=== PATIENT | female | born 1975 | race Caucasian/White ===

== ENCOUNTER 2021-10-06 08:21 | Outpatient (RCR) | payer BC, SELFPAY ==
--- NOTE | 2021-09-29 18:16 | ONC.NURNOTE ---
Authorization: User: Shanice BessJada Davey Date: 07/28/21 12:49 Type: Eligibility Determination Note... Received request for prior auth for Aloxi ([id number]). Per [facility], this has been approved 0.25mg/5ml vial, quantity/billable units of 270 (27 doses), approved for 07/31/2021-07/30/2022. Auth # [id number] User: Shanice BessJada Davey Date: 03/16/21 15:59 Type: Eligibility Determination Note... Clarification of multiple authorizations. Irinotecan (J9206), Leucovorin (J6040) and Fluorouracil (J9190) do not need prior authorization. Per [facility] Avastin ([id number]) is approved 09/23/2020-09/22/2021., 1080 units total (40 units per visit for a total of 27 visits) Aloxi (J2469) is approve 07/21/2020-07/20/2021, 270 units total ( 10 units per visit for a total of 27 visits) Emend (J1453) is approve 09/28/2020-09/27/2021, 4050 units(150units per visit for a total of 27 visits)
== END 2021-10-15 23:59 | disposition home or self-care (01) ==
LOC: CCIC 08:21
PROVIDERS: PCP Family Medicine; Visit Provider Internal Medicine Medical Oncology
DX: C20 Malignant neoplasm of rectum (principal); C78.7 Secondary malignant neoplasm of liver and intrahepatic bile duct; C78.00 Secondary malignant neoplasm of unspecified lung
CPT/HCPCS: 99211

== ENCOUNTER 2021-10-30 08:18 | Outpatient (CLI) | payer BC, SELFPAY ==
--- OUTSIDE RECORDS SUMMARY | 2021-10-30 08:21 | XMS_ITS | Encounter Summary ---
:1975 Demographics Address [address] [facility] [address] [place] [address] Home Phone Email Address Preferred Language ENG Marital Status Mandaen Affiliation Unknown Race White Ethnic Group Not or Author Organization [facility] Address [address] [place] [address] Care Team Providers Name Role Phone Unavailable Primary Care Provider Unavailable Reason for Visit Reason Onset Date Comments Outpatient COVID-19 Testing 10/25/2019 Encounter Details Date Type Department Care Team Description 10/25/2019 External Outreach Department of [facility] Yair Gonzalez Encounter For Medicine in Gerald Patricio M.D. Screening For Other [place], [place] 1025 [facility] Viral Diseases [address] [place], [place] (COVID-19) [place] [address] Dx) [id number] Social History Tobacco Use Types Packs/Day Years Used Date Smoking Tobacco: Never Assessed Alcohol Habits Answer Date Recorded How often do you have a drink containing alcohol? 2-3 times a week 07/27/2020 How many drinks containing alcohol do you have on a 1 or 2 07/27/2020 typical day when you are drinking? How often do you have six or more drinks on one Never 07/27/2020 occasion? Comment: Not asked Social Isolation Answer Date Recorded In a typical week, how many times do you Twice a week 07/27/2020 talk on the phone with family, friends, or neighbors? How often do you get together with friends Twice a week 07/27/2020 or relatives? How often do you attend taoism or latter day Not asked services? Do you belong to any clubs or organizations Yes 07/27/2020 such as taoism groups, unions, fraternal or athletic groups, or school groups? How often do you attend meetings of the More than 4 times pe r year 07/27/2020 clubs or organizations you belong to? Are you now , , , 07/27/2020 , never or living with a partner? Physical Activity Answer Date Recorded On average, how many days per week do you engage in moderate to 7 days 07/27/2020 strenuous exercise (like walking fast, running, jogging, dancing, swimming, biking, or other activities that cause a light or heavy sweat)? On average, how many minutes do you engage in exercise at th is 120 min 07/27/2020 level? Stress Answer Date Recorded Do you feel stress - tense, restless, nervous, or Only a lit tle 07/27/2020 anxious, or unable to sleep at night because your mind is troubled all the time - these days? Financial Resource Strain Answer Date Recorded How hard is it for you to pay for the very basics like Somew hat hard 07/27/2020 food, housing, medical care, and heating? Food Insecurity Answer Date Recorded Within the past 12 months, you worried that your food would Never true 07/27/2020 run out before you got money to buy more. Within the past 12 months, the food you bought just didn't N ever true 07/27/2020 last and you didn't have money to get more. Transportation Needs Answer Date Recorded In the past 12 months, has lack of transportation kept you f rom No 07/27/2020 medical appointments or from getting medications? In the past 12 months, has lack of transportation kept you f rom No 07/27/2020 meetings, work, or getting things needed for daily living? Housing Stability Answer Date Recorded In the last 12 months, was there a time when you were not ab le No 07/27/2020 to pay the mortgage or rent on time? In the last 12 months, how many places have you lived? 1 07/27/2020 In the last 12 months, was there a time when you did not hav e a No 07/27/[address] or slept in a long-term (including now)? Sex Assigned at Date Recorded Not on file documented as of this encounter Progress Notes Johanna Cuenca R.M.A. - 10/25/2019 8:28 AM CDT Encounter created for the drive-through COVID-19 testing. documented in this encounter Miscellaneous Notes Addendum Note - Cassandra Garza R.N. - 10/25/2019 8:28 AM CDT Addended by: CASSANDRA GARZA on: 10/29/2019 02:34 PM Modules accepted: Orders documented in this encounter Plan of Treatment Not on filedocumented as of this encounter Visit Diagnoses Diagnosis Encounter For Screening For Other Viral Diseases (COVID-19) - Primary documented in this encounter Additional Health Concerns Infection Onset Date Last Indicated Resolved Time COVID19 Pending 10/25/2019 10/25/2019 10/29/2019 2:34 PM CDT documented as of this encounter
--- OUTSIDE RECORDS SUMMARY | 2021-10-30 08:21 | XMS_ITS | Encounter Summary ---
:1975 Demographics Address [address] [address] Home Phone Email Address Preferred Language ENG Marital Status Jehovah'S Witness Affiliation Unknown Race White Ethnic Group Not or Author Organization [facility] Address [address] [place] [address] Care Team Providers Name Role Phone Unavailable Primary Care Provider Unavailable Reason for Visit Reason Comments COVID Inquiry Encounter Details Date Type Department Care Team Description 07/08/2020 Clinical Communication Department of Yair Gonzalez COVID Inquiry Oncology in [place] [address] [id number] Social History Tobacco Use Types Packs/Day Years [...] or relatives? How often do you attend samaritan or jew Not asked services? Do you belong to any clubs or organizations Yes 07/27/2020 such as samaritan groups, unions, fraternal or athletic groups, or [...] place to sleep or slept in a longterm (including now)? Sex Assigned at Date Recorded Not on file documented as of this encounter Plan of Treatment Not on filedocumented as of this encounter Visit Diagnoses Not on filedocumented in this encounter Additional Health Concerns Infection Onset Date Last Indicated Resolved Time COVID19 Pending 07/25/2020 07/25/2020 07/25/2020 11:51 PM CDT documented as of this encounter
--- OUTSIDE RECORDS SUMMARY | 2021-10-30 08:21 | XMS_ITS | Encounter Summary ---
:1975 Demographics Address [address] [facility] [address] [place] [address] Home Phone Email Address Preferred Language ENG Marital Status Baptist Affiliation Unknown Race White Ethnic Group Not or Author Organization [facility] Address [address] [place] [address] Care Team Providers Name Role Phone Unavailable Primary Care Provider Unavailable Reason for Visit Reason Onset Date Comments Outpatient COVID-19 Testing 11/06/2019 Encounter Details Date Type Department Care Team Description 11/06/2019 External Outreach Department of [facility] Yair Gonzalez Encounter For Medicine in Gerald Patricio M.D. Screening For Other [place], [place] 1025 [facility] Viral Diseases [address] [place], [place] (COVID-19) ([place] [address] Dx) [id number] Social History Tobacco Use Types Packs/Day Years [...] or relatives? How often do you attend jehovah's witness or nondenominational Not asked services? Do you belong to any clubs or organizations Yes 07/27/2020 such as jehovah's witness groups, unions, fraternal or athletic groups, or [...] place to sleep or slept in a long term (including now)? Sex Assigned at Date Recorded Not on file documented as of this encounter Progress Notes Cassandra Garza R.N. - 11/06/2019 4:55 PM CDT Encounter created for the drive-through COVID-19 testing. documented in this encounter Plan of Treatment Not on filedocumented as of this encounter Procedures Procedure Name Priority Date/Time Associated Diagnosis Comme nts SARS CORONAVIRUS-2 Routine 11/07/2019 10:47 AM Encounter For R esults for this RNA, V CDT Screening For Other procedur e are in Viral Diseases the results (COVID-19) section. documented in this encounter Results SARS Coronavirus-2 RNA, V Asymptomatic (11/07/2019 10:47 AM CDT) [facility] Method Time Signature SARS-CoV-2 Swab, 11/08/2019 MKTO Specimen Nasopharynx 1:49 AM CDT Source SARS CoV-2 Undetected Undetected 11/08/2019 MKTO RNA, TMA 1:49 AM CDT Comment: SARS-CoV-2 RNA absent. This result does not rule out COVID-19 in the patient, as the sensitivity of the test depends o n the timing of the specimen collection and the quality of the specim en. Result should be correlated with patient's history and clinical presentat ion. ----ADDITIONAL INFORMATION---- This test is performed using the Aptima SARS-CoV-2 assay ([employer] which has received Emergency Use Authori zation (EUA) by the U.S. Food and Drug Administration. Fact sheets for this Emergency Use Autho rization (EUA) assay can be found at the following links: For Healthcare Providers: https://www.fd a.gov/media/132626/download For Patients: https://www.fda.gov/media/ 159218/download Specimen Anatomical Collection Method Collection Time Receive d Time (Source) Location / / Volume Laterality Varies 11/07/2019 10:47 11/07/2019 4:15 (Nasopharynx) AM CDT PM CDT Yair Gonzalez M.D. LAB MICROBIOLOGY - GENERAL O RDERABLES Performing Organization Address City/State/ZIP Code Phon e Number [facility]- [address] [place] [id number] [place] [address] [address] documented in this encounter Visit Diagnoses Diagnosis Encounter For Screening For Other Viral Diseases (COVID-19) - Primary documented in this encounter Additional Health Concerns Infection Onset Date Last Indicated Resolved Time COVID19 Pending 11/06/2019 11/07/2019 11/08/2019 1:49 AM CDT documented as of this encounter
--- OUTSIDE RECORDS SUMMARY | 2021-10-30 08:21 | XMS_ITS | Encounter Summary ---
:1975 Demographics Address [address] [address] Home Phone Email Address Preferred Language ENG Marital Status Mandaeism Affiliation Unknown Race White Ethnic Group Not or Author Organization [facility] Address [address] [place] [address] Care Team Providers Name Role Phone Unavailable Primary Care Provider Unavailable Encounter Details Date Type Department Care Team Description 12/18/2019 Hospital Encounter Department of Lelia Gregory Laboratory Medicine EDUARDO Mariano Screening For Other in [place], [facility] 1st [facility] Viral Diseases [place], [place] (COVID-19) [address] [place] [address] [place], [place] [phone] [address] (Work) [phone] Social History Tobacco Use Types Packs/Day Years [...] or relatives? How often do you attend spiritism or gnosticism Not asked services? Do you belong to any clubs or organizations Yes 07/27/2020 such as spiritism groups, unions, fraternal or athletic groups, or [...] place to sleep or slept in a assisted (including now)? Sex Assigned at Date Recorded Not on file documented as of this encounter Plan of Treatment Not on filedocumented as of this encounter Procedures Procedure Name Priority Date/Time Associated Diagnosis Comme nts SARS CORONAVIRUS-2 Routine 12/18/2019 10:11 AM Encounter For R esults for this RNA, V CDT Screening For Other procedur e are in Viral Diseases the results (COVID-19) section. documented in this encounter Results SARS Coronavirus-2 RNA, V Asymptomatic (12/18/2019 10:11 AM CDT) [facility] Method Time Signature SARS-CoV-2 Swab, 12/18/2019 MKTO Specimen Nasopharynx 10:19 PM Source CDT SARS CoV-2 Undetected Undetected 12/18/2019 MKTO RNA, TMA 10:19 PM CDT Comment: SARS-CoV-2 RNA absent. This result does not rule out COVID-19 in the patient, as the sensitivity of the test depends o n the timing of the specimen collection and the quality of the specim en. Result should be correlated with patient's history and clinical presentat ion. ----ADDITIONAL INFORMATION---- This test is performed using the Aptima SARS-CoV-2 assay ([employer] which has received Emergency Use Authori zation (EUA) by the U.S. Food and Drug Administration. Fact sheets for this Emergency Use Autho rization (EUA) assay can be found at the following links: For Healthcare Providers: https://www.fd a.gov/media/366569/download For Patients: https://www.fda.gov/media/ 528956/download Specimen Anatomical Collection Method Collection Time Receive d Time (Source) Location / / Volume Laterality Varies 12/18/2019 10:11 12/18/2019 3:54 (Nasopharynx) AM CDT PM CDT Montserrat Gregory APRN LAB MICROBIOLOGY - GENERAL O RDERABLES Performing Organization Address City/State/[facility] Code Phon e Number [facility]- [address] [place] [phone] [place] [address] System in [address] documented in this encounter Visit Diagnoses Diagnosis Encounter For Screening For Other Viral Diseases (COVID-19) documented in this encounter Additional Health Concerns Infection Onset Date Last Indicated Resolved Time COVID19 Pending 12/18/2019 12/18/2019 12/18/2019 10:20 PM CDT documented as of this encounter
--- OUTSIDE RECORDS SUMMARY | 2021-10-30 08:21 | XMS_ITS | Encounter Summary ---
:1975 Demographics Address [address] [place] [address] Home Phone [phone] Preferred Language Malaysian Marital Status Never Zoroastrian Affiliation Unknown Race White Ethnic Group Not or Author Care Team Providers Name Role Phone Tessy Oliveira MD Primary Care Provider [phone] Yair Gonzalez MD Radiation Oncologist [phone] [facility] Care Team Palliative Care [phone] Jasmin Portillo facs teacher [phone] [facility] Palliative Care [phone] Kevin Stein SEALER OPERATOR Palliative Care [phone] Ronit Nunez [facility] Sanding Machine Buffer [phone] Reason for Visit NN Enrollment Assessment and Plan Assessment Note Evaluation: Patient moved back to [place] in 2018, was diagnosed with Stage 4 metastatic colorectal Cancer in September 2019. Completed chemo 7 weeks ago. Reports she has no other health concerns. Reports she is feeling good since completing chemo. No immediate health needs at this time. REN: overall balance with my health, nut rition, exercise Cultural and spiritual beliefs: none -Discussed: Her health is important to h er and wants to use medical intervention as last resort. - Karnofsky score: 100 = Normal no compl aints; no evidence of disease -Pain/symptom management: -Medication support: -Assistance at home: -DME order: -Mental/emotional support: -Care coordination: -08/10 care support: -Falls: no recent falls -Hospitalizations: no hospitalizations i n the last 6 months -Health Needs: has periodontal disease - reports it is stable, concerned about the future maintaining her teeth and insurance not covering oral surgeries that may be needed Action: Introduced self and Adi Nurse Navigator role. Encouragement, emotional support and therapeutic listening provided. Nurse reminded patient of Adi's suppor tive services. Educated patient on Adi's 08/10 availability of a non licensed nuclear plant operator to provide immediate guidance over the phone and receive personalized advice on the next steps. Encouraged patient to call if any concerns or symptoms arise, and [phone] was provided. SEALER OPERATOR visit scheduled on 10/09/21 at 9am. Next Steps: Patient outreach in [facility] 6-8 weeks. TOBY Castellanos Discussion Note: None recorded.Patient educational handouts: No information available. Plan of Care Patient Instructions Patient instructed to call with orestes ns or concerns. Reminders Provider Appointments None recorded. ? ? Lab None recorded. ? ? Referral None recorded. ? ? Procedures None recorded. ? ? Surgeries None recorded. ? ? Imaging None recorded. ? ? Medications Name Start Date ? ? acyclovir 400 mg tablet ? Notes: MR 09/22/21 Medications Administered None recorded. Vitals Height Weight BMI 5 ft 3 in 50 lbs 8.9 kg/m2 Results Lab Results None recorded. Allergies Code Code System Name Reaction Severity Onset [id number] RxNorm Latex Rash ? 07/28/2020 Problems Name Status Onset Date Source ? 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 Procedures None recorded. Vaccine List None recorded. Social History 44. Assistance with Errands: N 30. Assistance with Transfers: N 56. Difficulty Remembering Things: N 26. Food Insecurity: N 42. Assistance with Eating: N 3. ACP Scan in Chart: N 4. Employment History: Employed 60. Has a Zoroastrian Preference: N 6. Income Source: Employment 34. Fear of Falling: N 22. Caregiver [place] Concerns: N 38. Assistance with Stairs: N 50. Uses Assistive Device(s): N 64. Trauma History: None reported 32. Assistance with Bathing: N 100. In General, would you say your Good health is: 68. Suicidal Safety Assessment Needed: N 77. Alcalde's Status: N 40. Assistance with Meal Prep: N 62. Feels Anxious/Stressed: N 54. Hearing Impairment: N 5. Health Care Agent: N 36. Assistance with Toileting: N 58. Mode of Transportation: drives self 8. ETOH Use: N 2. Date of ACP Acknowledgement Notes: Does not have HCD (includes advance directive, living will, POLST, health care agent, durable medical power of staff development educator): 12. Stable Housing: Y 48. Assistance with Managing Finances: N 10. Substance Use Concerns: N 34. Assistance with Dressing/Grooming: N 70. Mental Health Provider Involved: N 52. Vision Impairment: Y Notes: Wears gl asses for driving 33. Fallen Two or More Times in Last N Year: 76. Vulnerable Adult Concerns: N 28. Assistance with Walking: N 18. Has Reliable Social/Emotional Y Support: 8. Financial Strain: N 16. Children: 0 01. ACP Discussion Date: 09/22/2021 9. Illicit Drug Use: N 10. Living Situation: apartment 4. POLST Completed: N 72. Interpersonal Safety Concerns: N 14. Feels Safe At Home: Y 46. Assistance with Housekeeping: N 106. Assistance with Telephone: N Functional Status Unknown. Past Encounters 09/22/2021 Jasmin Portillo, RN: [address] [place] [phone], Ph. History of Present Illness Note: <div>General consent form reviewed, and patient verbally gives consent for services, release of information and record sharing. Mailing to be sent out including Notice of Privacy Practices and acopy of the General consent information sheet for review.</div><div>
Little Nuñez verbally gives permission to discuss health information with mother Livier Levy on 09/21/2021. Patient designees documented under Care Team section of chart. </div><div>
Contact: Nurse performed introduction visit via{{phone* face to face video}}. Patients' name and date of verified.
Patient story is presented {{entirely* primarily}} by the {{patient* patient's brother, full name patient's [id number], full name patient's caregiver, full name patient's daughter, full name patient's [id number]-wb-fvu, full name pat ient's friend, full name patient's grandchild, full name patient's , full name patient's sister, full name patient's [id number]-qu-gtz, full name patient&# 39;s son, full name patient's son-in-law, full name patient's ,full name}} Patient is a {{age 46#}} year-old, {{female* male}} with a reported history of Primary malignant neoplasm of rectum who appears {{alert, oriented and answering questions appropriately* confused and not answering questions appropriately}}.

This enrollment visit was conducted today via {{face to face phone* video}} with {{ Nurse#}}. All past medical history, current condition, medications, and allergies were reported by {{patient* patient's brother, full name patient's rlfncei-qb-jkw, full name patient's caregiver, full name patient's daughter, full name patient's [id number]-rn-vsu, full name patient's friend, full name patient's grandchild, full name patient's , full name patient's sister, full name patient's fyqesr-vo-orb, full name patient's son, full name patient's son-in-law, full name patient's , full name}}.

Start time: {{ 10:30am#}} Stop time: {{ 11:00am#}}
Clinician Located: {{Clinician Home Address* [place] Office Address Patient?s Home Address}}
Patient physically located at: {{Patient's Home Address* [facility] Location, Name of Facility, City/State SNF Location, Name of Facility, City/State LTC Location, Name of Facility, City/State Other Location, City, State}}
</div> Review of Systems None recorded. Physical Exam None recorded.
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
--- OUTSIDE RECORDS SUMMARY | 2021-10-30 08:21 | XMS_ITS | Encounter Summary ---
:1975 Demographics Address [address] [facility] [address] [place] [address] Home Phone Email Address Preferred Language ENG Marital Status Sikhism Affiliation Unknown Race White Ethnic Group Not or Author Organization [facility] Address [address] [place] [address] Care Team Providers Name Role Phone Unavailable Primary Care Provider Unavailable Encounter Details Date Type Department Care Team Description 02/26/2020 Hospital Encounter Department of Yair Gonzalez For Laboratory Medicine D, MMargaret. Screening For Other in [address] Viral Diseases [place], [place] (COVID-19) [address] [place] [address] [place], [place] [phone] [address] (Work) [phone] Social History Tobacco Use Types Packs/Day Years [...] or relatives? How often do you attend synagogue or taoism Not asked services? Do you belong to any clubs or organizations Yes 07/27/2020 such as synagogue groups, unions, fraternal or athletic groups, or [...] place to sleep or slept in a halfway (including now)? Sex Assigned at Date Recorded Not on file documented as of this encounter Plan of Treatment Not on filedocumented as of this encounter Procedures Procedure Name Priority Date/Time Associated Diagnosis Comme nts SARS CORONAVIRUS-2 Routine 02/26/2020 10:43 AM Encounter For R esults for this RNA, V POWER AND RECOVERY SUPERINTENDENT Screening For Other procedur e are in Viral Diseases the results (COVID-19) section. documented in this encounter Results SARS Coronavirus-2 RNA, V Asymptomatic (02/26/2020 10:43 AM POWER AND RECOVERY SUPERINTENDENT) [facility] Method Time Signature SARS-CoV-2 Swab, 02/26/2020 [facility] Specimen Nasopharynx 9:27 PM POWER AND RECOVERY SUPERINTENDENT Source SARS CoV-2 Undetected Undetected 02/26/2020 [facility] RNA, TMA 9:27 PM POWER AND RECOVERY SUPERINTENDENT Comment: SARS-CoV-2 RNA absent. This result does not rule out COVID-19 in the patient, as the sensitivity of the test depends o n the timing of the specimen collection and the quality of the specim en. Result should be correlated with patient's history and clinical presentat ion. ----ADDITIONAL INFORMATION---- This test is performed using the Aptima SARS-CoV-2 assay ([employer] which has received Emergency Use Authori zation (EUA) by the U.S. Food and Drug Administration. Fact sheets for this Emergency Use Autho rization (EUA) assay can be found at the following links: For Healthcare Providers: https://www.fd a.gov/media/708806/download For Patients: https://www.fda.gov/media/ 651641/download Specimen Anatomical Collection Method Collection Time Receive d Time (Source) Location / / Volume Laterality Varies 02/26/2020 10:43 02/26/2020 3:50 (Nasopharynx) AM POWER AND RECOVERY SUPERINTENDENT PM POWER AND RECOVERY SUPERINTENDENT Yair Gonzalez M.D. LAB MICROBIOLOGY - GENERAL O MICHAEL Performing Organization Address City/State/ZIP Code Phon e Number [facility]- [address] [place] [address] [place] [address] System [address] documented in this encounter Visit Diagnoses Diagnosis Encounter For Screening For Other Viral Diseases (COVID-19) documented in this encounter Additional Health Concerns Infection Onset Date Last Indicated Resolved Time COVID19 Pending 02/26/2020 02/26/2020 02/26/2020 9:28 PM POWER AND RECOVERY SUPERINTENDENT documented as of this encounter
--- OUTSIDE RECORDS SUMMARY | 2021-10-30 08:21 | XMS_ITS | Encounter Summary ---
:1975 Demographics Address [address] [facility] 2 [place] [address] Home Phone Email Address Preferred Language ENG Marital Status Rastafari Affiliation Unknown Race White Ethnic Group Not or Author Organization [facility] Address [address] [place] [address] Care Team Providers Name Role Phone Unavailable Primary Care Provider Unavailable Encounter Details Date Type Department Care Team Description 01/15/2020 Hospital Encounter Department of Yair Gonzalez For Laboratory Medicine Sheng, MMargaret. Screening For Other in [address] Viral Diseases [place], [place] (COVID-19) [address] [place] [address] [place], [place] [phone] [address] (Work) [phone] Social History Tobacco Use Types Packs/Day Years [...] or relatives? How often do you attend buddhist or catholic Not asked services? Do you belong to any clubs or organizations Yes 07/27/2020 such as buddhist groups, unions, fraternal or athletic groups, or [...] place to sleep or slept in a mcc (including now)? Sex Assigned at Date Recorded Not on file documented as of this encounter Plan of Treatment Not on filedocumented as of this encounter Procedures Procedure Name Priority Date/Time Associated Diagnosis Comme nts SARS CORONAVIRUS-2 Routine 01/15/2020 10:47 AM Encounter For R esults for this RNA, V CDT Screening For Other procedur e are in Viral Diseases the results (COVID-19) section. documented in this encounter Results SARS Coronavirus-2 RNA, V Asymptomatic (01/15/2020 10:47 AM CDT) [facility] Method Time Signature SARS-CoV-2 Swab, 01/16/2020 MK[facility] Specimen Nasopharynx 2:10 AM CDT Source SARS CoV-2 Undetected Undetected 01/16/2020 [facility] RNA, TMA 2:10 AM CDT Comment: SARS-CoV-2 RNA absent. This result does not rule out COVID-19 in the patient, as the sensitivity of the test depends o n the timing of the specimen collection and the quality of the specim en. Result should be correlated with patient's history and clinical presentat ion. ----ADDITIONAL INFORMATION---- This test is performed using the Aptima SARS-CoV-2 assay ([employer] which has received Emergency Use Authori zation (EUA) by the U.S. Food and Drug Administration. Fact sheets for this Emergency Use Autho rization (EUA) assay can be found at the following links: For Healthcare Providers: https://www.Singular a.gov/media/480740/download For Patients: https://www.fda.gov/media/ 569001/download Specimen Anatomical Collection Method Collection Time Receive d Time (Source) Location / / Volume Laterality Varies 01/15/2020 10:47 01/15/2020 3:36 (Nasopharynx) AM CDT PM CDT Yair Gonzalez M.D. LAB MICROBIOLOGY - GENERAL O MICHAEL Performing Organization Address City/State/ZIP Code Phon e Number [facility]- [address] [place] [address] [place] [address] System [address] documented in this encounter Visit Diagnoses Diagnosis Encounter For Screening For Other Viral Diseases (COVID-19) documented in this encounter Additional Health Concerns Infection Onset Date Last Indicated Resolved Time COVID19 Pending 01/15/2020 01/15/2020 01/16/2020 2:10 AM CDT documented as of this encounter
--- OUTSIDE RECORDS SUMMARY | 2021-10-30 08:21 | XMS_ITS | Encounter Summary ---
:1975 Demographics Address [address] [facility] 2 [place] [address] Home Phone Email Address Preferred Language ENG Marital Status Synagogue Affiliation Unknown Race White Ethnic Group Not or Author Organization [facility] Address [address] [place] [address] Care Team Providers Name Role Phone Unavailable Primary Care Provider Unavailable Reason for Referral MRI/CAT/PET Scan (Routine) - Authorized Specialty Diagnoses / Procedures Referred By Contact Refer red To Contact Radiology Diagnoses Lung Interstitial Disease (HCC) Yair Gonzalez M.D. [facility] Region Procedures CT Chest without IV Contrast [address] [place] [address] Referral ID Status Reason Start Date Expiration Date Visits V isits Requested Authorized [id number] Authorized 05/01/2021 05/01/2022 1 1 DENTIAL GLAZIER Outpatient (Routine) - Authorized Specialty Diagnoses / Procedures Referred By Contact Refer red To Contact Pulmonary Medicine Yair Gonzalez M. D. Specks, [place], M.D. [facility] [address] [place] [address] [place] [address] Phone: Fax: Referral ID Status Reason Start Date Expiration Date Visits V isits Requested Authorized [id number] Authorized 05/01/2021 05/01/2022 1 1 DENTIAL GLAZIER Encounter Details Date Type Department Care Team Description 05/01/2021 Orders Only Department of Yair Gonzalez Cavity Lu ng (Primary Dx); Oncology in [place], M.D. Malignant Neoplasm Of Rectum (HCC); [place] [facility] Lung Interstitial Disease (HCC) [address] [place] [phone] Social History Tobacco Use Types Packs/Day Years [...] or relatives? How often do you attend advent or adventism Not asked services? Do you belong to any clubs or organizations Yes 07/27/2020 such as advent groups, unions, fraternal or athletic groups, or school groups? How often do you attend meetings of the More than 4 times pe year 07/27/2020 clubs or organizations you belong [...] or slept in a mcc (including now)? Education Answer Date Recorded What is the highest level of Professional school degree (e.g ., , 07/27/2020 school you have completed or the DDS, DVM, RASTA) highest degree you have received? Sex Assigned at Date Recorded Not on file documented as of this encounter Plan of Treatment Scheduled Orders Name Type Priority Associated Diagnoses Order S chedule CT Chest without Imaging RAD - Routine (most Lung Interstitial Expected: IV Contrast inpatients and all Disease (HCC) 07/30/19 22 outpatients) (Approximate), Expires: 07/29/2022 Scheduled Referrals Name Type Priority Associated Diagnoses Order S chedule Return to provider Outpatient Referral Routine Ex pected: in another 07/29/2021 specialty (Approximate), Expires: 07/29/2022 documented as of this encounter Visit Diagnoses Diagnosis Cavity Lung - Primary Malignant Neoplasm Of Rectum (HCC) Lung Interstitial Disease (HCC) documented in this encounter
--- OUTSIDE RECORDS SUMMARY | 2021-10-30 08:21 | XMS_ITS | Encounter Summary ---
:1975 Demographics Address [address] [place] [address] Home Phone [phone] Preferred Language Croatian Marital Status Never Methodist Affiliation Unknown Race White Ethnic Group Not or Author Care Team Providers Name Role Phone Tessy Oliveira MD Primary Care Provider [phone] Yair Gonzalez MD Radiation Oncologist [phone] [facility] Care Team Palliative Care [phone] Jasmin Portillo head knitting machine fixer [phone] Dionne Unger [facility] Palliative Care [phone] Kevin Stein ORDER TO DELIVERY SUPERVISOR Palliative Care [phone] Ronit Nunez [facility] Special Delivery Carrier [phone] Reason for Visit AMINATA Initial Assessment and Plan Assessment Note Patient did not answer her phone today. Called x 2, left a message x 1. Please try and reschedule for the third time. Message sent to [facility] Discussion Note: None recorded.Patient educational handouts: No information available. Plan of Care Reminders Provider Appointments None recorded. ? ? Lab None recorded. ? ? Referral None recorded. ? ? Procedures None recorded. ? ? Surgeries None recorded. ? ? Imaging None recorded. ? ? Medications Name Start Date ? ? acyclovir 400 mg tablet ? Notes: MR 09/22/21 Medications Administered None recorded. Vitals None recorded. Results Lab Results None recorded. Allergies Code Code System Name Reaction Severity Onset [id number] RxNorm Latex Rash ? 07/28/2020 Problems Name Status Onset Date Source ? 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 Procedures None recorded. Vaccine List None recorded. Social History 44. Assistance with Errands: N 30. Assistance with Transfers: N 56. Difficulty Remembering Things: N 26. Food Insecurity: N 42. Assistance with Eating: N 3. ACP Scan in Chart: N 60. Has a Methodist Preference: N 4. Employment History: Employed 6. Income Source: Employment 34. Fear of Falling: N 38. Assistance with Stairs: N 22. Caregiver Elizabeth Concerns: N 64. Trauma History: None reported 50. Uses Assistive Device(s): N 32. Assistance with Bathing: N 100. In General, would you say your Good health is: 68. Suicidal Safety Assessment Needed: N 77. 's Status: N 40. Assistance with Meal Prep: N 62. Feels Anxious/Stressed: N 54. Hearing Impairment: N 5. Health Care Agent: N 36. Assistance with Toileting: N 58. Mode of Transportation: drives self 8. ETOH Use: N 2. Date of ACP Acknowledgement Notes: Does not have HCD (includes advance directive, living will, POLST, health care agent, durable medical power of sports attorney): 12. Stable Housing: Y 48. Assistance with [...] Telephone: N Functional Status Unknown. Past Encounters 10/13/2021 Kevin Stein ORDER TO DELIVERY SUPERVISOR: [place] [address], Ph. 10/09/2021 Discussed with Patient Kevin Stein NP: [place] [address], Ph. 09/22/2021 Jasmin Portillo RN: [place] [address], Ph. History of Present Illness None recorded. Review of Systems None recorded. Physical Exam ? General Adult Exam Reported By: Patient
--- OUTSIDE RECORDS SUMMARY | 2021-10-30 08:21 | XMS_ITS | Encounter Summary ---
:1975 Demographics Address [address] [address] Home Phone Email Address Preferred Language ENG Marital Status Synagogue Affiliation Unknown Race White Ethnic Group Not or Author Organization [facility] Address [address] [place] [address] Care Team Providers Name Role Phone Unavailable Primary Care Provider Unavailable Encounter Details Date Type Department Care Team Description 07/25/2020 Hospital Encounter Department of Yair Gonzalez Laboratory Medicine Connor Patricio. Examination For in [address] [place] [address] [place], [place] [phone] [address] (Work) [phone] Social History Tobacco Use Types Packs/Day Years [...] or relatives? How often do you attend mandaen or yarsanism Not asked services? Do you belong to any clubs or organizations Yes 07/27/2020 such as mandaen groups, unions, fraternal or athletic groups, or [...] on file documented as of this encounter Medications at Time of Discharge Medication Sig Dispensed Refills Start Date End Date acyclovir (ZOVIRAX) 400 mg 1 tablet daily. 0 04/18 tablet LORazepam (ATIVAN) 0.5 mg 1 tablet as 0 1 tablet needed. prochlorperazine (COMPAZINE) 1 tablet as needed 0 04/20/2020 5 mg tablet for nausea. documented as of this encounter Plan of Treatment Not on filedocumented as of this encounter Procedures Procedure Name Priority Date/Time Associated Diagnosis Comme nts SARS CORONAVIRUS-2 Routine 07/25/2020 9:34 AM Screening Res ults for this RNA, V CDT Examination For procedure ar e in Viral Disease the results section. documented in this encounter Results SARS Coronavirus-2 RNA, V Asymptomatic (07/25/2020 9:34 AM CDT) [facility] Method Time Signature SARS-CoV-2 Swab, 07/25/2020 [facility] Specimen Nasopharynx 11:51 PM Source CDT SARS CoV-2 Undetected Undetected 07/25/2020 MKTO RNA, TMA 11:51 PM CDT Comment: SARS-CoV-2 RNA absent. This result does not rule out COVID-19 in the patient, as the sensitivity of the test depends o n the timing of the specimen collection and the quality of the specim en. Result should be correlated with patient's history and clinical presentat ion. ----ADDITIONAL INFORMATION---- This molecular amplification test was pe rformed using the Aptima SARS-CoV-2 assay ([employer] on the [employer] tem under emergency use authorization (EUA) by the U.S. Food and Drug Administ ration. Fact sheets for this EUA assay can be fo und at the following links: For Healthcare Providers: https://www.fd a.gov/media/251515/download For Patients: https://www.fda.gov/media/ 266078/download Specimen Anatomical Collection Method Collection Time Receive d Time (Source) Location / / Volume Laterality Varies 07/25/2020 9:34 AM 3:25 (Nasopharynx) CDT PM CDT Yair Gonzalez M.D. LAB MICROBIOLOGY - GENERAL O RDERABLES Performing Organization Address City/State/ZIP Code Phon e Number [facility]- [address] [place] [address] [place] [address] System [address] documented in this encounter Visit Diagnoses Diagnosis Screening Examination For Viral Disease documented in this encounter Additional Health Concerns Infection Onset Date Last Indicated Resolved Time COVID19 Pending 07/25/2020 07/25/2020 07/25/2020 11:51 PM CDT documented as of this encounter
--- OUTSIDE RECORDS SUMMARY | 2021-10-30 08:21 | XMS_ITS | Encounter Summary ---
:1975 Demographics Address [address] [address] Home Phone Email Address Preferred Language ENG Marital Status Jainism Affiliation Unknown Race White Ethnic Group Not or Author Organization [facility] Address [address] [place] [address] Care Team Providers Name Role Phone Unavailable Primary Care Provider Unavailable Encounter Details Date Type Department Care Team Description 05/03/2021 Clinical Communication [facility] Pulmonary Medicine in [place], NEUROLOGY TECHNICIAN, C .N.P. [place], [place] [id number] [facility] [address] [place], [place] [phone] [address] Social History Tobacco Use Types Packs/Day [...] or relatives? How often do you attend uatsdin or sabianist Not asked services? Do you belong to any clubs or organizations Yes 07/27/2020 such as uatsdin groups, unions, fraternal or athletic groups, or [...] place to sleep or slept in a intermediate (including now)? Education Answer Date Recorded What is the highest level of Professional school degree (e.g ., , 07/27/2020 school you have completed or the DDS, DVM, RASTA) highest degree you have received? Sex Assigned at Date Recorded Not on file documented as of this encounter Miscellaneous Notes Telephone Encounter - Maribell West F - 05/03/2021 10:53 AM CST Text sent to patient to schedule. Thank you TEACHER Telephone Encounter - Sandrine Ortiz APRN, C.N.P. - 05/03/2021 10:41 AM TAFE TEACHER Order signed. TEACHER Addendum Note - Sandrine Ortiz APRN, C.N.P. - 05/03/2021 10:40 AM TAFE TEACHER Addended by: SANDRINE ORTIZ on: 05/03/2021 10:40 AM Modules accepted: Orders TEACHER Addendum Note - Sahil Gracia R.N. - 05/03/2021 10:24 AM TAFE TEACHER Addended by: SAHIL GRACIA on: 05/03/2021 10:24 AM Modules accepted: Orders TEACHER Telephone Encounter - Sahil Gracia R.N. - 05/03/2021 10:22 AM CST Referral for cavity lung. ERICKA seen in [facility] 07/28/2020, per note should follow up in 6-[address] chest completed 04/24/21. PFT, Hgb and Covid test pended. TEACHER Telephone Encounter - Brenda Mcdonald - 05/03/2021 9:59 AM CST Return to specialty order for follow-up pulmonary cavitary lesions, some growth during chemo for metastatic rectal cancer. Please enter any needed testing. First available or on rounds? TEACHER documented in this encounter Plan of Treatment Scheduled Orders Name Type Priority Associated Diagnoses Order S chedule Pulmonary Function PFT Routine Abnormal Computed Expe cted: 05/03/2021 Tests Tomography Chest (Approximat e), Expires: 2022 Hemoglobin Lab Routine Abnormal Computed Expected: 05/03/2021 Tomography Chest (Approximat e), Expires: 2022 SARS Coronavirus-2 Microbiology Routine Abnormal Computed 1 Oc currences RNA, V Asymptomatic Tomography Chest star ting 05/03/2021 until 3 documented as of this encounter Visit Diagnoses Diagnosis Abnormal Computed Tomography Chest - Sveta clark documented in this encounter
--- OUTSIDE RECORDS SUMMARY | 2021-10-30 08:21 | XMS_ITS | Encounter Summary ---
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 [address] [address] Referral ID Status Reason Start Date Expiration Date Visits Requ ested Visits Authorized [id number] Closed 07/05/2020 07/05/2021 1 1 Encounter Details Date Type Department Care Team Description 07/28/2020 Comprehensive Visit Division of An Harrell neftaly; Pulmonary Medicine Jasper Peterson Malignant Neoplasm Of Rectum (HCC) in [place], [address] [place] [address] [place] [address] [place], [place] [phone] (Work) [phone] Social History Tobacco Use Types Packs/Day Years [...] or relatives? How often do you attend yazdanism or uatsdin Not asked services? Do you belong to any clubs or organizations Yes 07/27/2020 such as yazdanism groups, unions, fraternal or athletic groups, or [...] place to sleep or slept in a custodial (including now)? Education Answer Date Recorded What is the highest level of Professional school degree (e.g ., , 07/27/2020 school you have completed or the DDS, DVM, RASTA) highest degree you have received? Sex Assigned at Date Recorded Not on file documented as of this encounter Last Filed Vital Signs Vital Sign Reading [...] Mass Index 25.93 07/28/2020 8:45 AM CDT documented in this encounter H&P Notes Nicholas Harrell M.D. - 07/28/2020 9:00 AM CDT SUBJECTIVE Referred by: Yair Gonzalez M.D. [address] [place] [phone] CHIEF COMPLAINT / REASON FOR VISIT Ms. Kristine Nuñez is a 45 y.o. female who referred for an evaluation of incidentally detected cystic lung lesions. HISTORY OF PRESENT ILLNESS is a very pleasant 45-year-old woman with metastatic colorectal cancer undergoing chemotherapy. She was diagnosed with this in September of 2019 and chemotherapy was initiated right away. At presentation she had a right-sided pleural effusion as well as right-sided mass lesion as well as some hilar and mediastinal adenopathy. Unfortunately the imaging studies from that time are currently not available for review. Some cystic lesions were also noted at the time. Ms. Nuñze has not experienced any pneumothoraces, and she had no respiratory symptoms prior to her diagnosis of metastatic colorectal cancer. Over the course of the last summer, leading up to the presentation of the cancer she did develop some cough as well as some fever and occasional sensation of dyspnea. However these symptoms have improved substantially over the course of the last months. The dates of her CT scans of the chest and abdomen obtained so far were: 1. October 08, 2019 2. December 14, 2019 3. February 26, 2020 4. June 30, 2019 We currently only have the CT scan from June 29 for for review. This shows multiple bilateral cystic lesions some with some associated nodules. Based on the reports the patient was able to read to me these cystic lesions have remained completely stable between October 08, 2019 and June 29, 2020, indicating that there were pre-existing and unrelated to her cancer. All lesions attributable to the cancer have improved significantly over time under chemotherapy. The only relevant exposure history consists of significant past marijuana use. She does not relate any family history of lung disease. The following portions of the patient's history were reviewed and updated as appropriate: allergies,current medications, family history, medical history, social history, surgical history and problem list. OBJECTIVE BP 116/89 (BP Location: Left arm, Patient Position: Sitting, Cuff Size: Regular) Pulse 90 Temp (!) 35.5 ??C (Tympanic) Ht 162.4 cm Wt 68.4 kg SpO2 98% BMI 25.93 kg/m?? PHYSICAL EXAM General: Well appearing. No conversational dyspnea. No coughing during evaluation. Eyes: Anicteric sclerae. Heart: Regular rate and rhythm. Lungs: Bilateral inspiratory and expiratory squeaks as well as some large airway rhonchi. Extremities: No peripheral edema. ASSESSMENT / PLAN #1 Cavity Lung #2 Malignant Neoplasm Of Rectum (HCC) Pulmonary function testing obtained this morning shows a nonspecific abnormality consisting of FVC reduction of 71% predicted and FEV1 reduction of 58% predicted with normal FEV1 to FVC ratio and observed significant bronchodilator response. Diffusing capacity was normal. The differential diagnosis based on the radiographic appearance includes lymphangioleiomyomatosis, SUNDEEP Chely Chidi a syndrome, lymphocytic interstitial pneumonia, emphysematous blebs possibly aggravatedby past marijuana use. Her abdominal CTs have not detected any renal tumors. She did not relate any sicca symptoms or otherconnective tissue disorder symptomatology. Consequently, lymphangioleiomyomatosis or SUNDEEP Chely Chidi a syndrome would be most likely. We discussed options to establish a diagnosis in detail. Also, we discussed that for as long as there is no complication from the cystic lesions or evidence of progression of lung function impairment there is no need for therapeutic intervention, and therefore no need for immediate additional diagnostic procedures. She will have regular follow-up CTs of the chest and abdomen for her cancer follow-up anyway Q 4-6 months, allowing future assessment of stability of the cystic lesions. Follow-up PFTs in 6-12 months or based on symptoms is also recommended. Potential symptoms associated with the development of pneumothorax were discussed in detail, and sheis aware that she needs to seek help from the nearest emergency room in the occurrence of such symptoms. In summary, in her specific situation there is currently no benefit or clinical urgency to establisha specific diagnosis until there is documented progression and/or development of complications attributable to the cystic lesions. She seemed very reassured, satisfied and comfortable with this assessment and plan. She will contact me if she desires follow-up evaluation for this pulmonary process in the future, and I be happy to see her back any time. 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
--- OUTSIDE RECORDS SUMMARY | 2021-10-30 08:21 | XMS_ITS | Encounter Summary ---
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 [facility] Procedures Six Minute Walk [address] [place] [phone] Referral ID Status Reason Start Date Expiration Date Visits Requ ested Visits Authorized [id number] Closed 07/05/2020 07/05/2021 1 1 Encounter Details Date Type Department Care Team Description 07/18/2020 Hospital Encounter Department of Yair Gonzalez Lung; Jesús Patricio M.D. Malignant Neoplasm Of Rectum (HCC) Rehabilitation [address] [place] [address] [facility] [address] [place] [address] [phone] Social History Tobacco Use Types Packs/Day Years [...] or relatives? How often do you attend holiness or confucianist Not asked services? Do you belong to any clubs or organizations Yes 07/27/2020 such as holiness groups, unions, fraternal or athletic groups, or school groups? How often do you attend meetings of the More than 4 times year 07/27/2020 clubs or organizations you belong [...] for nausea. documented as of this encounter Procedure Notes Olman Enriquez R.R.T., LJadaRRayo. - 07/18/2020 8:00 AM CDT Date: 07/18/2020 @ 0800 O2/LPM RA Assistance Device None Resting O2 SAT/HR 97% 85 RA 1 Minute 97% 106 RA 2 Minute 95% 105 RA 3 Minute 93% 105 RA 4 Minute 94% 107 RA 5 Minute 95% 104 RA 6 Minute 94% 107 RA Post Test 95% 95 RA Distance 1470 Feet Darling Scale 2 Perceived Exertion 9 Number of Rest Stops No rests needed Comment: Patient arrived on time. No oxygen being used chronically. Patient brought back to the testing area, testing explained to patient. Pre assessment done as documented above. Did very well, very good pace by patient. Not needing any oxygen during testing, nothingelse noted except as documented above. documented in this encounter Plan of Treatment Not on filedocumented as of this encounter Procedures Procedure Name Priority Date/Time Associated Diagnosis Comme nts 6 MINUTE WALK Routine 07/18/2020 8:28 AM CDT Cavity Yahaira ng Malignant Neoplasm Of Rectum (HCC) documented in this encounter Results Six Minute Walk (07/18/2020 8:28 AM CDT) Specimen (Source) Anatomical Location Collection Method / Collectio n Time Received Time / Laterality Volume Yair Gonzalez M.D. 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
--- OUTSIDE RECORDS SUMMARY | 2021-10-30 08:21 | XMS_ITS | Encounter Summary ---
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 [address] [phone] Referral ID Status Reason Start Date Expiration Date Visits Requ ested Visits Authorized [id number] Closed 07/05/2020 07/05/2021 1 1 Encounter Details Date Type Department Care Team Description 07/05/2020 Clinical Communication Department of Yair Gonzalez, Oncology in [place] [address] [place] [phone] Social History Tobacco Use Types Packs/Day Years [...] or relatives? How often do you attend catholic or evangelical Not asked services? Do you belong to any clubs or organizations Yes 07/27/2020 such as catholic groups, unions, fraternal or athletic groups, or [...] of this encounter Plan of Treatment Scheduled Referrals Name Type Priority Associated Order Schedule Diagnoses Pulmonary Medicine - Outpatient Referral Routine Cavity Lung Expected: Interstitial lung Malignant Neoplasm 06/17, disease (ILD) consult Of Rectum (HCC) Exp ires: (clinic) 07/06/2023 documented as of this encounter Results Pulmonary Function Tests (07/28/2020 7:12 AM CDT) Analysis Performed At Patho logist Time Signature VC MAX POST 2.85 L 07/28/2020 [facility] 1:14 PM CDT [address] PostFVC 2.84 L 07/28/2020 [facility] 1:14 PM CDT SUITE PostFEV1 1.97 L 07/28/2020 [facility] 1:14 PM CDT SUITE FEV1/FVC POST 69.31 % 07/28/2020 [facility] 1:14 PM CDT SUITE FEF 25-75 % 1.21 L/s 07/28/2020 [facility] POST 1:14 PM CDT SU[address] PEF POST 5.17 L/s 07/28/2020 [facility] 1:14 PM CDT [address] FET POST 11.22 sec 07/28/2020 [facility] 1:14 PM CDT [address] DLCO SINGLE 18.30 ml/(min*mm 07/28/2020 [facility] BREATH POST Hg) 1:[address] VA SINGLE 4.21 L 07/28/2020 [facility] BREATH POST 1:14 PM CDT SUITE A0YxoXsza 98.00 % 07/28/2020 [facility] PM [facility] SUITE PulseRest 89.00 1/min 07/28/2020 [facility] 1:14 PM CDT SUITE T2QpgGmyj 100.00 % 07/28/2020 [facility] 1:14 PM CDT SUITE PulseExer 104.00 1/min 07/28/2020 [facility] 1:14 PM CDT SUITE EXER TIME 3.00 min 07/28/2020 [facility] 1:14 PM CDT SUITE STEP HEIGHT 9.00 Inch 07/28/2020 [facility] PRE 1:14 PM CDT SUITE TLC POST 4.71 L 07/28/2020 [facility] 1:14 PM CDT SUITE VC POST 2.74 L 07/28/2020 [facility] 1:14 PM CDT SUITE FRCPLETH POST 2.46 L 07/28/2020 [facility] 1:14 PM CDT SUITE RV 1.97 L 07/28/2020 [facility] 1:14 PM CDT SUITE RV % TLC POST 41.88 % 07/28/2020 [facility] 1:14 PM CDT [address] VC MAX PRE 2.53 L 07/28/2020 [facility] 1:14 PM CDT SUITE FVC 2.53 L 07/28/2020 [facility] 1:14 PM CDT SUITE FEV1 1.69 L 07/28/2020 [facility] 1:14 PM CDT SUITE FEV1/FVC 66.56 % 07/28/2020 [facility] 1:14 PM CDT SUITE GOQ29-02% 0.97 L/s 07/28/2020 [facility] 1:14 PM CDT SUITE PEF PRE 4.55 L/s 07/28/2020 [facility] 1:14 PM CDT SUITE FET PRE 9.73 sec 07/28/2020 [facility] 1:14 PM CDT SUITE SUBSTANCE POST Albuterol 07/28/2020 [facility] 1:14 PM CDT SU[address] DOSE POST 2 Puff 07/28/2020 [facility] 1:14 PM CDT SUITE % PRED VC MAX 71 % % 07/28/2020 [facility] 1:14 PM CDT SUITE FVC% 71 % % 07/28/2020 [facility] 1:14 PM CDT SUITE FEV1% 58 % % 07/28/2020 [facility] 1:14 PM CDT SUITE % PRED 82 % % 07/28/2020 [facility] FEV1/FVC 1:14 PM CDT SUITE % PRED FEF 33 % % 07/28/2020 [facility] 25-75% 1:14 PM CDT SUITE % PRED PEF 75 % % 07/28/2020 [facility] 1:14 PM CDT SUITE PRED TLC 4.93 07/28/2020 [facility] 1:14 PM CDT SUITE PRED RV 1.66 07/28/2020 [facility] 1:14 PM CDT SUITE PRED VC MAX 3.56 07/28/2020 [facility] 1:14 PM CDT SUITE PRED FVC 3.56 07/28/2020 [facility] 1:14 PM CDT SUITE PRED FEV 1 2.88 07/28/2020 [facility] 1:14 PM CDT SUITE PRED FEV1/FVC 81.3 07/28/2020 [facility] 1:14 PM CDT SUITE PRED FEF 2.95 07/28/2020 [facility] 25-75% 1:14 PM [address] PRED PEF 6.1 07/28/2020 [facility] 1:[address] PRED DLCO 21.4 07/28/2020 [facility] 1:14 PM CDT SUITE Specimen (Source) Anatomical Collection Method Collection Time Re ceived Time Location / / Volume Laterality 07/28/2020 7:12 AM CDT Narrative This result has an attachment that is no t available. Yair Gonzalez M.D. PFT ORDERABLES Performing Organization Address City/State/ZIP Code Phon e Number [facility] [address] [facility] [address] Six Minute Walk (07/18/2020 8:28 AM CDT) Specimen (Source) Anatomical Location Collection Method / Collectio n Time Received Time / Laterality Volume Yair Gonzalez M.D. CV STRESS PROCEDURES documented in this encounter Visit Diagnoses Diagnosis Cavity Lung - Primary Malignant Neoplasm Of Rectum (HCC) documented in this encounter
--- OUTSIDE RECORDS SUMMARY | 2021-10-30 08:21 | XMS_ITS | Encounter Summary ---
:1975 Demographics Address [address] [facility] [address] [place] [address] Home Phone Email Address Preferred Language ENG Marital Status Temple Affiliation Unknown Race White Ethnic Group Not or Author Organization [facility] Address [address] [place] [address] Care Team Providers Name Role Phone Unavailable Primary Care Provider Unavailable Encounter Details Date Type Department Care Team Description 01/01/2020 Hospital Encounter Department of Yair Gonzalez For Laboratory Medicine Sheng, MMargaret. Screening For Other in [address] Viral Diseases [place], [place] (COVID-19) [address] [place] [address] [place], [place] [phone] (Work) [phone] Social History Tobacco Use Types Packs/Day Years [...] or relatives? How often do you attend muslim or moravian Not asked services? Do you belong to any clubs or organizations Yes 07/27/2020 such as muslim groups, unions, fraternal or athletic groups, or [...] or slept in a fpc (including now)? Sex Assigned at Date Recorded Not on file documented as of this encounter Plan of Treatment Not on filedocumented as of this encounter Procedures Procedure Name Priority Date/Time Associated Diagnosis Comme nts SARS CORONAVIRUS-2 Routine 01/01/2020 10:20 AM Encounter For R esults for this RNA, V CDT Screening For Other procedur e are in Viral Diseases the results (COVID-19) section. documented in this encounter Results SARS Coronavirus-2 RNA, V Asymptomatic (01/01/2020 10:20 AM CDT) [facility] Method Time Signature SARS-CoV-2 Swab, 01/01/2020 [facility] Specimen Nasopharynx 9:49 PM CDT Source SARS CoV-2 Undetected Undetected 01/01/2020 [facility] RNA, TMA 9:49 PM CDT Comment: SARS-CoV-2 RNA absent. This result does not rule out COVID-19 in the patient, as the sensitivity of the test depends o n the timing of the specimen collection and the quality of the specim en. Result should be correlated with patient's history and clinical presentat ion. ----ADDITIONAL INFORMATION---- This test is performed using the Aptima SARS-CoV-2 assay ([employer] which has received Emergency Use Authori zation (EUA) by the U.S. Food and Drug Administration. Fact sheets for this Emergency Use Autho rization (EUA) assay can be found at the following links: For Healthcare Providers: https://www.Crono a.gov/media/055082/download For Patients: https://www.fda.gov/media/ 835587/download Specimen Anatomical Collection Method Collection Time Receive d Time (Source) Location / / Volume Laterality Varies 01/01/2020 10:20 01/01/2020 3:36 (Nasopharynx) AM CDT PM CDT Yair Gonzalez M.D. LAB MICROBIOLOGY - GENERAL O [facility] Performing Organization Address City/State/ZIP Code Phon e Number [facility]- [address] [place] [id number] [place] [address] [address] documented in this encounter Visit Diagnoses Diagnosis Encounter For Screening For Other Viral Diseases (COVID-19) documented in this encounter Additional Health Concerns Infection Onset Date Last Indicated Resolved Time COVID19 Pending 01/01/2020 01/01/2020 01/01/2020 9:49 PM CDT documented as of this encounter
--- OUTSIDE RECORDS SUMMARY | 2021-10-30 08:21 | XMS_ITS ---
:1975 Demographics Address [address] [place] [address] Home Phone [phone] Preferred Language Libyan Marital Status Never Lutheran Affiliation Unknown Race White Ethnic Group Not or Author Care Team Providers Name Role Phone [facility] Palliative Care [phone] JASMIN PORTILLO theater projectionist [phone] [facility] Palliative Care [phone] AVIS STEIN ALL PURPOSE CLERK Palliative Care [phone] ITZEL WOODRUFF MD Radiation Oncologist [phone] CELESTE SOLORZANO MD Primary Care Provider [phone] TODD BRAND [facility] Battery Charger [phone] Allergies Code Code System Name Reaction Severity Status Onset [id number] RxNorm Latex Rash ? Active 07/28/2020 Medications Name Status Start Date Stop Date ? ? acyclovir 400 mg tablet Active ? Not avai lable clindamycin HCl 150 mg capsule Completed ? 0 09/22/2021 clindamycin HCl 300 mg capsule Completed ? 0 09/22/2021 doxycycline monohydrate 100 mg tablet Completed ? 09/22/2021 fluorouracil 5 gram/100 mL intravenous solution Completed ? 09/22/2021 lorazepam 0.5 mg tablet Completed ? 09/23/19 ProAir HFA 90 mcg/actuation aerosol inhaler Completed ? 09/22/2021 prochlorperazine maleate 10 mg tablet Completed ? 09/22/2021 prochlorperazine maleate 5 mg tablet Completed ? 09/22/2021 Notes: MR 09/22/21 Problems Name Status Onset Date Source ? 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 Procedures None recorded. Results Lab Results None recorded. Past Encounters 10/13/2021 Avis Stein NP: [address] [place] [address], Ph. 10/09/2021 Discussed with Patient Avis Stein ALL PURPOSE CLERK: [address] [place] [address], Ph. 09/22/2021 Jasmin Portillo RN: [address] [place] [address], Ph. Social History None recorded. Vaccine List None recorded. Plan of Care Patient Instructions Patient instructed to call with [employer] ns or concerns. Reminders Provider Appointments None recorded. ? ? Lab None recorded. ? ? Referral None recorded. ? ? Procedures None recorded. ? ? Surgeries None recorded. ? ? Imaging None recorded. ? ? Vitals Height Weight BMI 5 ft 3 in 50 lbs 8.9 kg/m2
--- OUTSIDE RECORDS SUMMARY | 2021-10-30 08:21 | XMS_ITS | Encounter Summary ---
:1975 Demographics Address [address] [place] [address] Home Phone [phone] Preferred Language Japanese Marital Status Never Congregational Affiliation Unknown Race White Ethnic Group Not or Author Care Team Providers Name Role Phone Tessy Oliveira MD Primary Care Provider [phone] Yair Gonzalez MD Radiation Oncologist [phone] [facility] Care Team Palliative Care [phone] Jasmin Portillo accounts payable technician [phone] [facility] Pall[facility] [phone] Kevin Stein CONSUMER ADVOCATE Palliative Care [phone] Ronit Nunez [facility] Gold Frame Assembler [phone] Reason for Visit AMINATA Initial Assessment and Plan Assessment Note Patient is seen for an initial visit an d assessment by [facility]: Patient is a pleasant 46 year old, she states that [facility] has a very busy day today and she would line to have the apt rescheduled to Rosa Elena ay at 11am. Message sent to [facility] for rescheduling. No services performed. 1. Discussed with patient Discussion Note: None recorded.Patient educational handouts: No [...] Code Code System Name Reaction Severity Onset 3865520 RxNorm Latex Rash ? 07/28/2020 Problems Name Status Onset Date Source ? 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 Procedures None recorded. Vaccine List None recorded. Social History 44. Assistance with Errands: N 30. Assistance with Transfers: N 56. Difficulty Remembering Things: N 26. Food Insecurity: N 42. Assistance with Eating: N 3. ACP Scan in Chart: N 60. Has a Congregational Preference: N 4. Employment History: Employed 6. Income Source: Employment 34. Fear of Falling: N 38. Assistance with Stairs: N 22. Caregiver [place] Concerns: N 64. Trauma History: None reported 50. Uses Assistive Device(s): N 32. Assistance with Bathing: N 100. In General, would you say your Good health is: 68. Suicidal Safety Assessment Needed: N 77. Viola's Status: N 40. Assistance with Meal Prep: N 62. Feels Anxious/Stressed: N 54. Hearing Impairment: N 5. Health Care Agent: N 36. Assistance with Toileting: N 58. Mode of Transportation: drives self 8. ETOH Use: N 2. Date of ACP Acknowledgement Notes: Does not have HCD (includes advance directive, living will, POLST, health care agent, durable medical power of energy attorney): 12. Stable Housing: Y 48. Assistance [...] Telephone: N Functional Status Unknown. Past Encounters 10/09/2021 Discussed with Patient Kevin Stein CONSUMER ADVOCATE: [address] [place] [address], Ph. 09/22/2021 Jasmin Portillo RN: [address] [place] [address], Ph. History of Present Illness None recorded. Review of Systems None recorded. Physical Exam ? General Adult Exam Reported By: Patient
--- OUTSIDE RECORDS SUMMARY | 2021-10-30 08:21 | XMS_ITS | Encounter Summary ---
:1975 Demographics Address [address] [facility] 2 [place] [address] Home Phone Email Address Preferred Language ENG Marital Status Nondenominational Affiliation Unknown Race White Ethnic Group Not or Author Organization [facility] Address [address] [place] [address] Care Team Providers Name Role Phone Unavailable Primary Care Provider Unavailable Reason for Visit Reason Onset Date Comments Outpatient COVID-19 Testing 11/21/2019 Encounter Details Date Type Department Care Team Description 11/21/2019 External Outreach Department of [facility] Yair Gonzalez Encounter For Medicine in Gerald Patricio M.D. Screening For Other [place], [place] [address] [facility] Viral Diseases [address] [place], [place] (COVID-19) ([place] [address] Dx) [phone] Social History Tobacco Use Types Packs/Day Years [...] or relatives? How often do you attend restorationist or uatsdin Not asked services? Do you belong to any clubs or organizations Yes 07/27/2020 such as restorationist groups, unions, fraternal or athletic groups, or [...] documented as of this encounter Progress Notes Nargis Garcias R.M.A. - 11/21/2019 9:23 AM CDT Encounter created for the drive-through COVID-19 testing. documented in this encounter Plan of Treatment Not on filedocumented as of this encounter Procedures Procedure Name Priority Date/Time Associated Diagnosis Comme nts SARS CORONAVIRUS-2 Routine 11/21/2019 9:24 AM Encounter For Re sults for this RNA, V CDT Screening For Other procedur e are in Viral Diseases the results (COVID-19) section. documented in this encounter Results SARS Coronavirus-2 RNA, V Asymptomatic (11/21/2019 9:24 AM CDT) [facility] Method Time Signature SARS-CoV-2 Swab, 11/22/2019 MKTO Specimen Nasopharynx 5:01 AM CDT Source SARS CoV-2 Undetected Undetected 11/22/2019 MKTO RNA, TMA 5:01 AM CDT Comment: SARS-CoV-2 RNA absent. This result does not rule out COVID-19 in the patient, as the sensitivity of the test depends o n the timing of the specimen collection and the quality of the specim en. Result should be correlated with patient's history and clinical presentat ion. ----ADDITIONAL INFORMATION---- This test is performed using the Aptima SARS-CoV-2 assay ([employer] which has received Emergency Use Authori zation (EUA) by the U.S. Food and Drug Administration. Fact sheets for this Emergency Use Autho rization (EUA) assay can be found at the following links: For Healthcare Providers: https://www.fd a.gov/media/237364/download For Patients: https://www.fda.gov/media/ 303360/download Specimen Anatomical Collection Method Collection Time Receive d Time (Source) Location / / Volume Laterality Varies 11/21/2019 9:24 AM 0 5:17 (Nasopharynx) CDT PM CDT Yari Gonzalez M.D. LAB MICROBIOLOGY - GENERAL O RDERABLES Performing Organization Address City/State/ZIP Code Phon e Number [facility]- [address] [place] [address] [place] [address] [facility] in [address] documented in this encounter Visit Diagnoses Diagnosis Encounter For Screening For Other Viral Diseases (COVID-19) - Primary documented in this encounter Additional Health Concerns Infection Onset Date Last Indicated Resolved Time COVID19 Pending 11/21/2019 11/21/2019 11/22/2019 5:01 AM CDT documented as of this encounter
--- OUTSIDE RECORDS SUMMARY | 2021-10-30 08:21 | XMS_ITS | Encounter Summary ---
:1975 Demographics Address [address] [address] Home Phone Email Address Preferred Language ENG Marital Status Worship Affiliation Unknown Race White Ethnic Group Not or Author Organization [facility] Address [address] [place] [address] Care Team Providers Name Role Phone Unavailable Primary Care Provider Unavailable Encounter Details Date Type Department Care Team Description 02/26/2020 Hospital Encounter Department of Yair Gonzalez, Laboratory MedicineConnor. [facility], in [address] [place] [address] [place] [address] 60 [phone] Social History Tobacco Use Types Packs/Day Years [...] or relatives? How often do you attend hoahaoism or amish Not asked services? Do you belong to any clubs or organizations Yes 07/27/2020 such as hoahaoism groups, unions, fraternal or athletic groups, or [...] place to sleep or slept in a skilled nursing (including now)? 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
--- OUTSIDE RECORDS SUMMARY | 2021-10-30 08:21 | XMS_ITS | Encounter Summary ---
:1975 Demographics Address [address] [address] Home Phone Email Address Preferred Language ENG Marital Status Holiness Affiliation Unknown Race White Ethnic Group Not or Author Organization [facility] Address [address] [place] [address] Care Team Providers Name Role Phone Unavailable Primary Care Provider Unavailable Reason for Visit Reason Onset Date Comments Outpatient COVID-19 Testing 01/05/2020 Encounter Details Date Type Department Care Team Description 01/05/2020 External Outreach Department of [facility], [facility] Medicine in [facility], WOOD MILLING MACHINE TENDER, Respiratory ([place], [place] C.N.P., D.N.P. Dx) [address] [place] [address] [place], [place] [phone] [phone] Social History Tobacco Use Types Packs/Day Years [...] or relatives? How often do you attend zoroastrian or tenriism Not asked services? Do you belong to any clubs or organizations Yes 07/27/2020 such as zoroastrian groups, unions, fraternal or athletic groups, or [...] documented as of this encounter Progress Notes Viry Benavides R.N. - 01/05/2020 1:04 PM CDT Encounter created for the drive-through COVID-19 testing. documented in this encounter Miscellaneous Notes Addendum Note - Nicolasa Epstein R.N. - 01/05/2020 1:04 PM CDT Addended by: NICOLASA EPSTEIN on: 01/10/2020 10:56 AM Modules accepted: Orders documented in this encounter Plan of Treatment Not on filedocumented as of this encounter Visit Diagnoses Diagnosis Infection Upper Respiratory - Primary documented in this encounter Additional Health Concerns Infection Onset Date Last Indicated Resolved Time COVID19 Pending 01/05/2020 01/05/2020 01/10/2020 10:56 AM CDT documented as of this encounter
--- OUTSIDE RECORDS SUMMARY | 2021-10-30 08:21 | XMS_ITS | Encounter Summary ---
:1975 Demographics Address [address] [facility] 2 [place] [address] Home Phone Email Address Preferred Language ENG Marital Status Jew Affiliation Unknown Race White Ethnic Group Not or Author Organization [facility] Address [address] [place] [address] Care Team Providers Name Role Phone Unavailable Primary Care Provider Unavailable Encounter Details Date Type Department Care Team Description 01/29/2020 Hospital Encounter Department of Yair Gonzalez For Laboratory Medicine D, MMargaret. Screening For Other in [address] Viral Diseases [place], [place] (COVID-19) [address] [place] [address] [place], [place] [phone] [address] (Work) [phone] Social History Tobacco Use Types Packs/Day Years [...] or relatives? How often do you attend hindu or roman catholic Not asked services? Do you belong to any clubs or organizations Yes 07/27/2020 such as hindu groups, unions, fraternal or athletic groups, or [...] place to sleep or slept in a usp (including now)? Sex Assigned at Date Recorded Not on file documented as of this encounter Plan of Treatment Not on filedocumented as of this encounter Procedures Procedure Name Priority Date/Time Associated Diagnosis Comme nts SARS CORONAVIRUS-2 Routine 01/29/2020 10:39 AM Encounter For R esults for this RNA, V CURING OVEN TENDER Screening For Other procedur e are in Viral Diseases the results (COVID-19) section. documented in this encounter Results SARS Coronavirus-2 RNA, V Asymptomatic (01/29/2020 10:39 AM CURING OVEN TENDER) [facility] Method Time Signature SARS-CoV-2 Swab, 01/29/2020 MKTO Specimen Nasopharynx 10:32 PM Source CURING OVEN TENDER SARS CoV-2 Undetected Undetected 01/29/2020 MKTO RNA, TMA 10:32 PM CURING OVEN TENDER Comment: SARS-CoV-2 RNA absent. This result does not rule out COVID-19 in the patient, as the sensitivity of the test depends o n the timing of the specimen collection and the quality of the specim en. Result should be correlated with patient's history and clinical presentat ion. ----ADDITIONAL INFORMATION---- This test is performed using the Aptima SARS-CoV-2 assay ([employer] which has received Emergency Use Authori zation (EUA) by the U.S. Food and Drug Administration. Fact sheets for this Emergency Use Autho rization (EUA) assay can be found at the following links: For Healthcare Providers: https://www.fd a.gov/media/140905/download For Patients: https://www.fda.gov/media/ 791056/download Specimen Anatomical Collection Method Collection Time Receive d Time (Source) Location / / Volume Laterality Varies 01/29/2020 10:39 01/29/2020 3:36 (Nasopharynx) AM CURING OVEN TENDER PM CURING OVEN TENDER Yair Gonzalez M.D. LAB MICROBIOLOGY - GENERAL O MICHAEL Performing Organization Address City/State/ZIP Code Phon e Number [facility]- [address] [place] [address] [place] [address] System in [address] documented in this encounter Visit Diagnoses Diagnosis Encounter For Screening For Other Viral Diseases (COVID-19) documented in this encounter Additional Health Concerns Infection Onset Date Last Indicated Resolved Time COVID19 Pending 01/29/2020 01/29/2020 01/29/2020 10:33 PM CURING OVEN TENDER documented as of this encounter
--- NOTE | 2021-10-30 09:00 | CRLHL7_ITS ---
For Patients: As a result of the Century Cures Act, medical imaging exams and procedure reports are released immediately into your electronic medical record. You may view this report before your referring provider. If you have questions, please contact your health care provider. Indication: 3 MONTH FOLLOW UP METASTATIC RECTAL CANCER Technique: Postcontrast CT chest, abdomen and pelvis. 79 cc Isovue 370 intravenous contrast. Oral water. Please note that all CT scans at this facility use dose modulation, iterative reconstruction, and/or weight-based dosing when appropriate to reduce radiation dose to as low as reasonably achievable. Comparison: 07/10/2021, 04/24/2021, 02/14/2021 Findings: In the chest, there are increased number and size multiple ill-defined solid pulmonary nodules within both lung bases, some of which demonstrate mild cavitation. The largest nodule measures 2.1 cm within the left lower lobe. Somewhat similar ill-defined nodular densities within both upper lobes associated with adjacent cystic structures. Stable solid nodule within the right middle lobe at the anterolateral aspect. Innumerable intrapulmonary cystic areas are similar. Left-sided Port-A-Cath is present. Similar if not mildly increased fullness of the mediastinal lymph nodes along with the bilateral hilar lymph nodes. Normal axillary lymph nodes. No fracture. In the abdomen, increased number and size solid intrahepatic masses measuring up to 3.7 cm. Adrenal glands are normal. No hydronephrosis. No solid renal mass. No splenomegaly. Pancreas normal. Normal gallbladder. No enlarged retroperitoneal lymph nodes. In the pelvis, large ovarian cysts have developed since the prior study. On the left a cyst is heterogeneous and measures up to 5.4 cm. On the right a cyst measures up to 3.4 cm. Similar appearance of the rectum with adjacent perirectal curvilinear densities in the adjacent fat extending to the presacral region. No drainable fluid collection or abscess. No free air. Stool is present throughout the colon. Degenerative changes at the left hip with subchondral cyst formation. Impression: Progression of metastatic disease with increased size and number of multiple ill-defined solid pulmonary nodules within both lung bases, some of which demonstrate cavitation. Also increased size and number of intrahepatic metastatic lesions. Interval development of bilateral large ovarian cysts measuring up to 5.4 cm. This larger cyst is heterogeneous. Similar appearance of the perirectal fat. Please note that all CT scans at this facility use dose modulation, iterative reconstruction, and/or weight-based dosing when appropriate to reduce radiation dose to as low as reasonably achievable. Dictated by Jordon Mccoy MD @ 10/31/2021 9:57:34 AM (Electronically Signed)
== END 2021-10-30 08:19 | disposition home or self-care (01) ==
PROVIDERS: PCP Family Medicine; Visit Provider Internal Medicine Medical Oncology
DX: C18.9 Malignant neoplasm of colon, unspecified (principal); C78.00 Secondary malignant neoplasm of unspecified lung; C78.7 Secondary malignant neoplasm of liver and intrahepatic bile duct; N83.201 Unspecified ovarian cyst, right side; N83.202 Unspecified ovarian cyst, left side
CPT/HCPCS: 71260; 74177; Q9967

== ENCOUNTER 2021-11-30 14:39 | Outpatient (CLI) | payer BC, SELFPAY ==
--- OUTSIDE RECORDS SUMMARY | 2021-11-30 14:50 | XMS_ITS | Encounter Summary ---
:1975 Demographics Address [address] [facility] 2 [place] [address] Home Phone Email Address Preferred Language ENG Marital Status Quaker Affiliation Unknown Race White Ethnic Group Not or Author Organization [facility] Address [address] [place] [address] Care Team Providers Name Role Phone Unavailable Primary Care Provider Unavailable Encounter Details Date Type Department Care Team Description 12/05/2019 Hospital Encounter Department of Yair Gonzalez For Laboratory Medicine Sheng, MMargaret. Screening For Other in [address] Viral Diseases [place], [place] (COVID-19) [address] [facility] [address] [place], [place] [phone] [address] (Work) [phone] Social History Tobacco Use Types Packs/Day Years [...] or relatives? How often do you attend nondenominational or orthodox Not asked services? Do you belong to any clubs or organizations Yes 07/27/2020 such as nondenominational groups, unions, fraternal or athletic groups, or [...] place to sleep or slept in a retirement (including now)? Sex Assigned at Date Recorded Not on file documented as of this encounter Plan of Treatment Not on filedocumented as of this encounter Procedures Procedure Name Priority Date/Time Associated Diagnosis Comme nts SARS CORONAVIRUS-2 Routine 12/05/2019 10:57 AM Encounter For R esults for this RNA, V CDT Screening For Other procedur e are in Viral Diseases the results (COVID-19) section. documented in this encounter Results SARS Coronavirus-2 RNA, V Asymptomatic (12/05/2019 10:57 AM CDT) [facility] Method Time Signature SARS-CoV-2 Swab, 12/06/2019 MKTO Specimen Nasopharynx 3:18 AM CDT Source SARS CoV-2 Undetected Undetected 12/06/2019 MKTO RNA, TMA 3:18 AM CDT Comment: SARS-CoV-2 RNA absent. This result does not rule out COVID-19 in the patient, as the sensitivity of the test depends o n the timing of the specimen collection and the quality of the specim en. Result should be correlated with patient's history and clinical presentat ion. ----ADDITIONAL INFORMATION---- This test is performed using the Aptima SARS-CoV-2 assay ([employer] which has received Emergency Use Authori zation (EUA) by the U.S. Food and Drug Administration. Fact sheets for this Emergency Use Autho rization (EUA) assay can be found at the following links: For Healthcare Providers: https://www.C[employer]ise a.gov/media/348090/download For Patients: https://www.fda.gov/media/ 953462/download Specimen Anatomical Collection Method Collection Time Receive d Time (Source) Location / / Volume Laterality Varies 12/05/2019 10:57 12/05/2019 4:44 (Nasopharynx) AM CDT PM CDT Yair Gonzalez M.D. LAB MICROBIOLOGY - GENERAL O MICHAEL Performing Organization Address City/State/ZIP Code Phon e Number [facility]- [address] [place] [address] [place] [address] System in [address] documented in this encounter Visit Diagnoses Diagnosis Encounter For Screening For Other Viral Diseases (COVID-19) documented in this encounter Additional Health Concerns Infection Onset Date Last Indicated Resolved Time COVID19 Pending 12/05/2019 12/05/2019 12/06/2019 3:19 AM CDT documented as of this encounter
--- OUTSIDE RECORDS SUMMARY | 2021-11-30 14:50 | XMS_ITS | Encounter Summary ---
:1975 Demographics Address [address] [place] [address] Home Phone [phone] Preferred Language Bulgarian Marital Status Never Episcopal Affiliation Unknown Race White Ethnic Group Not or Author Care Team Providers Name Role Phone Tessy Oliveira MD Primary Care Provider [phone] Yair Gonzalez MD Radiation Oncologist [phone] [facility] Care Team Palliative Care [phone] Jasmin Portillo print shop stenographer [phone] Dionne Unger [facility] Palliative Care [phone] Kevin Stein EMULSION OPERATOR Palliative Care [phone] Ronit Nunez [facility] Lav Crewman [phone] Reason for Visit AMINATA Initial Assessment and Plan Assessment Note Patient did not answer her phone today. Called x 2, left a message x 1. Please try and reschedule for the third time. Message sent to [facility] Discussion Note: None recorded.Patient educational handouts: No [...] Code Code System Name Reaction Severity Onset 5998070 RxNorm Latex Rash ? 07/28/2020 Problems Name Status Onset Date Source ? 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 Procedures None recorded. Vaccine List None recorded. Social History 44. Assistance with Errands: N 30. Assistance with Transfers: N 56. Difficulty Remembering Things: N 26. Food Insecurity: N 42. Assistance with Eating: N 3. ACP Scan in Chart: N 60. Has a Episcopal Preference: N 4. Employment History: Employed 6. PRIMARY Income Source: (use note Employment field for additional info) 34. Fear of Falling: N 38. Assistance with Stairs: N 22. Caregiver [place] Concerns: N 64. Trauma History: None reported [...] health care agent, durable medical power of mergers and acquisitions attorney): 12. Stable Housing: Y 48. Assistance [...] Status Unknown. Past Encounters 10/13/2021 Kevin Stein BLOOD BANK ORDER CONTROL CLERK: [place] [address], Ph. 10/09/2021 Discussed with Patient Kevin Stein CNP: [place] [address], Ph. 09/22/2021 Jasmin Portillo RN: [place] [address], Ph. History of Present Illness None recorded. Review of Systems None recorded. Physical Exam ? General Adult Exam Reported By: Patient
--- OUTSIDE RECORDS SUMMARY | 2021-11-30 14:50 | XMS_ITS | Encounter Summary ---
:1975 Demographics Address [address] [address] Home Phone Email Address Preferred Language ENG Marital Status Mosque Affiliation Unknown Race White Ethnic Group Not or Author Organization [facility] Address [address] [place] [address] Care Team Providers Name Role Phone Unavailable Primary Care Provider Unavailable Encounter Details Date Type Department Care Team Description 07/25/2020 Hospital Encounter Department of Yair Gonzalez Laboratory Medicine Connor Patricio. Examination For in [address] [place] [address] [place], [place] [phone] (Work) [phone] Social History Tobacco Use Types Packs/Day Years [...] or relatives? How often do you attend bahai or sabianist Not asked services? Do you belong to any clubs or organizations Yes 07/27/2020 such as bahai groups, unions, fraternal or athletic groups, or [...] place to sleep or slept in a fdc (including now)? Sex Assigned at Date Recorded [...] RNA, V Asymptomatic (07/25/2020 9:34 AM CDT) [facility] Method Time Signature SARS-CoV-2 Swab, 07/25/2020 MKTO [...] pe rformed using the Aptima SARS-CoV-2 assay ([employer] on the Aleths tem under emergency use authorization (EUA) by the U.S. Food and Drug Administ ration. Fact sheets for this EUA assay can be fo und at the following links: For Healthcare Providers: https://www.fd a.gov/media/551043/download For Patients: https://www.fda.gov/media/ 982735/download Specimen Anatomical Collection Method Collection Time Receive d Time (Source) Location / / Volume Laterality Varies 07/25/2020 9:34 AM 3:25 (Nasopharynx) CDT PM CDT Yair Gonzalez M.D. LAB MICROBIOLOGY - GENERAL O RDERABLES Performing Organization Address City/State/ZIP Code Phon e Number [facility]- [address] [place] [address] [facility] [place] [address] System [address] documented in this encounter Visit Diagnoses Diagnosis Screening Examination For Viral Disease documented in this encounter Additional Health Concerns Infection Onset Date Last Indicated Resolved Time COVID19 Pending 07/25/2020 07/25/2020 07/25/2020 11:51 PM CDT documented as of this encounter
--- OUTSIDE RECORDS SUMMARY | 2021-11-30 14:50 | XMS_ITS | Encounter Summary ---
:1975 Demographics Address [address]19 [facility] 2 [place] [address] Home Phone Email Address Preferred Language ENG Marital Status Jewish Affiliation Unknown Race White Ethnic Group Not or Author Organization [facility] Address [address] [place] [address] Care Team Providers Name Role Phone Unavailable Primary Care Provider Unavailable Reason for Visit Reason Onset Date Comments Outpatient COVID-19 Testing 10/25/2019 Encounter Details Date Type Department Care Team Description 10/25/2019 External Outreach Department of [facility] Yair Gonzalez Encounter For Medicine in Gerald Patricio M.D. Screening For Other [place], [place] 1025 [facility] Viral Diseases [address] [place], [place] (COVID-19) ([place] [address] Dx) [id number] Social History Tobacco Use Types Packs/Day Years [...] or relatives? How often do you attend episcopal or adventism Not asked services? Do you belong to any clubs or organizations Yes 07/27/2020 such as episcopal groups, unions, fraternal or athletic groups, or [...] place to sleep or slept in a chcf (including now)? Sex Assigned at Date Recorded [...]
--- OUTSIDE RECORDS SUMMARY | 2021-11-30 14:50 | XMS_ITS | Encounter Summary ---
:1975 Demographics Address [address] [facility] 2 [place] [address] Home Phone Email Address Preferred Language ENG Marital Status Caodaism Affiliation Unknown Race White Ethnic Group Not or Author Organization [facility] Address [address] [place] [address] Care Team Providers Name Role Phone Unavailable Primary Care Provider Unavailable Encounter Details Date Type Department Care Team Description 01/01/2020 Hospital Encounter Department of Yair Gonzalez For Laboratory Medicine Sheng, MMargaret. Screening For Other in [address] Viral Diseases [place], [place] (COVID-19) [address] [place] [address] [place], [place] [phone] (Work) [phone] Social History Tobacco Use Types Packs/Day Years [...] or relatives? How often do you attend mormonism or protestant Not asked services? Do you belong to any clubs or organizations Yes 07/27/2020 such as mormonism groups, unions, fraternal or athletic groups, or [...] place to sleep or slept in a care home (including now)? Sex Assigned at Date Recorded [...] RNA, V Asymptomatic (01/01/2020 10:20 AM CDT) [facility] Method Time Signature SARS-CoV-2 Swab, 01/01/2020 MKTO [...] is performed using the Aptima SARS-CoV-2 assay ([employer] which has received Emergency Use Authori zation (EUA) by the U.S. Food and Drug Administration. Fact sheets for this Emergency Use Autho rization (EUA) assay can be found at the following links: For Healthcare Providers: https://www.Crowdrally a.gov/media/327720/download For Patients: https://www.fda.gov/media/ 944347/download Specimen Anatomical Collection Method Collection Time Receive d Time (Source) Location / / Volume Laterality Varies 01/01/2020 10:20 01/01/2020 3:36 (Nasopharynx) AM CDT PM CDT Yair Gonzalez M.D. LAB MICROBIOLOGY - GENERAL O ABELERAMOSES Performing Organization Address City/State/ZIP Code Phon e Number [facility]- [address] [place] [phone] [place] [address] System [address] documented in this encounter Visit Diagnoses Diagnosis Encounter For Screening For Other Viral Diseases (COVID-19) documented in this encounter Additional Health Concerns Infection Onset Date Last Indicated Resolved Time COVID19 Pending 01/01/2020 01/01/2020 01/01/2020 9:49 PM CDT documented as of this encounter
--- OUTSIDE RECORDS SUMMARY | 2021-11-30 14:50 | XMS_ITS | Encounter Summary ---
:1975 Demographics Address [address] [facility] 2 [place] [address] Home Phone Email Address Preferred Language ENG Marital Status Sikh Affiliation Unknown Race White Ethnic Group Not or Author Organization [facility] Address [address] [place] [address] Care Team Providers Name Role Phone Unavailable Primary Care Provider Unavailable Encounter Details Date Type Department Care Team Description 02/26/2020 Hospital Encounter Department of Yair Gonzalez For Laboratory Medicine D, MMargaret. Screening For Other in [address] Viral Diseases [place], [place] (COVID-19) [address] [place] [address] [place], [place] [phone] (Work) [phone] Social History Tobacco Use Types Packs/Day Years [...] or relatives? How often do you attend jewish or mormon Not asked services? Do you belong to any clubs or organizations Yes 07/27/2020 such as jewish groups, unions, fraternal or athletic groups, or [...] For R esults for this RNA, V RIVER BOAT CAPTAIN Screening For Other procedur e are in Viral Diseases the results (COVID-19) section. documented in this encounter Results SARS Coronavirus-2 RNA, V Asymptomatic (02/26/2020 10:43 AM RIVER BOAT CAPTAIN) [facility] Method Time Signature SARS-CoV-2 Swab, 02/26/2020 MKTO Specimen Nasopharynx 9:27 PM RIVER BOAT CAPTAIN Source SARS CoV-2 Undetected Undetected 02/26/2020 MKTO RNA, TMA 9:27 PM RIVER BOAT CAPTAIN Comment: SARS-CoV-2 RNA absent. This result does not rule out COVID-19 in the patient, as the sensitivity of the test depends o n the timing of the specimen collection and the quality of the specim en. Result should be correlated with patient's history and clinical presentat ion. ----ADDITIONAL INFORMATION---- This test is performed using the Aptima SARS-CoV-2 assay ([employer] which has received Emergency Use Authori zation (EUA) by the U.S. Food and Drug Administration. Fact sheets for this Emergency Use Autho rization (EUA) assay can be found at the following links: For Healthcare Providers: https://www.fd a.gov/media/173021/download For Patients: https://www.fda.gov/media/ 258316/download Specimen Anatomical Collection Method Collection Time Receive d Time (Source) Location / / Volume Laterality Varies 02/26/2020 10:43 02/26/2020 3:50 (Nasopharynx) AM RIVER BOAT CAPTAIN PM RIVER BOAT CAPTAIN Yair Gonzalez M.D. LAB MICROBIOLOGY - GENERAL O MICHAEL Performing Organization Address City/State/ZIP Code Phon e Number [facility]- [address] [place] [address] [place] [address] System [address] documented in this encounter Visit Diagnoses Diagnosis Encounter For Screening For Other Viral Diseases (COVID-19) documented in this encounter Additional Health Concerns Infection Onset Date Last Indicated Resolved Time COVID19 Pending 02/26/2020 02/26/2020 02/26/2020 9:28 PM RIVER BOAT CAPTAIN documented as of this encounter
--- OUTSIDE RECORDS SUMMARY | 2021-11-30 14:50 | XMS_ITS | Encounter Summary ---
:1975 Demographics Address [address] [address] Home Phone Email Address Preferred Language ENG Marital Status Islam Affiliation Unknown Race White Ethnic Group Not or Author Organization [facility] Address [address] [place] [address] Care Team Providers Name Role Phone Unavailable Primary Care Provider Unavailable Encounter Details Date Type Department Care Team Description 02/26/2020 Hospital Encounter Department of Yair Gonzalez, Laboratory MedicineConnor. [facility], in [address] [place] [address] [place] [address] 60 [phone] Social History Tobacco Use Types Packs/Day Years [...] How often do you attend zoroastrian or nondenominational Not asked services? 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
--- OUTSIDE RECORDS SUMMARY | 2021-11-30 14:50 | XMS_ITS | Encounter Summary ---
:1975 Demographics Address [address] [address] Home Phone Email Address Preferred Language ENG Marital Status Mormon Affiliation Unknown Race White Ethnic Group Not or Author Organization [facility] Address [address] [place] [address] Care Team Providers Name Role Phone Unavailable Primary Care Provider Unavailable Encounter Details Date Type Department Care Team Description 12/18/2019 Hospital Encounter Department of Lelia Gregory Laboratory Medicine EDUARDO Mariano Screening For Other in [place], [facility] 1st [facility] Viral Diseases [place], [place] (COVID-19) [address] [place] [address] [place], [place] [phone] (Work) [phone] Social History Tobacco Use Types Packs/Day Years [...] or relatives? How often do you attend gnosticist or yarsanism Not asked services? Do you belong to any clubs or organizations Yes 07/27/2020 such as gnosticist groups, unions, fraternal or athletic groups, or [...] RNA, V Asymptomatic (12/18/2019 10:11 AM CDT) [facility] Method Time Signature SARS-CoV-2 Swab, 12/18/2019 MKTO [...] is performed using the Aptima SARS-CoV-2 assay ([employer] which has received Emergency Use Authori zation (EUA) by the U.S. Food and Drug Administration. Fact sheets for this Emergency Use Autho rization (EUA) assay can be found at the following links: For Healthcare Providers: https://www.fd a.gov/media/190256/download For Patients: https://www.fda.gov/media/ 127174/download Specimen Anatomical Collection Method Collection Time Receive d Time (Source) Location / / Volume Laterality Varies 12/18/2019 10:11 12/18/2019 3:54 (Nasopharynx) AM CDT PM CDT Montserrat Gregory APRN LAB MICROBIOLOGY - GENERAL O RDERABLES Performing Organization Address City/State/[facility] Code Phon e Number [facility]- [address] [place] [address] [place] [address] System in [address] documented in this encounter Visit Diagnoses Diagnosis Encounter For Screening For Other Viral Diseases (COVID-19) documented in this encounter Additional Health Concerns Infection Onset Date Last Indicated Resolved Time COVID19 Pending 12/18/2019 12/18/2019 12/18/2019 10:20 PM CDT documented as of this encounter
--- OUTSIDE RECORDS SUMMARY | 2021-11-30 14:50 | XMS_ITS | Encounter Summary ---
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 [address] [address] Referral ID Status Reason Start Date Expiration Date Visits Requ ested Visits Authorized [id number] Closed 07/05/2020 07/05/2021 1 1 Encounter Details Date Type Department Care Team Description 07/28/2020 Comprehensive Visit Division of An Harrell neftaly; Pulmonary Medicine Jasper Peterson Malignant Neoplasm Of Rectum (HCC) in [place], [address] [place] [address] [place] [address] [place], [place] [phone] (Work) [phone] Social History Tobacco Use Types Packs/Day Years [...] or relatives? How often do you attend congregational or sikh Not asked services? Do you belong to any clubs or organizations Yes 07/27/2020 such as congregational groups, unions, fraternal or athletic groups, or [...] place to sleep or slept in a mcfp (including now)? Education Answer Date Recorded What [...] CDT SUBJECTIVE Referred by: Yair Gonzalez M.D. [address] [place] [phone] CHIEF COMPLAINT / REASON FOR VISIT Ms. [...] were also noted at the time. Ms. Nuñez has not experienced any pneumothoraces, and she [...]
--- OUTSIDE RECORDS SUMMARY | 2021-11-30 14:50 | XMS_ITS | Encounter Summary ---
:1975 Demographics Address [address] [address] Home Phone Email Address Preferred Language ENG Marital Status Voodoo Affiliation Unknown Race White Ethnic Group Not or Author Organization [facility] Address [address] [place] [address] Care Team Providers Name Role Phone Unavailable Primary Care Provider Unavailable Reason for Visit Reason Onset Date Comments Outpatient COVID-19 Testing 01/05/2020 Encounter Details Date Type Department Care Team Description 01/05/2020 External Outreach Department of [facility], In [facility] Medicine in [facility], GIMP TACKER, Respiratory ([place], [place] C.N.P., D.N.P. Dx) [address] [place] [address] [place], [place] [phone] Social History Tobacco Use Types Packs/Day Years [...] How often do you attend samaritan or latter day Not asked services? Do [...]
--- OUTSIDE RECORDS SUMMARY | 2021-11-30 14:50 | XMS_ITS | Clinical Summary ---
:1975 Demographics Address [address] [address] Home Phone Email Address Preferred Language ENG Marital Status Orthodox Affiliation Unknown Race White Ethnic Group Not or Author Organization [facility] Address [address] [place] [address] Care Team Providers Name Role Phone Unavailable Primary Care Provider Unavailable Source Comments Patient records contain information from all sites at [facility]. For routine questions regarding patient records, call [phone] during business hours, M-F 8:00 AM - 5:00 PM Central Time. Record requests for emergency care only can be directed to [phone] at any time.[facility] Allergies Active Allergy Reactions Severity Noted Date [...] Rectum 07/05/2020 Overview: On palliative chemotherapy in [place] under [facility] Outreach since summer 2019. Cavity Lung [...] or relatives? How often do you attend lutheran or judaism Not asked services? Do you belong to any clubs or organizations Yes 07/27/2020 such as lutheran groups, unions, fraternal or athletic groups, or [...] place to sleep or slept in a snf (including now)? Education Answer Date Recorded What [...] Surveillance Fasting Glucose for Diabetes 1975 Screening HIV Screening 1975 Hepatitis B Vaccines (1 of 3 1975 - 3-dose series) Hepatitis C Screening 1975 Lipid (Cholesterol) Screening 1975 Mammogram 1975 DTaP,Tdap,and Td Vaccines (1 05/16/1994 - Tdap) Depression Screening (Annual 03/18/2021 PHQ-2) Influenza Vaccine (#1) 2021 COVID-19 Vaccine Completed 02/16/2021, 07/02/2020, 06/11/2020 Pneumococcal vaccine (0-64 Aged Out No lo nger eligible based years) on patient's age to complete this to pic Medical Devices Implanted Type Area Lead Assembler Device Shelf Model / Identifier Expiration Date Ser ial / Lot Misc Other Misc Other Left: Chest Description: Ramona-cath for Chemo Procedures Procedure Name Priority Date/Time Associated Diagnosis Comme nts OUTSIDE CT BODY Routine 10/30/2021 9:25 AM Result s for this CDT procedure are i n the results section. from Last [address] chest abdomen pelv w con-Outside CT Body (10/30/2021 9:25 AM CDT) Specimen (Source) Anatomical Location Collection Method / Collectio n Time Received Time / Laterality Volume Narrative IIMS - 11/03/2021 3:51 PM CDT This order has been created and auto-finalized to support the import of outside images. If available, original i nterpretation can be found on the Media Tab in Chart Review, in Document V iewer, or as an image in QREADS. If a re-interpretation or overread is re quired please follow defined workflow. ?? Provider Not In System IMG CT PROCEDURES Performing Organization Address City/State/ZIP Code Phon e Number IIMS IIMS NA from Last 3 Months Insurance Payer Benefit Plan Subscriber ID Effective Phone Address Typ e / Group Dates BLUE CROSS BCBS BLUE [id number] 2019-Prese ATTN: [place] HMO BLUE SHIELD PLUS HMO nt CONSUMER [facility] [place] [address] [address] [place] [address] 71 1 1/2 y (Home) [address] [address]
--- OUTSIDE RECORDS SUMMARY | 2021-11-30 14:50 | XMS_ITS | Encounter Summary ---
:1975 Demographics Address [address] [facility] 2 [place] [address] Home Phone Email Address Preferred Language ENG Marital Status Holiness Affiliation Unknown Race White Ethnic Group Not or Author Organization [facility] Address [address] [place] [address] Care Team Providers Name Role Phone Unavailable Primary Care Provider Unavailable Encounter Details Date Type Department Care Team Description 02/12/2020 Hospital Encounter Department of Yair Gonzalez For Laboratory Medicine Sheng, MMargaret. Screening For Other in [address] Viral Diseases [place], [place] (COVID-19) [address] [place] [address] [place], [place] [phone] (Work) [phone] Social History Tobacco Use Types Packs/Day Years [...] or relatives? How often do you attend roman catholic or pentecostal Not asked services? Do you belong to any clubs or organizations Yes 07/27/2020 such as roman catholic groups, unions, fraternal or athletic groups, [...] Associated Diagnosis Comme nts SARS CORONAVIRUS-2 Routine 02/12/2020 10:41 AM Encounter For R esults for this RNA, V VP TREASURER Screening For Other procedur e are in Viral Diseases the results (COVID-19) section. documented in this encounter Results SARS Coronavirus-2 RNA, V Asymptomatic (02/12/2020 10:41 AM VP TREASURER) [facility] Method Time Signature SARS-CoV-2 Swab, 02/12/2020 MKTO Specimen Nasopharynx 10:28 PM Source VP TREASURER SARS CoV-2 Undetected Undetected 02/12/2020 MKTO RNA, TMA 10:28 PM VP TREASURER Comment: SARS-CoV-2 RNA absent. This result does not rule out COVID-19 in the patient, as the sensitivity of the test depends o n the timing of the specimen collection and the quality of the specim en. Result should be correlated with patient's history and clinical presentat ion. ----ADDITIONAL INFORMATION---- This test is performed using the Aptima SARS-CoV-2 assay ([employer] which has received Emergency Use Authori zation (EUA) by the U.S. Food and Drug Administration. Fact sheets for this Emergency Use Autho rization (EUA) assay can be found at the following links: For Healthcare Providers: https://www.fd a.gov/media/348949/download For Patients: https://www.fda.gov/media/ 488255/download Specimen Anatomical Collection Method Collection Time Receive d Time (Source) Location / / Volume Laterality Varies 02/12/2020 10:41 02/12/2020 3:10 (Nasopharynx) AM VP TREASURER PM VP TREASURER Yair Gonzalez M.D. LAB MICROBIOLOGY - GENERAL O MICHAEL Performing Organization Address City/State/ZIP Code Phon e Number [facility]- [address] [place] [address] [place] [address] System in [address] documented in this encounter Visit Diagnoses Diagnosis Encounter For Screening For Other Viral Diseases (COVID-19) documented in this encounter Additional Health Concerns Infection Onset Date Last Indicated Resolved Time COVID19 Pending 02/12/2020 02/12/2020 02/12/2020 10:29 PM VP TREASURER documented as of this encounter
--- OUTSIDE RECORDS SUMMARY | 2021-11-30 14:50 | XMS_ITS | Encounter Summary ---
:1975 Demographics Address [address] [facility] 2 [place] [address] Home Phone Email Address Preferred Language ENG Marital Status Pentecostalism Affiliation Unknown Race White Ethnic Group Not or Author Organization [facility] Address [address] [place] [address] Care Team Providers Name Role Phone Unavailable Primary Care Provider Unavailable Reason for Referral MRI/CAT/PET Scan (Routine) - Authorized Specialty Diagnoses / Procedures Referred By Contact Refer red To Contact Radiology Diagnoses Lung Interstitial Disease (HCC) Yair Gonzalez M.D. [facility] Region Procedures CT Chest without IV Contrast [address] [place] [address] Referral ID Status Reason Start Date Expiration Date Visits V isits Requested Authorized [id number] Authorized 05/01/2021 05/01/2022 1 1 T ETIOLOGIST Outpatient (Routine) - Authorized Specialty Diagnoses / Procedures Referred By Contact Refer red To Contact Pulmonary Medicine Yair Gonzalez M. D. Spec[place], [place], M.D. [address] [facility] [address] [place] [address] [place] [phone] Phone: Fax: Referral ID Status Reason Start Date Expiration Date Visits V isits Requested Authorized [id number] Authorized 05/01/2021 05/01/2022 1 1 T ETIOLOGIST Encounter Details Date Type Department Care Team Description 05/01/2021 Orders Only Department of Yair Gonzalez Cavity Lu ng (Primary Dx); Oncology in [place], M.D. Malignant Neoplasm Of Rectum (HCC); [place] 10[address] [facility] Lung Interstitial Disease (HCC) [address] [place] [phone] Social History Tobacco Use Types Packs/Day [...] or relatives? How often do you attend yarsani or quaker Not asked services? Do you belong to any clubs or organizations Yes 07/27/2020 such as yarsani groups, unions, fraternal or athletic groups, or [...] or slept in a halfway (including now)? Education Answer Date Recorded What [...]
--- OUTSIDE RECORDS SUMMARY | 2021-11-30 14:50 | XMS_ITS | Encounter Summary ---
:1975 Demographics Address [address] [address] Home Phone Email Address Preferred Language ENG Marital Status Orthodoxy Affiliation Unknown Race White Ethnic Group Not or Author Organization [facility] Address [address] [place] [address] Care Team Providers Name Role Phone Unavailable Primary Care Provider Unavailable Encounter Details Date Type Department Care Team Description 05/03/2021 Clinical Communication [facility] in [place], MANAGER OF DRILLING, C .N.P. [place], [place] [address] [address] [facility] [place] [address] [place], [place] [phone] [address] Social History Tobacco Use Types Packs/Day [...] How often do you attend gnosticist or rastafari Not asked services? Do you belong to [...] slept in a long term (including now)? Education Answer Date Recorded What [...] sent to patient to schedule. Thank you MILL OPERATOR Telephone Encounter - Sandrine Ortiz APRN, C.N.P. - 05/03/2021 10:41 AM COLD MILL OPERATOR Order signed. MILL OPERATOR Addendum Note - Sandrine Ortiz APRN, C.N.P. - 05/03/2021 10:40 AM COLD MILL OPERATOR Addended by: SANDRINE ORTIZ on: 05/03/2021 10:40 AM Modules accepted: Orders MILL OPERATOR Addendum Note - Sahil Gracia R.N. - 05/03/2021 10:24 AM COLD MILL OPERATOR Addended by: SAHIL GRACIA on: 05/03/2021 10:24 AM Modules accepted: Orders MILL OPERATOR Telephone Encounter - Sahil Gracia R.N. - 05/03/2021 10:22 AM CST Referral for cavity lung. ERICKA seen in [facility] 07/28/2020, per note should follow up in 6-[address] chest completed 04/24/21. PFT, Hgb and Covid test pended. MILL OPERATOR Telephone Encounter - Brenda Mcdonald - 05/03/2021 9:59 AM CST Return to specialty order for follow-up pulmonary cavitary lesions, some growth during chemo for metastatic rectal cancer. Please enter any needed testing. First available or on rounds? MILL OPERATOR documented in this encounter Plan of Treatment Scheduled Orders Name Type Priority Associated Diagnoses Order S chedule Pulmonary Function Tests PFT Routine Abnormal Compute d Expected: 05/03/2021 Tomography Chest (Approximat e), Expires: 2022 Hemoglobin Lab Routine Abnormal Computed Expected: 05/03/2021 Tomography Chest (Approximat e), Expires: 2022 documented as of this encounter Visit Diagnoses Diagnosis Abnormal Computed Tomography Chest - [facility] documented in this encounter
--- OUTSIDE RECORDS SUMMARY | 2021-11-30 14:50 | XMS_ITS | Encounter Summary ---
:1975 Demographics Address [address] [facility] 2 [place] [address] Home Phone Email Address Preferred Language ENG Marital Status Christianity Affiliation Unknown Race White Ethnic Group Not or Author Organization [facility] Address [address] [place] [address] Care Team Providers Name Role Phone Unavailable Primary Care Provider Unavailable Encounter Details Date Type Department Care Team Description 01/15/2020 Hospital Encounter Department of Yair Gonzalez For Laboratory Medicine Sheng, MMargaret. Screening For Other in [address] Viral Diseases [place], [place] (COVID-19) [address] [place] [id number] [place], [place] [phone] [address] (Work) [phone] Social History Tobacco Use Types Packs/Day Years [...] How often do you attend congregational or evangelical Not asked services? Do you [...] RNA, V Asymptomatic (01/15/2020 10:47 AM CDT) [facility] Method Time Signature SARS-CoV-2 Swab, 01/16/2020 MKTO [...] is performed using the Aptima SARS-CoV-2 assay ([employer] which has received Emergency Use Authori zation (EUA) by the U.S. Food and Drug Administration. Fact sheets for this Emergency Use Autho rization (EUA) assay can be found at the following links: For Healthcare Providers: https://www.Q1 Labs a.gov/media/436705/download For Patients: https://www.fda.gov/media/ 606261/download Specimen Anatomical Collection Method Collection Time Receive d Time (Source) Location / / Volume Laterality Varies 01/15/2020 10:47 01/15/2020 3:36 (Nasopharynx) AM CDT PM CDT Yair Gonzalez M.D. LAB MICROBIOLOGY - GENERAL O MICHAEL Performing Organization Address City/State/ZIP Code Phon e Number [facility]- [address] [place] [address] [place] [address] System in [address] documented in this encounter Visit Diagnoses Diagnosis Encounter For Screening For Other Viral Diseases (COVID-19) documented in this encounter Additional Health Concerns Infection Onset Date Last Indicated Resolved Time COVID19 Pending 01/15/2020 01/15/2020 01/16/2020 2:10 AM CDT documented as of this encounter
--- OUTSIDE RECORDS SUMMARY | 2021-11-30 14:50 | XMS_ITS | Encounter Summary ---
:1975 Demographics Address [address] [address] Home Phone Email Address Preferred Language ENG Marital Status Confucianist Affiliation Unknown Race White Ethnic Group Not or Author Organization [facility] Address [address] [place] [address] Care Team Providers Name Role Phone Unavailable Primary Care Provider Unavailable Reason for Visit Reason Comments COVID Inquiry Encounter Details Date Type Department Care Team Description 07/08/2020 Clinical Communication Department of Yair Gonzalez COVID Inquiry Oncology in [place] [address] [phone] Social History Tobacco Use Types Packs/Day Years [...] or relatives? How often do you attend mormon or zoroastrian Not asked services? Do you belong to any clubs or organizations Yes 07/27/2020 such as mormon groups, unions, fraternal or athletic groups, or [...] or slept in a intermediate (including now)? Sex Assigned at Date Recorded Not on file documented as of this encounter Plan of Treatment Not on filedocumented as of this encounter Visit Diagnoses Not on filedocumented in this encounter Additional Health Concerns Infection Onset Date Last Indicated Resolved Time COVID19 Pending 07/25/2020 07/25/2020 07/25/2020 11:51 PM CDT documented as of this encounter
--- OUTSIDE RECORDS SUMMARY | 2021-11-30 14:50 | XMS_ITS | Encounter Summary ---
:1975 Demographics Address [address] [facility] 2 [place] [address] Home Phone Email Address Preferred Language ENG Marital Status Latter Day Affiliation Unknown Race White Ethnic Group Not or Author Organization [facility] Address [address] [place] [address] Care Team Providers Name Role Phone Unavailable Primary Care Provider Unavailable Reason for Visit Reason Onset Date Comments Outpatient COVID-19 Testing 11/21/2019 Encounter Details Date Type Department Care Team Description 11/21/2019 External Outreach Department of [facility] Yair Gonzalez Encounter For Medicine in Gerald Patricio M.D. Screening For Other [place], [place] [address] [facility] Viral Diseases [address] [place], [place] (COVID-19) ([place] [address] Dx) [phone] Social History Tobacco Use Types Packs/Day Years [...] or relatives? How often do you attend adventism or pentecostalism Not asked services? Do you belong to any clubs or organizations Yes 07/27/2020 such as adventism groups, unions, fraternal or athletic groups, or [...] place to sleep or slept in a jail (including now)? Sex Assigned at Date Recorded [...] RNA, V Asymptomatic (11/21/2019 9:24 AM CDT) [facility] Method Time Signature SARS-CoV-2 Swab, 11/22/2019 [...] is performed using the Aptima SARS-CoV-2 assay ([employer] which has received Emergency Use Authori zation (EUA) by the U.S. Food and Drug Administration. Fact sheets for this Emergency Use Autho rization (EUA) assay can be found at the following links: For Healthcare Providers: https://www.fd a.gov/media/575962/download For Patients: https://www.fda.gov/media/ 480156/download Specimen Anatomical Collection Method Collection Time Receive d Time (Source) Location / / Volume Laterality Varies 11/21/2019 9:24 AM 0 5:17 (Nasopharynx) CDT PM CDT Yair Gonzalez M.D. LAB MICROBIOLOGY - GENERAL O RDERABLES Performing Organization Address City/State/ZIP Code Phon e Number [facility]- [address] [place] [address] [place] [address] [facility] in [address] documented in this encounter Visit Diagnoses Diagnosis Encounter For Screening For Other Viral Diseases (COVID-19) - Primary documented in this encounter Additional Health Concerns Infection Onset Date Last Indicated Resolved Time COVID19 Pending 11/21/2019 11/21/2019 11/22/2019 5:01 AM CDT documented as of this encounter
--- OUTSIDE RECORDS SUMMARY | 2021-11-30 14:50 | XMS_ITS | Encounter Summary ---
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 [facility] Procedures [address] [place] [phone] Referral ID Status Reason Start Date Expiration Date Visits Requ ested Visits Authorized [id number] Closed 07/05/2020 07/05/2021 1 1 Encounter Details Date Type Department Care Team Description 07/18/2020 Hospital Encounter Department of Yair Gonzalez Lung; Jesús Patricio M.D. Malignant Neoplasm Of Rectum (HCC) Rehabilitation [address] [place] [address] [address] [facility] [address] [place] [address] [phone] Social History Tobacco Use Types Packs/Day Years [...] or relatives? How often do you attend baptist or samaritan Not asked services? Do you belong to any clubs or organizations Yes 07/27/2020 such as baptist groups, unions, fraternal or athletic groups, or [...] place to sleep or slept in a detention (including now)? Sex Assigned at Date Recorded [...]
--- OUTSIDE RECORDS SUMMARY | 2021-11-30 14:50 | XMS_ITS | Encounter Summary ---
:1975 Demographics Address [address] [facility] 2 [place] [address] Home Phone Email Address Preferred Language ENG Marital Status Sikh Affiliation Unknown Race White Ethnic Group Not or Author Organization [facility] Address [address] [place] [address] Care Team Providers Name Role Phone Unavailable Primary Care Provider Unavailable Encounter Details Date Type Department Care Team Description 01/29/2020 Hospital Encounter Department of Yair Gonzalez For Laboratory Medicine D, MMargaret. Screening For Other in [address] Viral Diseases [place], [place] (COVID-19) [address] [place] [address] [place], [place] [phone] [address] (Work) [phone] Social History Tobacco Use Types Packs/Day Years [...] How often do you attend muslim or mandaeism Not asked services? Do you belong to [...] or slept in a custodial (including now)? Sex Assigned at Date Recorded Not on file documented as of this encounter Plan of Treatment Not on filedocumented as of this encounter Procedures Procedure Name Priority Date/Time Associated Diagnosis Comme nts SARS CORONAVIRUS-2 Routine 01/29/2020 10:39 AM Encounter For R esults for this RNA, V TELEPHONE LINES REPAIRER Screening For Other procedur e are in Viral Diseases the results (COVID-19) section. documented in this encounter Results SARS Coronavirus-2 RNA, V Asymptomatic (01/29/2020 10:39 AM TELEPHONE LINES REPAIRER) [facility] Method Time Signature SARS-CoV-2 Swab, 01/29/2020 MKTO Specimen Nasopharynx 10:32 PM Source TELEPHONE LINES REPAIRER SARS CoV-2 Undetected Undetected 01/29/2020 MKTO RNA, TMA 10:32 PM TELEPHONE LINES REPAIRER Comment: SARS-CoV-2 RNA absent. This result does not rule out COVID-19 in the patient, as the sensitivity of the test depends o n the timing of the specimen collection and the quality of the specim en. Result should be correlated with patient's history and clinical presentat ion. ----ADDITIONAL INFORMATION---- This test is performed using the Aptima SARS-CoV-2 assay ([employer] which has received Emergency Use Authori zation (EUA) by the U.S. Food and Drug Administration. Fact sheets for this Emergency Use Autho rization (EUA) assay can be found at the following links: For Healthcare Providers: https://www.fd a.gov/media/684074/download For Patients: https://www.fda.gov/media/ 931361/download Specimen Anatomical Collection Method Collection Time Receive d Time (Source) Location / / Volume Laterality Varies 01/29/2020 10:39 01/29/2020 3:36 (Nasopharynx) AM TELEPHONE LINES REPAIRER PM TELEPHONE LINES REPAIRER Yair Gonzalez M.D. LAB MICROBIOLOGY - GENERAL O MICHAEL Performing Organization Address City/State/ZIP Code Phon e Number [facility]- [address] [place] [address] [place] [address] System [address] documented in this encounter Visit Diagnoses Diagnosis Encounter For Screening For Other Viral Diseases (COVID-19) documented in this encounter Additional Health Concerns Infection Onset Date Last Indicated Resolved Time COVID19 Pending 01/29/2020 01/29/2020 01/29/2020 10:33 PM TELEPHONE LINES REPAIRER documented as of this encounter
--- OUTSIDE RECORDS SUMMARY | 2021-11-30 14:50 | XMS_ITS ---
:1975 Demographics Address [address] [place] [address] Home Phone [phone] Preferred Language Mongolian Marital Status Never Denominational Affiliation Unknown Race White Ethnic Group Not or Author Care Team Providers Name Role Phone [facility] CARE TEAM Palliative Care [phone] JASMIN PORTILLO perinatal breastfeeding assistant [phone] [facility] Palliative Care [phone] AVIS STEIN LOG HAULER Palliative Care [phone] ITZEL WOODRUFF MD Radiation Oncologist [phone] CELESTE SOLORZANO MD Primary Care Provider [phone] [facility]D [facility] Lye Machine Operator [phone] Allergies Code Code System Name Reaction Severity Status Onset 8190262 RxNorm Latex Rash ? Active 07/28/2020 Medications [...] None recorded. Past Encounters 10/13/2021 Avis Stein CNP: [place] [address], Ph. 10/09/2021 Discussed with Patient Avis Stein CNP: [address] [place] [address], Ph. 09/22/2021 Jasmin Portillo RN: [address] [place] [address], Ph. Social History None recorded. Vaccine List None recorded. Plan of Care Patient Instructions Patient instructed to call with Tremor Videoio ns or concerns. Reminders Provider Appointments None recorded. ? ? Lab None recorded. ? ? Referral None recorded. ? ? Procedures None recorded. ? ? Surgeries None recorded. ? ? Imaging None recorded. ? ? Vitals Height Weight BMI 5 ft 3 in 50 lbs 8.9 kg/m2
--- OUTSIDE RECORDS SUMMARY | 2021-11-30 14:50 | XMS_ITS | Encounter Summary ---
:1975 Demographics Address [address] [place] [address] Home Phone [phone] Preferred Language Polish Marital Status Never Cheondoism Affiliation Unknown Race White Ethnic Group Not or Author Care Team Providers Name Role Phone Tessy Oliveira MD Primary Care Provider [phone] Yair Gonzalez MD Radiation Oncologist [phone] [facility] Care Team Palliative Care [phone] Jasmin Portillo nursing care partner [phone] [facility] [phone] Kevin Stein MICROSOFT DYNAMICS CONSULTANT Palliative Care [phone] Ronit Nunez [facility] Lsat Instructor [phone] Reason for Visit AMINATA Initial Assessment and Plan Assessment Note Patient is seen for an initial visit an d assessment by [facility]: Patient is a pleasant 46 year old, she states that [facility] has a very busy day today and she would line to have the apt rescheduled to Rosa Elena ay at 11am. Message sent to [facility] for rescheduling. No services performed. 1. Discussed [...] Code Code System Name Reaction Severity Onset [id number] RxNorm Latex Rash ? 07/28/2020 Problems Name Status Onset Date Source ? 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 Procedures None recorded. Vaccine List None recorded. Social History 44. Assistance with Errands: N 30. Assistance with Transfers: N 56. Difficulty Remembering Things: N 26. Food Insecurity: N 42. Assistance with Eating: N 3. ACP Scan in Chart: N 60. Has a Cheondoism Preference: N 4. Employment History: Employed 6. PRIMARY Income Source: (use note Employment field for additional info) 34. Fear of Falling: N 38. Assistance with Stairs: N 22. Caregiver [place] Concerns: N 64. Trauma History: None reported 50. Uses Assistive Device(s): N 32. Assistance with Bathing: N 100. In General, would you say your Good health is: 68. Suicidal Safety Assessment Needed: N 77. Napoleon's Status: N 40. Assistance with Meal Prep: [...] Encounters 10/09/2021 Discussed with Patient Kevin Stein FURNITURE UPHOLSTERER: [address] [place] [address], Ph. 09/22/2021 Jasmin Portillo RN: [place] [address], Ph. History of Present Illness None recorded. Review of Systems None recorded. Physical Exam ? General Adult Exam Reported By: Patient
--- OUTSIDE RECORDS SUMMARY | 2021-11-30 14:50 | XMS_ITS | Encounter Summary ---
:1975 Demographics Address [address] [place] [address] Home Phone [phone] Preferred Language Slovak Marital Status Never Mosque Affiliation Unknown Race White Ethnic Group Not or Author Care Team Providers Name Role Phone Tessy Oliveira MD Primary Care Provider [phone] Yair Gonzalez MD Radiation Oncologist [phone] [facility] Care Team Palliative Care [phone] Jasmin Portillo supervisor real estate office [phone] [facility] Palliative Care [phone] Kevin Stein PRESS WRITER Palliative Care [phone] Ronit Nunez [facility] Slab Conditioner Supervisor [phone] Reason for Visit NN Enrollment Assessment and Plan Assessment Note Evaluation: Patient moved back to [place] in 2018, was diagnosed with Stage 4 [...] patient on Adi's 08/10 availability of a licensed guide to provide immediate guidance over the phone and receive personalized advice on the next steps. Encouraged patient to call if any concerns or symptoms arise, and [phone] was provided. PRESS WRITER visit scheduled on 10/09/21 at 9am. Next Steps: Patient outreach in [facility] 6-8 weeks. TOBY Castellanos Discussion Note: None [...] Code Code System Name Reaction Severity Onset [id number] RxNorm Latex Rash ? 07/28/2020 Problems Name Status Onset Date Source ? 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 Procedures None recorded. Vaccine List None recorded. Social History 44. Assistance with Errands: N 30. Assistance with Transfers: N 56. Difficulty Remembering Things: N 26. Food Insecurity: N 42. Assistance with Eating: N 3. ACP Scan in Chart: N 60. Has a Mosque Preference: N 4. Employment History: Employed 6. PRIMARY Income Source: (use note Employment field for additional info) 34. Fear of Falling: N 38. Assistance with Stairs: N 22. Caregiver [place] Concerns: N 64. Trauma History: None reported [...] health care agent, durable medical power of attorney recruiter): 12. Stable Housing: Y 48. Assistance with [...] Unknown. Past Encounters 09/22/2021 Jasmin Portillo, RN: [address] [place] [address], Ph. History of Present Illness Note: <div>General [...] the {{patient* patient's brother, full name patient's prhzubv-tv-ztb, full name patient's caregiver, full name patient's daughter, full name patient's jzfrvyms-fs-bfu, full name pat ient's friend, full name patient's grandchild, full name patient's , full name patient's sister, full name patient's lplgdl-pr-urk, full name patient&# 39;s son, full name [...] by {{patient* patient's brother, full name patient's qlscszo-hx-vpf, full name patient's caregiver, full name patient's daughter, full name patient's ibdouwbv-fx-cgl, full name patient's friend, full name patient's grandchild, full name patient's , full name patient's sister, full name patient's pbzbzm-up-bsw, full name patient's son, full name patient's son-in-law, full name patient's , full name}}.

Start time: {{ 10:30am#}} Stop time: {{ 11:00am#}}
Clinician Located: {{Clinician Home Address* [address] Address Patient?s Home Address}}
Patient physically located at: {{Patient's Home Address* NURSING HOME Location, Name of Facility, City/State SNF Location, Name of Facility, City/State LTC Location, Name of Facility, City/State Other Location, City, State}}
</div> Review of Systems None recorded. Physical Exam None recorded.
--- OUTSIDE RECORDS SUMMARY | 2021-11-30 14:50 | XMS_ITS | Encounter Summary ---
:1975 Demographics Address [address] [address] Home Phone Email Address Preferred Language ENG Marital Status Christian Affiliation Unknown Race White Ethnic Group Not or Author Organization [facility] Address [address] [place] [address] Care Team Providers Name Role Phone Unavailable Primary Care Provider Unavailable Encounter Details Date Type Department Care Team Description 11/07/2019 Hospital Encounter Department of Yair Gonzalez, Laboratory [facility]. [facility], in [address] [place] [address] [place] [address] 60 [phone] Social History Tobacco Use Types Packs/Day Years [...] How often do you attend baptist or baptist Not asked services? Do you belong to [...]
--- OUTSIDE RECORDS SUMMARY | 2021-11-30 14:50 | XMS_ITS | Encounter Summary ---
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 [address] [phone] Referral ID Status Reason Start Date Expiration Date Visits Requ ested Visits Authorized [id number] Closed 07/05/2020 07/05/2021 1 1 Encounter Details Date Type Department Care Team Description 07/05/2020 Clinical Communication Department of Yair Gonzalez, Oncology in [place] [address] [place] [phone] Social History Tobacco Use Types Packs/Day Years [...] How often do you attend yarsani or worship Not asked services? Do you belong to [...] place to sleep or slept in a group home (including now)? Sex Assigned at Date [...] Signature VC MAX POST 2.85 L 07/28/2020 [facility] 1:14 PM CDT SUITE PostFVC 2.84 L 07/28/2020 [facility] 1:14 PM CDT SUITE PostFEV1 1.97 L 07/28/2020 [facility] 1:14 PM CDT SUITE FEV1/FVC POST 69.31 % 07/28/2020 [facility] 1:14 PM CDT SUITE FEF 25-75 % 1.21 L/s 07/28/2020 [facility] POST 1:14 PM CDT SUITE PEF POST 5.17 L/s 07/28/2020 [facility] 1:14 PM CDT SUITE FET POST 11.22 sec 07/28/2020 [facility] 1:14 PM CDT SUITE DLCO SINGLE 18.30 ml/(min*mm 07/28/2020 [facility] BREATH POST Hg) 1:14 PM [address] VA SINGLE 4.21 L 07/28/2020 [facility] BREATH POST 1:14 PM CDT SUITE [id number] 98.00 % 07/[facility] PulseRest 89.00 1/min 07/28/2020 [facility] 1:14 PM CDT SUITE [id number] 100.00 % 07/28/2020 [facility] 1:14 PM CDT SUITE PulseExer 104.00 1/min 07/28/2020 [facility] 1:14 PM CDT SUITE EXER TIME 3.00 min 07/28/2020 [facility] 1:14 PM CDT SUITE STEP HEIGHT 9.00 Inch 07/28/2020 [facility] PRE 1:14 PM CDT SUITE TLC POST 4.71 L 07/28/2020 [facility] 1:14 PM CDT SUITE VC POST 2.74 L 07/28/2020 [facility] 1:14 PM CDT SUITE FRCPLETH POST 2.46 L 07/28/2020 [facility] 1:14 PM CDT SUITE RV 1.97 L 07/28/2020 [facility] 1:14 PM CDT SUITE RV % TLC POST 41.88 % 07/28/2020 [facility] 1:14 PM CDT SUITE VC MAX PRE 2.53 L 07/28/2020 [facility] 1:14 PM CDT SUITE FVC 2.53 L 07/28/2020 [facility] 1:14 PM CDT SUITE FEV1 1.69 L 07/28/2020 [facility] 1:14 PM CDT SUITE FEV1/FVC 66.56 % 07/28/2020 [facility] 1:14 PM CDT SUITE [id number]% 0.97 L/s 07/28/2020 [facility] 1:14 PM CDT SUITE PEF PRE 4.55 L/s 07/28/2020 [facility] 1:14 PM CDT SUITE FET PRE 9.73 sec 07/28/2020 [facility] 1:14 PM CDT SUITE SUBSTANCE POST Albuterol 07/28/2020 [facility] 1:14 PM CDT SUITE DOSE POST 2 Puff 07/28/2020 [facility] 1:14 PM CDT SUITE % PRED VC MAX 71 % % 07/28/2020 [facility] 1:14 PM CDT SUITE FVC% 71 % % 07/28/2020 [facility] 1:14 PM CDT SUITE FEV1% 58 % % 07/28/2020 [facility] 1:14 PM CDT SUITE % PRED 82 % % 07/28/2020 [facility] FEV1/FVC 1:14 PM CDT SUITE % PRED FEF 33 % % 07/28/2020 [facility] 25-75% 1:14 PM CDT SUITE % PRED PEF 75 % % 07/28/2020 [facility] 1:14 PM CDT SUITE PRED TLC 4.93 07/28/2020 [facility] 1:14 PM CDT SUITE PRED RV 1.66 07/28/2020 [facility] 1:14 PM CDT SUITE PRED VC MAX 3.56 07/28/2020 [facility] 1:14 PM CDT SUITE PRED FVC 3.56 07/28/2020 [facility] 1:14 PM CDT SUITE PRED FEV 1 2.88 07/28/2020 [facility] 1:14 PM CDT SUITE PRED FEV1/FVC 81.3 07/28/2020 [facility] 1:14 PM CDT SUITE PRED FEF 2.95 07/28/2020 [facility] 25-75% 1:14 PM CDT SUITE PRED PEF 6.1 07/28/2020 [facility] 1:14 PM CDT SUITE PRED DLCO 21.4 07/28/2020 [facility] 1:14 PM CDT SUITE Specimen (Source) Anatomical Collection Method Collection Time Re ceived Time Location / / Volume Laterality 07/28/2020 7:12 AM CDT Narrative This result has an attachment that is no t available. Yair Gonzalez M.D. PFT ORDERABLES Performing Organization Address City/State/ZIP Code Phon e Number [facility] [address] [address] [place] (07/18/2020 8:28 AM CDT) Specimen (Source) Anatomical Location Collection Method / Collectio n Time Received Time / Laterality Volume Yair Gonzalez M.D. CV STRESS PROCEDURES documented in this encounter Visit Diagnoses Diagnosis Cavity Lung - Primary Malignant Neoplasm Of Rectum (HCC) documented in this encounter
--- OUTSIDE RECORDS SUMMARY | 2021-11-30 14:50 | XMS_ITS | Encounter Summary ---
:1975 Demographics Address [address] [facility] [address] [place] [address] Home Phone Email Address Preferred Language ENG Marital Status Gnosticism Affiliation Unknown Race White Ethnic Group Not or Author Organization [facility] Address [address] [place] [address] Care Team Providers Name Role Phone Unavailable Primary Care Provider Unavailable Reason for Visit Reason Onset Date Comments Outpatient COVID-19 Testing 11/06/2019 Encounter Details Date Type Department Care Team Description 11/06/2019 External Outreach Department of [facility] Yair Gonzalez Encounter For Medicine in Gerald Patricio M.D. Screening For Other [place], [place] [address] [facility] Viral Diseases [address] [place], [place] (COVID-19) ([place] [address] Dx) [phone] Social History Tobacco Use Types Packs/Day Years [...] How often do you attend bahai or cheondoism Not asked services? Do you belong to [...] RNA, V Asymptomatic (11/07/2019 10:47 AM CDT) [facility] Method Time Signature SARS-CoV-2 Swab, 11/08/2019 [...] is performed using the Aptima SARS-CoV-2 assay ([employer] which has received Emergency Use Authori zation (EUA) by the U.S. Food and Drug Administration. Fact sheets for this Emergency Use Autho rization (EUA) assay can be found at the following links: For Healthcare Providers: https://www.fd a.gov/media/548202/download For Patients: https://www.fda.gov/media/ 690004/download Specimen Anatomical Collection Method Collection Time Receive d Time (Source) Location / / Volume Laterality Varies 11/07/2019 10:47 11/07/2019 4:15 (Nasopharynx) AM CDT PM CDT Yair Gonzalez M.D. LAB MICROBIOLOGY - GENERAL O RDERABLES Performing Organization Address City/State/ZIP Code Phon e Number [facility]- [address] [place] [id number] [place] [address] System [address] documented in this encounter Visit Diagnoses Diagnosis Encounter For Screening For Other Viral Diseases (COVID-19) - Primary documented in this encounter Additional Health Concerns Infection Onset Date Last Indicated Resolved Time COVID19 Pending 11/06/2019 11/07/2019 11/08/2019 1:49 AM CDT documented as of this encounter
--- NOTE | 2021-11-30 15:30 | CRLHL7_ITS ---
For Patients: As a result of the Century Cures Act, medical imaging exams and procedure reports are released immediately into your electronic medical record. You may view this report before your referring provider. If you have questions, please contact your health care provider. CLINICAL HISTORY: Metastatic rectal cancer. TECHNIQUE: Following IV injection of 60-jxcyoc-2-deoxyglucose (FDG) and a standard uptake period of approximately 60 minutes, a non-contrast CT scan followed by a PET scan were acquired along the length of the body from the mid portion of the head to the mid thighs. The non-contrast CT was used for anatomic localization and photon attenuation correction of the PET scan. Blood Glucose Level (mg/dL): 62 FDG Dose (mCi): 11.8 COMPARISON: CT scans of the chest, abdomen, and pelvis dated 30 October 2021 and 10 July 2021. FINDINGS: Head/Neck: No abnormal activity identified in the head and neck. Chest: Left-sided Port-A-Cath. No mediastinal or hilar adenopathy. No axillary adenopathy. The lungs show multiple bilateral nodules/masses which are slightly increased in size and number with the largest in the right lung located in the right lower lobe measuring 1.8 x 1.9 cm, previously 1.8 x 1.5 cm, SUV max 4.8, and the largest in the left lung located in the left lower lobe measuring 1.7 x 1.5 cm, previously 1.6 x 1.3 cm, SUV max 7.1. No pneumothorax. Abdomen/Pelvis: Five liver metastases are slightly increased in size with the largest located IV measuring 3.4 cm, previously 2.8 cm, SUV max 11.2. No focal abnormalities identified in the visualized portions of the spleen, pancreas, adrenal glands, and kidneys. No hydronephrosis. Solid and cystic pelvic mass located just superior to the urinary bladder likely arises from the left ovary and measures 9.4 x 7.5 cm, previously 5.5 x 5.3 cm, SUV max 8.5. Wall thickening/mass involving the lower rectum is unchanged in size, SUV max 13.6. The remainder of the GI tract is incompletely distended but shows no gross abnormalities. No retroperitoneal, pelvic sidewall, or mesenteric adenopathy. Bones: No abnormal skeletal activity identified. IMPRESSION: 1. Multiple pulmonary metastases are slightly increased in size and number. 2. Liver metastases are slightly increased in size. 3. Solid and cystic pelvic mass likely representing a left ovarian metastasis is significantly increased in size. 4. Wall thickening/mass involving the lower rectum is unchanged in size. Dictated by David Valle MD @ 12/04/2021 11:38:31 AM (Electronically Signed)
== END 2021-11-30 14:40 | disposition home or self-care (01) ==
PROVIDERS: PCP Family Medicine; Visit Provider Internal Medicine Medical Oncology
DX: C20 Malignant neoplasm of rectum (principal); C78.7 Secondary malignant neoplasm of liver and intrahepatic bile duct; C78.02 Secondary malignant neoplasm of left lung; C78.01 Secondary malignant neoplasm of right lung; C79.62 Secondary malignant neoplasm of left ovary
CPT/HCPCS: 78815; A9552

== ENCOUNTER 2022-02-19 15:07 | Outpatient (CLI) | payer BC, SELFPAY ==
--- OUTSIDE RECORDS SUMMARY | 2022-02-19 15:09 | XMS_ITS ---
:1975 Demographics Address [address] [place] [address] Home Phone [phone] Preferred Language Lithuanian Marital Status Never Cheondoism Affiliation Unknown Race White Ethnic Group Not or Author Care Team Providers Name Role Phone [facility] TEAM Palliative Care [phone] JASMIN PORTILLO cleat thrower [phone] [facility] Palliative Care [phone] AVIS STEIN COLD ROLLING MACHINE SETTER Palliative Care [phone] ITZEL WOODRUFF MD Radiation Oncologist [phone] CELESTE SOLORZANO MD Primary Care Provider [phone] TODD BRAND [facility] Independent Contractor [phone] Allergies Code Code System Name Reaction Severity Status Onset [id number] RxNorm Latex Rash ? Active 07/28/2020 Medications [...] Results Lab Results None recorded. Past Encounters Encounter Date Diagnosis Provider 10/13/2021 Cheryl Henry COLD ROLLING MACHINE SETTER: [address] [place] [address] [phone], Ph. 10/09/2021 Discussed with Patient Avis Stein TECHNICAL SUPPORT SPECIALIST: [address] [place] [address] [phone], Ph. 09/22/2021 Jasmin Portillo RN : [address] [place] [address] [phone], Ph. Social History None recorded. Vaccine List None recorded. Plan of Care Patient Instructions Patient instructed to call with [facility] or concerns. Reminders Provider Appointments None recorded. ? ? Lab None recorded. ? ? Referral None recorded. ? ? Procedures None recorded. ? ? Surgeries None recorded. ? ? Imaging None recorded. ? ? Vitals Height Weight BMI 5 ft 3 in 50 lbs 8.9 kg/m2
--- NOTE | 2022-02-19 16:00 | CRLHL7_ITS ---
For Patients: As a result of the Century Cures Act, medical imaging exams and procedure reports are released immediately into your electronic medical record. You may view this report before your referring provider. If you have questions, please contact your health care provider. INDICATION: Restaging rectal cancer. COMPARISON: 30 October 2021 [address] TECHNIQUE: 65 mL Isovue-370 IV contrast. FINDINGS: Chest: Left chest infusion port catheter. Diffuse mild soft tissue indistinctness suggesting some edema. Numerous cavitary and non cavitary spiculated pulmonary nodules in both lungs. These are increased in size, number and density through the lung bases with some areas of confluent opacity at the medial and lateral right lower lobe and medial left lower lobe. 13 mm right hilar pathologic lymph node. This is new or significantly increased. No other hilar or mediastinal adenopathy appreciated. No blastic or lytic bone lesion appreciated. - Abdomen and pelvis: New peripelvic ascites. Increased size of ill-defined metastases in the left liver segment II to and segment IV. Greatest diameter in segment IV 4.2 x 3.5 cm (image 121 series 2). Small low-attenuation lesions increased in size in the right liver segment V and . No definite adrenal nodule. Appropriate enhancing kidneys. Normal size spleen. Extensive diffuse ascites. Massive enlargement of heterogeneous solid and cystic adnexal mass now measuring at least 15 x 13 cm greatest axial diameter and craniocaudal length of roughly 24 cm. Mass-effect on the uterus which is displaced left and posterior versus comparison. No dilated small bowel. No obvious peritoneal nodularity or thickening. IMPRESSION: 1. Significant progression of metastatic disease with numerous cavitary pulmonary nodules, new right hilar lymph node, increased hepatic metastases and massive enlargement of ovarian metastases with new moderate to large volume of ascites. 2. New diffuse soft tissue edema third-spacing. Please note that all CT scans at this facility use dose modulation, iterative reconstruction, and/or weight-based dosing when appropriate to reduce radiation dose to as low as reasonably achievable. Dictated by Bhavin Rocha MD @ 02/23/2022 11:49:44 AM (Electronically Signed)
== END 2022-02-19 15:08 | disposition home or self-care (01) ==
LOC: CT 15:07
PROVIDERS: PCP Family Medicine; Visit Provider Internal Medicine Medical Oncology
DX: C20 Malignant neoplasm of rectum (principal); C78.7 Secondary malignant neoplasm of liver and intrahepatic bile duct; R91.8 Other nonspecific abnormal finding of lung field
CPT/HCPCS: 71260; 74177; Q9967

== ENCOUNTER 2022-04-20 15:14 | Emergency (ER) | payer BC, SELFPAY ==
[2022-04-20 15:21] VITALS: BP 138/90; PULSE 101; O2SAT 99; BMI 22.1
--- NOTE | 2022-04-20 15:40 | ED_ITS ---
HPI - General Adult General Chief complaint: Fever Stated complaint: [facility] Pt w Fever Time Seen by Provider: 04/20/22 15:26 History of Present Illness HPI narrative: Patient is a 46-year-old white female who has a history of rectal cancer that is metastatic to liver and lung, also ovary. Who is on palliative chemotherapy treatment. She reports she had a fever yesterday and today. She has had a little bit o a headache and and felt some mild upset her stomach. She has metastatic disease to ovary and she has got a very large abdomen that is pretty much full of a tumor by her report. She is on palliative treatment. She has had no discussion of code status or wishes with providers. She denies shortness of breath or chest pain. She has a port. She is not interested in a COVID/influenza/RSV test as she states ?I stay at home?. She does have a brother and mother live nearby for support system. Related Data Home Medications Medication Instructions Recorded Confirmed goldenseal root 500 mg capsule 500 mg PO DAILY PRN 11/06/21 04/12/22 acyclovir 400 mg tablet 400 mg PO QDAY PRN 01/22/22 04/12/22 ascorbate calcium (vitamin C) 500 500 mg PO DAILY PRN 01/22/22 04/12/22 mg tablet acetaminophen 500 mg capsule 1,000 mg PO Q6H PRN 03/26/22 04/12/22 calcium carbonate 400 mg calcium 400 mg PO QID PRN 03/26/22 04/12/22 (1,000 mg) chewable tablet (Tums Ultra) diphenhydramine 25 3 tab PO QHS PRN 03/26/22 04/12/22 mg-acetaminophen 500 mg tablet (Tylenol PM Extra Strength) lorazepam 0.5 mg tablet (Ativan) 0.5 mg PO QHS 03/26/22 04/12/22 polyethylene glycol 3350 17 4 g PO QDAY PRN constipation 04/09/22 04/12/22 gram/dose oral powder (Miralax) Previous Rx's Medication Instructions Recorded iron,carbonyl 65 mg-vitamin C 125 1 tab PO .weekly PRN iron 03/07/22 mg tablet,delayed release deficiency #100 tabs (Vitron-C) albuterol sulfate 90 mcg/actuation 2 puff inhalation BID-QID 03/21/22 aerosol inhaler (Ventolin HFA) shortness of breath or wheezing #8.5 grams fluticasone propionate 110 1 inh inhalation BID #12 grams 03/21/22 mcg/actuation HFA aerosol inhaler (Flovent HFA) prochlorperazine maleate 10 mg 10 mg PO Q6H PRN nausea and 03/26/22 tablet vomiting #30 tabs levofloxacin 500 mg tablet 500 mg PO DAILY 7 days #7 tabs 04/20/22 Allergies Allergy/AdvReac Type Severity Reaction Status Date / Time Latex, Natural Rubber Allergy Verified 04/20/22 15:21 Review of Systems Status of ROS: Reports: 6 or more systems reviewed and unremarkable except as noted in History and below PFSH [facility] Medical History Bronchial obstruction History of Mohs micrographic surgery for skin cancer (2014) Oral herpes simplex, not currently active Primary malignant neoplasm of colorectal area with metastasis (2016) Pulmonary nodules Rectal cancer metastasized to liver Rectal cancer metastasized to lung (~09/2021) Weight loss (09/2019) Surgical History History of dilation and curettage (2003) S/P Mohs surgery for basal cell carcinoma (2014) Family History Paternal Grandmother Colon cancer, Onset Age: 60 Social History Narrative: , no kids-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 Patient did have a fever at home up to 102 HEENT is unremarkable Neck is supple Chest clear Heart rhythm regular heart murmur Abdomen is protuberant tender mild fullness, distended, firm. She does have reports she had a history of ascites as well as the ovarian metastatic mass Extremities are no edema Neurologic nonfocal Skin she has a cancer that was removed from her right forehead that shows some mild weeping but no area areas of significant cellulitic change. She has apparently needing Mohs surgery Const: Vital Signs, click to edit/add: Vital Signs - 24 hr 04/20/22 15:21 Pulse Rate [Pulse Oximeter] 101 H Blood Pressure [Ri ght Upper Arm] 138/90 H Pulse Oximetry 99 Oxygen Delivery Me thod Room Air Course Vital Signs Vital signs: Initial Vital Signs Temperature Source Temporal Artery Scan 04/20/22 15:21 Pulse Rate 101 H 04/20/22 15:21 Blood Pressure 138/90 H 04/20/22 15:21 Blood Pressure Mean 106 04/20/22 15:21 Blood Pressure Position Supine 04/20/22 15:21 Pulse Oximetry 99 04/20/22 15:21 Oxygen Delivery Method 04/20/22 15:21 Vital Signs Pulse Rate 101 H 04/20/22 15:21 Blood Pressure 138/90 H 04/20/22 15:21 Pulse Oximetry 99 04/20/22 15:21 Oxygen Delivery Method 04/20/22 15:21 Pulse Rate 101 H 04/20/22 15:21 Blood Pressure 138/90 H 04/20/22 15:21 Pulse Oximetry 99 04/20/22 15:21 Oxygen Delivery Method 04/20/22 15:21 Medical Decision Making MDM Narrative Medical decision making narrative: [age] year white female with rectal cancer metastatic to lung and liver as well as to ovary. Currently on palliative chemotherapy, now with fever. I think at this time would be rise check her blood, blood cultures, urine urine culture, will give her 1 L IV fluid for rehydration, will also give her Levaquin 500 orally continue that for 1 week. Will review her labs if they are reassuring I think she can go home with the Levaquin. And update [facility] in the next 24-48 hours. Addendum: The patient's labs look fairly reassuring, she has a adequate white count. Urinalysis looks basically negative, culture be obtained. Blood culture obtained. Patient took oral Levaquin. Would continue Levaquin daily for 6 additional days. Update [facility] within the next day or 2. Return to ED as needed. Lab Data Labs: Lab Results 04/20/22 04/20/22 04/20/22 Range/Units 16:00 16:38 16:38 WBC 6.47 (4.50-11.00) K/uL RBC 3.65 L (4.00-5.20) m/uL Hgb 9.2 L (12.0-16.0) gm/dL Hct 30.4 L (33.0-51.0) % MCV 83 (80-100) fL MCH 25 L (26-34) pg MCHC 30 L (32-36) gm/dL RDW Coeff of Sandra 20.5 H (11.5-15.5) % Plt Count 417 (140-440) K/uL Neut % (Auto) 79.2 H (42.0-72.0) % Lymph % (Auto) 11.4 L (20-44) % [place] % (Auto) 4.6 (0.0-11.0) % Eos % (Auto) 3.4 (0.0-7.0) % Baso % (Auto) 0.5 (0.0-3.0) % Neut # (Auto) 5.10 (1.7-7.0) K/uL Lymph # (Auto) 0.70 L (0.90-2.90) K/uL [place] # (Auto) 0.30 (0.00-0.90) K/UL Eos # (Auto) 0.22 (0.00-0.50) K/uL Baso # (Auto) 0.03 (0.00-0.30) K/uL Sodium 135 (135-149) mmol/L Potassium 4.1 (3.6-5.1) mmol/L Chloride 97 (96-114) mmol/L Carbon Dioxide 31 (20-32) mmol/L BUN 12 (5-24) mg/dL Creatinine 0.5 (0.5-1.5) mg/dL Estimated Creat Clear 116.30 Estimated GFR 117 ml/min Glucose 90 (60-115) mg/dL Calcium 9.1 (8.4-10.6) mg/dL Urine Color Yellow (Yellow) Urine Appearance Clear (Clear) Urine pH 6.0 (5.0-8.5) Ur Specific [place] >= 1.030 (1.000-1.030) Urine Protein 2+ A (Negative) Urine Glucose (UA) Negative (Negative) Urine Ketones Negative (Negative) Urine Blood 2+ A (Negative) Urine Nitrite Negative (Negative) Urine Bilirubin Negative (Negative) Urine Urobilinogen 0.2 (0.2-1.0) Ur Leukocyte Esterase Negative (Negative) Urine RBC 5-10 A (0-2) Urine WBC 0-2 (0-5) Ur Squamous Epith Cells None (None-Few) Calcium Oxalate Crystal Few A (None) Urine Bacteria Few A (None) Discharge Plan Discharge Clinical Impression: Rectal cancer metastasized to lung, Fever Patient Disposition: Home w/ Parent or Adult Condition: Improved Additional Instructions: Rest, light activity, Levaquin daily for 6 additional days, update cancer doctor in the next couple of days with symptoms, return to ED sooner problems concerns worsening. Activity Level: Light activity Discharge Diet: Regular Prescriptions: New levofloxacin 500 mg tablet 500 mg PO DAILY 7 Days Qty: 7 0RF No Action acyclovir 400 mg tablet 400 mg PO QDAY PRN Hold Instructions: not needing at this time albuterol sulfate [Ventolin HFA] 90 mcg/actuation HFA aerosol inhaler 2 puff inhalation BID-QID Qty: 8.5 5RF fluticasone propionate [Flovent HFA] 110 mcg/actuation HFA aerosol inhaler 1 inh inhalation BID Qty: 12 0RF Rx Instructions: administer with spacer polyethylene glycol 3350 [Miralax] 17 gram/dose powder 4 g PO QDAY PRN (Reason: constipation) lorazepam [Ativan] 0.5 mg tablet 0.5 mg PO QHS diphenhydramine-acetaminophen [Tylenol PM Extra Strength] 25-500 mg tablet 3 tab PO QHS PRN acetaminophen 500 mg capsule 1,000 mg PO Q6H PRN calcium carbonate [Tums Ultra] 400 mg calcium (1,000 mg) tablet,chewable 400 mg PO QID PRN goldenseal root 500 mg capsule 500 mg PO DAILY PRN Hold Instructions: not taking at this time, uses when has gum infection ascorbate calcium (vitamin C) 500 mg tablet 500 mg PO DAILY PRN Vitron-C 65 mg iron- 125 mg tablet,delayed release (DR/EC) 1 tab PO .weekly PRN (Reason: iron deficiency) Qty: 100 1RF prochlorperazine maleate 10 mg tablet 10 mg PO Q6H PRN (Reason: nausea and vomiting) Qty: 30 1RF Follow Up/Referrals: Charisma Oliveira MD [Primary Care Provider] - Stand Alone Forms: [employer] Info Instructions
[2022-04-20 16:49] LABS: Basophils Absolute Auto 0.03 K/uL (0.00-0.30); Basophils Percent Auto 0.5 % (0.0-3.0); Eosinophils Absolute Auto 0.22 K/uL (0.00-0.50); Eosinophils Percent Auto 3.4 % (0.0-7.0); Hematocrit 30.4 % (33.0-51.0); Hemoglobin* 9.2 gm/dL (12.0-16.0); Immature Granulocytes Abs Auto 0.06 K/uL (0.00-0.30); Immature Granulocytes Pct Auto 0.9 %; Lymphocytes Percent Auto 11.4 % (20-44); Mean Corpuscular HGB Conc 30 gm/dL (32-36); Mean Corpuscular Hemoglobin 25 pg (26-34); Mean Corpuscular Volume 83 fL (80-100); Monocytes Percent Auto 4.6 % (0.0-11.0); Neutrophils Percent Auto 79.2 % (42.0-72.0); Platelet Count* 417 K/uL (140-440); RDW Coefficient of Variation % 20.5 % (11.5-15.5); Red Blood Count 3.65 m/uL (4.00-5.20); White Blood Count* 6.47 K/uL (4.50-11.00)
[2022-04-20 16:54] LABS: Slide Review Reflex No
[2022-04-20 17:04] LABS: Appearance Urine Clear (Clear); Bilirubin Urine Negative (Negative); Blood Urine 2+ (Negative); Color Urine Yellow (Yellow); Glucose Urine Negative (Negative); Ketones Urine Negative (Negative); Leukocyte Esterase Urine Negative (Negative); Nitrite Urine Negative (Negative); Protein Urine 2+ (Negative); Specific Gravity Urine >= 1.030 (1.000-1.030); Urobilinogen Urine 0.2 (0.2-1.0)
[2022-04-20 17:04] LABS: Chloride* 97 mmol/L (96-114); Potassium* 4.1 mmol/L (3.6-5.1); Sodium* 135 mmol/L (135-149)
[2022-04-20] MEDS: levoFLOXacin 500 MG TABLET PO (17:04)
[2022-04-20] MEDS: 0.9 % SODIUM CHLORIDE 1000 ml 1,000 ML 6000 ML IV (17:05)
[2022-04-20 17:07] LABS: Carbon Dioxide* 31 mmol/L (20-32); Creatinine* 0.5 mg/dL (0.5-1.5); Estimated Glomerular Filt Rate 117 ml/min
[2022-04-20 17:08] LABS: Blood Urea Nitrogen* 12 mg/dL (5-24); Calcium* 9.1 mg/dL (8.4-10.6); Glucose* 90 mg/dL (60-115)
[2022-04-20 17:40] LABS: Bacteria Urine Few; Calcium Oxalate Crystals Urine Few; WBC Urine 0-2 (0-5)
[2022-04-20] MEDS: HEPARIN 500 UNIT/5 ML SYRINGE IVF (18:23)
== END 2022-04-20 18:19 | disposition home or self-care (01) ==
PROVIDERS: Emergency Provider Family Medicine; PCP Family Medicine
DX: R50.9 Fever, unspecified (principal); C20 Malignant neoplasm of rectum; C78.00 Secondary malignant neoplasm of unspecified lung
CPT/HCPCS: 36415; 80048; 81001; 85025; 87040; 87086; 99283; 99284; A9270; J1642; J7030

== ENCOUNTER 2022-04-27 12:33 | Outpatient (RCR) | payer BC, SELFPAY ==
[2021-10-30 08:49] LABS: Basophils Absolute Auto 0.04 K/uL (0.00-0.30); Basophils Percent Auto 0.6 % (0.0-3.0); Eosinophils Absolute Auto 0.42 K/uL (0.00-0.50); Eosinophils Percent Auto 6.3 % (0.0-7.0); Hematocrit 40.4 % (33.0-51.0); Immature Granulocytes Abs Auto 0.01 K/uL (0.00-0.30); Lymphocytes Absolute Auto 1.46 K/uL (0.90-2.90); Lymphocytes Percent Auto 21.8 % (20-44); Mean Corpuscular HGB Conc 32 gm/dL (32-36); Mean Corpuscular Hemoglobin 31 pg (26-34); Mean Corpuscular Volume 96 fL (80-100); Monocytes Percent Auto 9.1 % (0.0-11.0); Neutrophils Absolute Auto 4.16 K/uL (1.7-7.0); Neutrophils Percent Auto 62.1 % (42.0-72.0); Platelet Count* 199 K/uL (140-440)
[2021-10-30 08:58] LABS: Chloride* 107 mmol/L (96-114); Potassium* 4.3 mmol/L (3.6-5.1); Slide Review Reflex No; Sodium* 138 mmol/L (135-149)
[2021-10-30 09:00] LABS: Aspartate Amino Transferase* 31 U/L (12-35); Bilirubin Total* 0.3 mg/dL (0.1-1.5); Carbon Dioxide* 29 mmol/L (20-32); Creatinine* 0.7 mg/dL (0.5-1.5); Estimated Glomerular Filt Rate 108 ml/min; Total Protein* 7.2 g/dL (6.0-8.3)
[2021-10-30 09:01] LABS: Alanine Aminotransferase* 21 U/L (4-35); Alkaline Phosphatase* 96 U/L (40-150); Blood Urea Nitrogen* 8 mg/dL (5-24); Calcium* 8.7 mg/dL (8.4-10.6); Glucose* 88 mg/dL (60-115)
[2021-10-30] MEDS: SODIUM CHLORIDE 0.9 % (FLUSH) 10 ML SYRINGE IVF (09:49)
[2021-10-30] MEDS: HEPARIN 500 UNIT/5 ML SYRINGE IVF (09:49)
[2021-10-31 10:55] LABS: Carcinoembryonic Antigen 48.1 ng/mL (<=3.8)
--- NOTE | 2021-11-15 16:24 | ONC.NURNOTE ---
Received call PET scan stating the scan needed to be moved to November 30 due to insurance issues. Montserrat CLARK did call to see if it could be done by tomorrow for scan to be done but they said turn around was atleast 3 days. Patient called and travel writer suggested moving it elsewhere to get it done sooner since treatment was on hold but patient thought waiting was fine and she preferred to wait until the .
[2022-01-04] MEDS: SODIUM CHLORIDE 0.9 % (FLUSH) 10 ML SYRINGE IVF (14:08)
[2022-01-04] MEDS: HEPARIN 500 UNIT/5 ML SYRINGE IVF (14:08)
[2022-02-19] MEDS: SODIUM CHLORIDE 0.9 % (FLUSH) 10 ML SYRINGE IVF (16:13)
[2022-02-19] MEDS: HEPARIN 500 UNIT/5 ML SYRINGE IVF (16:14)
[2022-03-01] MEDS: HEPARIN 500 UNIT/5 ML SYRINGE IVF (15:51)
[2022-03-01] MEDS: SODIUM CHLORIDE 0.9 % (FLUSH) 10 ML SYRINGE IVF (15:51)
[2022-03-01 16:02] LABS: Eosinophils Percent Auto 1.2 % (0.0-7.0); Hematocrit 29.6 % (33.0-51.0); Hemoglobin* 9.2 gm/dL (12.0-16.0); Lymphocytes Percent Auto 13.8 % (20-44); Mean Corpuscular HGB Conc 31 gm/dL (32-36); Mean Corpuscular Hemoglobin 26 pg (26-34); Mean Corpuscular Volume 84 fL (80-100); Neutrophils Percent Auto 76.4 % (42.0-72.0); Platelet Count* 461 K/uL (140-440); RDW Coefficient of Variation % 15.2 % (11.5-15.5); Red Blood Count 3.52 m/uL (4.00-5.20); White Blood Count* 9.97 K/uL (4.50-11.00)
[2022-03-01 16:03] LABS: Basophils Absolute Auto 0.02 K/uL (0.00-0.30); Basophils Percent Auto 0.2 % (0.0-3.0); Eosinophils Absolute Auto 0.12 K/uL (0.00-0.50); Immature Granulocytes Abs Auto 0.04 K/uL (0.00-0.30); Immature Granulocytes Pct Auto 0.4 %
[2022-03-01 16:14] LABS: Chloride* 101 mmol/L (96-114); Sodium* 132 mmol/L (135-149)
[2022-03-01 16:15] LABS: Potassium* 4.2 mmol/L (3.6-5.1)
[2022-03-01 16:17] LABS: Alkaline Phosphatase* 81 U/L (40-150); Aspartate Amino Transferase* 42 U/L (12-35); Bilirubin Total* 0.4 mg/dL (0.1-1.5); Carbon Dioxide* 28 mmol/L (20-32); Creatinine* 0.6 mg/dL (0.5-1.5); Estimated Glomerular Filt Rate 112 ml/min; Total Protein* 6.4 g/dL (6.0-8.3)
[2022-03-01 16:18] LABS: Alanine Aminotransferase* 17 U/L (4-35); Blood Urea Nitrogen* 10 mg/dL (5-24); Calcium* 8.1 mg/dL (8.4-10.6); Glucose* 87 mg/dL (60-115)
[2022-03-01 16:19] LABS: Slide Review Reflex No
[2022-03-03 21:47] LABS: Carcinoembryonic Antigen 79.6 ng/mL (<=3.8)
--- NOTE | 2022-03-15 14:21 | ONC.NURNOTE ---
PA submitted via cover my meds for albuterol inhaler HFA
[2022-03-22 09:58] LABS: Basophils Percent Auto 0.1 % (0.0-3.0); Eosinophils Percent Auto 1.2 % (0.0-7.0); Hematocrit 28.2 % (33.0-51.0); Hemoglobin* 8.6 gm/dL (12.0-16.0); Immature Granulocytes Pct Auto 0.2 %; Lymphocytes Percent Auto 7.3 % (20-44); Mean Corpuscular HGB Conc 31 gm/dL (32-36); Mean Corpuscular Hemoglobin 25 pg (26-34); Mean Corpuscular Volume 82 fL (80-100); Neutrophils Percent Auto 85.2 % (42.0-72.0); Platelet Count* 564 K/uL (140-440); RDW Coefficient of Variation % 16.9 % (11.5-15.5); Red Blood Count 3.44 m/uL (4.00-5.20); Slide Review Reflex No; White Blood Count* 15.56 K/uL (4.50-11.00)
[2022-03-22 10:16] LABS: Chloride* 103 mmol/L (96-114); Sodium* 136 mmol/L (135-149)
[2022-03-22 10:17] LABS: Potassium* 4.3 mmol/L (3.6-5.1)
[2022-03-22 10:19] LABS: Alanine Aminotransferase* 14 U/L (4-35); Alkaline Phosphatase* 126 U/L (40-150); Aspartate Amino Transferase* 31 U/L (12-35); Bilirubin Total* 0.3 mg/dL (0.1-1.5); Blood Urea Nitrogen* 9 mg/dL (5-24); Carbon Dioxide* 28 mmol/L (20-32); Creatinine* 0.6 mg/dL (0.5-1.5); Estimated Glomerular Filt Rate 112 ml/min; Glucose* 88 mg/dL (60-115); Total Protein* 6.6 g/dL (6.0-8.3)
[2022-03-22 10:20] LABS: Calcium* 8.5 mg/dL (8.4-10.6); Magnesium* 1.9 mg/dL (1.5-2.6)
[2022-03-22 11:46] LABS: HCG Qualitative Serum* Negative (Negative)
--- NOTE | 2022-03-23 14:52 | URNOTE ---
Received request for Palonosetron (J2469), Fluorouracil (J9190), Irinotecan (J9206), Leucovorin (J0640) Oxaliplatin (J9263) Fosaprepitant (J1453) and Vectibix (J9303). Per Merle Bowers at [facility] [phone], Fluorouracil, Irinotecan, Leucovorin and Oxaliplatin do not require prior authorization. Aloxi has current authorization on file 07/31/2021-07/30/2022 for 27 doses, Auth #[id number] Fosaprepitant has been approved 03/26/2022-09/10/2022 for 12 doses. Auth #[id number] Vectibix has been denied and will require peer to peer review. Info given to [facility].
[2022-03-24 05:46] LABS: Carcinoembryonic Antigen 68.9 ng/mL (<=3.8)
[2022-03-26 08:29] VITALS: BP 110/66; PULSE 88; RESP 16; TEMP 37.2; O2SAT 90
[2022-03-26] MEDS: dexAMETHasone 10 MG in 0.9 % SODIUM CHLORIDE 100 ml 100 ML 404 MG IVPB (09:36)
[2022-03-26] MEDS: PALONOSETRON 0.25 MG/5 ML inj IV (09:37)
[2022-03-26] MEDS: FOSAPREPITANT 150 MG inj 150 MG in 0.9 % SODIUM CHLORIDE 250 ml 250 ML 510 MG IVPB (09:55)
[2022-03-26] MEDS: OXALIPLATIN 5 MG/ML INJ 140 MG, TUBING PRIMARY 1 EACH in 5 % DEXTROSE 250 ML 250 ML 139 MG IV (10:27)
[2022-03-26] MEDS: diphenhydrAMINE 25 MG CAPSULE PO (12:05)
[2022-03-28 13:06] VITALS: BP 112/79; PULSE 81; RESP 16; TEMP 36.5; O2SAT 97
--- NOTE | 2022-03-29 14:20 | URNOTE ---
REceived request for Vectibix J9303, Per [employer] [place], this has been approved for 13 doses, 03/26/2022-09/10/2022. Authorization #[id number]
--- NOTE | 2022-03-30 08:27 | ONC.NURNOTE ---
Received call stating patient's Vectibix was approved so Dr. Stevenson notified and wanted patient to have it Saturday and then to move treatment of FOLFIRINOX out a few days. Will clarify if Vectibix to be given 2 days early with rest of treatment when MD in again. Patient coming in for treatment today.
[2022-03-30 13:05] VITALS: BP 116/81; PULSE 92; RESP 16; TEMP 36.8; O2SAT 100
--- NOTE | 2022-04-03 13:41 | ONC.NURNOTE ---
Map Compiler called patient to see how she was feeling and to go over schedule for next week. At this time patient feels like she's doing slightly better with decreased LE edema and maybe less ascites. Plan is to push chemo out until SaturdayApr 11 vs and will get her Vectibix on pump off day. Don't want to push chemo out a whole week at this point. Dr. Stevenson consulted and this is what he is recommended
[2022-04-11 08:28] VITALS: BP 111/78; PULSE 88; RESP 16; TEMP 36.5; O2SAT 97
[2022-04-11 08:49] LABS: Basophils Absolute Auto 0.03 K/uL (0.00-0.30); Basophils Percent Auto 0.5 % (0.0-3.0); Eosinophils Absolute Auto 0.35 K/uL (0.00-0.50); Hematocrit 28.6 % (33.0-51.0); Hemoglobin* 8.5 gm/dL (12.0-16.0); Immature Granulocytes Abs Auto 0.01 K/uL (0.00-0.30); Immature Granulocytes Pct Auto 0.2 %; Lymphocytes Absolute Auto 1.35 K/uL (0.90-2.90); Lymphocytes Percent Auto 23.1 % (20-44); Mean Corpuscular HGB Conc 30 gm/dL (32-36); Mean Corpuscular Hemoglobin 25 pg (26-34); Mean Corpuscular Volume 83 fL (80-100); Monocytes Percent Auto 11.8 % (0.0-11.0); Neutrophils Absolute Auto 3.42 K/uL (1.7-7.0); Neutrophils Percent Auto 58.4 % (42.0-72.0); Platelet Count* 540 K/uL (140-440); RDW Coefficient of Variation % 19.6 % (11.5-15.5); Red Blood Count 3.44 m/uL (4.00-5.20); White Blood Count* 5.85 K/uL (4.50-11.00)
[2022-04-11 09:02] LABS: Albumin* 3.4 g/dL (3.3-5.0)
[2022-04-11 09:03] LABS: Chloride* 104 mmol/L (96-114); Sodium* 139 mmol/L (135-149)
[2022-04-11 09:05] LABS: Bilirubin Total* 0.2 mg/dL (0.1-1.5); Creatinine* 0.5 mg/dL (0.5-1.5); Estimated Glomerular Filt Rate 117 ml/min
[2022-04-11 09:06] LABS: Alanine Aminotransferase* 16 U/L (4-35); Alkaline Phosphatase* 120 U/L (40-150); Aspartate Amino Transferase* 36 U/L (12-35); Blood Urea Nitrogen* 10 mg/dL (5-24); Carbon Dioxide* 29 mmol/L (20-32); Glucose* 84 mg/dL (60-115); Total Protein* 6.9 g/dL (6.0-8.3)
[2022-04-11 09:12] LABS: Slide Review Reflex Yes
[2022-04-11 09:13] LABS: Slide Review Acceptable Review (Acceptable)
[2022-04-11 09:51] LABS: Magnesium* 1.9 mg/dL (1.5-2.6)
[2022-04-11] MEDS: PALONOSETRON 0.25 MG/5 ML inj IV (11:28)
[2022-04-11] MEDS: dexAMETHasone 10 MG in 0.9 % SODIUM CHLORIDE 100 ml 100 ML 404 MG IVPB (11:28)
[2022-04-11] MEDS: FOSAPREPITANT 150 MG inj 150 MG in 0.9 % SODIUM CHLORIDE 250 ml 250 ML 510 MG IVPB (11:58)
[2022-04-11] MEDS: OXALIPLATIN 5 MG/ML INJ 140 MG, TUBING PRIMARY 1 EACH in 5 % DEXTROSE 250 ML 250 ML 139 MG IV (12:41)
[2022-04-11] MEDS: diphenhydrAMINE 25 MG CAPSULE PO (14:08)
[2022-04-11] MEDS: SODIUM CHLORIDE 0.9 % (FLUSH) 10 ML SYRINGE IVF (14:52)
[2022-04-11] MEDS: 5 % DEXTROSE 250 ML IV (14:53)
[2022-04-11] MEDS: 0.9 % SODIUM CHLORIDE 250 ml IV (14:59)
[2022-04-13 14:07] VITALS: BP 109/71; PULSE 90; RESP 16; TEMP 36.3; O2SAT 96
[2022-04-13] MEDS: 0.9 % SODIUM CHLORIDE 500 ML 500 ML 1000 ML IV (14:40)
[2022-04-13] MEDS: SODIUM CHLORIDE 0.9 % (FLUSH) 10 ML SYRINGE IVF (14:40)
[2022-04-13] MEDS: HEPARIN 500 UNIT/5 ML SYRINGE IVF (14:40)
[2022-04-13 14:47] VITALS: BP 113/75; PULSE 92
--- NOTE | 2022-04-20 11:14 | ONC.NURNOTE ---
Patient called to report fever last night of 103.0 but hasn't had any before and not today. Didn't go to ED because she took Tylenol PM and felt like she shouldn't drive. She stated since that she has felt fine and hasn't run a fever. Denies any redness at port site/UTI symptoms-continues to have a cough but states really not any different. Upon further questioning does state she has a Hole in her face that maybe infected -denies redness and states she has had this for awhile. Did tell her if it's oozing looking infected she needed to call her roller inspector and mender and get into see them. Told her to monitor her temperature hourly and if it goes to 100.5 to go to ED to get cultures etc done.
[2022-04-25 08:37] VITALS: BP 120/83; PULSE 84; RESP 16; TEMP 36.5; O2SAT 100
[2022-04-25 08:54] LABS: Basophils Absolute Auto 0.04 K/uL (0.00-0.30); Basophils Percent Auto 0.5 % (0.0-3.0); Eosinophils Absolute Auto 0.44 K/uL (0.00-0.50); Eosinophils Percent Auto 5.7 % (0.0-7.0); Hemoglobin* 8.5 gm/dL (12.0-16.0); Immature Granulocytes Abs Auto 0.02 K/uL (0.00-0.30); Immature Granulocytes Pct Auto 0.3 %; Lymphocytes Absolute Auto 1.67 K/uL (0.90-2.90); Lymphocytes Percent Auto 21.5 % (20-44); Mean Corpuscular HGB Conc 29 gm/dL (32-36); Mean Corpuscular Hemoglobin 25 pg (26-34); Mean Corpuscular Volume 84 fL (80-100); Monocytes Percent Auto 11.2 % (0.0-11.0); Neutrophils Absolute Auto 4.72 K/uL (1.7-7.0); Neutrophils Percent Auto 60.8 % (42.0-72.0); Platelet Count* 362 K/uL (140-440); RDW Coefficient of Variation % 20.6 % (11.5-15.5); Red Blood Count 3.44 m/uL (4.00-5.20); White Blood Count* 7.76 K/uL (4.50-11.00)
[2022-04-25 08:58] LABS: Slide Review Reflex No
[2022-04-25 09:11] LABS: Albumin* 3.7 g/dL (3.3-5.0); Chloride* 105 mmol/L (96-114)
[2022-04-25 09:12] LABS: Potassium* 4.1 mmol/L (3.6-5.1); Sodium* 139 mmol/L (135-149)
[2022-04-25 09:14] LABS: Alkaline Phosphatase* 81 U/L (40-150); Aspartate Amino Transferase* 38 U/L (12-35); Bilirubin Total* 0.3 mg/dL (0.1-1.5); Carbon Dioxide* 28 mmol/L (20-32); Creatinine* 0.5 mg/dL (0.5-1.5); Estimated Glomerular Filt Rate 117 ml/min; Total Protein* 7.2 g/dL (6.0-8.3)
[2022-04-25 09:15] LABS: Alanine Aminotransferase* 19 U/L (4-35); Blood Urea Nitrogen* 11 mg/dL (5-24); Calcium* 8.8 mg/dL (8.4-10.6); Glucose* 87 mg/dL (60-115)
[2022-04-25 09:16] LABS: Magnesium* 1.9 mg/dL (1.5-2.6)
[2022-04-25] MEDS: PALONOSETRON 0.25 MG/5 ML inj IV (10:50)
[2022-04-25] MEDS: dexAMETHasone 10 MG in 0.9 % SODIUM CHLORIDE 100 ml 100 ML 404 MG IVPB (10:50)
[2022-04-25] MEDS: FOSAPREPITANT 150 MG inj 150 MG in 0.9 % SODIUM CHLORIDE 250 ml 250 ML 780 MG IVPB (11:09)
[2022-04-25] MEDS: OXALIPLATIN 5 MG/ML INJ 140 MG, TUBING PRIMARY 1 EACH in 5 % DEXTROSE 250 ML 250 ML 139 MG IV (11:38)
[2022-04-25] MEDS: diphenhydrAMINE 25 MG CAPSULE PO (13:16)
== END 2022-04-28 23:59 | disposition home or self-care (01) ==
LOC: CCIC 12:33
PROVIDERS: Clinical Nurse Specialist; Nurse Practitioner Family; PCP Family Medicine; Referring Provider Family Medicine; Visit Provider Internal Medicine Medical Oncology
DX: C20 Malignant neoplasm of rectum (principal)
CPT/HCPCS: 36415; 36591; 80053; 82378; 83735; 84703; 85025; 96360; 96368; 96376; 96413; 96415; 96416; 96417; 99211; 99212; 99214; 99215; A9270; J0461; J0640; J1100; J1453; J1642; J2469; J7050; J7120; J9190; J9206; J9263; J9303

== ENCOUNTER 2022-06-22 08:21 | Outpatient (CLI) | payer BC, SELFPAY ==
--- NOTE | 2022-06-22 09:00 | CRLHL7_ITS ---
For Patients: As a result of the 21st Century Cures Act, medical imaging exams and procedure reports are released immediately into your electronic medical record. You may view this report before your referring provider. If you have questions, please contact your health care provider. 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 63 cc Isovue 370 intravenous contrast. Please note that all CT scans at this facility use dose modulation, iterative reconstruction, and/or weight-based dosing when appropriate to reduce radiation dose to as low as reasonably achievable. Comparison: 02/19/2022 CT, 11/30/2021 CT-PET, CT 10/30/2021 Findings: In the chest, improved appearance of the cavitary lesions with associated soft tissue densities within the lungs bilaterally. Residual curvilinear areas of density noted in both lower lobes along with smaller size of the cystic lesions with spiculated margins. Chronic underlying cystic lung disease again noted. No pneumothorax. Stable fullness of the mediastinal and hilar lymphoid tissue. No enlarged axillary lymph nodes enlarged. The visualized thyroid is normal. There is no pulmonary embolism or aortic dissection. The breast tissue is within normal limits. No vertebral body compression fracture. The ribcage is intact. In the abdomen, decreased size and conspicuity of the intrahepatic metastatic lesions. The largest lesion measures 3.1 cm, located in the left hepatic lobe whereas on the prior exam the lesion measured approximately 4.6 cm. The spleen is not enlarged. No splenic lesion. Normal kidneys without hydronephrosis or mass. Adrenal glands normal. Pancreas unremarkable. Decreased size of the previously noted hiatal hernia. Excess stool in the colon. In the pelvis, large complex solid and cystic mass in the midline again noted which appears may have increased in size, now measuring approximately 19.4 x 12.2 cm in transaxial dimensions compared to approximately 15.8 x 11.2 cm on the prior study. However, the craniocaudad dimension is likely similar measuring approximately 22 cm. Increased cystic component noted although there is the suggestion of decreased solid component at the inferior aspect. There is enlargement of a hyperdense masslike area associated with or just above the superior aspect of this mass measuring 3.6 x 3.8 cm, series 2, image 158. Excess stool in the colon. No mechanical bowel obstruction. The uterus appears normal. Circumferential wall thickening of the rectum with adjacent presacral and perirectal curvilinear densities. There is no fracture or intrinsic osseous lesion. Impression: Overall, mixed response. Improved appearance of the pulmonary metastatic lesions and improved appearance of the hepatic metastatic lesions compared to the prior exam. Possible increased size of the complex solid and cystic mass within the abdomen/pelvis in the transaxial dimensions although the craniocaudad dimension is probably similar. Increased solid component adjacent to or associated with the posterior superior aspect of the complex solid and cystic mass measuring 3.6 x 3.8 cm. Similar appearance of the rectal mucosal wall thickening and adjacent post treatment curvilinear densities in the presacral and perirectal fat tissue. Increased colonic stool consistent with constipation. No mechanical bowel obstruction or hydronephrosis. Please note that all CT scans at this facility use dose modulation, iterative reconstruction, and/or weight-based dosing when appropriate to reduce radiation dose to as low as reasonably achievable. Dictated by Jordon Mccoy MD @ 06/25/2022 11:01:59 AM (Electronically Signed)
== END 2022-06-22 08:22 | disposition home or self-care (01) ==
LOC: CT 08:22
PROVIDERS: PCP Family Medicine; Visit Provider Internal Medicine Medical Oncology
DX: C20 Malignant neoplasm of rectum (principal); C78.00 Secondary malignant neoplasm of unspecified lung
CPT/HCPCS: 71260; 74177; Q9967

== ENCOUNTER 2022-10-26 13:30 | Outpatient (CLI) | payer BC, SELFPAY ==
--- NOTE | 2022-10-26 14:00 | CRLHL7_ITS ---
For Patients: As a result of the Century Cures Act, medical imaging exams and procedure reports are released immediately into your electronic medical record. You may view this report before your referring provider. If you have questions, please contact your health care provider. Indication: Encounter for antineoplastic chemotherapy Technique: Postcontrast CT chest, abdomen and pelvis. 58 cc Isovue 370 intravenous contrast Please note that all CT scans at this facility use dose modulation, iterative reconstruction, and/or weight-based dosing when appropriate to reduce radiation dose to as low as reasonably achievable. Comparison: 06/22/2022, 02/19/2022, 11/30/2021, 10/30/2021 Findings: In the chest, there is increased density surrounding multiple cystic nodules throughout the lungs bilaterally. For example, there is increased consolidative like density within the right lower lobe which now extends to the lateral pleura contains a few air bronchograms. A cystic nodule with surrounding soft tissue is present within the left upper lobe. This cystic nodule has increased in size compared to the prior study. Other cystic nodules containing surrounding soft tissue density have increased in size elsewhere. No pneumothorax. No pleural effusion. Fluid distention of the esophagus is present. Bilateral hilar adenopathy and mediastinal adenopathy is present which has increased since the prior exam, measuring up to 1.1 cm. No fracture is present. In the abdomen, increased size of the hypodense mass within the left hepatic lobe which now measures 4.1 x 3.6 cm. Mass within the left hepatic lobe is better defined than measures 2.3 cm. Small lesions within the inferior lobe are also more conspicuous. No adrenal lesion. Kidneys normal. Normal spleen. Pancreas unremarkable. Interval resection of the complex solid and cystic mass within the mid abdomen/upper pelvis compared to the prior study. Gallbladder normal. In the pelvis, the bladder is normal. Normal uterus. No adnexal mass. Increased stool throughout the colon. No mechanical obstruction. No fracture. No suspicious osseous lesion. No adenopathy. Impression: Progression of metastatic disease throughout the lungs and within the liver compared to the prior exam. Please note that all CT scans at this facility use dose modulation, iterative reconstruction, and/or weight-based dosing when appropriate to reduce radiation dose to as low as reasonably achievable. Dictated by Jordon Mccoy MD @ 10/29/2022 12:38:48 PM (Electronically Signed)
== END 2022-10-26 13:31 | disposition home or self-care (01) ==
PROVIDERS: PCP Family Medicine; Visit Provider Internal Medicine Hematology & Oncology
DX: Z51.11 Encounter for antineoplastic chemotherapy (principal); C20 Malignant neoplasm of rectum; C78.7 Secondary malignant neoplasm of liver and intrahepatic bile duct; C34.92 Malignant neoplasm of unspecified part of left bronchus or lung; C34.91 Malignant neoplasm of unspecified part of right bronchus or lung
CPT/HCPCS: 71260; 74177; Q9967

== ENCOUNTER 2022-10-31 09:30 | Outpatient (RCR) | payer BC, SELFPAY ==
[2022-05-09 09:03] LABS: Basophils Absolute Auto 0.03 K/uL (0.00-0.30); Basophils Percent Auto 0.5 % (0.0-3.0); Eosinophils Percent Auto 7.4 % (0.0-7.0); Hematocrit 30.3 % (33.0-51.0); Hemoglobin* 9.2 gm/dL (12.0-16.0); Immature Granulocytes Abs Auto 0.01 K/uL (0.00-0.30); Immature Granulocytes Pct Auto 0.2 %; Lymphocytes Percent Auto 25.6 % (20-44); Mean Corpuscular HGB Conc 30 gm/dL (32-36); Mean Corpuscular Hemoglobin 26 pg (26-34); Mean Corpuscular Volume 85 fL (80-100); Monocytes Percent Auto 12.3 % (0.0-11.0); Neutrophils Absolute Auto 3.16 K/uL (1.7-7.0); Platelet Count* 312 K/uL (140-440); RDW Coefficient of Variation % 22.3 % (11.5-15.5); Red Blood Count 3.57 m/uL (4.00-5.20); White Blood Count* 5.85 K/uL (4.50-11.00)
[2022-05-09 09:15] VITALS: BP 130/86; PULSE 85; RESP 16; TEMP 36.2; O2SAT 98
[2022-05-09 09:23] LABS: Albumin* 3.9 g/dL (3.3-5.0); Chloride* 105 mmol/L (96-114); Potassium* 3.9 mmol/L (3.6-5.1); Sodium* 138 mmol/L (135-149)
[2022-05-09 09:25] LABS: Creatinine* 0.4 mg/dL (0.5-1.5); Estimated Glomerular Filt Rate 124 ml/min
[2022-05-09 09:26] LABS: Alanine Aminotransferase* 22 U/L (4-35); Alkaline Phosphatase* 84 U/L (40-150); Aspartate Amino Transferase* 39 U/L (12-35); Bilirubin Total* 0.3 mg/dL (0.1-1.5); Blood Urea Nitrogen* 8 mg/dL (5-24); Calcium* 9.2 mg/dL (8.4-10.6); Carbon Dioxide* 28 mmol/L (20-32); Glucose* 91 mg/dL (60-115); Total Protein* 7.4 g/dL (6.0-8.3)
[2022-05-09 09:27] LABS: Magnesium* 1.9 mg/dL (1.5-2.6)
[2022-05-09 09:31] LABS: Slide Review Reflex No
[2022-05-09] MEDS: dexAMETHasone 10 MG in 0.9 % SODIUM CHLORIDE 100 ml 100 ML 404 MG IVPB (10:59)
[2022-05-09] MEDS: PALONOSETRON 0.25 MG/5 ML inj IV (10:59)
[2022-05-09] MEDS: FOSAPREPITANT 150 MG inj 150 MG in 0.9 % SODIUM CHLORIDE 250 ml 250 ML 510 MG IVPB (11:17)
[2022-05-09] MEDS: OXALIPLATIN 5 MG/ML INJ 140 MG, TUBING PRIMARY 1 EACH in 5 % DEXTROSE 250 ML 250 ML 139 MG IV (12:00)
[2022-05-09] MEDS: diphenhydrAMINE 25 MG CAPSULE PO (13:33)
[2022-05-11 16:16] LABS: Carcinoembryonic Antigen 92.5 ng/mL (<=3.8)
--- NOTE | 2022-05-18 10:04 | ONC.NURNOTE ---
Addendum entered by Meche Pineda RN 05/22/22 13:07: Patient called back reporting that she went and saw her Crime Data Specialist and he said that she had clogged oil glands in her eyelid so she was given eye drops and was recommended to start Doxycycline to prevent a cellulitis due to the skin irritation already. Patient will call her Crime Data Specialist to get her prescription filled. She thought maybe Dr. Stevenson had one for her already but per conversation With Libby Hernandez patient needed to be seen in order to get it filled. Patient to call us back if she has any issues Addendum entered by Libby Quiñonez RN 05/18/22 13:40: This issue was discussed between SUPERVISOR RIVETING and oncologist and determined that patient needs to be seen by primary, urgent, or ophthamologist to determine treatment. LMOM with this information, along with instruction to be sure to tell provider seen that she is on chemotherapy+vectibix. She was further asked to call [facility] next week to let us know what treatment they started her on. Original Note: Patient called and mentioned that with the use of vectibix, she has been having issues with more styes in her eyes. She currently has 5 in her right eye. She also notes more nose irritation. In her own investigation she has found that vectibix can cause this. She would like to avoid the use of systemic antibiotics, as they cause gut issues and decrease in appetite as experienced with levoquin last month. She would like to find a topical that she can use if possible. Controls Technician to discuss with SUPERVISOR RIVETING today and call patient back.
[2022-05-23 08:30] VITALS: BP 118/81; PULSE 76; RESP 14; TEMP 35.9; O2SAT 99
[2022-05-23 08:48] LABS: Basophils Absolute Auto 0.02 K/uL (0.00-0.30); Basophils Percent Auto 0.4 % (0.0-3.0); Eosinophils Absolute Auto 0.38 K/uL (0.00-0.50); Hematocrit 32.1 % (33.0-51.0); Hemoglobin* 9.7 gm/dL (12.0-16.0); Immature Granulocytes Abs Auto 0.01 K/uL (0.00-0.30); Immature Granulocytes Pct Auto 0.2 %; Lymphocytes Percent Auto 25.7 % (20-44); Mean Corpuscular HGB Conc 30 gm/dL (32-36); Mean Corpuscular Hemoglobin 26 pg (26-34); Mean Corpuscular Volume 88 fL (80-100); Monocytes Percent Auto 11.4 % (0.0-11.0); Neutrophils Absolute Auto 3.01 K/uL (1.7-7.0); Neutrophils Percent Auto 55.3 % (42.0-72.0); Platelet Count* 260 K/uL (140-440); RDW Coefficient of Variation % 22.3 % (11.5-15.5); Red Blood Count 3.67 m/uL (4.00-5.20); White Blood Count* 5.44 K/uL (4.50-11.00)
[2022-05-23 08:53] LABS: Slide Review Reflex No
[2022-05-23 09:04] LABS: Albumin* 3.8 g/dL (3.3-5.0); Chloride* 106 mmol/L (96-114); Sodium* 138 mmol/L (135-149)
[2022-05-23 09:05] LABS: Potassium* 3.8 mmol/L (3.6-5.1)
[2022-05-23 09:07] LABS: Alanine Aminotransferase* 22 U/L (4-35); Alkaline Phosphatase* 87 U/L (40-150); Aspartate Amino Transferase* 34 U/L (12-35); Bilirubin Total* 0.3 mg/dL (0.1-1.5); Blood Urea Nitrogen* 8 mg/dL (5-24); Carbon Dioxide* 27 mmol/L (20-32); Creatinine* 0.4 mg/dL (0.5-1.5); Estimated Glomerular Filt Rate 123 ml/min; Glucose* 93 mg/dL (60-115); Total Protein* 7.3 g/dL (6.0-8.3)
[2022-05-23 09:08] LABS: Magnesium* 1.8 mg/dL (1.5-2.6)
[2022-05-23 09:08] LABS: Calcium* 8.7 mg/dL (8.4-10.6)
[2022-05-23] MEDS: dexAMETHasone 10 MG in 0.9 % SODIUM CHLORIDE 100 ml 100 ML 404 MG IVPB (10:46)
[2022-05-23] MEDS: PALONOSETRON 0.25 MG/5 ML inj IV (10:46)
[2022-05-23] MEDS: OXALIPLATIN 5 MG/ML INJ 140 MG, TUBING PRIMARY 1 EACH in 5 % DEXTROSE 250 ML 250 ML 139 MG IV (11:39)
--- NOTE | 2022-05-23 12:50 | ONC.NURNOTE ---
Little was seen this week by Dr. Carballo at [facility] in [place] for her reddness around her eyes. she was given eye drops to use tid both eyes and enc warm packs also. she states is somewhat better today. reddness around rt eye upper lid. Little also states cankor sores in her mouth behind the lower lip healled. visualized and they are healled and pt has dry lip. no open areas.
[2022-05-23] MEDS: diphenhydrAMINE 25 MG CAPSULE PO (13:16)
[2022-05-25 13:41] VITALS: BP 107/75; PULSE 80; RESP 16; TEMP 36.4; O2SAT 100
[2022-06-13 09:00] LABS: Basophils Absolute Auto 0.04 K/uL (0.00-0.30); Basophils Percent Auto 0.6 % (0.0-3.0); Eosinophils Absolute Auto 0.24 K/uL (0.00-0.50); Eosinophils Percent Auto 3.9 % (0.0-7.0); Hemoglobin* 10.3 gm/dL (12.0-16.0); Immature Granulocytes Abs Auto 0.02 K/uL (0.00-0.30); Immature Granulocytes Pct Auto 0.3 %; Lymphocytes Absolute Auto 1.83 K/uL (0.90-2.90); Lymphocytes Percent Auto 29.6 % (20-44); Mean Corpuscular HGB Conc 30 gm/dL (32-36); Mean Corpuscular Hemoglobin 28 pg (26-34); Mean Corpuscular Volume 91 fL (80-100); Monocytes Percent Auto 12.1 % (0.0-11.0); Neutrophils Absolute Auto 3.31 K/uL (1.7-7.0); Neutrophils Percent Auto 53.5 % (42.0-72.0); Platelet Count* 320 K/uL (140-440); RDW Coefficient of Variation % 21.9 % (11.5-15.5); Red Blood Count 3.73 m/uL (4.00-5.20); White Blood Count* 6.19 K/uL (4.50-11.00)
[2022-06-13 09:01] LABS: Slide Review Reflex Yes
[2022-06-13 09:04] VITALS: BP 118/82; PULSE 72; RESP 16; TEMP 36.4; O2SAT 100
[2022-06-13 09:20] LABS: Albumin* 3.9 g/dL (3.3-5.0); Chloride* 104 mmol/L (96-114); Potassium* 3.8 mmol/L (3.6-5.1); Sodium* 137 mmol/L (135-149)
[2022-06-13 09:23] LABS: Alanine Aminotransferase* 19 U/L (4-35); Alkaline Phosphatase* 93 U/L (40-150); Aspartate Amino Transferase* 31 U/L (12-35); Bilirubin Total* 0.2 mg/dL (0.1-1.5); Blood Urea Nitrogen* 7 mg/dL (5-24); Carbon Dioxide* 26 mmol/L (20-32); Creatinine* 0.4 mg/dL (0.5-1.5); Estimated Glomerular Filt Rate 123 ml/min; Glucose* 99 mg/dL (60-115); Total Protein* 7.3 g/dL (6.0-8.3)
[2022-06-13 09:24] LABS: Calcium* 8.7 mg/dL (8.4-10.6); Magnesium* 1.8 mg/dL (1.5-2.6)
[2022-06-13] MEDS: dexAMETHasone 10 MG in 0.9 % SODIUM CHLORIDE 100 ml 100 ML 404 MG IVPB (12:02)
[2022-06-13] MEDS: PALONOSETRON 0.25 MG/5 ML inj IV (12:02)
[2022-06-13] MEDS: FOSAPREPITANT 150 MG inj 150 MG in 0.9 % SODIUM CHLORIDE 250 ml 250 ML 510 MG IVPB (12:46)
[2022-06-13] MEDS: OXALIPLATIN 5 MG/ML INJ 140 MG, TUBING PRIMARY 1 EACH in 5 % DEXTROSE 250 ML 250 ML 139 MG IV (13:21)
[2022-06-13 13:40] LABS: Slide Review Acceptable Review (Acceptable)
[2022-06-13] MEDS: diphenhydrAMINE 25 MG CAPSULE PO (15:03)
[2022-06-15 14:29] VITALS: BP 108/76; PULSE 75; RESP 16; TEMP 36; O2SAT 95
--- NOTE | 2022-06-20 15:43 | ONC.NURNOTE ---
Pt called with concerns of some very light vaginal bleeding, better today than yesterday. Pt has a CT scan on Saturday and follow up appt with Dr. Stevenson on 06/25/22. Diver'S Tender did mentioned she could call and update Cable Tool Driller oncology also. Pt prefers to discuss with Dr. Stevenson after scans resulted.
[2022-06-22] MEDS: HEPARIN 500 UNIT/5 ML SYRINGE IVF (09:08)
[2022-06-22] MEDS: SODIUM CHLORIDE 0.9 % (FLUSH) 10 ML SYRINGE IVF (09:08)
[2022-06-27 08:35] VITALS: BP 119/81; PULSE 82; RESP 16; TEMP 36.3; O2SAT 99
[2022-06-27 08:51] LABS: Basophils Absolute Auto 0.02 K/uL (0.00-0.30); Basophils Percent Auto 0.3 % (0.0-3.0); Eosinophils Absolute Auto 0.35 K/uL (0.00-0.50); Eosinophils Percent Auto 5.9 % (0.0-7.0); Hematocrit 34.9 % (33.0-51.0); Hemoglobin* 10.6 gm/dL (12.0-16.0); Lymphocytes Absolute Auto 1.66 K/uL (0.90-2.90); Lymphocytes Percent Auto 27.8 % (20-44); Mean Corpuscular HGB Conc 30 gm/dL (32-36); Mean Corpuscular Hemoglobin 28 pg (26-34); Mean Corpuscular Volume 92 fL (80-100); Monocytes Percent Auto 11.7 % (0.0-11.0); Neutrophils Absolute Auto 3.24 K/uL (1.7-7.0); Neutrophils Percent Auto 54.3 % (42.0-72.0); Platelet Count* 301 K/uL (140-440); RDW Coefficient of Variation % 19.6 % (11.5-15.5); Red Blood Count 3.79 m/uL (4.00-5.20); White Blood Count* 5.97 K/uL (4.50-11.00)
[2022-06-27 09:00] LABS: Albumin* 3.9 g/dL (3.3-5.0); Chloride* 104 mmol/L (96-114)
[2022-06-27 09:01] LABS: Potassium* 4.2 mmol/L (3.6-5.1); Sodium* 136 mmol/L (135-149)
[2022-06-27 09:03] LABS: Alkaline Phosphatase* 113 U/L (40-150); Aspartate Amino Transferase* 35 U/L (12-35); Bilirubin Total* 0.2 mg/dL (0.1-1.5); Blood Urea Nitrogen* 13 mg/dL (5-24); Carbon Dioxide* 24 mmol/L (20-32); Creatinine* 0.5 mg/dL (0.5-1.5); Estimated Glomerular Filt Rate 116 ml/min; Total Protein* 7.2 g/dL (6.0-8.3)
[2022-06-27 09:04] LABS: Alanine Aminotransferase* 24 U/L (4-35); Calcium* 8.7 mg/dL (8.4-10.6); Glucose* 85 mg/dL (60-115); Magnesium* 1.8 mg/dL (1.5-2.6); Slide Review Reflex No
[2022-06-27] MEDS: dexAMETHasone 10 MG in 0.9 % SODIUM CHLORIDE 100 ml 100 ML 404 MG IVPB (11:09)
[2022-06-27] MEDS: PALONOSETRON 0.25 MG/5 ML inj IV (11:09)
[2022-06-27] MEDS: FOSAPREPITANT 150 MG inj 150 MG in 0.9 % SODIUM CHLORIDE 250 ml 250 ML 510 MG IVPB (11:36)
[2022-06-27] MEDS: HEPARIN 500 UNIT/5 ML SYRINGE IVF (12:40)
[2022-06-27] MEDS: SODIUM CHLORIDE 0.9 % (FLUSH) 10 ML SYRINGE IVF (12:40)
[2022-06-27] MEDS: 5 % DEXTROSE 250 ML IV (12:40)
[2022-06-27] MEDS: diphenhydrAMINE 25 MG CAPSULE PO (13:53)
--- NOTE | 2022-06-28 13:09 | ONC.NURNOTE ---
Pathology reports from 2017 faxed to Reny at [place].
[2022-06-29 13:05] VITALS: BP 111/69; PULSE 70; RESP 16; TEMP 36.8; O2SAT 99
[2022-06-29] MEDS: SODIUM CHLORIDE 0.9 % (FLUSH) 10 ML SYRINGE IVF (13:10)
[2022-06-29] MEDS: HEPARIN 500 UNIT/5 ML SYRINGE IVF (14:03)
--- NOTE | 2022-06-29 15:49 | ONC.NURNOTE ---
Re Emend given 05/23. I have tried several times to document and have talked to Ester Gabriel. Cassandra LUIS and Milly RN both tried to document this med, for it was my patient and I did not hang this med. 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 Neither of were able to document. I am done trying. Copy given to my Nurse Coordinator Libby. TOBY.
--- NOTE | 2022-08-24 07:47 | ONC.NURNOTE ---
Note moved to correct account: 08/21/22 09:07 - [facility] Nurse Note by Milly Liao RN Acct Num: [id number]? : 1975? Patient Age: 47 Pt did not show up for CT scan on 08/14/22.? Called pt today and she stated Dr. Medina cancelled CT scanned and ordered a PET scan to be done tomorrow on 08/22/22 at [facility].? Initialized on 08/21/22 09:07 - END OF NOTE
[2022-08-24 09:42] LABS: Creatinine* 0.5 mg/dL (0.5-1.5); Est. Creatinine Clearance* 118.65; Estimated Glomerular Filt Rate 116 ml/min
[2022-08-24] MEDS: HEPARIN 500 UNIT/5 ML SYRINGE IVF (09:46)
[2022-08-24] MEDS: SODIUM CHLORIDE 0.9 % (FLUSH) 10 ML SYRINGE IVF (09:47)
--- NOTE | 2022-08-24 12:47 | ONC.NURNOTE ---
Blood sent to [facility] this am.
--- NOTE | 2022-08-28 12:48 | ONC.NURNOTE ---
Pt scheduled for genomic consult on 09/24/22 at [facility].
[2022-09-11 10:06] LABS: Basophils Percent Auto 0.3 % (0.0-3.0); Eosinophils Percent Auto 3.6 % (0.0-7.0); Hematocrit 34.1 % (33.0-51.0); Hemoglobin* 10.4 gm/dL (12.0-16.0); Immature Granulocytes Pct Auto 0.2 %; Lymphocytes Percent Auto 11.1 % (20-44); Mean Corpuscular HGB Conc 31 gm/dL (32-36); Mean Corpuscular Hemoglobin 27 pg (26-34); Mean Corpuscular Volume 87 fL (80-100); Monocytes Percent Auto 7.3 % (0.0-11.0); Neutrophils Percent Auto 77.5 % (42.0-72.0); Platelet Count* 418 K/uL (140-440); RDW Coefficient of Variation % 15.4 % (11.5-15.5); Red Blood Count 3.91 m/uL (4.00-5.20); White Blood Count* 11.41 K/uL (4.50-11.00)
[2022-09-11 10:07] VITALS: BP 100/69; PULSE 83; RESP 18; TEMP 36.2; O2SAT 94
[2022-09-11 10:11] LABS: Slide Review Reflex No
[2022-09-11 10:21] LABS: Albumin* 3.8 g/dL (3.3-5.0); Chloride* 102 mmol/L (96-114); Potassium* 4.5 mmol/L (3.6-5.1); Sodium* 139 mmol/L (135-149)
[2022-09-11 10:23] LABS: Bilirubin Total* 0.2 mg/dL (0.1-1.5); Creatinine* 0.6 mg/dL (0.5-1.5); Est. Creatinine Clearance* 95.88; Estimated Glomerular Filt Rate 111 ml/min
[2022-09-11 10:24] LABS: Alanine Aminotransferase* 20 U/L (4-35); Alkaline Phosphatase* 120 U/L (40-150); Aspartate Amino Transferase* 31 U/L (12-35); Blood Urea Nitrogen* 15 mg/dL (5-24); Calcium* 9.2 mg/dL (8.4-10.6); Carbon Dioxide* 30 mmol/L (20-32); Glucose* 94 mg/dL (60-115); Total Protein* 7.9 g/dL (6.0-8.3)
[2022-09-11 10:25] LABS: Magnesium* 2.1 mg/dL (1.5-2.6)
[2022-09-11] MEDS: PALONOSETRON 0.25 MG/5 ML inj IV (10:59)
[2022-09-11] MEDS: dexAMETHasone 10 MG in 0.9 % SODIUM CHLORIDE 100 ml 100 ML 404 MG IVPB (11:30)
[2022-09-11] MEDS: FOSAPREPITANT 150 MG inj 150 MG in 0.9 % SODIUM CHLORIDE 250 ml 250 ML 510 MG IVPB (11:48)
[2022-09-11] MEDS: diphenhydrAMINE 25 MG CAPSULE PO (14:28)
[2022-09-11] MEDS: SODIUM CHLORIDE 0.9 % (FLUSH) 10 ML SYRINGE IVF (15:47)
[2022-09-11] MEDS: 5 % DEXTROSE 250 ML IV (15:47)
--- NOTE | 2022-09-12 09:50 | URNOTE ---
REceived request for prior auth. Per Coleen Winters at [facility], prior auth is not required for Fluorouracil (J9190), Irinotecan (J9206), Leucovorin (J0640), Oxaliplatin (J9263). /Fosaprepitan (J1453) has been approved x 4 doses 09/11/2022-11/06/2022. auth #[id number] Palonosetron (J2469) has been approved x 4 doses 09/11/2022-11/05/2022. auth #[id number] Neulasta is pending.
[2022-09-17 11:07] LABS: Basophils Absolute Auto 0.01 K/uL (0.00-0.30); Basophils Percent Auto 0.1 % (0.0-3.0); Eosinophils Absolute Auto 0.25 K/uL (0.00-0.50); Eosinophils Percent Auto 2.8 % (0.0-7.0); Hematocrit 33.1 % (33.0-51.0); Hemoglobin* 10.2 gm/dL (12.0-16.0); Immature Granulocytes Abs Auto 0.02 K/uL (0.00-0.30); Immature Granulocytes Pct Auto 0.2 %; Lymphocytes Percent Auto 11.9 % (20-44); Mean Corpuscular HGB Conc 31 gm/dL (32-36); Mean Corpuscular Hemoglobin 26 pg (26-34); Mean Corpuscular Volume 86 fL (80-100); Monocytes Percent Auto 3.6 % (0.0-11.0); Neutrophils Percent Auto 81.4 % (42.0-72.0); Platelet Count* 375 K/uL (140-440); RDW Coefficient of Variation % 15.3 % (11.5-15.5); Red Blood Count 3.87 m/uL (4.00-5.20); White Blood Count* 8.89 K/uL (4.50-11.00)
[2022-09-17 11:08] LABS: Slide Review Reflex No
[2022-09-17] MEDS: SODIUM CHLORIDE 0.9 % (FLUSH) 10 ML SYRINGE IVF (12:19)
[2022-09-17] MEDS: HEPARIN 500 UNIT/5 ML SYRINGE IVF (12:19)
--- NOTE | 2022-09-20 11:07 | URNOTE ---
Request received for authorization for Neulasta (J2506). Prior authorization is approved per [employer] appeal (Ref#[id number]) approval for Neulasta 6mg/0.6ml syringe with date range: 09/10/22 to 11/05/22.
[2022-09-26 08:04] VITALS: BP 120/77; PULSE 92; RESP 16; TEMP 36.6; O2SAT 96
[2022-09-26 08:20] LABS: Basophils Absolute Auto 0.02 K/uL (0.00-0.30); Basophils Percent Auto 0.3 % (0.0-3.0); Eosinophils Absolute Auto 0.49 K/uL (0.00-0.50); Hemoglobin* 9.4 gm/dL (12.0-16.0); Immature Granulocytes Abs Auto 0.01 K/uL (0.00-0.30); Immature Granulocytes Pct Auto 0.1 %; Lymphocytes Percent Auto 14.2 % (20-44); Mean Corpuscular HGB Conc 30 gm/dL (32-36); Mean Corpuscular Hemoglobin 26 pg (26-34); Mean Corpuscular Volume 86 fL (80-100); Monocytes Percent Auto 12.4 % (0.0-11.0); Neutrophils Absolute Auto 4.64 K/uL (1.7-7.0); Platelet Count* 423 K/uL (140-440); Red Blood Count 3.61 m/uL (4.00-5.20); White Blood Count* 7.03 K/uL (4.50-11.00)
[2022-09-26 08:23] LABS: Slide Review Reflex No
[2022-09-26 08:33] LABS: Albumin* 3.5 g/dL (3.3-5.0); Chloride* 101 mmol/L (96-114)
[2022-09-26 08:34] LABS: Potassium* 3.8 mmol/L (3.6-5.1); Sodium* 138 mmol/L (135-149)
[2022-09-26 08:36] LABS: Bilirubin Total* 0.2 mg/dL (0.1-1.5); Carbon Dioxide* 30 mmol/L (20-32); Creatinine* 0.6 mg/dL (0.5-1.5); Est. Creatinine Clearance* 95.88; Estimated Glomerular Filt Rate 111 ml/min
[2022-09-26 08:37] LABS: Alanine Aminotransferase* 22 U/L (4-35); Alkaline Phosphatase* 124 U/L (40-150); Aspartate Amino Transferase* 25 U/L (12-35); Blood Urea Nitrogen* 9 mg/dL (5-24); Glucose* 105 mg/dL (60-115); Total Protein* 7.5 g/dL (6.0-8.3)
[2022-09-26 08:38] LABS: Calcium* 9.6 mg/dL (8.4-10.6)
[2022-09-26 08:53] LABS: Magnesium* 1.9 mg/dL (1.5-2.6)
[2022-09-26] MEDS: PALONOSETRON 0.25 MG/5 ML inj IV (09:40)
[2022-09-26] MEDS: dexAMETHasone 10 MG in 0.9 % SODIUM CHLORIDE 100 ml 100 ML 420 MG IVPB (09:40)
[2022-09-26] MEDS: 0.9 % SODIUM CHLORIDE 250 ml IV (09:40)
[2022-09-26] MEDS: FOSAPREPITANT 150 MG inj 150 MG in 0.9 % SODIUM CHLORIDE 250 ml 250 ML 780 MG IVPB (10:04)
[2022-09-26] MEDS: 5 % DEXTROSE 250 ML IV (10:29)
[2022-09-26] MEDS: diphenhydrAMINE 25 MG CAPSULE PO (12:31)
[2022-09-28] MEDS: HEPARIN 500 UNIT/5 ML SYRINGE IVF (13:00)
[2022-09-28] MEDS: SODIUM CHLORIDE 0.9 % (FLUSH) 10 ML SYRINGE IVF (13:01)
[2022-09-28 14:01] VITALS: BP 111/70; PULSE 93; RESP 16; TEMP 36.2; O2SAT 95
[2022-10-10 08:15] VITALS: BP 103/70; PULSE 81; RESP 14; TEMP 36.4; O2SAT 95
[2022-10-10] MEDS: ALTEPLASE 2 MG INJ IVF (08:30)
[2022-10-10 08:40] LABS: Basophils Absolute Auto 0.03 K/uL (0.00-0.30); Basophils Percent Auto 0.5 % (0.0-3.0); Eosinophils Percent Auto 4.8 % (0.0-7.0); Hematocrit 30.4 % (33.0-51.0); Hemoglobin* 9.2 gm/dL (12.0-16.0); Immature Granulocytes Abs Auto 0.01 K/uL (0.00-0.30); Immature Granulocytes Pct Auto 0.2 %; Lymphocytes Percent Auto 15.3 % (20-44); Mean Corpuscular HGB Conc 30 gm/dL (32-36); Mean Corpuscular Hemoglobin 26 pg (26-34); Mean Corpuscular Volume 84 fL (80-100); Monocytes Percent Auto 13.9 % (0.0-11.0); Neutrophils Absolute Auto 4.09 K/uL (1.7-7.0); Neutrophils Percent Auto 65.3 % (42.0-72.0); Platelet Count* 370 K/uL (140-440); RDW Coefficient of Variation % 16.5 % (11.5-15.5); Red Blood Count 3.61 m/uL (4.00-5.20); White Blood Count* 6.26 K/uL (4.50-11.00)
[2022-10-10 08:43] LABS: Slide Review Reflex No
[2022-10-10 08:48] LABS: Albumin* 3.4 g/dL (3.3-5.0); Chloride* 102 mmol/L (96-114); Potassium* 3.8 mmol/L (3.6-5.1); Sodium* 138 mmol/L (135-149)
[2022-10-10 08:50] LABS: Creatinine* 0.6 mg/dL (0.5-1.5); Est. Creatinine Clearance* 95.88; Estimated Glomerular Filt Rate 111 ml/min
[2022-10-10 08:51] LABS: Alanine Aminotransferase* 24 U/L (4-35); Alkaline Phosphatase* 141 U/L (40-150); Aspartate Amino Transferase* 30 U/L (12-35); Bilirubin Total* 0.2 mg/dL (0.1-1.5); Blood Urea Nitrogen* 7 mg/dL (5-24); Calcium* 8.9 mg/dL (8.4-10.6); Carbon Dioxide* 28 mmol/L (20-32); Glucose* 100 mg/dL (60-115); Total Protein* 7.4 g/dL (6.0-8.3)
[2022-10-10 08:52] LABS: Magnesium* 2.2 mg/dL (1.5-2.6)
[2022-10-10] MEDS: PALONOSETRON 0.25 MG/5 ML inj IV (09:41)
[2022-10-10] MEDS: dexAMETHasone 10 MG in 0.9 % SODIUM CHLORIDE 100 ml 100 ML 404 MG IVPB (09:41)
[2022-10-10] MEDS: FOSAPREPITANT 150 MG inj 150 MG in 0.9 % SODIUM CHLORIDE 250 ml 250 ML 510 MG IVPB (10:04)
[2022-10-10] MEDS: HEPARIN 500 UNIT/5 ML SYRINGE IVF (10:04)
[2022-10-10] MEDS: SODIUM CHLORIDE 0.9 % (FLUSH) 10 ML SYRINGE IVF (10:05)
[2022-10-10] MEDS: diphenhydrAMINE 25 MG CAPSULE PO (12:40)
[2022-10-12] MEDS: SODIUM CHLORIDE 0.9 % (FLUSH) 10 ML SYRINGE IVF (14:32)
[2022-10-12 14:33] VITALS: BP 90/56; PULSE 94; RESP 14; TEMP 36.1; O2SAT 98
[2022-10-12] MEDS: HEPARIN 500 UNIT/5 ML SYRINGE IVF (14:33)
[2022-10-24 08:10] VITALS: BP 91/63; PULSE 90; RESP 14; TEMP 36.2; O2SAT 97
[2022-10-24 08:34] LABS: Basophils Absolute Auto 0.02 K/uL (0.00-0.30); Basophils Percent Auto 0.4 % (0.0-3.0); Eosinophils Percent Auto 7.4 % (0.0-7.0); Hematocrit 32.5 % (33.0-51.0); Hemoglobin* 9.7 gm/dL (12.0-16.0); Immature Granulocytes Abs Auto 0.01 K/uL (0.00-0.30); Immature Granulocytes Pct Auto 0.2 %; Lymphocytes Percent Auto 17.7 % (20-44); Mean Corpuscular HGB Conc 30 gm/dL (32-36); Mean Corpuscular Hemoglobin 25 pg (26-34); Mean Corpuscular Volume 83 fL (80-100); Monocytes Percent Auto 13.3 % (0.0-11.0); Neutrophils Absolute Auto 3.44 K/uL (1.7-7.0); Platelet Count* 331 K/uL (140-440); RDW Coefficient of Variation % 17.7 % (11.5-15.5); Red Blood Count 3.91 m/uL (4.00-5.20); White Blood Count* 5.64 K/uL (4.50-11.00)
[2022-10-24 08:36] LABS: Slide Review Reflex No
[2022-10-24 08:59] LABS: Albumin* 3.8 g/dL (3.3-5.0); Chloride* 103 mmol/L (96-114); Sodium* 139 mmol/L (135-149)
[2022-10-24 09:00] LABS: Potassium* 3.7 mmol/L (3.6-5.1)
[2022-10-24 09:02] LABS: Alanine Aminotransferase* 19 U/L (4-35); Alkaline Phosphatase* 137 U/L (40-150); Aspartate Amino Transferase* 28 U/L (12-35); Bilirubin Total* 0.2 mg/dL (0.1-1.5); Blood Urea Nitrogen* 10 mg/dL (5-24); Carbon Dioxide* 29 mmol/L (20-32); Creatinine* 0.6 mg/dL (0.5-1.5); Est. Creatinine Clearance* 95.88; Estimated Glomerular Filt Rate 111 ml/min; Glucose* 114 mg/dL (60-115); Total Protein* 7.9 g/dL (6.0-8.3)
[2022-10-24 09:03] LABS: Calcium* 9.2 mg/dL (8.4-10.6)
[2022-10-24 09:17] LABS: Magnesium* 2.1 mg/dL (1.5-2.6)
[2022-10-24] MEDS: PALONOSETRON 0.25 MG/5 ML inj IV (09:52)
[2022-10-24] MEDS: dexAMETHasone 10 MG in 0.9 % SODIUM CHLORIDE 100 ml 100 ML 404 MG IVPB (09:53)
[2022-10-24] MEDS: FOSAPREPITANT 150 MG inj 150 MG in 0.9 % SODIUM CHLORIDE 250 ml 250 ML 510 MG IVPB (10:13)
[2022-10-24] MEDS: diphenhydrAMINE 25 MG CAPSULE PO (12:35)
[2022-10-26 13:55] VITALS: BP 106/73; PULSE 66; RESP 18; TEMP 36.6; O2SAT 99
[2022-10-26] MEDS: SODIUM CHLORIDE 0.9 % (FLUSH) 10 ML SYRINGE IVF (14:39)
[2022-10-26] MEDS: HEPARIN 500 UNIT/5 ML SYRINGE IVF (14:39)
== END 2022-11-05 23:59 | disposition home or self-care (01) ==
LOC: CCIC 09:30
PROVIDERS: Clinical Nurse Specialist; Internal Medicine Medical Oncology; PCP Family Medicine; Referring Provider Family Medicine; Visit Provider Internal Medicine Hematology & Oncology
DX: C20 Malignant neoplasm of rectum (principal); C78.7 Secondary malignant neoplasm of liver and intrahepatic bile duct; K59.00 Constipation, unspecified; G62.9 Polyneuropathy, unspecified; C44.310 Basal cell carcinoma of skin of unspecified parts of face
CPT/HCPCS: 36415; 36591; 80053; 82378; 82565; 83735; 85025; 96368; 96376; 96413; 96415; 96416; 96417; 99211; 99212; 99213; 99214; 99215; A9270; J0461; J0640; J1100; J1453; J1642; J2469; J2997; J7050; J7120; J9190; J9206; J9263; J9303

== ENCOUNTER 2023-02-20 13:00 | Outpatient (RCR) | payer BC, MEDICAID, SELFPAY ==
--- NOTE | 2023-02-22 11:30 | ONC.NURNOTE ---
patient phoned the [facility] with update on insurance status- after being dropped from her prior insurance she is working on enrollment in [facility] had questions about the option to receive her scheduled chemotherapy on Saturday patient was referred to PFS and SS to assist in addressing her questions
== END 2023-05-14 11:17 | disposition home or self-care (01) ==
PROVIDERS: PCP Family Medicine; Visit Provider Internal Medicine
DX: I89.0 Lymphedema, not elsewhere classified (principal); C79.51 Secondary malignant neoplasm of bone; Z51.89 Encounter for other specified aftercare; M26.601 Right temporomandibular joint disorder, unspecified; C78.5 Secondary malignant neoplasm of large intestine and rectum
CPT/HCPCS: 97110; 97140; 97161; 97165; 97535

== ENCOUNTER 2023-05-01 14:00 | Outpatient (RCR) | payer BC, MEDICAID, SELFPAY ==
--- NOTE | 2022-11-06 12:47 | URNOTE ---
Request received for authorization for?Fosaprepitan (J1453), Palonosetron (J2469), Neulasta (J2506) has been approved. Fosaprepitan (J1453) prior authorization has been approved- for 26 doses from 11/07/2022 to 11/07/2023. Palonosetron (J2469) prior authorization has been approved- for 4 doses from 11/07/2022 to 01/02/2023. Neulasta (J2506) prior authorization has been approved- for 8 doses from 11/07/2022 to 01/02/2023.
[2022-11-07 08:37] LABS: Basophils Absolute Auto 0.03 K/uL (0.00-0.30); Basophils Percent Auto 0.4 % (0.0-3.0); Eosinophils Absolute Auto 0.32 K/uL (0.00-0.50); Eosinophils Percent Auto 4.6 % (0.0-7.0); Hematocrit 31.8 % (33.0-51.0); Hemoglobin* 9.5 gm/dL (12.0-16.0); Immature Granulocytes Abs Auto 0.01 K/uL (0.00-0.30); Immature Granulocytes Pct Auto 0.1 %; Lymphocytes Percent Auto 18.2 % (20-44); Mean Corpuscular HGB Conc 30 gm/dL (32-36); Mean Corpuscular Hemoglobin 25 pg (26-34); Mean Corpuscular Volume 83 fL (80-100); Monocytes Percent Auto 18.1 % (0.0-11.0); Neutrophils Absolute Auto 4.09 K/uL (1.7-7.0); Neutrophils Percent Auto 58.6 % (42.0-72.0); Platelet Count* 348 K/uL (140-440); RDW Coefficient of Variation % 18.9 % (11.5-15.5); Red Blood Count 3.85 m/uL (4.00-5.20); White Blood Count* 6.98 K/uL (4.50-11.00)
[2022-11-07 08:40] VITALS: BP 101/72; PULSE 90; RESP 16; TEMP 37; O2SAT 95
[2022-11-07 08:43] LABS: Slide Review Reflex Yes
[2022-11-07 08:53] LABS: Albumin* 3.7 g/dL (3.3-5.0); Chloride* 100 mmol/L (96-114); Potassium* 4.3 mmol/L (3.6-5.1); Sodium* 136 mmol/L (135-149)
[2022-11-07 08:54] LABS: Slide Review Acceptable Review (Acceptable)
[2022-11-07 08:55] LABS: Creatinine* 0.6 mg/dL (0.5-1.5); Estimated Glomerular Filt Rate 111 ml/min
[2022-11-07 08:56] LABS: Alanine Aminotransferase* 20 U/L (4-35); Alkaline Phosphatase* 139 U/L (40-150); Anion Gap 6 mEq/L (7-15); Aspartate Amino Transferase* 30 U/L (12-35); Bilirubin Total* 0.3 mg/dL (0.1-1.5); Blood Urea Nitrogen* 12 mg/dL (5-24); Carbon Dioxide* 30 mmol/L (20-32); Glucose* 118 mg/dL (60-115); Total Protein* 7.8 g/dL (6.0-8.3)
[2022-11-07 08:57] LABS: Magnesium* 2.1 mg/dL (1.5-2.6)
[2022-11-07] MEDS: dexAMETHasone 10 MG in 0.9 % SODIUM CHLORIDE 100 ml 100 ML 404 MG IVPB (09:28)
[2022-11-07] MEDS: PALONOSETRON 0.25 MG/5 ML inj IV (09:28)
[2022-11-07] MEDS: FOSAPREPITANT 150 MG inj 150 MG in 0.9 % SODIUM CHLORIDE 250 ml 250 ML 510 MG IVPB (09:51)
[2022-11-07] MEDS: diphenhydrAMINE 25 MG CAPSULE PO (12:15)
[2022-11-08 22:54] LABS: Carcinoembryonic Antigen 85.1 ng/mL (<=3.8)
[2022-11-09 14:54] VITALS: BP 105/70; PULSE 87; RESP 16; TEMP 36.6; O2SAT 97
--- NOTE | 2022-11-09 15:47 | ONC.NURNOTE ---
Patient arrived for pump off and Neulasta. Patient stated she didn't need fluids and has never had Neulasta because it hasn't been approved. Upon investigation it HAS been approved since August but patient stated my blood has been fine and I'd rather not have it. Apparel Sales Associate talked with Montserrat CLARK and due to WBC and ANC being normal at this time we will hold it and talk with the provider next week.
[2022-11-21 08:45] VITALS: BP 98/64; PULSE 95; RESP 16; TEMP 36.8; O2SAT 97
[2022-11-21 09:19] LABS: Chloride* 101 mmol/L (96-114)
[2022-11-21 09:20] LABS: Albumin* 3.6 g/dL (3.3-5.0); Potassium* 3.9 mmol/L (3.6-5.1); Sodium* 136 mmol/L (135-149)
[2022-11-21 09:22] LABS: Anion Gap 4 mEq/L (7-15); Bilirubin Total* 0.4 mg/dL (0.1-1.5); Carbon Dioxide* 31 mmol/L (20-32); Creatinine* 0.5 mg/dL (0.5-1.5); Estimated Glomerular Filt Rate 116 ml/min; Total Protein* 7.6 g/dL (6.0-8.3)
[2022-11-21 09:23] LABS: Alanine Aminotransferase* 23 U/L (4-35); Alkaline Phosphatase* 145 U/L (40-150); Aspartate Amino Transferase* 30 U/L (12-35); Blood Urea Nitrogen* 7 mg/dL (5-24); Calcium* 9.4 mg/dL (8.4-10.6); Glucose* 134 mg/dL (60-115)
[2022-11-21 09:24] LABS: Magnesium* 2.1 mg/dL (1.5-2.6)
[2022-11-21 10:00] LABS: Basophils Absolute Auto 0.03 K/uL (0.00-0.30); Basophils Percent Auto 0.4 % (0.0-3.0); Eosinophils Absolute Auto 0.39 K/uL (0.00-0.50); Eosinophils Percent Auto 5.5 % (0.0-7.0); Hematocrit 29.8 % (33.0-51.0); Hemoglobin* 8.8 gm/dL (12.0-16.0); Lymphocytes Percent Auto 13.6 % (20-44); Mean Corpuscular HGB Conc 30 gm/dL (32-36); Mean Corpuscular Hemoglobin 24 pg (26-34); Mean Corpuscular Volume 82 fL (80-100); Monocytes Percent Auto 15.1 % (0.0-11.0); Neutrophils Absolute Auto 4.67 K/uL (1.7-7.0); Neutrophils Percent Auto 65.4 % (42.0-72.0); Platelet Count* 355 K/uL (140-440); RDW Coefficient of Variation % 19.7 % (11.5-15.5); Red Blood Count 3.65 m/uL (4.00-5.20); White Blood Count* 7.14 K/uL (4.50-11.00)
[2022-11-21 10:08] LABS: Slide Review Reflex No
[2022-11-21] MEDS: dexAMETHasone 10 MG in 0.9 % SODIUM CHLORIDE 100 ml 100 ML 404 MG IVPB (10:45)
[2022-11-21] MEDS: PALONOSETRON 0.25 MG/5 ML inj IV (10:45)
[2022-11-21] MEDS: FOSAPREPITANT 150 MG inj 150 MG in 0.9 % SODIUM CHLORIDE 250 ml 250 ML 510 MG IVPB (11:06)
[2022-11-21] MEDS: diphenhydrAMINE 25 MG CAPSULE PO (13:18)
[2022-11-23 15:30] VITALS: BP 111/75; PULSE 88; RESP 14; TEMP 36.1; O2SAT 97
[2022-12-05 08:32] VITALS: BP 104/75; PULSE 91; RESP 16; TEMP 36.1; O2SAT 96
[2022-12-05 08:42] LABS: Basophils Absolute Auto 0.03 K/uL (0.00-0.30); Basophils Percent Auto 0.6 % (0.0-3.0); Eosinophils Absolute Auto 0.37 K/uL (0.00-0.50); Eosinophils Percent Auto 6.9 % (0.0-7.0); Hematocrit 32.2 % (33.0-51.0); Hemoglobin* 9.8 gm/dL (12.0-16.0); Immature Granulocytes Abs Auto 0.01 K/uL (0.00-0.30); Immature Granulocytes Pct Auto 0.2 %; Lymphocytes Absolute Auto 1.37 K/uL (0.90-2.90); Lymphocytes Percent Auto 25.4 % (20-44); Mean Corpuscular HGB Conc 30 gm/dL (32-36); Mean Corpuscular Hemoglobin 25 pg (26-34); Mean Corpuscular Volume 83 fL (80-100); Monocytes Percent Auto 17.4 % (0.0-11.0); Neutrophils Absolute Auto 2.67 K/uL (1.7-7.0); Neutrophils Percent Auto 49.5 % (42.0-72.0); Platelet Count* 289 K/uL (140-440); RDW Coefficient of Variation % 22.6 % (11.5-15.5); Red Blood Count 3.86 m/uL (4.00-5.20); White Blood Count* 5.39 K/uL (4.50-11.00)
[2022-12-05 08:47] LABS: Slide Review Reflex No
[2022-12-05 08:54] LABS: Albumin* 3.7 g/dL (3.3-5.0)
[2022-12-05 08:55] LABS: Chloride* 102 mmol/L (96-114); Potassium* 4.4 mmol/L (3.6-5.1); Sodium* 137 mmol/L (135-149)
[2022-12-05 08:57] LABS: Anion Gap 6 mEq/L (7-15); Aspartate Amino Transferase* 39 U/L (12-35); Bilirubin Total* 0.4 mg/dL (0.1-1.5); Carbon Dioxide* 29 mmol/L (20-32); Creatinine* 0.6 mg/dL (0.5-1.5); Estimated Glomerular Filt Rate 111 ml/min
[2022-12-05 08:58] LABS: Alanine Aminotransferase* 23 U/L (4-35); Alkaline Phosphatase* 156 U/L (40-150); Blood Urea Nitrogen* 12 mg/dL (5-24); Calcium* 9.3 mg/dL (8.4-10.6); Glucose* 88 mg/dL (60-115); Total Protein* 7.5 g/dL (6.0-8.3)
[2022-12-05 09:06] LABS: Magnesium* 2.2 mg/dL (1.5-2.6)
[2022-12-05] MEDS: dexAMETHasone 10 MG in 0.9 % SODIUM CHLORIDE 100 ml 100 ML 404 MG IVPB (10:01)
[2022-12-05] MEDS: PALONOSETRON 0.25 MG/5 ML inj IV (10:01)
[2022-12-05] MEDS: FOSAPREPITANT 150 MG inj 150 MG in 0.9 % SODIUM CHLORIDE 250 ml 250 ML 510 MG IVPB (10:24)
[2022-12-05] MEDS: diphenhydrAMINE 25 MG CAPSULE PO (12:38)
[2022-12-07 15:45] VITALS: BP 115/78; PULSE 96; RESP 16; TEMP 36.1; O2SAT 97
[2022-12-07] MEDS: 0.9 % SODIUM CHLORIDE 500 ML 500 ML IV (16:07)
--- NOTE | 2022-12-17 15:32 | ONC.NURNOTE ---
Pt called reporting she had a fever last night of 101.5. She has been coughing with clear sputum; cough is improving. She notes she had a cold last and was unwell over the weekend. Covid test is negative. She also notes that 2 weeks ago she had a fever for 1 night that self-resolved. Recommended pt see a PCP prior to chemo Saturday; pt would like to reschedule chemo 12/19 to 12/25. Appt moved. Strongly recommended pt be seen in ED or by PCP if fever returns or symptoms worsen. Pt verbalizes understanding.
[2022-12-25 10:09] LABS: Basophils Absolute Auto 0.03 K/uL (0.00-0.30); Basophils Percent Auto 0.4 % (0.0-3.0); Eosinophils Absolute Auto 0.45 K/uL (0.00-0.50); Eosinophils Percent Auto 5.8 % (0.0-7.0); Hematocrit 34.5 % (33.0-51.0); Hemoglobin* 10.4 gm/dL (12.0-16.0); Immature Granulocytes Abs Auto 0.06 K/uL (0.00-0.30); Immature Granulocytes Pct Auto 0.8 %; Lymphocytes Absolute Auto 1.63 K/uL (0.90-2.90); Lymphocytes Percent Auto 21.1 % (20-44); Mean Corpuscular HGB Conc 30 gm/dL (32-36); Mean Corpuscular Hemoglobin 26 pg (26-34); Mean Corpuscular Volume 87 fL (80-100); Monocytes Percent Auto 12.4 % (0.0-11.0); Neutrophils Absolute Auto 4.59 K/uL (1.7-7.0); Neutrophils Percent Auto 59.5 % (42.0-72.0); Platelet Count* 322 K/uL (140-440); RDW Coefficient of Variation % 23.7 % (11.5-15.5); Red Blood Count 3.95 m/uL (4.00-5.20); White Blood Count* 7.72 K/uL (4.50-11.00)
[2022-12-25 10:13] VITALS: BP 113/81; PULSE 87; RESP 16; TEMP 36.2; O2SAT 98
[2022-12-25 10:13] LABS: Slide Review Reflex No
[2022-12-25 10:24] LABS: Albumin* 3.9 g/dL (3.3-5.0); Chloride* 104 mmol/L (96-114); Sodium* 140 mmol/L (135-149)
[2022-12-25 10:25] LABS: Potassium* 4.3 mmol/L (3.6-5.1)
[2022-12-25 10:27] LABS: Alkaline Phosphatase* 136 U/L (40-150); Anion Gap 8 mEq/L (7-15); Aspartate Amino Transferase* 36 U/L (12-35); Bilirubin Total* 0.3 mg/dL (0.1-1.5); Blood Urea Nitrogen* 14 mg/dL (5-24); Carbon Dioxide* 28 mmol/L (20-32); Creatinine* 0.6 mg/dL (0.5-1.5); Estimated Glomerular Filt Rate 111 ml/min; Total Protein* 7.7 g/dL (6.0-8.3)
[2022-12-25 10:28] LABS: Alanine Aminotransferase* 19 U/L (4-35); Calcium* 9.1 mg/dL (8.4-10.6); Glucose* 91 mg/dL (60-115)
[2022-12-25] MEDS: PALONOSETRON 0.25 MG/5 ML inj IV (11:40)
[2022-12-25] MEDS: dexAMETHasone 10 MG in 0.9 % SODIUM CHLORIDE 100 ml 100 ML 404 MG IVPB (11:40)
[2022-12-25] MEDS: FOSAPREPITANT 150 MG inj 150 MG in 0.9 % SODIUM CHLORIDE 250 ml 250 ML 510 MG IVPB (12:00)
[2022-12-25] MEDS: diphenhydrAMINE 25 MG CAPSULE PO (14:18)
[2022-12-27] MEDS: 0.9 % SODIUM CHLORIDE 500 ML 500 ML IV (15:10)
[2022-12-27 15:14] VITALS: BP 110/72; PULSE 78; RESP 16; TEMP 36.3; O2SAT 98
--- NOTE | 2022-12-31 09:40 | ONC.NURNOTE ---
Patient called office and states that she had a fever of 102.7 last night, she took 1000mg of tylenol and woke up with low grade fever this morning of 101. She has not taken anything today for this. She has had an ongoing cough for a couple months that has not changed. She notes a cold with congestion that started two weeks ago, she is having thick, clear drainage with this. She was COVID negative at the start of this. Denies urinary symptoms. With the addition of fevers last night, she was encouraged to be seen by primary care to be sure no infection has popped up.
[2023-01-08 08:59] VITALS: BP 110/74; PULSE 81; RESP 16; TEMP 35.8; O2SAT 98
[2023-01-08 09:04] LABS: Basophils Absolute Auto 0.02 K/uL (0.00-0.30); Basophils Percent Auto 0.4 % (0.0-3.0); Eosinophils Percent Auto 9.9 % (0.0-7.0); Hematocrit 33.6 % (33.0-51.0); Hemoglobin* 10.1 gm/dL (12.0-16.0); Immature Granulocytes Abs Auto 0.01 K/uL (0.00-0.30); Immature Granulocytes Pct Auto 0.2 %; Lymphocytes Absolute Auto 1.27 K/uL (0.90-2.90); Lymphocytes Percent Auto 23.7 % (20-44); Mean Corpuscular HGB Conc 30 gm/dL (32-36); Mean Corpuscular Hemoglobin 27 pg (26-34); Mean Corpuscular Volume 90 fL (80-100); Monocytes Percent Auto 13.3 % (0.0-11.0); Neutrophils Absolute Auto 2.81 K/uL (1.7-7.0); Neutrophils Percent Auto 52.5 % (42.0-72.0); Platelet Count* 287 K/uL (140-440); RDW Coefficient of Variation % 22.4 % (11.5-15.5); Red Blood Count 3.74 m/uL (4.00-5.20); White Blood Count* 5.35 K/uL (4.50-11.00)
[2023-01-08 09:06] LABS: Slide Review Reflex No
[2023-01-08 09:20] LABS: Albumin* 3.7 g/dL (3.3-5.0); Chloride* 106 mmol/L (96-114); Sodium* 139 mmol/L (135-149)
[2023-01-08 09:21] LABS: Potassium* 4.2 mmol/L (3.6-5.1)
[2023-01-08 09:23] LABS: Alanine Aminotransferase* 23 U/L (4-35); Alkaline Phosphatase* 141 U/L (40-150); Anion Gap 7 mEq/L (7-15); Aspartate Amino Transferase* 50 U/L (12-35); Bilirubin Total* 0.2 mg/dL (0.1-1.5); Blood Urea Nitrogen* 11 mg/dL (5-24); Carbon Dioxide* 26 mmol/L (20-32); Creatinine* 0.6 mg/dL (0.5-1.5); Estimated Glomerular Filt Rate 111 ml/min; Glucose* 89 mg/dL (60-115); Total Protein* 7.2 g/dL (6.0-8.3)
[2023-01-08 09:24] LABS: Calcium* 9.1 mg/dL (8.4-10.6)
--- NOTE | 2023-01-08 09:44 | ONC.NURNOTE ---
Had a fever and cough 10 days ago. was on antibiotic preventative x5days. feeling better today
[2023-01-08 09:50] LABS: Magnesium* 2.2 mg/dL (1.5-2.6)
[2023-01-08] MEDS: PALONOSETRON 0.25 MG/5 ML inj IV (10:15)
[2023-01-08] MEDS: dexAMETHasone 10 MG in 0.9 % SODIUM CHLORIDE 100 ml 100 ML 404 MG IVPB (10:15)
[2023-01-08] MEDS: FOSAPREPITANT 150 MG inj 150 MG in 0.9 % SODIUM CHLORIDE 250 ml 250 ML 510 MG IVPB (10:16)
[2023-01-08] MEDS: diphenhydrAMINE 25 MG CAPSULE PO (12:40)
--- NOTE | 2023-01-08 13:54 | PC.NURSE ---
[facility] received a voicemail and a fax today from [facility] requesting medical records on pt from 05/2022-12/16/2022. All office notes were printed and sent via fax.
[2023-01-10] MEDS: 0.9 % SODIUM CHLORIDE 1000 ml 1,000 ML 800 ML IV (13:30)
[2023-01-10 13:32] VITALS: BP 96/67; PULSE 72; RESP 16; O2SAT 99
[2023-01-10] MEDS: HEPARIN 500 UNIT/5 ML SYRINGE IVF (15:30)
[2023-01-21 08:00] VITALS: BP 107/71; PULSE 84; RESP 14; TEMP 36.4; O2SAT 97
[2023-01-21 08:25] LABS: Basophils Absolute Auto 0.03 K/uL (0.00-0.30); Basophils Percent Auto 0.6 % (0.0-3.0); Eosinophils Absolute Auto 0.28 K/uL (0.00-0.50); Eosinophils Percent Auto 5.6 % (0.0-7.0); Hemoglobin* 9.9 gm/dL (12.0-16.0); Immature Granulocytes Abs Auto 0.01 K/uL (0.00-0.30); Immature Granulocytes Pct Auto 0.2 %; Lymphocytes Percent Auto 22.2 % (20-44); Mean Corpuscular HGB Conc 30 gm/dL (32-36); Mean Corpuscular Hemoglobin 27 pg (26-34); Mean Corpuscular Volume 90 fL (80-100); Monocytes Percent Auto 18.1 % (0.0-11.0); Neutrophils Absolute Auto 2.64 K/uL (1.7-7.0); Neutrophils Percent Auto 53.3 % (42.0-72.0); Platelet Count* 212 K/uL (140-440); RDW Coefficient of Variation % 20.6 % (11.5-15.5); Red Blood Count 3.67 m/uL (4.00-5.20); White Blood Count* 4.96 K/uL (4.50-11.00)
[2023-01-21 08:28] LABS: Slide Review Reflex No
[2023-01-21 08:44] LABS: Chloride* 108 mmol/L (96-114)
[2023-01-21 08:45] LABS: Albumin* 3.7 g/dL (3.3-5.0); Sodium* 139 mmol/L (135-149)
[2023-01-21 08:47] LABS: Appearance Urine Clear (Clear); Bilirubin Urine Negative (Negative); Blood Urine 1+ (Negative); Color Urine Yellow (Yellow); Glucose Urine Negative (Negative); Ketones Urine Negative (Negative); Leukocyte Esterase Urine Trace (Negative); Nitrite Urine Negative (Negative); Protein Urine Trace (Negative); Specific Gravity Urine >= 1.030 (1.000-1.030); Urobilinogen Urine 0.2 (0.2-1.0); pH Urine 5.5 (5.0-8.5)
[2023-01-21 08:47] LABS: Bilirubin Total* 0.2 mg/dL (0.1-1.5); Creatinine* 0.5 mg/dL (0.5-1.5); Estimated Glomerular Filt Rate 116 ml/min
[2023-01-21 08:48] LABS: Alanine Aminotransferase* 26 U/L (4-35); Alkaline Phosphatase* 154 U/L (40-150); Anion Gap 6 mEq/L (7-15); Aspartate Amino Transferase* 38 U/L (12-35); Blood Urea Nitrogen* 11 mg/dL (5-24); Calcium* 9.1 mg/dL (8.4-10.6); Carbon Dioxide* 25 mmol/L (20-32); Glucose* 94 mg/dL (60-115); Total Protein* 7.2 g/dL (6.0-8.3)
[2023-01-21 09:07] LABS: WBC Urine 0-2 (0-5)
[2023-01-21 09:07] LABS: Magnesium* 2.3 mg/dL (1.5-2.6)
[2023-01-21 09:08] LABS: Bacteria Urine Few; Squamous Epithelial Cell Urine Few (None-Few)
[2023-01-21] MEDS: PALONOSETRON 0.25 MG/5 ML inj IV (11:24)
[2023-01-21] MEDS: dexAMETHasone 10 MG in 0.9 % SODIUM CHLORIDE 100 ml 100 ML 404 MG IVPB (11:24)
[2023-01-21] MEDS: FOSAPREPITANT 150 MG inj 150 MG in 0.9 % SODIUM CHLORIDE 250 ml 250 ML 510 MG IVPB (11:48)
[2023-01-21] MEDS: diphenhydrAMINE 25 MG CAPSULE PO (13:48)
--- NOTE | 2023-01-21 14:23 | URNOTE ---
Request received for authorization for?Bevacizumab (Avastin) (J9035) and Aloxi (Palonosetron) (J2469). Prior authorization is approved from [employer]. Avastin has been approved for date range 01/22/2023 to 01/22/2024 for 30 doses. Authorization #[id number]. Palonosetron has been approved for date range 01/22/2023 to 01/22/2024 for 54 doses. Authorization #[id number].
[2023-01-21] MEDS: SODIUM CHLORIDE 0.9 % (FLUSH) 10 ML SYRINGE IVF (16:21)
[2023-01-21] MEDS: 5 % DEXTROSE 250 ML IV (16:21)
[2023-01-21] MEDS: 0.9 % SODIUM CHLORIDE 250 ml IV (16:40)
[2023-01-23] MEDS: HEPARIN 500 UNIT/5 ML SYRINGE IVF (16:36)
[2023-01-23] MEDS: SODIUM CHLORIDE 0.9 % (FLUSH) 10 ML SYRINGE IVF (16:36)
--- NOTE | 2023-01-30 08:10 | ONC.NURNOTE ---
Addendum entered by Libby Quiñonez, RN 02/08/23 13:02: Patient is currently receiving radiation, not chemotherapy. To discuss start date of chemotherapy at appointment next week. Original Note: Patient called stating that she is on the schedule next week for chemotherapy. Lv notes that she is currently receiving chemotherapy in [place] today, Saturday, and Saturday of next week. She then is simmed down in [place] for liver radiation to start the week following Thanksgiving. She was notified by radiation oncology that should have one week on each side of liver radiation from treatment. She is questioning timing to restart chemotherapy. Nursing to call patient back after discussing with Dr. Schulz.
--- NOTE | 2023-02-22 16:49 | PC.SOCIAL ---
Received social work consult for pt to assist with issues with pt's medical insurance. Phone call to pt to discuss medical insurance. Pt informs that she had medicaid in place that lapsed. Pt has reached out to [facility] to start the application for [facility]. Pt informs that her work decreased her wages to ensure she qualified for [facility]. Pt has discussed this with the [facility] also and is aware that she qualifies. Pt has to have documentation to [facility] by March 06. Pt spoke to Patient Financial Services at [facility] earlier today and explained her current situation and lapse of insurance. Patient Financial Services instructed pt to continue with [facility] treatments and appointments and to provide her billing statements to [facility] for the appointments she attends, since they go back 3 months on bills. This worker suggested that pt double check with the [facility] on the retroactive payments they make for the 3-month lookback period to ensure coverage of her bills that she will incur.? This worker also suggested that she keep in contact with the [facility] regarding any paperwork or documentation they may need. Provided pt with social work phone number if pt runs into any issues or questions.?Social work will follow up as needed.
[2023-02-25 08:34] VITALS: BP 109/77; PULSE 85; RESP 16; TEMP 37.1; O2SAT 97
--- NOTE | 2023-02-25 11:13 | ONC.NURNOTE ---
Treatment coordination of care: patient has previously notified [facility] that she had been dropped from her insurance due to her income over eligibility she is working with Prakash Hernandez financial navigator for re-enrollment per patient the navigator advised that she should continue with her scheduled chemotherapy dose today and submit her itemized treatment charges to the [facility] this telegraphic typewriter mechanic and UR has advised Little of the costs of the medications an ABM was reviewed and signed by patient and decision made by patient today to hold on the start of the Vectibix due to cost over $22,000/dose, and continue with the FOLFIRI this week patient states she does not want the oxaliplatin due to ongoing neuropathy and does not want to aggravate neuropathy further Plan is to add the Vectibix with her next treatment in 2 weeks when there is more clarity in her re-enrollment status patient also states that she will be challenged in paying for the supportive medications prescribed for the vectibix Dr Schulz has been advised of patient's decision telegraphic typewriter mechanic has contacted for assist in identifying any possible grants to assist with out patient RX costs
[2023-02-25] MEDS: dexAMETHasone 10 MG in 0.9 % SODIUM CHLORIDE 100 ml 100 ML 404 MG IVPB (11:15)
[2023-02-25] MEDS: PALONOSETRON 0.25 MG/5 ML inj IV (11:56)
[2023-02-25] MEDS: 5 % DEXTROSE 250 ML IV (12:05)
[2023-02-25] MEDS: diphenhydrAMINE 25 MG CAPSULE PO (12:05)
[2023-02-25] MEDS: SODIUM CHLORIDE 0.9 % (FLUSH) 10 ML SYRINGE IVF (13:01)
--- NOTE | 2023-02-25 14:29 | ONC.NURNOTE ---
Raymond tl application faxed to the [facility] for financial assistance- [phone]
[2023-02-27 13:05] VITALS: BP 111/74; PULSE 89; RESP 14; O2SAT 99
--- NOTE | 2023-02-28 09:10 | ONC.NURNOTE ---
Prescription vouchers available through [employer] for minocycline 100 mg caps and hydrocortisone 1% topical ointment Message left for Little to call [phone] to set up appt to apply for vouchers
--- NOTE | 2023-03-12 08:01 | ONC.NURNOTE ---
Addendum entered by Libby Quiñonez RN 03/15/23 12:25: Called patient to check on her insurance coverage and her plan for treatment on Saturday. At this time she has not heard back and would like to continue holding the following due to financial reasons: Vectibix Avastin Emend Discussion last week with [facility] [employer] brought up whether patient is to have BOTH avastin and vectibix when patient again has coverage. Nursing to discuss with oncologist when seen on 04/01/2023. Original Note: Pt left message this am stating she would like to take a chemo holiday and return in 2 weeks for next treatment. Pt will call today to reschedule.
[2023-03-19 08:30] VITALS: BP 106/69; PULSE 80; RESP 16; TEMP 36.3; O2SAT 96
[2023-03-19 08:42] LABS: Basophils Absolute Auto 0.02 K/uL (0.00-0.30); Basophils Percent Auto 0.4 % (0.0-3.0); Eosinophils Absolute Auto 0.27 K/uL (0.00-0.50); Eosinophils Percent Auto 5.3 % (0.0-7.0); Hematocrit 37.3 % (33.0-51.0); Hemoglobin* 11.6 gm/dL (12.0-16.0); Lymphocytes Percent Auto 19.8 % (20-44); Mean Corpuscular HGB Conc 31 gm/dL (32-36); Mean Corpuscular Hemoglobin 29 pg (26-34); Mean Corpuscular Volume 93 fL (80-100); Monocytes Percent Auto 15.3 % (0.0-11.0); Neutrophils Absolute Auto 3.01 K/uL (1.7-7.0); Neutrophils Percent Auto 59.2 % (42.0-72.0); Platelet Count* 193 K/uL (140-440); RDW Coefficient of Variation % 16.3 % (11.5-15.5); Red Blood Count 4.01 m/uL (4.00-5.20); White Blood Count* 5.09 K/uL (4.50-11.00)
[2023-03-19 08:46] LABS: Slide Review Reflex No
[2023-03-19 09:18] LABS: Albumin* 4.1 g/dL (3.3-5.0); Chloride* 105 mmol/L (96-114); Potassium* 4.1 mmol/L (3.6-5.1); Sodium* 139 mmol/L (135-149)
[2023-03-19 09:21] LABS: Alanine Aminotransferase* 37 U/L (4-35); Alkaline Phosphatase* 156 U/L (40-150); Anion Gap 7 mEq/L (7-15); Aspartate Amino Transferase* 46 U/L (12-35); Bilirubin Total* 0.2 mg/dL (0.1-1.5); Blood Urea Nitrogen* 13 mg/dL (5-24); Carbon Dioxide* 27 mmol/L (20-32); Creatinine* 0.5 mg/dL (0.5-1.5); Estimated Glomerular Filt Rate 116 ml/min; Glucose* 88 mg/dL (60-115); Total Protein* 7.5 g/dL (6.0-8.3)
[2023-03-19 09:22] LABS: Calcium* 8.9 mg/dL (8.4-10.6)
[2023-03-19 09:44] LABS: Magnesium* 1.9 mg/dL (1.5-2.6)
[2023-03-19] MEDS: diphenhydrAMINE 25 MG CAPSULE PO (09:55)
[2023-03-19] MEDS: dexAMETHasone 10 MG in 0.9 % SODIUM CHLORIDE 100 ml 100 ML 404 MG IVPB (10:05)
[2023-03-19] MEDS: PALONOSETRON 0.25 MG/5 ML inj IV (10:05)
[2023-03-19] MEDS: 5 % DEXTROSE 250 ML IV (10:40)
[2023-03-19] MEDS: HEPARIN 500 UNIT/5 ML SYRINGE IVF (14:21)
[2023-03-19] MEDS: SODIUM CHLORIDE 0.9 % (FLUSH) 10 ML SYRINGE IVF (14:22)
[2023-03-21 10:39] VITALS: BP 110/76; PULSE 89; RESP 16; TEMP 36.2; O2SAT 98
[2023-03-21] MEDS: SODIUM CHLORIDE 0.9 % (FLUSH) 10 ML SYRINGE IVF (10:42)
[2023-03-21] MEDS: HEPARIN 500 UNIT/5 ML SYRINGE IVF (10:42)
--- NOTE | 2023-03-25 08:57 | ONC.NURNOTE ---
Patient called office today stating that she had a stomach bug on 03/13/2023 that resolved over the New Year. She received chemotherapy on 03/19/2023 with pump off on 03/21/2023. At that time, patient vomiting again and has been vomiting 1-2 times daily. Patient denies fevers, but does feel weak and achy. She has been taking it easy. She has some known obstruction from her tumor, but has not noted a change in consistency of stool. She does have more stools with pain during elimination. Discussed with EDUARDO and [facility], and they are agreeable to having patient come in for an assessment. She needs to covid test prior to coming in. When patient was notified, she notes she already did and was negative. She will come into clinic when able.
[2023-03-25 13:00] LABS: Basophils Percent Auto 0.2 % (0.0-3.0); Eosinophils Percent Auto 1.9 % (0.0-7.0); Hematocrit 39.6 % (33.0-51.0); Hemoglobin* 12.6 gm/dL (12.0-16.0); Immature Granulocytes Pct Auto 0.5 %; Lymphocytes Percent Auto 23.7 % (20-44); Mean Corpuscular HGB Conc 32 gm/dL (32-36); Mean Corpuscular Hemoglobin 29 pg (26-34); Mean Corpuscular Volume 90 fL (80-100); Monocytes Percent Auto 5.7 % (0.0-11.0); Platelet Count* 195 K/uL (140-440); RDW Coefficient of Variation % 15.4 % (11.5-15.5); Red Blood Count 4.41 m/uL (4.00-5.20); White Blood Count* 4.18 K/uL (4.50-11.00)
[2023-03-25 13:03] LABS: Slide Review Reflex No
[2023-03-25 13:12] LABS: Chloride* 98 mmol/L (96-114); Potassium* 3.6 mmol/L (3.6-5.1); Sodium* 135 mmol/L (135-149)
[2023-03-25 13:15] LABS: Anion Gap 10 mEq/L (7-15); Blood Urea Nitrogen* 23 mg/dL (5-24); Carbon Dioxide* 27 mmol/L (20-32); Creatinine* 0.6 mg/dL (0.5-1.5); Estimated Glomerular Filt Rate 111 ml/min
[2023-03-25 13:16] LABS: Calcium* 8.8 mg/dL (8.4-10.6); Glucose* 87 mg/dL (60-115)
[2023-03-25] MEDS: 0.9 % SODIUM CHLORIDE 1000 ml 1,000 ML IV (13:40)
[2023-03-25 13:47] LABS: Albumin* 4.1 g/dL (3.3-5.0)
[2023-03-25 13:49] LABS: Bilirubin Total* 0.7 mg/dL (0.1-1.5)
[2023-03-25 13:50] LABS: Alanine Aminotransferase* 64 U/L (4-35); Alkaline Phosphatase* 155 U/L (40-150); Aspartate Amino Transferase* 57 U/L (12-35); Total Protein* 7.5 g/dL (6.0-8.3)
[2023-03-25] MEDS: HEPARIN 500 UNIT/5 ML SYRINGE IVF (14:37)
[2023-03-25] MEDS: SODIUM CHLORIDE 0.9 % (FLUSH) 10 ML SYRINGE IVF (14:37)
--- NOTE | 2023-03-28 12:06 | URNOTE ---
Per [facility] fee schedule dated 02/25/2023, Prior auth is not required for Avastin (J9035), Vectribix (9303), Emend (J1453), Aloxi (J2469), Fluorouracil (9190), Irinotecan (J9205), Leucovorin (J0640).
[2023-04-01 08:46] LABS: Basophils Percent Auto 0.5 % (0.0-3.0); Eosinophils Percent Auto 6.1 % (0.0-7.0); Hematocrit 34.8 % (33.0-51.0); Hemoglobin* 10.7 gm/dL (12.0-16.0); Immature Granulocytes Pct Auto 0.2 %; Lymphocytes Percent Auto 21.1 % (20-44); Mean Corpuscular HGB Conc 31 gm/dL (32-36); Mean Corpuscular Hemoglobin 29 pg (26-34); Mean Corpuscular Volume 93 fL (80-100); Monocytes Percent Auto 11.1 % (0.0-11.0); Platelet Count* 148 K/uL (140-440); RDW Coefficient of Variation % 16.2 % (11.5-15.5); Red Blood Count 3.73 m/uL (4.00-5.20); White Blood Count* 4.13 K/uL (4.50-11.00)
[2023-04-01 08:49] LABS: Slide Review Reflex No
[2023-04-01 11:33] LABS: Albumin* 3.5 g/dL (3.3-5.0); Chloride* 104 mmol/L (96-114)
[2023-04-01 11:34] LABS: Potassium* 4.2 mmol/L (3.6-5.1); Sodium* 135 mmol/L (135-149)
[2023-04-01 11:36] LABS: Anion Gap 4 mEq/L (7-15); Carbon Dioxide* 27 mmol/L (20-32); Creatinine* 0.5 mg/dL (0.5-1.5); Estimated Glomerular Filt Rate 116 ml/min
[2023-04-01 11:37] LABS: Alanine Aminotransferase* 64 U/L (4-35); Alkaline Phosphatase* 173 U/L (40-150); Aspartate Amino Transferase* 66 U/L (12-35); Blood Urea Nitrogen* 11 mg/dL (5-24); Calcium* 8.8 mg/dL (8.4-10.6); Glucose* 89 mg/dL (60-115); Total Protein* 6.6 g/dL (6.0-8.3)
[2023-04-01 11:38] LABS: Bilirubin Total* < 0.1 mg/dL (0.1-1.5)
[2023-04-01 11:52] LABS: Magnesium* 1.8 mg/dL (1.5-2.6)
[2023-04-01 11:53] LABS: Total Protein Urine 5 mg/dL
[2023-04-01 11:55] LABS: Creatinine Urine 77.1 mg/dL
[2023-04-01] MEDS: PALONOSETRON 0.25 MG/5 ML inj IV (14:09)
[2023-04-01] MEDS: dexAMETHasone 10 MG in 0.9 % SODIUM CHLORIDE 100 ml 100 ML 404 MG IVPB (14:10)
[2023-04-01] MEDS: 0.9 % SODIUM CHLORIDE 250 ml IV (14:26)
[2023-04-01] MEDS: 5 % DEXTROSE 250 ML IV (14:27)
[2023-04-01] MEDS: SODIUM CHLORIDE 0.9 % (FLUSH) 10 ML SYRINGE IVF (14:27)
[2023-04-01] MEDS: FOSAPREPITANT 150 MG inj 150 MG in 0.9 % SODIUM CHLORIDE 250 ml 250 ML 510 MG IVPB (14:49)
[2023-04-01] MEDS: diphenhydrAMINE 25 MG CAPSULE PO (14:50)
[2023-04-03 15:39] VITALS: BP 116/80; PULSE 69; RESP 16; TEMP 36.3; O2SAT 98
[2023-04-03] MEDS: 0.9 % SODIUM CHLORIDE 500 ML 500 ML IV (15:54)
[2023-04-03] MEDS: SODIUM CHLORIDE 0.9 % (FLUSH) 10 ML SYRINGE IVF (15:55)
--- NOTE | 2023-04-11 14:11 | ONC.NURNOTE ---
Pt received Avastin/Folfoxiri on 04/01 with Vectibix on pump off day 04/03 due to decision in Dr. Schulz appt on 04/01 to treat with Avastin and Vectibix simultaneously in addition to Folfiri. Ok to receive Vectibix/Avastin/Folfiri on D1 going forward.
[2023-04-15 08:35] VITALS: BP 106/75; PULSE 75; RESP 16; TEMP 36.4; O2SAT 100
[2023-04-15 09:00] LABS: Eosinophils Percent Auto 12.8 % (0.0-7.0); Hematocrit 37.2 % (33.0-51.0); Hemoglobin* 11.5 gm/dL (12.0-16.0); Immature Granulocytes Pct Auto 0.3 %; Lymphocytes Percent Auto 25.3 % (20-44); Mean Corpuscular HGB Conc 31 gm/dL (32-36); Mean Corpuscular Hemoglobin 29 pg (26-34); Mean Corpuscular Volume 94 fL (80-100); Monocytes Percent Auto 20.2 % (0.0-11.0); Neutrophils Percent Auto 40.4 % (42.0-72.0); Platelet Count* 216 K/uL (140-440); RDW Coefficient of Variation % 16.9 % (11.5-15.5); Red Blood Count 3.97 m/uL (4.00-5.20); White Blood Count* 2.97 K/uL (4.50-11.00)
[2023-04-15 09:01] LABS: Slide Review Reflex No
[2023-04-15 09:11] LABS: Albumin* 3.8 g/dL (3.3-5.0); Chloride* 106 mmol/L (96-114)
[2023-04-15 09:12] LABS: Potassium* 4.2 mmol/L (3.6-5.1); Sodium* 139 mmol/L (135-149)
[2023-04-15 09:14] LABS: Alkaline Phosphatase* 161 U/L (40-150); Anion Gap 6 mEq/L (7-15); Aspartate Amino Transferase* 38 U/L (12-35); Bilirubin Total* 0.1 mg/dL (0.1-1.5); Blood Urea Nitrogen* 11 mg/dL (5-24); Carbon Dioxide* 27 mmol/L (20-32); Creatinine* 0.5 mg/dL (0.5-1.5); Estimated Glomerular Filt Rate 116 ml/min; Total Protein* 7.3 g/dL (6.0-8.3)
[2023-04-15 09:15] LABS: Alanine Aminotransferase* 34 U/L (4-35); Calcium* 8.9 mg/dL (8.4-10.6); Glucose* 91 mg/dL (60-115)
[2023-04-15 09:17] LABS: Total Protein Urine 10 mg/dL
[2023-04-15 09:18] LABS: Creatinine Urine 176.1 mg/dL
[2023-04-15 09:23] LABS: Magnesium* 2.4 mg/dL (1.5-2.6)
[2023-04-15] MEDS: dexAMETHasone 10 MG in 0.9 % SODIUM CHLORIDE 100 ml 100 ML 404 MG IVPB (11:44)
[2023-04-15] MEDS: PALONOSETRON 0.25 MG/5 ML inj IV (11:44)
[2023-04-15] MEDS: FOSAPREPITANT 150 MG inj 150 MG in 0.9 % SODIUM CHLORIDE 250 ml 250 ML 800 MG IVPB (12:05)
[2023-04-15] MEDS: diphenhydrAMINE 25 MG CAPSULE PO (12:05)
[2023-04-15] MEDS: 5 % DEXTROSE 250 ML IV (12:32)
[2023-04-15] MEDS: SODIUM CHLORIDE 0.9 % (FLUSH) 10 ML SYRINGE IVF (12:32)
[2023-04-15] MEDS: 0.9 % SODIUM CHLORIDE 250 ml IV (12:32)
[2023-04-17 14:30] VITALS: BP 102/68; PULSE 92; RESP 16; TEMP 35.9; O2SAT 99
[2023-04-17] MEDS: HEPARIN 500 UNIT/5 ML SYRINGE IVF (14:30)
[2023-04-17] MEDS: SODIUM CHLORIDE 0.9 % (FLUSH) 10 ML SYRINGE IVF (14:30)
--- NOTE | 2023-04-22 14:45 | ONC.NURNOTE ---
Charges for patient on 04/01/2023 were edited.
--- NOTE | 2023-04-24 14:08 | URNOTE ---
Addendum entered by Shanice Davey RN 04/24/23 15:19: Prior auth is not required for Fulphila (Q5108). Ref #[id number] 04/29/23-03/17/24 Addendum entered by Shanice Davey RN 04/24/23 14:17: effective dates 04/29/2023-03/17/2024 Original Note: Per [facility], prior auth is not required for Bevacizumab (J9035), Palonosetron (J2469), Fluorouracil (J9190), Irinotecan (J9206), Leucovorin (J0640), Fosapepitant (J1453) and Panitumumab (J9303). Ref #[id number]
[2023-04-29 08:42] LABS: Basophils Percent Auto 1.2 % (0.0-3.0); Eosinophils Percent Auto 9.9 % (0.0-7.0); Hematocrit 33.8 % (33.0-51.0); Hemoglobin* 10.5 gm/dL (12.0-16.0); Lymphocytes Percent Auto 18.7 % (20-44); Mean Corpuscular HGB Conc 31 gm/dL (32-36); Mean Corpuscular Hemoglobin 29 pg (26-34); Mean Corpuscular Volume 94 fL (80-100); Monocytes Percent Auto 19.8 % (0.0-11.0); Neutrophils Percent Auto 50.4 % (42.0-72.0); Platelet Count* 184 K/uL (140-440); RDW Coefficient of Variation % 17.3 % (11.5-15.5); White Blood Count* 3.43 K/uL (4.50-11.00)
[2023-04-29 08:46] LABS: Slide Review Reflex No
[2023-04-29 09:02] LABS: Albumin* 3.7 g/dL (3.3-5.0); Chloride* 107 mmol/L (96-114); Sodium* 138 mmol/L (135-149)
[2023-04-29 09:03] LABS: Total Protein Urine 21 mg/dL
[2023-04-29 09:04] LABS: Creatinine* 0.5 mg/dL (0.5-1.5); Estimated Glomerular Filt Rate 116 ml/min
[2023-04-29 09:04] LABS: Creatinine Urine 94.3 mg/dL
[2023-04-29 09:05] LABS: Alanine Aminotransferase* 23 U/L (4-35); Alkaline Phosphatase* 143 U/L (40-150); Anion Gap 5 mEq/L (7-15); Aspartate Amino Transferase* 32 U/L (12-35); Bilirubin Total* 0.3 mg/dL (0.1-1.5); Blood Urea Nitrogen* 9 mg/dL (5-24); Carbon Dioxide* 26 mmol/L (20-32); Glucose* 97 mg/dL (60-115); Potassium* 3.9 mmol/L (3.6-5.1)
[2023-04-29 09:19] LABS: Magnesium* 2.2 mg/dL (1.5-2.6)
[2023-04-29 09:23] VITALS: BP 102/77; PULSE 97; RESP 16; TEMP 36.5; O2SAT 96
[2023-04-29 09:58] LABS: Appearance Urine Clear (Clear); Bilirubin Urine Negative (Negative); Blood Urine Trace-intact (Negative); Color Urine Yellow (Yellow); Glucose Urine Negative (Negative); Ketones Urine Negative (Negative); Leukocyte Esterase Urine 3+ (Negative); Nitrite Urine Negative (Negative); Protein Urine Negative (Negative); Specific Gravity Urine 1.025 (1.000-1.030); Urobilinogen Urine 0.2 (0.2-1.0)
[2023-04-29 10:21] LABS: RBC Urine 0-2 (0-2); Squamous Epithelial Cell Urine Few (None-Few)
[2023-04-29 10:22] LABS: Bacteria Urine Few
[2023-04-29] MEDS: diphenhydrAMINE 25 MG CAPSULE PO (11:11)
[2023-04-29] MEDS: dexAMETHasone 10 MG in 0.9 % SODIUM CHLORIDE 100 ml 100 ML 404 MG IVPB (11:12)
[2023-04-29] MEDS: PALONOSETRON 0.25 MG/5 ML inj IV (11:12)
[2023-04-29] MEDS: FOSAPREPITANT 150 MG inj 150 MG in 0.9 % SODIUM CHLORIDE 250 ml 250 ML 510 MG IVPB (11:41)
[2023-04-29] MEDS: SODIUM CHLORIDE 0.9 % (FLUSH) 10 ML SYRINGE IVF (14:14)
[2023-05-01] MEDS: SODIUM CHLORIDE 0.9 % (FLUSH) 10 ML SYRINGE IVF (12:49)
[2023-05-01] MEDS: HEPARIN 500 UNIT/5 ML SYRINGE IVF (12:49)
== END 2023-05-06 23:59 | disposition home or self-care (01) ==
LOC: CCIC 14:00
PROVIDERS: Clinical Nurse Specialist; Physician Assistant; PCP Family Medicine; Referring Provider Family Medicine; Visit Provider Internal Medicine Hematology & Oncology
DX: C20 Malignant neoplasm of rectum (principal); C78.7 Secondary malignant neoplasm of liver and intrahepatic bile duct
CPT/HCPCS: 36415; 36591; 78815; 80048; 80053; 81003; 81015; 82378; 82570; 83735; 84156; 85025; 87086; 96360; 96366; 96368; 96376; 96413; 96415; 96416; 96417; 99211; 99212; 99213; 99215; G0463; A9270; A9552; J0461; J0640; J1100; J1453; J1642; J2469; J7030; J7050; J7120; J9035; J9190; J9206; J9263; J9303

== ENCOUNTER 2023-05-07 11:36 | Emergency (ER) | payer BC, SELFPAY ==
[2023-05-07 11:54] VITALS: BP 119/84; PULSE 82; RESP 18; TEMP 36.9; O2SAT 99; BMI 20.7
--- OUTSIDE RECORDS SUMMARY | 2023-05-07 13:38 | XMS_ITS | Data Portability ---
Author Name Unknown Address [address] [place] [address] Phone [phone] Organization [place] [facility] Address [address] [place] [address] Care Team Providers Care Material Expediter Name Role Phone CONTRERASArleneAVIS Palliative Care ITZEL WOODRUFF Radiation Oncologist CELESTE SOLORZANO Primary Care Provider Assessment Encounter Date Assessment Date Assessment LastModified by Organization Details LastModified Time 09/22/2021 09/22/2021 Evaluation: Patient moved back to [place] in 2018, was diagnosed with Stage 4 metastatic colorectal Cancer in September 2019. Completed chemo 7 weeks ago. Reports she has no other health concerns. Reports she is feeling good since completing chemo. No immediate health needs at this time. REN: overall balance with my health, nutrition, exercise Cultural and spiritual beliefs: none -Discussed: Her health is important to her and wants to use medical intervention as last resort. - Karnofsky score: 100 = Normal no complaints; no evidence of disease -Pain/symptom management: -Medication support: -Assistance at home: -DME order: -Mental/emotional support: -Care coordination: -08/10 care support: -Falls: no recent falls -Hospitalizations: no hospitalizations in the last 6 months -Health Needs: has periodontal disease - reports it is stable, concerned about the future maintaining her teeth and insurance not covering oral surgeries that may be needed Action: Introduced self and [facility] Nurse Navigator role. Encouragement, emotional support and therapeutic listening provided. Nurse reminded patient of [facility]'s supportive services. Educated patient on [facility]'s 08/10 availability of a tower director to provide immediate guidance over the phone and receive personalized advice on the next steps. Encouraged patient to call if any concerns or symptoms arise, and [phone] was provided. SLASHER OPERATOR visit scheduled on 10/09/21 at 9am. Next Steps: Patient outreach in approximately 6-8 weeks. TOBY Castellanos Not available 09/22/2021 13:00:36 10/09/2021 10/09/2021 Patient is seen for an initial visit and assessment by [facility]: Patient is a pleasant 46 year old, she states that she has a very busy day today and she would line to have the apt rescheduled to Saturday at 11am. Message sent to [facility] for rescheduling. No services performed. [email or web address] Not available 10/09/2021 10:18:58 10/13/2021 10/13/2021 Patient did not answer her phone today. Called x 2, left a message x 1. Please try and reschedule for the third time. Message sent to [facility] [email or web address] Not available 10/13/2021 12:19:28 Plan of Treatment Reminders Order Date Submit Date Provider Last Modified By Organization Details Last Modified Time Details Appointments None record ed. Lab None record ed. Referral None record ed. Procedures None record ed. Surgeries None record ed. Imaging None record ed. Medication Orders None record ed. Patient TargetsNo targets recorded. Patient Instructions Encounter Date Encounter Id Patient Instructions Last Modified By Organization Details Last Modified Time 09/22/2021 [id number] Patient instructed to call with questions or concerns. [email or web address] Not available 09/22/2021 13:00:40 Reason for Referral None Reported. Problems Name Status Onset Date Resolution Date Notes Provider Name and Address Organization Details Recorded Time Primary malignant neoplasm of rectum Active Jasmin mcintosh [place] - [facility] 09/22/2021 11:58:18 Problem Notes None recorded. Medical Equipment None Reported. Allergies Allergen ID Allergen Name Allergen Category Reaction Reaction Severity Criticality Documentation Date Start Date Code Code System Note Provider Name and Address Organization Details Recorded Time 98580 latex environme nt,medica tion rash Not available Not available 09/22/20212020 76615 91 RxNorm Jasmin mcintosh [place] - [facility] 11:55:07 Medications Name Sig Start Date Stop Date Status Note LastModified by Organization Details LastModified Time clindamycin HCl 300 mg capsule 09/22 completed Not Available Not Available Not Available prochlorperazine maleate 5 mg tablet 09/22 completed Not Available Not Available Not Available clindamycin HCl 150 mg capsule 09/22 completed Not Available Not Available Not Available prochlorperazine maleate 10 mg tablet 09/22 completed Not Available Not Available Not Available acyclovir 400 mg tablet active Not Available Not Available Not Available doxycycline monohydrate 100 mg tablet 09/22 completed Not Available Not Available Not Available lorazepam 0.5 mg tablet 09/22 completed Not Available Not Available Not Available ProAir HFA 90 mcg/actuation aerosol inhaler 09/22 completed Not Available Not Available Not Available fluorouracil 5 gram/100 mL intravenous solution 09/22 completed Not Available Not Available Not Available Vitals Date Recorded Body height Body mass index (BMI) Body weight Provider Name and Address Organization Details Last Updated DateTime 09/22/2021 160.02 cm 8.9 kg/m2 06155.62 g Jasmin Fay [facility], [place] - [facility] 09/22/2021 11:54:45 Social History Question Answer Notes LastModified by Organizat ion Details LastModified Time 01. ACP Discussion Date: 09/22/2021 Information not available 09/22/2021 4. POLST Completed: No Information not available 09/22/2021 4. Employment History: Employed Information not available 09/22/2021 6. PRIMARY Income Source: (use Note Field For Additional Info) Employment Information not available 09/22/2021 8. Financial Strain: No Information not available 09/22/2021 10. Living Situation: Apartment Information not available 09/22/2021 12. Stable Housing: Yes Information not available 09/22/2021 14. Feels Safe At Home: Yes Information not available 09/22/2021 16. Children: 0 Information not available 09/22/2021 18. Has Reliable Social/Emotional Support: Yes Information not available 09/22/2021 22. Caregiver Leedey Concerns: No Information not available 09/22/2021 26. Food Insecurity: No Information not available 09/22/2021 28. Assistance With Walking: No Information not available 09/22/2021 30. Assistance With Transfers: No Information not available 09/22/2021 32. Assistance With Bathing: No Information not available 09/22/2021 34. Assistance With Dressing/Grooming : No Information not available 09/22/2021 36. Assistance With Toileting: No Information not available 09/22/2021 38. Assistance With Stairs: No Information not available 09/22/2021 40. Assistance With Meal Prep: No Information not available 09/22/2021 42. Assistance With Eating: No Information not available 09/22/2021 44. Assistance With Errands: No Information not available 09/22/2021 46. Assistance With Housekeeping: No Information not available 09/22/2021 48. Assistance With Managing Finances: No Information not available 09/22/2021 33. Fallen Two Or More Times In Last Year: No Information not available 09/22/2021 34. Fear Of Falling: No Information not available 09/22/2021 50. Uses Assistive Device(s): No Information not available 09/22/2021 52. Vision Impairment: Yes Wears Glasses For Driving Information not available 09/22/2021 54. Hearing Impairment: No Information not available 09/22/2021 56. Difficulty Remembering Things: No Information not available 09/22/2021 58. Mode Of Transportation: Drives Self Information not available 09/22/2021 60. Has A Scientology Preference: No Information not available 09/22/2021 62. Feels Anxious/Stressed: No Information no t available 09/22/2021 64. Trauma History: None Reported Information not available 09/22/2021 68. Suicidal Safety Assessment Needed: No Information not available 09/22/2021 70. Mental Health Provider Involved: No Information not available 09/22/2021 72. Interpersonal Safety Concerns: No Information not available 09/22/2021 76. Vulnerable Adult Concerns: No Information not available 09/22/2021 5. Health Care Agent: No Information not available 09/22/2021 3. ACP Scan In Chart: No Information not available 09/22/2021 8. ETOH Use: No Information not available 09/22/2021 9. Illicit Drug Use: No Information not available 09/22/2021 10. Substance Use Concerns: No Information not available 09/22/2021 77. Weinert's Status: No Information not available 09/22/2021 100. In General, Would You Say Your Health Is: Good Information not available 09/22/2021 106. Assistance With Telephone: No Information not available 09/22/2021 Sex: Female Functional Status None recorded. Mental Status None recorded. Family History Nothing Reported. Medical History Condition Response Cancer Y Gynecological HistoryNo gynecological history recorded. Obstetrics History GPAL:G 0 P 0 0 0 0 Past Encounters Encounter ID Performer Location Encounter Start Date Encounter Closed Date Diagnosis/Indication [id number] Jasmin Fay Glassful [address] [place] [address],[address] [place] [address] 09/22/2021 11:45:42 09/22/2021 13:01:15 [id number] Avis SevillaBee Shield [address] [place] [address],[address] [place] [address] 10/09/2021 10:07:01 10/09/2021 10:19:26 Discussed with patient [id number] Avis SevillaBee Shield [address] [place] [address],[address] [place] [address] 10/13/2021 12:01:02 10/13/2021 12:19:56 Health Concerns Section Related Observation LastModified by Organization Detai ls LastModified Time None Recorded Concern Status LastModified by Organization Details LastModified Time None Recorded Advance Directives Directive None Recorded Payers Encounter Date Sequence Insurance Name Policy Number Policy Chiang Covered Member ID Chiang Member ID Guarantor Name 10/13/2021 1 [place] [id number] Little Nuñez [id number] Little Nuñez 10/09/2021 1 [place] [id number] Little [place]cc[place] [id number] Little Nuñez 09/22/2021 1 [place] [id number] Little Nuñez [id number] Little Nuñez Notes Date Note Type Note Provider Name and Address Organization Details Recorded Time 09/22/2021 text/html HPI Notes: Gener al consent form reviewed, and patient verbally gives consent for services, release of information and record sharing. Mailing to be sent out including Notice of Privacy Practices and a copy of the General consent information sheet for review. Little Nuñez verbally gives permission to discuss health information with mother Livier Levy on 09/21/2021. Patient designees documented under Care Team section of chart. Contact: Nurse performed introduction visit viaphone. Patients' name and date of verified. Patient story is presented entirely by the patient Patient is a 46 year-old, female with a reported history of Primary malignant neoplasm of rectum who appears alert, oriented and answering questions appropriately. This enrollment visit was conducted today via phone with Nurse. All past medical history, current condition, medications, and allergies were reported by patient. Start time: 10:30am Stop time: 11:00am Clinician Located: Clinician Home Address Patient physically located at: Patient's Home Address [place] - [facility] 09/22/2021 13:01:14 OBGyn Episode No OBEpisode recorded.
[2023-05-07 14:09] LABS: Hematocrit 35.2 % (33.0-51.0); Hemoglobin* 11.2 gm/dL (12.0-16.0); Mean Corpuscular HGB Conc 32 gm/dL (32-36); Mean Corpuscular Hemoglobin 30 pg (26-34); Mean Corpuscular Volume 93 fL (80-100); Platelet Count* 209 K/uL (140-440); White Blood Count* 6.48 K/uL (4.50-11.00)
--- NOTE | 2023-05-07 14:13 | ED_ITS ---
HPI - Skin/Abscess/Foreign Bdy General Date Seen: 05/07/23 Chief complaint: Skin/Abscess/Foreign Body Stated complaint: infected tatoo/chemo patient Time Seen by Provider: 05/07/23 13:23 Source: patient Mode of arrival: ambulatory Limitations: no limitations History of Present Illness HPI narrative: Patient is a 47-year-old female who was on chemotherapy for metastatic colorectal cancer presenting for concern of infected tattoo. 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 She admits she did not take the best care of it and is concerned now it is infected. She noticed erythema around the tattoo but has not had any warmth. Denies fevers or chills. She has not spoken to her oncologist about getting had to use while on chemo. Denies chest pain, shortness of breath, weakness, numbness, headache, vision changes, diarrhea, constipation. She is concerned about developing infection while on mauri motherapy. Related Data Home Medications Medication Instructions Recorded Confirmed acyclovir 400 mg tablet 400 mg PO QDAY PRN 01/22/22 05/07/23 ascorbate calcium (vitamin C) 500 500 mg PO DAILY 01/22/22 05/07/23 mg tablet acetaminophen 500 mg capsule 1,000 mg PO Q6H PRN 03/26/22 05/07/23 calcium carbonate 400 mg calcium 400 mg PO QID PRN 03/26/22 05/07/23 (1,000 mg) chewable tablet (Tums Ultra) polyethylene glycol 3350 17 4 g PO QDAY PRN constipation 04/09/22 05/07/23 gram/dose oral powder (Miralax) multivitamin (Daily Multi-Vitamin 1 tab PO DAILY 04/25/22 05/07/23 tablet) albuterol sulfate 90 mcg/actuation 2 puff inhalation BID-QID PRN 08/23/22 05/07/23 aerosol inhaler (Ventolin HFA) shortness of breath or wheezing Vitamin D3 12/25/22 04/22/23 iron,carbonyl 65 mg-vitamin C 125 1 tab PO DAILY PRN 01/16/23 05/07/23 mg tablet,delayed release (Vitron-C) vitamin B 1 gummy PO 01/16/23 04/22/23 Previous Rx's Medication Instructions Recorded prochlorperazine maleate 10 mg 10 mg PO Q6H PRN nausea and 11/23/22 tablet vomiting #40 tabs fluticasone propionate 110 1 puff PO BID #12 grams 01/30/23 mcg/actuation HFA aerosol inhaler hydrocortisone 1 % topical 1 applic topical BID #453.6 grams 04/01/23 ointment (Anti-Itch (hydrocortisone)) lorazepam 0.5 mg tablet (Ativan) 0.5 mg PO QHS PRN nausea, insomnia 04/01/23 from chemotherapy #30 tabs minocycline 100 mg capsule 100 mg PO BID #60 caps 04/01/23 cephalexin 500 mg capsule 500 mg PO QID #20 caps 05/07/23 Allergies Allergy/AdvReac Type Severity Reaction Status Date / Time Latex, Natural Rubber Allergy Verified 05/07/23 12:02 Review of Systems Narrative: Pertinent systems reviewed were negative unless stated in HPI PFSH PFS Medical History Bronchial obstruction History of Mohs micrographic surgery for skin cancer (2014) Oral herpes simplex, not currently active Primary malignant neoplasm of colorectal area with metastasis (2016) Pulmonary nodules Rectal cancer metastasized to liver Rectal cancer metastasized to lung (~09/2021) Weight loss (09/2019) Surgical History History of dilation and curettage (2003) S/P Mohs surgery for basal cell carcinoma (2014) Family History Paternal Grandmother Colon cancer, Onset Age: 60 Social History Narrative: , no kids-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, [employer] guiljayshree Non smoker does not drink alcohol Exercise involving walking dog 3 times daily every day Smoking Status: Former smoker Do you use any of these nicotine containing products: None Second hand tobacco smoke exposure: No How often do you have a drink containing alcohol: never How often do you have six or more drinks on one occasion: Never AUDIT-C Alcohol total score: 0 Non-prescribed substance use: denies use service: No Exam Narrative: Exam Narrative: Const: Well-nourished, Well-developed, in mild distress Eyes: PERRL, no conjunctival injection, and symmetrical lids HENT: Atraumatic external nose and ears. Moist mucous membranes. Neck: Symmetric, trachea midline, No thyromegaly. CVS: RRR, No murmurs or gallops. Peripheral pulses 2+ and equal in all extremities RESP: Unlabored respiratory effort. Clear to auscultation bilaterally. GI: Nontender/Nondistended, No rebound or guarding. MSK:Extremities w/o deformity, Normal Active ROM Skin: Warm, Dry. Erythema seen around the tattoo the left lower leg with no warmth. Area feels similar temperature to rest of her leg and similar to the opposite leg Neuro: Normal Muscle tone, No focal neurological deficits. Psych: Awake, Alert, & Oriented x3. Appropriate mood and affect. Const: Vital Signs, click to edit/add: Vital Signs - 24 hr 05/07/23 11:54 Temperature 98.5 F Pulse Rate [Right Pulse Oximeter] 82 Respiratory Rate 18 Blood Pressure [Ri ght Upper Arm] 119/84 Pulse Oximetry 99 Oxygen Delivery Me thod Room Air Course Vital Signs Vital signs: Initial Vital Signs Temperature 98.5 F 05/07/23 11:54 Temperature Source Temporal Artery Scan 05/07/23 11:54 Pulse Rate 82 05/07/23 11:54 Respiratory Rate 18 05/07/23 11:54 Blood Pressure 119/84 05/07/23 11:54 Blood Pressure Mean 95 05/07/23 11:54 Blood Pressure Position Sitting 05/07/23 11:54 Pulse Oximetry 99 05/07/23 11:54 Oxygen Delivery Method Room Air 05/07/23 11:54 Vital Signs Temperature 98.5 F 05/07/23 11:54 Pulse Rate 82 05/07/23 11:54 Respiratory Rate 18 05/07/23 11:54 Blood Pressure 119/84 05/07/23 11:54 Pulse Oximetry 99 05/07/23 11:54 Oxygen Delivery Method Room Air 05/07/23 11:54 Temperature 98.5 F 05/07/23 11:54 Pulse Rate 82 05/07/23 11:54 Respiratory Rate 18 05/07/23 11:54 Blood Pressure 119/84 05/07/23 11:54 Pulse Oximetry 99 05/07/23 11:54 Oxygen Delivery Method Room Air 05/07/23 11:54 MDM - Skin/Abscess/Foreign Bdy MDM Narrative Medical decision making narrative: Patient is a 47-year-old female presenting for concern of infection of a tattoo. She is a chemotherapy patient. While of area does not look clearly like it is infected I will be cautious considering her history. CBC and BMP ordered. Results returned to not show any concerning findings for systemic disease. Father area is not warm I do think it is appropriate to place her on antibiotics preemptively. Informed to follow-up with her oncologist. She is agreeable to this plan. Lab Data Labs: Lab Results 05/07/23 Range/Units 13:59 WBC 6.48 (4.50-11.00) K/uL RBC 3.80 L (4.00-5.20) m/uL Hgb 11.2 L (12.0-16.0) gm/dL Hct 35.2 (33.0-51.0) % MCV 93 (80-100) fL MCH 30 (26-34) pg MCHC 32 (32-36) gm/dL RDW Coeff of Sandra 17.0 H (11.5-15.5) % Plt Count 209 (140-440) K/uL Neut % (Auto) Not Reportable Lymph % (Auto) Not Reportable Dakota % (Auto) Not Reportable Eos % (Auto) Not Reportable Baso % (Auto) Not Reportable Neut # (Auto) Not Reportable Lymph # (Auto) Not Reportable [place] # (Auto) Not Reportable Eos # (Auto) Not Reportable Baso # (Auto) Not Reportable Sodium 135 (135-149) mmol/L Potassium 3.5 L (3.6-5.1) mmol/L Chloride 100 (96-114) mmol/L Carbon Dioxide 29 (20-32) mmol/L Anion Gap 6 L (7-15) mEq/L BUN 9 (5-24) mg/dL Creatinine 0.4 L (0.5-1.5) mg/dL Estimated Creat Clear 143.83 Estimated GFR 123 ml/min Glucose 89 (60-115) mg/dL Calcium 9.2 (8.4-10.6) mg/dL Discharge Plan Discharge Clinical Impression: Cellulitis Qualifiers: Site of cellulitis: extremity Site of cellulitis of extremity: lower extremity Laterality: left Qualified Code(s): L03.116 - Cellulitis of left lower limb Patient Disposition: Home, Self-Care Condition: Stable Instructions: Cellulitis (ED) Additional Instructions: Take the antibiotic as directed. Return to emergency department for new or worsening symptoms. I recommend following up with your oncologist. Prescriptions: New cephalexin 500 mg capsule 500 mg PO QID Qty: 20 0RF No Action acyclovir 400 mg tablet 400 mg PO QDAY PRN Hold Instructions: not needing at this time albuterol sulfate [Ventolin HFA] 90 mcg/actuation HFA aerosol inhaler 2 puff inhalation BID-QID PRN (Reason: shortness of breath or wheezing) polyethylene glycol 3350 [Miralax] 17 gram/dose powder 4 g PO QDAY PRN (Reason: constipation) vitamin B 1 gummy PO lorazepam [Ativan] 0.5 mg tablet 0.5 mg PO QHS PRN (Reason: nausea, insomnia from chemotherapy) Qty: 30 0RF hydrocortisone [Anti-Itch (HC)] 1 % ointment 1 applic topical BID Qty: 453.6 3RF minocycline 100 mg capsule 100 mg PO BID Qty: 60 0RF acetaminophen 500 mg capsule 1,000 mg PO Q6H PRN calcium carbonate [Tums Ultra] 400 mg calcium (1,000 mg) tablet,chewable 400 mg PO QID PRN multivitamin [Daily Multi-Vitamin] Tablet 1 tab PO DAILY ascorbate calcium (vitamin C) 500 mg tablet 500 mg PO DAILY Vitamin D3 Vitron-C 65 mg iron- 125 mg tablet,delayed release (DR/EC) 1 tab PO DAILY PRN prochlorperazine maleate 10 mg tablet 10 mg PO Q6H PRN (Reason: nausea and vomiting) Qty: 40 1RF fluticasone propionate 110 mcg/actuation HFA aerosol inhaler 1 puff PO BID Qty: 12 0RF Follow Up/Referrals: Charisma Oliveira MD [Primary Care Provider] - Stand Alone Forms: [employer] Info Instructions
[2023-05-07 14:20] LABS: Chloride* 100 mmol/L (96-114); Potassium* 3.5 mmol/L (3.6-5.1); Sodium* 135 mmol/L (135-149)
[2023-05-07 14:21] LABS: Slide Review Reflex No
[2023-05-07 14:23] LABS: Creatinine* 0.4 mg/dL (0.5-1.5); Est. Creatinine Clearance* 143.83; Estimated Glomerular Filt Rate 123 ml/min
[2023-05-07 14:24] LABS: Anion Gap 6 mEq/L (7-15); Blood Urea Nitrogen* 9 mg/dL (5-24); Calcium* 9.2 mg/dL (8.4-10.6); Carbon Dioxide* 29 mmol/L (20-32); Glucose* 89 mg/dL (60-115)
== END 2023-05-07 15:16 | disposition home or self-care (01) ==
PROVIDERS: Emergency Provider Student in an Organized Health Care Education/Training Program; PCP Family Medicine
DX: L03.116 Cellulitis of left lower limb (principal)
CPT/HCPCS: 36415; 80048; 85025; 99282; 99283

== ENCOUNTER 2023-06-03 13:25 | Outpatient (CLI) | payer BC, SELFPAY | END 2023-06-03 13:26 | disposition home or self-care (01) | PROVIDERS: PCP Family Medicine; Visit Provider Internal Medicine | DX: K76.89 Other specified diseases of liver (principal) | CPT/HCPCS: 74183; A9575 ==

== ENCOUNTER 2023-09-20 07:32 | Outpatient (CLI) | payer BC, SELFPAY ==
--- OUTSIDE RECORDS SUMMARY | 2023-09-20 07:34 | XMS_ITS | Data Portability ---
Author Organization [facility] Address [address] [place] [address] Care Team Providers Care Laboratory Apparatus Glass Grinder Name Role Phone CONTRERASArlene ALEMKvngJOSI Palliative Care ITZEL WOODRUFF Radiation Oncologist CELESTE SOLORZANO Primary Care Provider Assessment Encounter Date Assessment Date Assessment LastModified by Organization Details LastModified Time 09/22/2021 09/22/2021 Evaluation: Patient moved back to [place] in 2018, was diagnosed with Stage 4 [...] if any concerns or symptoms arise, and [phone] was provided. HEATER FURNACE visit scheduled on 10/09/21 at 9am. Next Steps: Patient outreach in approximately 6-8 weeks. TOBY Castellanos Not available 09/22/2021 13:00:36 10/09/2021 10/09/2021 Patient is seen for an initial visit and assessment by [facility]: Patient is a pleasant 46 year old, she states that she has a very busy day today and she would line to have the apt rescheduled to Saturday at 11am. Message sent to [facility] for rescheduling. No services performed. [email or web address] Not available 10/09/2021 10:18:58 10/13/2021 10/13/2021 Patient did not answer her phone today. Called x 2, left a message x 1. Please try and reschedule for the third time. Message sent to [facility] [email or web address] Not available 10/13/2021 12:19:28 [...] By Organization Details Last Modified Time 09/22/2021 [id number] Patient instructed to call with questions or [...] Name and Address Organization Details Recorded Time 20292 latex environme nt,medica tion rash Not available Not available 09/22/20212020 78664 91 [employer] Jasmin mcintosh [place] - [facility] [...] Updated DateTime 09/22/2021 160.02 cm 8.9 kg/m2 89756.62 g Jasmin VanVleet [place] [facility] 09/22/2021 11:54:45 Social History Question [...] Yes Information not available 09/22/2021 22. Caregiver Swink Concerns: No Information not available 09/22/2021 26. [...] Information not available 09/22/2021 60. Has A Cheondoism Preference: No Information not available 09/22/2021 62. [...] Concerns: No Information not available 09/22/2021 77. 's Status: No Information not available 09/22/2021 100. In General, Would You Say Your Health Is: Good Information not available 09/22/2021 106. Assistance With Telephone: No Information not available 09/22/2021 Sex: Unknown Functional Status None recorded. Mental Status None recorded. Family History Nothing Reported. Medical History Condition Response Cancer Y Gynecological HistoryNo gynecological history recorded. Obstetrics History GPAL:G 0 P 0 0 0 0 Past Encounters Encounter ID Performer Location Encounter Start Date Encounter Closed Date Diagnosis/Indication Diagnosis SNOMED-CT Code [id number] J[facility] [address] [place] [address],[address] [place] [address] 09/22/2021 11:45:42 09/22/2021 13:01:15 [id number] [facility] [address],[address] [place] [address] 10/09/2021 10:07:01 10/09/2021 10:19:26 Discussed with patient [id number] [facility] [address],[address] [place] [address] 10/13/2021 12:01:02 10/13/2021 12:19:56 Health Concerns Section Related Observation LastModified by Organization Detai ls LastModified Time None Recorded Concern Status LastModified by Organization Details LastModified Time None Recorded Advance Directives Directive None Recorded Payers Encounter Date Sequence Insurance Name Policy Number Policy Chiang Covered Member ID Chiang Member ID Guarantor Name 09/22/2021 1 [place] MNDBBS Kristine Nuñez [id number] Kristine Nuñez 10/09/2021 1 [place] [employer] Kristine Nuñez [id number] Kristine Nuñez 10/13/2021 1 [place] DIOGODBBS Kristine uNñez [id number] Kristine Nueñz Notes Date Note Type Note Provider Name and Address Organization Details Recorded Time 09/22/2021 text/html HPI Notes: Gener al consent form reviewed, and patient verbally gives consent for services, release of information and record sharing. Mailing to be sent out including Notice of Privacy Practices and a copy of the General consent information sheet for review. Kristine Nuñez verbally gives permission to discuss health [...] located at: Patient's Home Address [address] [facility] 09/22/2021 13:01:14 OBGyn Episode No OBEpisode recorded.
--- NOTE | 2023-09-20 08:00 | PE_ITS ---
[facility] [address] [facility] [address] Phone:?[phone] Fax:?[phone] Referring Physician Information: Kaitlin Schulz M.D. [address] [facility] [address] Phone:?[phone] Fax:?[phone] Patient:Catarina Gill D.O.B:?1975 Sex:?Female Phone:?[phone] [facility] MRN:?[id number] Exam Date:?09/20/2023 EXAM: PET/CT EYES TO THIGHS, CANCER RESTAGING CLINICAL INFORMATION: Metastatic rectal cancer, restaging. TECHNICAL INFORMATION: Helical acquisition of data was obtained from the orbits to the upper thighs with reconstruction of 3.75 mm thick images at 3.[address] data was used for attenuation correction. PET scanning was performed through the same anatomic range 61 minutes following administration of 12.78 mCi of 18-FDG delivered intravenously. The patient's glucose at the time of the injection was 95 mg/dL. PET, CT and PET/CT fusion images are interpreted using a computer viewing workstation. PET, CT and PET/CT fusion images were archived and saved in the patient's permanent medical record. COMPARISON: PET-CT from 05/16/2023 multiple prior studies. INTERPRETATION: Head and Neck: There are no abnormal hypermetabolic foci within the head or neck. There is physiologic uptake in the intracranial soft tissues. No residual or recurrent basal cell carcinoma identified about the right cheek. Chest: Left chest port catheter terminates at the cavoatrial junction. As seen on prior studies, there are extensive nodular consolidations with variable cavitation scattered throughout both lungs. Previously indexed cavitary nodule in the left upper lobe (Se 2 Im 78) has a maximum SUV of 6.5, previously 8.55. The thickness of its rind has decreased subtly and it contains a non- hypermetabolic central filling defect with air crescent sign. Background mediastinal blood pool uptake has a maximum SUV of 1.74. Mild reactive mediastinal lymphadenopathy redemonstrated, with background FDG uptake. Abdomen and Pelvis: Known primary rectal neoplasm (Se 2 Im 230) has a maximum SUV of 15.95, previously 17.86. Persistent hypermetabolic focus located just cephalad to the primary stricture (Se 2 Im 215) has a maximum SUV of 16.73, previously 14.54. On the attenuation correction CT, the lesion measures roughly 3.5 cm, previously 2.2 cm. The patient's known liver metastases are of similar size and conspicuity when compared to the exam from April 2023, but markedly decreased since December 2022. The current dominant lesion is in the right lobe (Se 2 Im 114) with a maximum SUV of 6.5, previously 6.06. Stable treatment-related changes noted at the prior left lobe lesion. Background hepatic parenchymal uptake has a maximum SUV of 2.47. There is physiologic excretion of radiotracer in the urine and bowel. 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 CONCLUSION: 1. The patient's primary rectal malignancy remains stable but a hypermetabolic colorectal lesion located just cephalad shows continued increase in size and metabolic rate. 2. The patient's hepatic metastases are stable in terms of size and metabolic rate since Apr 2023. No new hepatic lesions detected. 3. Previously indexed right iliac metastasis remains metabolically quiescent. No new skeletal lesions detected. 4. Overall stable appearance of the patient's variably cavitated pulmonary nodules/consolidations. Findings likely represent some combination of cavitary metastases, inflammation/infection, and postinflammatory scarring. The dominant lesion in the left upper lobe may contain a fungal ball; recommend correlation for any clinical signs of infection (i.e., atypical pneumonia). 5. No residual or recurrent basal cell carcinoma identified about the right cheek. Electronically signed on 09/23/2023 12:27:00 PM by Ancelmo Hanks M.D.
== END 2023-09-20 07:33 | disposition home or self-care (01) ==
LOC: RAD 07:33
PROVIDERS: PCP Family Medicine; Visit Provider Internal Medicine Hematology & Oncology
DX: C19 Malignant neoplasm of rectosigmoid junction (principal); C78.7 Secondary malignant neoplasm of liver and intrahepatic bile duct; R91.8 Other nonspecific abnormal finding of lung field
CPT/HCPCS: 78815; A9552

== ENCOUNTER 2023-10-15 14:41 | Outpatient (CLI) | payer BC, SELFPAY ==
--- OUTSIDE RECORDS SUMMARY | 2023-10-15 14:45 | XMS_ITS | Data Portability ---
Author Organization [facility] Address [address] [place] [address] Care Team Providers Care Ophthalmology Surgical Technician Name Role Phone CONTRERASArlene AVIS Palliative Care ITZEL WOODRUFF Radiation Oncologist [phone] CELESTE SOLORZANO Primary Care Provider Assessment Encounter Date Assessment Date Assessment LastModified by Organization Details LastModified Time 09/22/2021 09/22/2021 Evaluation: Patient moved back to [place] in 2018, was diagnosed with Stage 4 [...] on Adi's 08/10 availability of a licensed clinical social worker to provide immediate guidance over the phone and receive personalized advice on the next steps. Encouraged patient to call if any concerns or symptoms arise, and [phone] was provided. DOCK ATTENDANT visit scheduled on 10/09/21 at 9am. Next Steps: Patient outreach in approximately 6-8 weeks. TOBY Castellanos Not available 09/22/2021 13:00:36 10/09/2021 10/09/2021 Patient is seen for an initial visit and assessment by [facility]: Patient is a pleasant 46 year old, she states that she has a very busy day today and she would line to have the apt rescheduled to Saturday at 11am. Message sent to [facility] for rescheduling. No services performed. [email or web address] Not available 10/09/2021 10:18:58 10/13/2021 10/13/2021 Patient did not answer her phone today. Called x 2, left a message x 1. Please try and reschedule for the third time. Message sent to [facility] [email or web address] Not available 10/13/2021 12:19:28 Plan of [...] By Organization Details Last Modified Time 09/22/2021 [id number] Patient instructed to call with questions or [...] Name and Address Organization Details Recorded Time 19751 latex environme nt,medica tion rash Not available Not available 09/22/20212020 14637 91 [employer] Jasmin mcintosh [place] - [facility] [...] Updated DateTime 09/22/2021 160.02 cm 8.9 kg/m2 64262.62 g Jasmin VanVleet [place] [facility] 09/22/2021 [...] Yes Information not available 09/22/2021 22. Caregiver Enville Concerns: No Information not available 09/22/2021 26. [...] Information not available 09/22/2021 60. Has A Islam Preference: No Information not available 09/22/2021 62. [...] Encounter Closed Date Diagnosis/Indication Diagnosis SNOMED-CT Code [id number] [facility] [address] [place] [address],[address] [place] [address] 09/22/2021 11:45:42 09/22/2021 13:01:15 [id number] [facility] [address],[address] [place] [address] 10/09/2021 10:07:01 10/09/2021 10:19:26 Discussed with patient [id number] [facility] [address],[address] [place] [address] 10/13/2021 12:01:02 10/13/2021 12:19:56 Health Concerns Section Related Observation LastModified by Organization Detai ls LastModified Time None Recorded Concern Status LastModified by Organization Details LastModified Time None Recorded Advance Directives Directive None Recorded Payers Encounter Date Sequence Insurance Name Policy Number Policy Chiang Covered Member ID Chiang Member ID Guarantor Name 09/22/2021 1 [place] MNDBBS Kristine Nuñez [id number] Kristine Nuñez 10/09/2021 1 [place] [employer] Kristine Nuñez [id number] Kristine Nuñez 10/13/2021 1 [place] DIOGODBBS Kristine Nuñez [id number] Kristine Nuñez Notes Date Note Type Note Provider [...]
--- NOTE | 2023-10-15 15:00 | CRLHL7_ITS ---
For Patients: As a result of the Century Cures Act, medical imaging exams and procedure reports are released immediately into your electronic medical record. You may view this report before your referring provider. If you have questions, please contact your health care provider. INDICATION: Cavitating lesions lungs; colorectal and lung cancer. COMPARISON: CT chest, abdomen and pelvis with intravenous contrast October 26, 2022. TECHNIQUE: CT chest without intravenous contrast; coronal and sagittal reformats. FINDINGS: A 2.1 cm cavity upper lobe left lung with a fungus ball in it. Multiple other cavitating lesions of both lungs. No gross interval change. No abnormal mediastinal or hilar lymphadenopathy. Port-A-Cath in place. Normal size cardiac silhouette without any pericardial effusion. Limited CT through the upper abdomen reveals lesions within the liver. IMPRESSION: 1. 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 2. Liver lesions not optimally evaluated without intravenous contrast and without abdominal CT. Please note that all CT scans at this facility use dose modulation, iterative reconstruction, and/or weight-based dosing when appropriate to reduce radiation dose to as low as reasonably achievable. Dictated by Fe Mcgrath MD @ 10/18/2023 11:36:34 AM (Electronically Signed)
== END 2023-10-15 14:42 | disposition home or self-care (01) ==
LOC: CT 14:43
PROVIDERS: PCP Family Medicine; Visit Provider Physician Assistant
DX: J98.4 Other disorders of lung (principal); R91.1 Solitary pulmonary nodule; K76.9 Liver disease, unspecified
CPT/HCPCS: 71250

== ENCOUNTER 2023-10-30 11:00 | Outpatient (RCR) | payer BC, MEDICAID, SELFPAY ==
[2023-05-13 08:42] LABS: Basophils Percent Auto 0.9 % (0.0-3.0); Hematocrit 34.3 % (33.0-51.0); Hemoglobin* 10.6 gm/dL (12.0-16.0); Lymphocytes Percent Auto 17.9 % (20-44); Mean Corpuscular HGB Conc 31 gm/dL (32-36); Mean Corpuscular Hemoglobin 29 pg (26-34); Mean Corpuscular Volume 94 fL (80-100); Monocytes Percent Auto 19.4 % (0.0-11.0); Neutrophils Percent Auto 50.8 % (42.0-72.0); Platelet Count* 244 K/uL (140-440); RDW Coefficient of Variation % 16.9 % (11.5-15.5); Red Blood Count 3.67 m/uL (4.00-5.20); White Blood Count* 3.46 K/uL (4.50-11.00)
[2023-05-13 08:47] LABS: Slide Review Reflex No
--- NOTE | 2023-05-13 08:49 | ONC.NURNOTE ---
Pt has had past bilateral oophorectomy and therefore does not have child-bearing capacity. HCG prior to chemo not monitored in this case.
[2023-05-13 08:55] LABS: Albumin* 3.7 g/dL (3.3-5.0); Chloride* 105 mmol/L (96-114)
[2023-05-13 08:56] LABS: Potassium* 3.6 mmol/L (3.6-5.1); Sodium* 138 mmol/L (135-149)
[2023-05-13 08:58] LABS: Anion Gap 6 mEq/L (7-15); Aspartate Amino Transferase* 33 U/L (12-35); Bilirubin Total* 0.4 mg/dL (0.1-1.5); Carbon Dioxide* 27 mmol/L (20-32); Creatinine* 0.5 mg/dL (0.5-1.5); Estimated Glomerular Filt Rate 116 ml/min; Total Protein Urine 18 mg/dL; Total Protein* 7.4 g/dL (6.0-8.3)
[2023-05-13 08:59] LABS: Alanine Aminotransferase* 24 U/L (4-35); Alkaline Phosphatase* 151 U/L (40-150); Blood Urea Nitrogen* 9 mg/dL (5-24); Glucose* 91 mg/dL (60-115); Magnesium* 2.2 mg/dL (1.5-2.6)
[2023-05-13 09:00] LABS: Creatinine Urine 245.2 mg/dL
[2023-05-13 10:34] VITALS: BP 96/65; PULSE 85; RESP 18; TEMP 36.8; O2SAT 97
--- NOTE | 2023-05-13 11:31 | ONC.NURNOTE ---
Pt here for treatment today; notes she was in ED last week with possible infection of new tattoo she did on herself prior to last chemo. Tattoo continues to have erythema around borders and blistering. She is on her last day of 7 day ABX today; notes slight improvement and no worsening. Reviewed with Montserrat Colon APRN, who assessed area. Reviewed with Dr. Schulz; held chemo and Avastin, proceeded with Vectibix. RTC 2 weeks as planned for Tx and RTC to [facility] next Saturday.
[2023-05-13 14:41] LABS: HCG Quantitative* < 2.39 mIU/mL
[2023-05-16] MEDS: SODIUM CHLORIDE 0.9 % (FLUSH) 10 ML SYRINGE IVF (15:08)
[2023-05-16] MEDS: HEPARIN 500 UNIT/5 ML SYRINGE IVF (15:08)
[2023-05-23 01:31] LABS: Carcinoembryonic Antigen 54.2 ng/mL (<=3.8)
[2023-05-27 08:14] VITALS: BP 101/71; PULSE 74; RESP 16; TEMP 35.7; O2SAT 98
[2023-05-27 08:32] LABS: Basophils Absolute Auto 0.04 K/uL (0.00-0.30); Basophils Percent Auto 0.7 % (0.0-3.0); Eosinophils Percent Auto 8.4 % (0.0-7.0); Hematocrit 37.1 % (33.0-51.0); Hemoglobin* 11.5 gm/dL (12.0-16.0); Immature Granulocytes Abs Auto 0.01 K/uL (0.00-0.30); Immature Granulocytes Pct Auto 0.2 %; Lymphocytes Absolute Auto 1.24 K/uL (0.90-2.90); Lymphocytes Percent Auto 21.2 % (20-44); Mean Corpuscular HGB Conc 31 gm/dL (32-36); Mean Corpuscular Hemoglobin 28 pg (26-34); Mean Corpuscular Volume 91 fL (80-100); Monocytes Percent Auto 11.6 % (0.0-11.0); Neutrophils Percent Auto 57.9 % (42.0-72.0); Platelet Count* 232 K/uL (140-440); RDW Coefficient of Variation % 15.8 % (11.5-15.5); Red Blood Count 4.07 m/uL (4.00-5.20); White Blood Count* 5.86 K/uL (4.50-11.00)
[2023-05-27 08:36] LABS: Slide Review Reflex No
[2023-05-27 08:44] LABS: Albumin* 3.9 g/dL (3.3-5.0); Chloride* 108 mmol/L (96-114); Potassium* 3.8 mmol/L (3.6-5.1); Sodium* 139 mmol/L (135-149)
[2023-05-27 08:46] LABS: Creatinine* 0.5 mg/dL (0.5-1.5); Estimated Glomerular Filt Rate 116 ml/min
[2023-05-27 08:47] LABS: Alanine Aminotransferase* 20 U/L (4-35); Alkaline Phosphatase* 138 U/L (40-150); Anion Gap 3 mEq/L (7-15); Aspartate Amino Transferase* 37 U/L (12-35); Bilirubin Total* 0.3 mg/dL (0.1-1.5); Blood Urea Nitrogen* 6 mg/dL (5-24); Calcium* 9.2 mg/dL (8.4-10.6); Carbon Dioxide* 28 mmol/L (20-32); Glucose* 88 mg/dL (60-115); Magnesium* 2.1 mg/dL (1.5-2.6); Total Protein* 7.6 g/dL (6.0-8.3)
[2023-05-27] MEDS: dexAMETHasone 10 MG in 0.9 % SODIUM CHLORIDE 100 ml 100 ML 404 MG IVPB (10:56)
[2023-05-27] MEDS: PALONOSETRON 0.25 MG/5 ML inj IV (10:56)
[2023-05-27] MEDS: diphenhydrAMINE 25 MG CAPSULE PO (11:32)
[2023-05-27] MEDS: FOSAPREPITANT 150 MG inj 150 MG in 0.9 % SODIUM CHLORIDE 250 ml 250 ML 510 MG IVPB (11:32)
[2023-05-27] MEDS: 0.9 % SODIUM CHLORIDE 250 ml IV (13:25)
[2023-05-27] MEDS: SODIUM CHLORIDE 0.9 % (FLUSH) 10 ML SYRINGE IVF (13:40)
[2023-05-29] MEDS: SODIUM CHLORIDE 0.9 % (FLUSH) 10 ML SYRINGE IVF (13:01)
[2023-05-29] MEDS: HEPARIN 500 UNIT/5 ML SYRINGE IVF (13:01)
[2023-05-29 13:29] VITALS: BP 106/81; PULSE 77; RESP 16; TEMP 36.1; O2SAT 99
--- NOTE | 2023-06-07 09:11 | ONC.NURNOTE ---
Patient has pegfilgrastim ordered as part of her chemotherapy regimen. She has been refusing this since ordered, and pharmacy is concerned with holding onto a $1700 drug. They are asking that this be removed if possible. Nursing to ask if this is a possibility when oncologist back in office. Could add back into the treatment plan if WBC drop and patient is willing to have this administered.
[2023-06-24 08:36] LABS: Basophils Absolute Auto 0.02 K/uL (0.00-0.30); Basophils Percent Auto 0.3 % (0.0-3.0); Eosinophils Percent Auto 9.8 % (0.0-7.0); Hematocrit 36.9 % (33.0-51.0); Hemoglobin* 11.3 gm/dL (12.0-16.0); Immature Granulocytes Abs Auto 0.02 K/uL (0.00-0.30); Immature Granulocytes Pct Auto 0.3 %; Lymphocytes Percent Auto 13.3 % (20-44); Mean Corpuscular HGB Conc 31 gm/dL (32-36); Mean Corpuscular Hemoglobin 27 pg (26-34); Mean Corpuscular Volume 90 fL (80-100); Monocytes Percent Auto 13.1 % (0.0-11.0); Neutrophils Absolute Auto 3.85 K/uL (1.7-7.0); Neutrophils Percent Auto 63.2 % (42.0-72.0); Platelet Count* 176 K/uL (140-440); RDW Coefficient of Variation % 17.3 % (11.5-15.5); Red Blood Count 4.12 m/uL (4.00-5.20)
[2023-06-24 08:38] LABS: Slide Review Reflex No
[2023-06-24 08:49] LABS: Albumin* 3.8 g/dL (3.3-5.0); Chloride* 104 mmol/L (96-114)
[2023-06-24 08:50] LABS: Potassium* 4.2 mmol/L (3.6-5.1); Sodium* 138 mmol/L (135-149); Total Protein Urine < 5 mg/dL
[2023-06-24 08:51] LABS: Creatinine Urine 217.6 mg/dL
[2023-06-24 08:52] LABS: Anion Gap 7 mEq/L (7-15); Bilirubin Total* 0.4 mg/dL (0.1-1.5); Carbon Dioxide* 27 mmol/L (20-32); Creatinine* 0.5 mg/dL (0.5-1.5); Estimated Glomerular Filt Rate 116 ml/min; Total Protein* 7.2 g/dL (6.0-8.3)
[2023-06-24 08:53] LABS: Alanine Aminotransferase* 21 U/L (4-35); Alkaline Phosphatase* 144 U/L (40-150); Aspartate Amino Transferase* 34 U/L (12-35); Blood Urea Nitrogen* 11 mg/dL (5-24); Calcium* 9.4 mg/dL (8.4-10.6); Glucose* 84 mg/dL (60-115)
[2023-06-24] MEDS: SODIUM CHLORIDE 0.9 % (FLUSH) 10 ML SYRINGE IVF ×2 (09:30→14:26)
[2023-06-24] MEDS: 0.9 % SODIUM CHLORIDE 250 ml IV (09:50)
[2023-06-24] MEDS: PALONOSETRON 0.25 MG/5 ML inj IV (11:32)
[2023-06-24] MEDS: dexAMETHasone 10 MG in 0.9 % SODIUM CHLORIDE 100 ml 100 ML 420 MG IVPB (11:32)
[2023-06-24] MEDS: diphenhydrAMINE 25 MG CAPSULE PO (11:52)
[2023-06-24] MEDS: FOSAPREPITANT 150 MG inj 150 MG in 0.9 % SODIUM CHLORIDE 250 ml 250 ML 510 MG IVPB (11:52)
[2023-06-24] MEDS: LEUCOVORIN CALCIUM 100 MG, TUBING SECONDARY 1 EACH in 5 % DEXTROSE 250 ML 250 ML 170 MG IV (12:39)
[2023-06-25 10:00] LABS: Carcinoembryonic Antigen 55.1 ng/mL (<=3.8)
[2023-06-26 14:34] VITALS: BP 116/78; PULSE 61; RESP 16; TEMP 35.6; O2SAT 97
[2023-06-26] MEDS: SODIUM CHLORIDE 0.9 % (FLUSH) 10 ML SYRINGE IVF (14:47)
[2023-06-26] MEDS: HEPARIN 500 UNIT/5 ML SYRINGE IVF (14:48)
[2023-07-08 08:21] LABS: Basophils Percent Auto 0.5 % (0.0-3.0); Eosinophils Percent Auto 7.9 % (0.0-7.0); Hematocrit 35.6 % (33.0-51.0); Hemoglobin* 11.1 gm/dL (12.0-16.0); Immature Granulocytes Pct Auto 0.3 %; Lymphocytes Percent Auto 18.6 % (20-44); Mean Corpuscular HGB Conc 31 gm/dL (32-36); Mean Corpuscular Hemoglobin 28 pg (26-34); Mean Corpuscular Volume 89 fL (80-100); Monocytes Percent Auto 13.1 % (0.0-11.0); Neutrophils Percent Auto 59.6 % (42.0-72.0); Platelet Count* 157 K/uL (140-440); RDW Coefficient of Variation % 17.8 % (11.5-15.5); White Blood Count* 3.66 K/uL (4.50-11.00)
[2023-07-08 08:22] LABS: Slide Review Reflex No
[2023-07-08 08:27] LABS: Albumin* 3.8 g/dL (3.3-5.0); Chloride* 108 mmol/L (96-114)
[2023-07-08 08:28] LABS: Potassium* 3.7 mmol/L (3.6-5.1); Sodium* 139 mmol/L (135-149)
[2023-07-08 08:30] LABS: Anion Gap 2 mEq/L (7-15); Aspartate Amino Transferase* 38 U/L (12-35); Bilirubin Total* 0.2 mg/dL (0.1-1.5); Carbon Dioxide* 29 mmol/L (20-32); Creatinine* 0.5 mg/dL (0.5-1.5); Estimated Glomerular Filt Rate 116 ml/min
[2023-07-08 08:31] LABS: Alanine Aminotransferase* 26 U/L (4-35); Alkaline Phosphatase* 147 U/L (40-150); Blood Urea Nitrogen* 11 mg/dL (5-24); Calcium* 9.1 mg/dL (8.4-10.6); Glucose* 82 mg/dL (60-115)
[2023-07-08 10:14] LABS: Nitrite Urine Negative (Negative); Protein Urine Negative (Negative); Urobilinogen Urine 0.2 (0.2-1.0)
[2023-07-08 10:15] LABS: Appearance Urine Clear (Clear); Bilirubin Urine Negative (Negative); Glucose Urine Negative (Negative); Ketones Urine Negative (Negative)
[2023-07-08 10:16] LABS: Color Urine Yellow (Yellow); Specific Gravity Urine >= 1.030 (1.000-1.030)
[2023-07-08] MEDS: dexAMETHasone 10 MG in 0.9 % SODIUM CHLORIDE 100 ml 100 ML 404 MG IVPB (11:24)
[2023-07-08] MEDS: PALONOSETRON 0.25 MG/5 ML inj IV (11:24)
[2023-07-08] MEDS: diphenhydrAMINE 25 MG CAPSULE PO (11:25)
[2023-07-08] MEDS: 0.9 % SODIUM CHLORIDE 250 ml IV (11:29)
[2023-07-08] MEDS: SODIUM CHLORIDE 0.9 % (FLUSH) 10 ML SYRINGE IVF (11:29)
[2023-07-08] MEDS: FOSAPREPITANT 150 MG inj 150 MG in 0.9 % SODIUM CHLORIDE 250 ml 250 ML 510 MG IVPB (11:48)
[2023-07-08] MEDS: LEUCOVORIN CALCIUM 100 MG, TUBING SECONDARY 1 EACH in 5 % DEXTROSE 250 ML 250 ML 170 MG IV (12:17)
[2023-07-08 15:14] LABS: Blood Urine Trace-intact (Negative); Leukocyte Esterase Urine Trace (Negative)
[2023-07-10 12:32] VITALS: BP 99/64; PULSE 69; RESP 16; TEMP -12.7; TEMP 9.2; O2SAT 100
[2023-07-10] MEDS: HEPARIN 500 UNIT/5 ML SYRINGE IVF (13:10)
[2023-07-10] MEDS: SODIUM CHLORIDE 0.9 % (FLUSH) 10 ML SYRINGE IVF (13:10)
--- NOTE | 2023-07-22 08:10 | ONC.NURNOTE ---
called and cancelled due to cold and housing issues. states will call back and rescheduled.
[2023-08-05 08:12] VITALS: BP 108/74; PULSE 88; RESP 16; TEMP 36; O2SAT 99
[2023-08-05 08:21] LABS: Basophils Absolute Auto 0.04 K/uL (0.00-0.30); Basophils Percent Auto 0.5 % (0.0-3.0); Eosinophils Percent Auto 6.8 % (0.0-7.0); Hematocrit 36.4 % (33.0-51.0); Hemoglobin* 11.1 gm/dL (12.0-16.0); Immature Granulocytes Abs Auto 0.01 K/uL (0.00-0.30); Immature Granulocytes Pct Auto 0.1 %; Lymphocytes Percent Auto 12.7 % (20-44); Mean Corpuscular HGB Conc 31 gm/dL (32-36); Mean Corpuscular Hemoglobin 27 pg (26-34); Mean Corpuscular Volume 88 fL (80-100); Neutrophils Absolute Auto 5.02 K/uL (1.7-7.0); Neutrophils Percent Auto 68.9 % (42.0-72.0); Platelet Count* 227 K/uL (140-440); RDW Coefficient of Variation % 18.7 % (11.5-15.5); Red Blood Count 4.13 m/uL (4.00-5.20)
[2023-08-05 08:25] LABS: Slide Review Reflex No
[2023-08-05 08:32] LABS: Albumin* 4.1 g/dL (3.3-5.0); Chloride* 107 mmol/L (96-114); Potassium* 4.1 mmol/L (3.6-5.1); Sodium* 139 mmol/L (135-149)
[2023-08-05 08:34] LABS: Bilirubin Total* 0.6 mg/dL (0.1-1.5); Creatinine* 0.5 mg/dL (0.5-1.5); Estimated Glomerular Filt Rate 116 ml/min
[2023-08-05 08:35] LABS: Alanine Aminotransferase* 42 U/L (4-35); Alkaline Phosphatase* 224 U/L (40-150); Anion Gap 8 mEq/L (7-15); Aspartate Amino Transferase* 54 U/L (12-35); Blood Urea Nitrogen* 10 mg/dL (5-24); Calcium* 9.1 mg/dL (8.4-10.6); Carbon Dioxide* 24 mmol/L (20-32); Glucose* 86 mg/dL (60-115)
[2023-08-05] MEDS: dexAMETHasone 10 MG in 0.9 % SODIUM CHLORIDE 100 ml 100 ML 404 MG IVPB (10:43)
[2023-08-05] MEDS: PALONOSETRON 0.25 MG/5 ML inj IV (10:43)
[2023-08-05] MEDS: FOSAPREPITANT 150 MG inj 150 MG in 0.9 % SODIUM CHLORIDE 250 ml 250 ML 800 MG IVPB (11:05)
[2023-08-05] MEDS: diphenhydrAMINE 25 MG CAPSULE PO (11:09)
[2023-08-05] MEDS: LEUCOVORIN CALCIUM 100 MG, TUBING SECONDARY 1 EACH in 5 % DEXTROSE 250 ML 250 ML 170 MG IV (11:38)
[2023-08-07 11:27] VITALS: BP 94/64; PULSE 98; RESP 16; TEMP 36.4; O2SAT 98
[2023-08-07] MEDS: HEPARIN 500 UNIT/5 ML SYRINGE IVF (11:40)
[2023-08-07] MEDS: SODIUM CHLORIDE 0.9 % (FLUSH) 10 ML SYRINGE IVF (11:41)
[2023-08-19 08:11] LABS: Basophils Absolute Auto 0.02 K/uL (0.00-0.30); Basophils Percent Auto 0.4 % (0.0-3.0); Eosinophils Percent Auto 3.5 % (0.0-7.0); Hematocrit 30.2 % (33.0-51.0); Hemoglobin* 9.2 gm/dL (12.0-16.0); Immature Granulocytes Abs Auto 0.02 K/uL (0.00-0.30); Immature Granulocytes Pct Auto 0.4 %; Lymphocytes Percent Auto 9.9 % (20-44); Mean Corpuscular HGB Conc 31 gm/dL (32-36); Mean Corpuscular Hemoglobin 27 pg (26-34); Mean Corpuscular Volume 87 fL (80-100); Neutrophils Absolute Auto 4.07 K/uL (1.7-7.0); Neutrophils Percent Auto 71.8 % (42.0-72.0); Platelet Count* 237 K/uL (140-440); RDW Coefficient of Variation % 19.3 % (11.5-15.5); Red Blood Count 3.47 m/uL (4.00-5.20); White Blood Count* 5.66 K/uL (4.50-11.00)
[2023-08-19 08:12] LABS: Slide Review Reflex No
[2023-08-19 08:25] LABS: Albumin* 3.2 g/dL (3.3-5.0); Chloride* 102 mmol/L (96-114)
[2023-08-19 08:26] LABS: Potassium* 4.3 mmol/L (3.6-5.1); Sodium* 135 mmol/L (135-149)
[2023-08-19 08:28] LABS: Anion Gap 6 mEq/L (7-15); Aspartate Amino Transferase* 53 U/L (12-35); Bilirubin Total* 0.5 mg/dL (0.1-1.5); Blood Urea Nitrogen* 7 mg/dL (5-24); Carbon Dioxide* 27 mmol/L (20-32); Creatinine* 0.5 mg/dL (0.5-1.5); Estimated Glomerular Filt Rate 116 ml/min; Total Protein* 7.1 g/dL (6.0-8.3)
[2023-08-19 08:29] LABS: Alanine Aminotransferase* 29 U/L (4-35); Alkaline Phosphatase* 218 U/L (40-150); Calcium* 8.5 mg/dL (8.4-10.6); Glucose* 95 mg/dL (60-115); Total Protein Urine 15 mg/dL
[2023-08-19 08:30] LABS: Protein Creatinine Ratio Urine 0.06 (0-0.19)
[2023-08-19 08:37] LABS: Magnesium* 1.9 mg/dL (1.5-2.6)
[2023-08-19] MEDS: dexAMETHasone 10 MG in 0.9 % SODIUM CHLORIDE 100 ml 100 ML 420 MG IVPB (10:55)
[2023-08-19] MEDS: PALONOSETRON 0.25 MG/5 ML inj IV (10:55)
[2023-08-19] MEDS: FOSAPREPITANT 150 MG inj 150 MG in 0.9 % SODIUM CHLORIDE 250 ml 250 ML 800 MG IVPB (11:14)
[2023-08-19] MEDS: diphenhydrAMINE 25 MG CAPSULE PO (11:15)
[2023-08-19] MEDS: LEUCOVORIN CALCIUM 100 MG, TUBING SECONDARY 1 EACH in 5 % DEXTROSE 250 ML 250 ML 170 MG IV (11:45)
[2023-08-19] MEDS: HEPARIN 500 UNIT/5 ML SYRINGE IVF (13:38)
[2023-08-19] MEDS: 0.9 % SODIUM CHLORIDE 250 ml IV (13:38)
[2023-08-19] MEDS: SODIUM CHLORIDE 0.9 % (FLUSH) 10 ML SYRINGE IVF (13:38)
[2023-08-20 16:02] LABS: Carcinoembryonic Antigen 24.8 ng/mL (<=3.8)
--- NOTE | 2023-08-21 10:07 | URNOTE ---
Per [employer], prior auth [place] not [place] for Zirabev (Q5118). Ref #[id number]
[2023-08-21] MEDS: HEPARIN 500 UNIT/5 ML SYRINGE IVF (13:25)
[2023-08-21] MEDS: SODIUM CHLORIDE 0.9 % (FLUSH) 10 ML SYRINGE IVF (13:25)
[2023-08-21 13:30] VITALS: BP 98/65; PULSE 67; RESP 16; TEMP 36.1; O2SAT 97
[2023-09-02 07:59] VITALS: BP 98/67; PULSE 72; RESP 16; TEMP 36.2; O2SAT 97
[2023-09-02 08:30] LABS: Basophils Absolute Auto 0.02 K/uL (0.00-0.30); Basophils Percent Auto 0.4 % (0.0-3.0); Eosinophils Absolute Auto 0.23 K/uL (0.00-0.50); Eosinophils Percent Auto 4.9 % (0.0-7.0); Hematocrit 33.3 % (33.0-51.0); Lymphocytes Percent Auto 15.5 % (20-44); Mean Corpuscular HGB Conc 30 gm/dL (32-36); Mean Corpuscular Hemoglobin 27 pg (26-34); Mean Corpuscular Volume 89 fL (80-100); Neutrophils Absolute Auto 3.03 K/uL (1.7-7.0); Neutrophils Percent Auto 65.2 % (42.0-72.0); Platelet Count* 204 K/uL (140-440); RDW Coefficient of Variation % 21.3 % (11.5-15.5); Red Blood Count 3.73 m/uL (4.00-5.20); White Blood Count* 4.65 K/uL (4.50-11.00)
[2023-09-02 08:40] LABS: Slide Review Reflex No
[2023-09-02 08:53] LABS: Albumin* 3.7 g/dL (3.3-5.0); Chloride* 106 mmol/L (96-114); Potassium* 4.1 mmol/L (3.6-5.1); Sodium* 138 mmol/L (135-149)
[2023-09-02 08:55] LABS: Bilirubin Total* 0.5 mg/dL (0.1-1.5); Creatinine* 0.4 mg/dL (0.5-1.5); Estimated Glomerular Filt Rate 122 ml/min
[2023-09-02 08:56] LABS: Alanine Aminotransferase* 41 U/L (4-35); Alkaline Phosphatase* 302 U/L (40-150); Anion Gap 5 mEq/L (7-15); Aspartate Amino Transferase* 59 U/L (12-35); Blood Urea Nitrogen* 11 mg/dL (5-24); Calcium* 9.2 mg/dL (8.4-10.6); Carbon Dioxide* 27 mmol/L (20-32); Glucose* 92 mg/dL (60-115)
[2023-09-02 09:26] LABS: Total Protein Urine 11 mg/dL
[2023-09-02 09:27] LABS: Creatinine Urine 143.1 mg/dL; Protein Creatinine Ratio Urine 0.08 (0-0.19)
[2023-09-02 09:31] LABS: Magnesium* 2.1 mg/dL (1.5-2.6)
[2023-09-02] MEDS: PALONOSETRON 0.25 MG/5 ML inj IV (11:44)
[2023-09-02] MEDS: dexAMETHasone 10 MG in 0.9 % SODIUM CHLORIDE 100 ml 100 ML 404 MG IVPB (11:44)
[2023-09-02] MEDS: diphenhydrAMINE 25 MG CAPSULE PO (12:06)
[2023-09-02] MEDS: FOSAPREPITANT 150 MG inj 150 MG in 0.9 % SODIUM CHLORIDE 250 ml 250 ML 800 MG IVPB (12:06)
[2023-09-02] MEDS: LEUCOVORIN CALCIUM 100 MG, TUBING SECONDARY 1 EACH in 5 % DEXTROSE 250 ML 250 ML 170 MG IV (12:37)
[2023-09-02] MEDS: 0.9 % SODIUM CHLORIDE 250 ml IV (14:44)
[2023-09-02] MEDS: SODIUM CHLORIDE 0.9 % (FLUSH) 10 ML SYRINGE IVF (14:44)
[2023-09-04] MEDS: SODIUM CHLORIDE 0.9 % (FLUSH) 10 ML SYRINGE IVF (14:10)
[2023-09-04] MEDS: HEPARIN 500 UNIT/5 ML SYRINGE IVF (14:10)
[2023-09-16 08:10] VITALS: BP 108/72; PULSE 81; RESP 18; TEMP 36.4; O2SAT 98
[2023-09-16 08:37] LABS: Basophils Absolute Auto 0.02 K/uL (0.00-0.30); Basophils Percent Auto 0.3 % (0.0-3.0); Eosinophils Absolute Auto 0.33 K/uL (0.00-0.50); Eosinophils Percent Auto 5.7 % (0.0-7.0); Hematocrit 33.6 % (33.0-51.0); Hemoglobin* 10.2 gm/dL (12.0-16.0); Immature Granulocytes Abs Auto 0.01 K/uL (0.00-0.30); Immature Granulocytes Pct Auto 0.2 %; Lymphocytes Percent Auto 12.1 % (20-44); Mean Corpuscular HGB Conc 30 gm/dL (32-36); Mean Corpuscular Hemoglobin 27 pg (26-34); Mean Corpuscular Volume 90 fL (80-100); Monocytes Percent Auto 13.7 % (0.0-11.0); Neutrophils Absolute Auto 3.92 K/uL (1.7-7.0); Platelet Count* 223 K/uL (140-440); RDW Coefficient of Variation % 21.1 % (11.5-15.5); Red Blood Count 3.74 m/uL (4.00-5.20); White Blood Count* 5.77 K/uL (4.50-11.00)
[2023-09-16 08:42] LABS: Slide Review Reflex No
[2023-09-16 08:52] LABS: Total Protein Urine 9 mg/dL
[2023-09-16 08:53] LABS: Albumin* 3.9 g/dL (3.3-5.0); Chloride* 106 mmol/L (96-114)
[2023-09-16 08:54] LABS: Potassium* 4.1 mmol/L (3.6-5.1); Sodium* 137 mmol/L (135-149)
[2023-09-16 08:56] LABS: Alkaline Phosphatase* 313 U/L (40-150); Anion Gap 5 mEq/L (7-15); Aspartate Amino Transferase* 48 U/L (12-35); Bilirubin Total* 0.4 mg/dL (0.1-1.5); Blood Urea Nitrogen* 7 mg/dL (5-24); Carbon Dioxide* 26 mmol/L (20-32); Creatinine Urine 79.1 mg/dL; Creatinine* 0.4 mg/dL (0.5-1.5); Estimated Glomerular Filt Rate 122 ml/min; Protein Creatinine Ratio Urine 0.11 (0-0.19); Total Protein* 7.2 g/dL (6.0-8.3)
[2023-09-16 08:57] LABS: Alanine Aminotransferase* 32 U/L (4-35); Glucose* 87 mg/dL (60-115)
[2023-09-16 09:02] LABS: Magnesium* 2.1 mg/dL (1.5-2.6)
[2023-09-16] MEDS: PALONOSETRON 0.25 MG/5 ML inj IV (11:21)
[2023-09-16] MEDS: dexAMETHasone 10 MG in 0.9 % SODIUM CHLORIDE 100 ml 100 ML 404 MG IVPB (11:21)
[2023-09-16] MEDS: diphenhydrAMINE 25 MG CAPSULE PO (11:47)
[2023-09-16] MEDS: FOSAPREPITANT 150 MG inj 150 MG in 0.9 % SODIUM CHLORIDE 250 ml 250 ML 510 MG IVPB (11:47)
[2023-09-16] MEDS: LEUCOVORIN CALCIUM 100 MG, TUBING SECONDARY 1 EACH in 5 % DEXTROSE 250 ML 250 ML 170 MG IV (12:30)
[2023-09-16] MEDS: SODIUM CHLORIDE 0.9 % (FLUSH) 10 ML SYRINGE IVF (15:36)
[2023-09-16] MEDS: HEPARIN 500 UNIT/5 ML SYRINGE IVF (15:36)
[2023-09-16] MEDS: 0.9 % SODIUM CHLORIDE 250 ml IV (15:36)
[2023-09-18 13:25] VITALS: BP 117/79; PULSE 88; TEMP 36.1; O2SAT 96
[2023-09-18] MEDS: HEPARIN 500 UNIT/5 ML SYRINGE IVF (13:26)
[2023-09-18] MEDS: SODIUM CHLORIDE 0.9 % (FLUSH) 10 ML SYRINGE IVF (13:26)
[2023-09-30 08:24] LABS: Basophils Absolute Auto 0.02 K/uL (0.00-0.30); Basophils Percent Auto 0.4 % (0.0-3.0); Eosinophils Percent Auto 8.5 % (0.0-7.0); Hematocrit 33.6 % (33.0-51.0); Hemoglobin* 10.1 gm/dL (12.0-16.0); Lymphocytes Percent Auto 15.2 % (20-44); Mean Corpuscular HGB Conc 30 gm/dL (32-36); Mean Corpuscular Hemoglobin 28 pg (26-34); Mean Corpuscular Volume 92 fL (80-100); Monocytes Percent Auto 13.6 % (0.0-11.0); Neutrophils Absolute Auto 3.15 K/uL (1.7-7.0); Neutrophils Percent Auto 62.3 % (42.0-72.0); Platelet Count* 223 K/uL (140-440); RDW Coefficient of Variation % 20.8 % (11.5-15.5); Red Blood Count 3.66 m/uL (4.00-5.20); White Blood Count* 5.06 K/uL (4.50-11.00)
[2023-09-30 08:29] LABS: Slide Review Reflex No
[2023-09-30 08:41] LABS: Albumin* 3.8 g/dL (3.3-5.0); Chloride* 107 mmol/L (96-114); Sodium* 139 mmol/L (135-149)
[2023-09-30 08:43] LABS: Creatinine* 0.4 mg/dL (0.5-1.5); Estimated Glomerular Filt Rate 122 ml/min; Magnesium* 2.2 mg/dL (1.5-2.6)
[2023-09-30 08:44] LABS: Alanine Aminotransferase* 35 U/L (4-35); Alkaline Phosphatase* 266 U/L (40-150); Anion Gap 5 mEq/L (7-15); Aspartate Amino Transferase* 51 U/L (12-35); Bilirubin Total* 0.2 mg/dL (0.1-1.5); Blood Urea Nitrogen* 6 mg/dL (5-24); Carbon Dioxide* 27 mmol/L (20-32); Glucose* 90 mg/dL (60-115); Total Protein* 6.9 g/dL (6.0-8.3)
[2023-09-30 08:46] LABS: Total Protein Urine 15 mg/dL
[2023-09-30 08:48] LABS: Creatinine Urine 108.7 mg/dL; Protein Creatinine Ratio Urine 0.14 (0-0.19)
[2023-09-30] MEDS: 0.9 % SODIUM CHLORIDE 250 ml IV (10:55)
[2023-09-30] MEDS: SODIUM CHLORIDE 0.9 % (FLUSH) 10 ML SYRINGE IVF (10:55)
[2023-09-30] MEDS: PALONOSETRON 0.25 MG/5 ML inj IV (11:29)
[2023-09-30] MEDS: dexAMETHasone 10 MG in 0.9 % SODIUM CHLORIDE 100 ml 100 ML 404 MG IVPB (11:29)
[2023-09-30] MEDS: FOSAPREPITANT 150 MG inj 150 MG in 0.9 % SODIUM CHLORIDE 250 ml 250 ML 510 MG IVPB (11:49)
[2023-09-30] MEDS: diphenhydrAMINE 25 MG CAPSULE PO (11:50)
[2023-09-30] MEDS: LEUCOVORIN CALCIUM 100 MG, TUBING SECONDARY 1 EACH in 5 % DEXTROSE 250 ML 250 ML 170 MG IV (12:35)
[2023-10-02 14:25] VITALS: BP 117/79; PULSE 79; RESP 16; TEMP 36.3; O2SAT 99
[2023-10-02] MEDS: HEPARIN 500 UNIT/5 ML SYRINGE IVF (14:28)
[2023-10-02] MEDS: SODIUM CHLORIDE 0.9 % (FLUSH) 10 ML SYRINGE IVF (14:29)
--- NOTE | 2023-10-14 13:55 | ONC.NURNOTE ---
Patient called to cancel her appointment for chemotherapy this morning d/t procedure that she had done the end of last week. Patient was not scheduled, but after showing Dr. lara results of bronch she asked that patient be put on her schedule next week. Patient called with this plan.
[2023-10-21 08:33] LABS: Basophils Absolute Auto 0.03 K/uL (0.00-0.30); Basophils Percent Auto 0.3 % (0.0-3.0); Eosinophils Absolute Auto 0.48 K/uL (0.00-0.50); Eosinophils Percent Auto 4.6 % (0.0-7.0); Hematocrit 32.9 % (33.0-51.0); Immature Granulocytes Abs Auto 0.02 K/uL (0.00-0.30); Immature Granulocytes Pct Auto 0.2 %; Lymphocytes Percent Auto 8.2 % (20-44); Mean Corpuscular HGB Conc 30 gm/dL (32-36); Mean Corpuscular Hemoglobin 28 pg (26-34); Mean Corpuscular Volume 92 fL (80-100); Neutrophils Percent Auto 75.7 % (42.0-72.0); Platelet Count* 240 K/uL (140-440); RDW Coefficient of Variation % 19.1 % (11.5-15.5); Red Blood Count 3.59 m/uL (4.00-5.20); White Blood Count* 10.43 K/uL (4.50-11.00)
[2023-10-21 08:41] LABS: Slide Review Reflex No
[2023-10-21 08:56] LABS: Albumin* 3.7 g/dL (3.3-5.0); Chloride* 104 mmol/L (96-114); Potassium* 4.4 mmol/L (3.6-5.1); Sodium* 135 mmol/L (135-149)
[2023-10-21 08:58] LABS: Creatinine* 0.4 mg/dL (0.5-1.5); Estimated Glomerular Filt Rate 122 ml/min; Total Protein Urine 6 mg/dL
[2023-10-21 08:59] LABS: Alanine Aminotransferase* 25 U/L (4-35); Alkaline Phosphatase* 264 U/L (40-150); Anion Gap 5 mEq/L (7-15); Aspartate Amino Transferase* 41 U/L (12-35); Bilirubin Total* 0.3 mg/dL (0.1-1.5); Blood Urea Nitrogen* 10 mg/dL (5-24); Carbon Dioxide* 26 mmol/L (20-32); Glucose* 96 mg/dL (60-115); Total Protein* 7.1 g/dL (6.0-8.3)
[2023-10-21 09:00] LABS: Calcium* 8.7 mg/dL (8.4-10.6)
[2023-10-21 09:02] LABS: Creatinine Urine 93.2 mg/dL; Protein Creatinine Ratio Urine 0.06 (0-0.19)
[2023-10-21] MEDS: SODIUM CHLORIDE 0.9 % (FLUSH) 10 ML SYRINGE IVF (10:18)
[2023-10-21] MEDS: HEPARIN 500 UNIT/5 ML SYRINGE IVF (10:19)
[2023-10-28 08:10] VITALS: BP 100/74; PULSE 84; RESP 18; TEMP 36.9; O2SAT 100
[2023-10-28 08:31] LABS: Basophils Absolute Auto 0.03 K/uL (0.00-0.30); Basophils Percent Auto 0.3 % (0.0-3.0); Eosinophils Absolute Auto 0.45 K/uL (0.00-0.50); Eosinophils Percent Auto 4.1 % (0.0-7.0); Hematocrit 33.1 % (33.0-51.0); Hemoglobin* 9.8 gm/dL (12.0-16.0); Immature Granulocytes Abs Auto 0.03 K/uL (0.00-0.30); Immature Granulocytes Pct Auto 0.3 %; Lymphocytes Percent Auto 8.5 % (20-44); Mean Corpuscular HGB Conc 30 gm/dL (32-36); Mean Corpuscular Hemoglobin 27 pg (26-34); Mean Corpuscular Volume 92 fL (80-100); Monocytes Percent Auto 9.8 % (0.0-11.0); Platelet Count* 239 K/uL (140-440); RDW Coefficient of Variation % 18.4 % (11.5-15.5); White Blood Count* 10.95 K/uL (4.50-11.00)
[2023-10-28 08:38] LABS: Slide Review Reflex No
[2023-10-28 08:45] LABS: Chloride* 106 mmol/L (96-114); Sodium* 139 mmol/L (135-149)
[2023-10-28 08:48] LABS: Alkaline Phosphatase* 270 U/L (40-150); Anion Gap 5 mEq/L (7-15); Aspartate Amino Transferase* 38 U/L (12-35); Bilirubin Total* 0.4 mg/dL (0.1-1.5); Blood Urea Nitrogen* 10 mg/dL (5-24); Carbon Dioxide* 28 mmol/L (20-32); Creatinine* 0.5 mg/dL (0.5-1.5); Estimated Glomerular Filt Rate 116 ml/min; Glucose* 90 mg/dL (60-115); Total Protein* 7.5 g/dL (6.0-8.3)
[2023-10-28 08:49] LABS: Alanine Aminotransferase* 20 U/L (4-35); Calcium* 9.3 mg/dL (8.4-10.6)
[2023-10-28 09:05] LABS: Albumin* 3.6 g/dL (3.3-5.0)
[2023-10-28] MEDS: PALONOSETRON 0.25 MG/5 ML inj IV (10:17)
[2023-10-28] MEDS: dexAMETHasone 10 MG in 0.9 % SODIUM CHLORIDE 100 ml 100 ML 404 MG IVPB (10:18)
[2023-10-28] MEDS: FOSAPREPITANT 150 MG inj 150 MG in 0.9 % SODIUM CHLORIDE 250 ml 250 ML 800 MG IVPB (10:39)
[2023-10-28] MEDS: diphenhydrAMINE 25 MG CAPSULE PO (10:40)
[2023-10-28] MEDS: SODIUM CHLORIDE 0.9 % (FLUSH) 10 ML SYRINGE IVF (10:42)
[2023-10-28] MEDS: 0.9 % SODIUM CHLORIDE 250 ml IV (10:42)
[2023-10-28] MEDS: LEUCOVORIN CALCIUM 100 MG, TUBING SECONDARY 1 EACH in 5 % DEXTROSE 250 ML 250 ML 170 MG IV (11:06)
[2023-10-30 11:13] VITALS: BP 101/72; PULSE 78; RESP 16; TEMP 36.2; O2SAT 99
[2023-10-30] MEDS: SODIUM CHLORIDE 0.9 % (FLUSH) 10 ML SYRINGE IVF (11:19)
[2023-10-30] MEDS: HEPARIN 500 UNIT/5 ML SYRINGE IVF (11:19)
--- NOTE | 2023-10-30 12:01 | URNOTE ---
Pt now has new insurance. Per [facility] fee schedule, prior auth is not required for Aloxi (J2469). 5FU(J9101), Irinotecan (J9205), Leucovorin (J0640), Panitumumab (J9303).
== END 2023-11-09 23:59 | disposition home or self-care (01) ==
LOC: CCIC 11:00
PROVIDERS: Clinical Nurse Specialist; PCP Family Medicine; Referring Provider Family Medicine; Visit Provider Internal Medicine Hematology & Oncology
DX: C20 Malignant neoplasm of rectum (principal); C78.7 Secondary malignant neoplasm of liver and intrahepatic bile duct
CPT/HCPCS: 36415; 36591; 78815; 80053; 81001; 81003; 82378; 82570; 83735; 84156; 84702; 85025; 87086; 96366; 96368; 96376; 96411; 96413; 96415; 96416; 96417; 99211; 99215; G0463; A9270; A9552; J0461; J0640; J1100; J1453; J1642; J2469; J7030; J7050; J9035; J9190; J9206; J9303; Q5118

== ENCOUNTER 2023-12-26 15:30 | Outpatient (CLI) | payer BC, SELFPAY ==
--- NOTE | 2023-12-26 16:00 | PE_ITS ---
[facility] [address] [facility] [address] Phone:?[phone] Fax:?[phone] Referring Physician Information: Kaitlin Schulz M.D. [address] [facility] [address] Phone:?[phone] Fax:?[phone] Patient:Catarina Gill D.O.B:?1975 Sex:?Female Phone:?[phone] [facility] MRN:?[id number] Exam Date:?12/26/2023 EXAM: PET/CT LIMITED AREA, CANCER RESTAGING CLINICAL INFORMATION: Metastatic rectal cancer, restaging. TECHNICAL INFORMATION: Helical acquisition of data was obtained from the orbits to the upper thighs with reconstruction of 3.75 mm thick images at 3.[address] data was used for attenuation correction. PET scanning was performed through the same anatomic range 50 minutes following administration of 12.86 mCi of 18-FDG delivered intravenously. The patient's glucose at the time of the injection was 73 mg/dL. PET, CT and PET/CT fusion images are interpreted using a computer viewing workstation. PET, CT and PET/CT fusion images were archived and saved in the patient's permanent medical record. COMPARISON: PET-CT from 09/20/2023 multiple prior studies. INTERPRETATION: Head and Neck: There are no abnormal hypermetabolic foci within the head or neck. There is physiologic uptake in the intracranial soft tissues. No residual or recurrent basal cell carcinoma identified about the right cheek. Chest: Left chest port catheter terminates at the cavoatrial junction. As seen on prior studies, there are extensive nodular consolidations with variable cavitation scattered throughout both lungs. Previously indexed cavitary nodule in the left upper lobe (Se 2 Im 96) has a maximum SUV of 6.31, previously 6.5. The thickness of its rind is generally stable and it contains a non- hypermetabolic central filling defect with air crescent sign. Background mediastinal blood pool uptake has a maximum SUV of 1.84. Mild reactive mediastinal lymphadenopathy redemonstrated, with background FDG uptake. Abdomen and Pelvis: Known primary rectal neoplasm (Se 2 Im 244) has a maximum SUV of 31.79, previously 15.95. Persistent hypermetabolic focus located just cephalad to the primary stricture (Se 2 Im 233) has a maximum SUV of 14.91, previously 16.73. On the attenuation correction CT, the lesion is stable to minimally larger (allowing for indistinct margins on attenuation correction CT). Previously, there were two distinct hepatic metastases by PET-CT. At present, at least five viable hepatic metastases are suspected, albeit suboptimally visualized by this modality. The dominant right lobe lesion (Se 2 Im 129) has a current maximum SUV of 8.96, previously 6.5. Stable treatment-related changes noted at the prior left lobe lesion. Background hepatic parenchymal uptake has a maximum SUV of 2.3. There is physiologic excretion of radiotracer in the urine and bowel. Skeleton, Musculature, and Integument: Right posterior iliac metastasis (Se 2 Im 223) has a maximum SUV of 2.15, likely treated/quiescent disease. No definite new skeletal lesions. CONCLUSION: 1. The patient's primary rectal malignancy shows increased metabolic rate; adjacent colorectal lesion is grossly stable in terms of size and metabolic rate. 2. The patient's hepatic metastases appear to have increased in terms of number and metabolic activity. Recommend dual contrast abdominal MRI for further evaluation. 3. Previously indexed right iliac metastasis remains metabolically quiescent. No definite new skeletal lesions detected. Consider nuclear bone scan for further evaluation. 4. Overall stable appearance of the patient's variably cavitated pulmonary nodules/consolidations. Findings likely represent some combination of cavitary metastases, inflammation/infection, and postinflammatory scarring. The dominant lesion in the left upper lobe may contain a fungal ball; recommend correlation for any clinical signs of infection (i.e., atypical pneumonia). 5. No residual or recurrent basal cell carcinoma identified about the right cheek. Electronically signed on 12/31/2023 1:01:00 PM by Ancelmo Hanks M.D.
== END 2023-12-26 15:31 | disposition home or self-care (01) ==
LOC: RAD 15:31
PROVIDERS: PCP Family Medicine; Visit Provider Internal Medicine Hematology & Oncology
DX: C19 Malignant neoplasm of rectosigmoid junction (principal); C78.7 Secondary malignant neoplasm of liver and intrahepatic bile duct; R91.8 Other nonspecific abnormal finding of lung field
CPT/HCPCS: 78815; A9552

== ENCOUNTER 2024-01-09 07:52 | Outpatient (CLI) | payer BC, SELFPAY ==
--- OUTSIDE RECORDS SUMMARY | 2024-01-09 07:54 | XMS_ITS | Data Portability ---
Author Organization [facility] LAURYN Arriaga [facility] Address [address] [place] [address] Care Team Providers Care Manufacturing Team Member Name Role Phone CONTRERASArlene AVIS Palliative Care ITZEL WOODRUFF Radiation Oncologist CELESTE SOLORZANO Primary Care Provider [phone] Assessment Encounter Date Assessment Date Assessment LastModified by Organization Details LastModified Time 09/22/2021 09/22/2021 Evaluation: Patient moved back to [place] in 2018, was diagnosed with Stage 4 [...] on Adi's 08/10 availability of a licensed sales producer to provide immediate guidance over the phone and receive personalized advice on the next steps. Encouraged patient to call if any concerns or symptoms arise, and [phone] was provided. PACKAGE COLLECTOR visit scheduled on 10/09/21 at 9am. Next Steps: Patient outreach in approximately 6-8 weeks. TOBY Castellanos Not available 09/22/2021 13:00:36 10/09/2021 10/09/2021 Patient is seen for an initial visit and assessment by [facility]: Patient is a pleasant 46 year old, she states that she has a very busy day today and she would line to have the apt rescheduled to Saturday at 11am. Message sent to [facility] for rescheduling. No services performed. [email or web address] Not available 10/09/2021 10:18:58 10/13/2021 10/13/2021 Patient did not answer her phone today. Called x 2, left a message x 1. Please try and reschedule for the third time. Message sent to [facility] [email or web address] Not available 10/13/2021 12:19:28 [...] By Organization Details Last Modified Time 09/22/2021 [id number] Patient instructed to call with questions or concerns. [email or web address] Not available 09/22/2021 13:00:40 Reason for Referral None Reported. Problems Name Problem SNOMED Code Status Onset Date Resolution Date Notes Provider Name and Address Organization Details Recorded Time Primary malignant neoplasm of rectum 71189875 Active 021 Jasmin mcintosh [employer] - [facility] 11:58:18 Problem Notes None recorded. Medical Equipment None Reported. Allergies Allergen ID Allergen Name Allergen Category Reaction Reaction Severity Criticality Documentation Date Start Date Code Code System Note Provider Name and Address Organization Details Recorded Time 13599 latex environme nt,medica tion rash Not available Not available 09/22/20212020 60041 91 RxNorm Jasmin mcintosh [place] - [facility] [...] Updated DateTime 09/22/2021 160.02 cm 8.9 kg/m2 26620.62 g Jasmin Van[place]et [place] - [facility] 09/22/2021 [...] Yes Information not available 09/22/2021 22. Caregiver [place] Concerns: No Information not available 09/22/2021 26. [...] Information not available 09/22/2021 60. Has A Bahai Preference: No Information not available 09/22/2021 62. [...] Concerns: No Information not available 09/22/2021 77. Meridian's Status: No Information not available 09/22/2021 100. [...] Encounter Closed Date Diagnosis/Indication Diagnosis SNOMED-CT Code Diagnosis ICD10 Code 10704 Jasmin Fay [employer] [address] [place] [address],[address] [place] [address] 09/22/2021 11:45:42 09/22/2021 13:01:15 [id number] [facility] [employer] [address],[address] [place] [address] 10/09/2021 10:07:01 10/09/2021 10:19:26 Discussed with patient [id number] Z76.89 [id number] [facility] [employer] [address] [place] [address],[address] [place] [address] 10/13/2021 12:01:02 10/13/2021 12:19:56 Health Concerns Section Related Observation LastModified by Organization Detai ls LastModified Time None Recorded Concern Status LastModified by Organization Details LastModified Time None Recorded Advance Directives Directive None Recorded Payers Encounter Date Sequence Insurance Name Policy Number Policy Chiang Covered Member ID Chiang Member ID Guarantor Name 09/22/2021 1 [place] [id number] [place] [id number] [place] 10/09/2021 1 [place] [employer] [place] [id number] [place] 10/13/2021 1 [place] [employer] [place] [id number] [place] Notes Date Note Type [...]
--- NOTE | 2024-01-09 08:15 | CRLHL7_ITS ---
For Patients: As a result of the Century Cures Act, medical imaging exams and procedure reports are released immediately into your electronic medical record. You may view this report before your referring provider. If you have questions, please contact your health care provider. INDICATION: History of metastatic rectosigmoid cancer TECHNIQUE: 1.5 T MRI of the abdomen was performed with pre and postcontrast T1 weighted imaging; T2 weighted imaging; diffusion weighted imaging; in and out of phase imaging. 15 mL Dotarem administered COMPARISON: PET-CT 12/26/2023, MR abdomen 02/05/2023, same-day pelvic MRI. FINDINGS: Lungs: Extensive bibasal consolidative opacities, that are not well evaluated on this exam, however appear overall similar to prior PET-CT given differences in technique. No pleural or pericardial effusion. Liver: No hepatic steatosis. Multiple hepatic metastases are again noted, best demonstrated on diffusion-weighted imaging. Index lesions are described below. The number of lesions is difficult to adequately compare given lack of diffusion-weighted imaging on prior MRI. Please note that the left hepatic lobe and hepatic dome are not well evaluated on postcontrast sequences secondary to motion. - increased size of a segment 6 subcapsular lesion measuring 1.6 cm (), either new or significantly increased in size compared to MRI from 2022. This lesion demonstrates subtle FDG uptake on recent prior PET-CT. - increased size of a segment 8 lesion measuring 1.9 cm (), previously 0.9 cm on MRI from 2022. Lesion demonstrates avid FDG uptake on recent prior PET-CT. - decreased size a segment 4A subcapsular lesion measuring 2.1 x 3.2 cm (), previously 3.7 x 4.2 cm on MRI from 2022. This lesion demonstrates peripheral FDG uptake on recent prior PET-CT. Biliary tree and gallbladder: No intra or extrahepatic biliary dilation. Fluid-filled gallbladder without stones. Spleen: Unremarkable Pancreas: Normal pancreatic parenchyma. No pancreatic masses. No pancreatic duct dilation. Adrenal glands: Unremarkable. Kidneys and ureters: No renal masses or hydronephrosis. GI tract: No evidence of obstruction or inflammation. Vasculature: The IVC and aorta are patent. No abdominal aortic aneurysm. The left hepatic vein appears diminutive, similar to prior MRI. Lymph nodes: No lymphadenopathy. Abdominal wall: Unremarkable Bones: Degenerative change of the imaged spine. IMPRESSION: 1. Mixed response, although mostly progressed, hepatic metastatic disease. The presence of new lesions is difficult to adequately assess given lack of diffusion-weighted imaging on prior MRI. No evidence of new metastatic disease within the abdomen. 2. Extensive bibasal consolidative opacities, that are not well evaluated on this exam, however appear overall similar to prior PET-CT given differences in technique. These remain indeterminate for metastasis versus inflammation/infection. 3. Please see concurrently performed pelvic MRI for findings in the pelvis. Dictated by Tuyet Viveros MD @ 01/10/2024 10:55:58 AM (Electronically Signed)
--- NOTE | 2024-01-09 09:45 | CRLHL7_ITS ---
For Patients: As a result of the Century Cures Act, medical imaging exams and procedure reports are released immediately into your electronic medical record. You may view this report before your referring provider. If you have questions, please contact your health care provider. INDICATION: Rectal cancer, response to treatment TECHNIQUE: 1.5 T MRI performed with pre and postcontrast T1 weighted imaging; T2 weighted imaging; diffusion weighted imaging. 15 mL Dotarem administered COMPARISON: Same-day abdominal MRI, PET-CT 12/26/2023 and 01/10/2023, CT chest abdomen and pelvis 10/26/2022 and 06/22/2022 FINDINGS: RECTUM: When compared to prior PET-CT from 01/10/2023, there is increased extent of tumor in the rectum, described below: Location: mid location of treated tumor/area with inferior margin 3.7 cm from the anal verge (11/30) Relationship to anal sphincter: The inferior treated tumor/area margin is 2.2 cm from the top of the anal sphincter (11/30). Relationship to peritoneal reflection: Straddles Craniocaudal length: 7.8 cm (11/30), compared to previous craniocaudal length 5.[address] from 10/26/2022. Axial dimensions: 3.2 x 4.2 cm (11/02). Circumferential location: Circumferential along the superior margin (/), and predominantly extending from 12:00 to 3:00 along the inferior aspect (11/02). Morphology: Polypoid Mucinous: Mucin present before treatment: Unable to assess YcT-category: T3, intermediate tumor signal extends into the posterior mesorectal fascia/presacral space (10/28 and 16) with extramural depth of invasion measuring up to 0.9 cm at approximately 5 o`clock. Involvement of the adjacent sacrum is difficult to definitively determine. Low rectal tumor component: Absent Extramural vascular invasion: Absent Kayy-rectal / pelvic lymph nodes: At least 5 enlarged mesorectal lymph nodes are noted, the largest on the right measuring 0.6 cm (15/40). REMAINING PELVIS: Bladder: Decompressed. Pelvic organs: The bilateral ovaries are not well seen. In the right pelvis, there is a 0.6 cm T2 hyperintense ovoid lesion (10/30), favored to represent a physiologic follicle in the medialized right ovary. No definite adnexal masses are appreciated bilaterally. Vasculature: Visualized iliac vessels are normal in caliber and patent. Peritoneal space: No free fluid within the pelvis. Musculoskeletal: Two sclerotic lesions within the right iliac bone measuring 2.2 cm (15/17) and 1.8 cm (15/18), are either new or progressed compared to prior CT from 2022, and with mild FDG uptake that may be at baseline. Left hip degenerative/cystic change. Asymmetrically increased bone marrow T2 signal adjacent to the right sacroiliac joint. IMPRESSION: 1. Compared to prior imaging, there has been increased size and extent of rectal tumor, stage T3N2M1. There is 0.9 cm extramural depth of invasion approximately 5 o`clock. Involvement of the adjacent sacrum is difficult to definitively determine. 2. Right iliac bone lesions are increased in size and conspicuity compared to CT from 2022, although active versus treated metastases are difficult to adequately assess. 3. Findings concerning for right sacral insufficiency fracture. 5. For additional findings in the abdomen, please see concurrent MRI abdomen. Dictated by Tuyet Viveros MD @ 01/10/2024 11:35:32 AM (Electronically Signed)
== END 2024-01-09 07:53 | disposition home or self-care (01) ==
LOC: MRI 07:53
PROVIDERS: PCP Family Medicine; Visit Provider Internal Medicine Hematology & Oncology
DX: C19 Malignant neoplasm of rectosigmoid junction (principal); N28.9 Disorder of kidney and ureter, unspecified; M89.9 Disorder of bone, unspecified
CPT/HCPCS: 72197; 74183; A9575

== ENCOUNTER 2024-03-05 18:43 | Emergency (ER) | payer OTHER, SELFPAY ==
[2024-03-05] VITALS (44 sets, daily range): BP systolic 76–112; BP diastolic 47–92; PULSE 86–135; RESP 16–40; TEMP 36.9–37.3; O2SAT 93–97
[2024-03-05 19:17] LABS: Eosinophils Percent Auto 0.5 % (0.0-7.0); HCO3 VBG 23 mmol/L (21-28); Hematocrit 25.4 % (33.0-51.0); Immature Granulocytes Pct Auto 1.1 %; Lactate* 3.2 mmol/L (0.5-1.9); Lymphocytes Percent Auto 2.5 % (20-44); Mean Corpuscular HGB Conc 31 gm/dL (32-36); Mean Corpuscular Hemoglobin 27 pg (26-34); Mean Corpuscular Volume 87 fL (80-100); Monocytes Percent Auto 0.3 % (0.0-11.0); Neutrophils Percent Auto 95.6 % (42.0-72.0); PCO2 VBG 33 mmHG (40-50); PO2 VBG 53.6 mmHG (25-47); Platelet Count* 244 K/uL (140-440); RDW Coefficient of Variation % 20.9 % (11.5-15.5); Red Blood Count 2.92 m/uL (4.00-5.20); White Blood Count* 3.64 K/uL (4.50-11.00); pH VBG 7.466 (7.32-7.43)
[2024-03-05 19:20] LABS: Hemoglobin* 7.8 gm/dL (12.0-16.0); Slide Review Reflex No
[2024-03-05] MEDS: 0.9 % SODIUM CHLORIDE 1000 ml 1,000 ML IV (19:30)
[2024-03-05 19:33] LABS: Chloride* 103 mmol/L (96-114)
[2024-03-05 19:34] LABS: Potassium* 4.5 mmol/L (3.6-5.1); Sodium* 133 mmol/L (135-149)
[2024-03-05 19:36] LABS: Alkaline Phosphatase* 574 U/L (40-150); Anion Gap 6 mEq/L (7-15); Aspartate Amino Transferase* 139 U/L (12-35); Bilirubin Total* 0.9 mg/dL (0.1-1.5); Blood Urea Nitrogen* 16 mg/dL (5-24); Carbon Dioxide* 24 mmol/L (20-32); Creatinine* 0.4 mg/dL (0.5-1.5); Estimated Glomerular Filt Rate 122 ml/min; Total Protein* 5.8 g/dL (6.0-8.3)
[2024-03-05 19:37] LABS: Alanine Aminotransferase* 48 U/L (4-35); Calcium* 8.6 mg/dL (8.4-10.6); Glucose* 132 mg/dL (60-115)
[2024-03-05 19:49] LABS: NT Pro B Type NatriureticPept* 2380 pg/mL
--- NOTE | 2024-03-05 19:51 | CRLHL7_ITS ---
For Patients: As a result of the 21st Century Cures Act, medical imaging exams and procedure reports are released immediately into your electronic medical record. You may view this report before your referring provider. If you have questions, please contact your health care provider. INDICATION: Rectal and coccyx pain, history of metastatic colon cancer and ovarian tumor removal. TECHNIQUE: CT of the abdomen and pelvis acquired with 95 cc Isovue 370 IV contrast. Coronal and sagittal reconstructions. COMPARISON: CT chest, abdomen, pelvis 10/26/2022. MRI of the abdomen and pelvis 01/09/2024. FINDINGS: Lower chest: Please refer to separate report. Liver: Multiple heterogeneous liver lesions have increased in size and number since prior exam. For example, a lesion in the superior right hepatic lobe measures 3.9 x 3.6 cm. A previously seen lesion in the medial segment left hepatic lobe has decreased. Interval atrophy of the lateral segment with new clips or calcifications. Hepatic and portal veins appear patent. Gallbladder and bile ducts: There is pericholecystic edema without gallbladder wall thickening or calcified stones. No biliary dilation. Spleen: Unremarkable. Pancreas: Unremarkable. Adrenal glands: Unremarkable. Kidneys, Ureters, and Bladder: Symmetric enhancement. No hydronephrosis or obstructing stones. No significant bladder wall thickening. Reproductive organs: Uterus is deviated to the left similar to prior exam. Unremarkable adnexa. GI tract/Peritoneum: Small hiatal hernia. No small bowel dilation. Large amount of stool throughout the colon. Irregular enhancing mass in the distal sigmoid colon and rectum measuring approximately 10 cm in length compatible with known malignancy. There is a multilobulated septated rim enhancing presacral fluid collection posterior to the rectum measuring 2.9 x 5.5 x 6.6 cm (series 2 images 116-125 and series 3, image 86). No gas within the collection. No intraperitoneal free air or significant free fluid. Negative appendix. Vasculature: Abdominal aorta is normal in caliber. Mesenteric arteries appear patent. Lymph nodes: No lymphadenopathy. Abdominal Wall: Unremarkable. Bones: Subacute appearing fracture of the right lateral sacral ala. Sclerotic lesion in the right iliac bone measuring 1.4 cm (series 2, image 102). These are new since 10/26/2022 but similar to 01/09/2024. IMPRESSION: 1. Irregular enhancing mass in the distal sigmoid colon and rectum measuring approximately 10 cm in length compatible with known malignancy. Large stool burden. 2. Multilobulated septated rim enhancing presacral fluid collection posterior to the rectum. Findings could represent abscess. No definite osseous abnormality in the adjacent sacrum. 3. Subacute appearing fracture of the right lateral sacral ala. New sclerotic lesion in the right iliac bone is likely metastatic. 4. Multiple heterogeneous liver lesions compatible with metastatic disease. 5. Pericholecystic edema without calcified stones or other signs of gallbladder inflammation. This could be secondary to underlying liver disease. Please note that all CT scans at this facility use dose modulation, iterative reconstruction, and/or weight-based dosing when appropriate to reduce radiation dose to as low as reasonably achievable. Dictated by Mya Villalobos MD @ 03/05/2024 9:33:58 PM (Electronically Signed)
--- NOTE | 2024-03-05 19:52 | CRLHL7_ITS ---
For Patients: As a result of the Century Cures Act, medical imaging exams and procedure reports are released immediately into your electronic medical record. You may view this report before your referring provider. If you have questions, please contact your health care provider. INDICATION: Shortness of breath, history of metastatic colon cancer and Aspergillus. TECHNIQUE: CT of the chest acquired with 95 cc Isovue 370 IV contrast according to the PE protocol. Coronal and sagittal reconstructions. COMPARISON: CT chest 10/15/2023. FINDINGS: Cardiovascular structures: Normal heart size. Normal caliber thoracic aorta and central pulmonary arteries. No acute pulmonary embolism identified. Left subclavian Port-A-Cath with tip near the cavoatrial junction. Mediastinum and tracey: New enlarged mediastinal and bilateral hilar lymph nodes. No pericardial effusion. Lungs and pleura: Again seen are numerous cavitary spaces throughout both lungs. Stable 2.1 cm cavitary nodule in the anterior left upper lobe containing central soft tissue density likely representing a fungus ball (series 6 image 60). New irregular consolidative opacities in the lower lobes likely due to infection. Slightly increased size of a few solid noncalcified pulmonary nodules. For example, a nodule in the superior segment right lower lobe measures 5 mm today compared to 3 mm previously (series 6, image 82). No pleural effusion or pneumothorax. No central endobronchial lesion. Chest wall: No mass or adenopathy. Upper abdomen: Please refer to separate report. Bones: Unremarkable for age. No suspicious osseous lesions. IMPRESSION: 1. Negative for acute pulmonary embolism. 2. 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 3. New irregular consolidative opacities in the lower lobes likely due to infection. 4. Slightly increased size of a few solid noncalcified pulmonary nodules. 5. New mediastinal and bilateral hilar lymphadenopathy is likely reactive but technically indeterminate in the setting of known malignancy. Please note that all CT scans at this facility use dose modulation, iterative reconstruction, and/or weight-based dosing when appropriate to reduce radiation dose to as low as reasonably achievable. Dictated by Mya Villalobos MD @ 03/05/2024 9:12:20 PM (Electronically Signed)
[2024-03-05 19:54] LABS: D Dimer Quantitative* 18.68 ug/ml (0.00-0.50)
[2024-03-05 19:55] LABS: Procalcitonin* 6.35 ng/mL (<0.50)
--- NOTE | 2024-03-05 20:06 | ED_ITS ---
HPI - SOB/Dyspnea General Date Seen: 03/05/24 Chief Complaint: Shortness of Breath/Dyspnea Stated Complaint: shortness of breath Time Seen by Provider: 03/05/24 19:07 Source: patient Mode of arrival: ambulatory Limitations: no limitations History of Present Illness HPI Narrative: Patient is a 48-year-old female presenting to the emergency department for shortness of breath. She has a history of colon cancer metastasized to the liver and lung along with her right hip. She also has an Aspergillus infection that has been being treated for past 6 months. Due that she cannot get her full chemotherapy but her most recent chemotherapy was this past Saturday. She states her most recent evaluation of fast irregular shows that is improving. It formed in and old tumor. She came in because she has had 2 episodes of severe shortness of breath. States 2 days ago she had an episode where she was very short of breath for 20-25 minutes of felt like she could barely catch her breath. It occurred again today while she was working and EMS was called. EMS states when they got there her oxygen was 70% on room air they gave her DuoNeb and put her on oxygen. She states the DuoNeb helped significantly. She does take albuterol and other breathing treatments at home. She states she is no longer feeling short of breath but still feels slightly fatigued and having chills. She has stated she has felt like this before when she has had infections. Also complaining about pelvic discomfort mostly in her coccyx region that is been going on for a couple days. States it becomes uncomfortable to move around. Denies chest pain, headache, dizziness, numbness. She does have constipation due to her chemotherapy she states. Related Data Home Medications ?Medication ?Instructions ?Recorded ?Confirmed ascorbate calcium (vitamin C) 500 500 mg PO DAILY 01/22/22 02/17/24 mg tablet acetaminophen 500 mg capsule 1,000 mg PO Q6H PRN 03/26/22 02/17/24 calcium carbonate (Tums Ultra) 400 mg PO QID PRN 03/26/22 02/17/24 polyethylene glycol 3350 17 4 g PO QDAY PRN constipation 04/09/22 02/17/24 gram/dose oral powder (Miralax) multivitamin (Daily Multi-Vitamin 1 tab PO DAILY 04/25/22 02/17/24 tablet) Vitamin D3 12/25/22 02/17/24 iron,carbonyl 65 mg-vitamin C 125 1 tab PO DAILY PRN 01/16/23 02/17/24 mg tablet,delayed release (Vitron-C) vitamin B 1 gummy PO 01/16/23 02/17/24 minocycline 100 mg capsule 100 mg PO BID PRN 06/24/23 02/17/24 ibuprofen 200 mg capsule 200 mg PO Q6H PRN 10/21/23 02/17/24 isavuconazonium sulfate 186 mg 372 mg PO QDAY 12/23/23 02/17/24 capsule (Cresemba) clindamycin phosphate 1 % topical 1 applic topical BID PRN 02/17/24 03/02/24 gel psyllium husk 3.4 gram/5.4 gram 1 tbsp PO DAILY 03/02/24 03/02/24 oral powder (Metamucil) Previous Rx's ?Medication ?Instructions ?Recorded lorazepam 0.5 mg tablet (Ativan) 0.5 mg PO QHS PRN nausea, insomnia 04/01/23 from chemotherapy #30 tabs acyclovir 400 mg tablet 400 mg PO QDAY PRN viral outbreak 05/27/23 #120 tabs fluticasone propionate 110 1 puff PO BID #12 grams 09/30/23 mcg/actuation HFA aerosol inhaler albuterol sulfate 90 mcg/actuation 2 puff inhalation BID-QID PRN 10/28/23 aerosol inhaler (Ventolin HFA) shortness of breath or wheezing #8.5 grams ondansetron HCl 4 mg tablet 4 mg PO Q6H PRN nausea and 01/06/24 vomiting #30 tabs prochlorperazine maleate 10 mg 10 mg PO Q6H PRN nausea and 02/10/24 tablet vomiting #30 tabs Allergies Allergy/AdvReac Type Severity Reaction Status Date / Time Latex, Natural Rubber Allergy Verified 03/02/24 09:00 Review of Systems Status of ROS: Reports: 10 or more systems reviewed and unremarkable except as noted in History and below [facility] Medical History Bronchial obstruction ?J98.09 - Other diseases of bronchus, not elsewhere classified (ICD-10) Weight loss (09/2019) ?R63.4 - Abnormal weight loss (ICD-10) Primary malignant neoplasm of colorectal area with metastasis (2017) ?C19 - Malignant neoplasm of rectosigmoid junction (ICD-10) History of Mohs micrographic surgery for skin cancer (2014) ?Z85.828 - Personal history of other malignant neoplasm of skin (ICD-10) ?Z98.890 - Other specified postprocedural states (ICD-10) Pulmonary nodules ?R91.8 - Other nonspecific abnormal finding of lung field (ICD-10) Oral herpes simplex, not currently active ?B00.2 - Herpesviral gingivostomatitis and pharyngotonsillitis (ICD-10) Rectal cancer metastasized to liver ?C20 - Malignant neoplasm of rectum (ICD-10) ?C78.7 - Secondary malignant neoplasm of liver and intrahepatic bile duct (ICD-10) Rectal cancer metastasized to lung (~09/2021) ?C20 - Malignant neoplasm of rectum (ICD-10) ?C78.00 - Secondary malignant neoplasm of unspecified lung (ICD-10) Surgical History S/P Mohs surgery for basal cell carcinoma (2014) ?Z98.890 - Other specified postprocedural states (ICD-10) ?Z85.828 - Personal history of other malignant neoplasm of skin (ICD-10) History of dilation and curettage (2003) ?Z98.890 - Other specified postprocedural states (ICD-10) Family History Paternal Grandmother Colon cancer, Onset Age: 60 Social History Narrative: , no kids-has dog [employer] Non smoker does not drink alcohol Exercise involving walking dog 3 times daily every day Smoking Status: Former smoker Do you use any of these nicotine containing products: None Second hand tobacco smoke exposure: No How often do you have a drink containing alcohol: never How often do you have six or more drinks on one occasion: Never AUDIT-C Alcohol total score: 0 Non-prescribed substance use: denies use service: No Exam Narrative: Exam Narrative: Const: Well-nourished, Well-developed, in moderate distress Eyes: PERRL, no conjunctival injection, and symmetrical lids HENT: Atraumatic external nose and ears. Moist mucous membranes. Neck: Symmetric, trachea midline, No thyromegaly. CVS: Tachycardia, No murmurs or gallops. Peripheral pulses 2+ and equal in all extremities RESP: Unlabored respiratory effort. Clear to auscultation bilaterally. GI: Nontender/Nondistended, No rebound or guarding. MSK:Extremities w/o deformity, Normal Active ROM Skin: Warm, Dry. No rashes or lesions. Neuro: Normal Muscle tone, No focal neurological deficits. Psych: Awake, Alert, & Oriented x3. Appropriate mood and affect. Const: Vital Signs, click to edit/add: Vital Signs - 24 hr 03/05/24 18:52 03/05/24 19:22 03/05/24 19:30 Temperature 99.2 F Pulse Rate 110 H 111 H Pulse Rate [Pulse Oximeter] 117 H Respiratory Rate 24 Blood Pressure Blood Pressure [Ri ght Upper Arm] 87/55 L Pulse Oximetry 93 95 95 Oxygen Delivery Me thod Room Air Oxygen Flow Rate 03/05/24 19:34 03/05/24 19:45 03/05/24 19:50 Temperature Pulse Rate 117 H 106 H 112 H Pulse Rate [Pulse Oximeter] Respiratory Rate Blood Pressure Blood Pressure [Ri ght Upper Arm] Pulse Oximetry 95 96 96 Oxygen Delivery Me thod Oxygen Flow Rate 03/05/24 20:00 03/05/24 20:17 03/05/24 20:23 Temperature Pulse Rate 107 H 106 H Pulse Rate [Pulse Oximeter] Respiratory Rate Blood Pressure 89/56 L Blood Pressure [Ri ght Upper Arm] Pulse Oximetry 95 95 Oxygen Delivery Me thod Oxygen Flow Rate 03/05/24 20:24 03/05/24 20:26 03/05/24 20:30 Temperature Pulse Rate 104 H 101 H 101 H Pulse Rate [Pulse Oximeter] Respiratory Rate Blood Pressure 89/50 L 87/52 L Blood Pressure [Ri ght Upper Arm] Pulse Oximetry 95 95 97 Oxygen Delivery Me thod Oxygen Flow Rate 03/05/24 20:31 03/05/24 20:45 03/05/24 20:46 Temperature Pulse Rate 105 H 99 99 Pulse Rate [Pulse Oximeter] Respiratory Rate Blood Pressure 90/55 L 79/52 L Blood Pressure [Ri ght Upper Arm] Pulse Oximetry 96 96 96 Oxygen Delivery Me thod Oxygen Flow Rate 03/05/24 20:49 03/05/24 20:51 03/05/24 21:00 Temperature Pulse Rate 98 95 95 Pulse Rate [Pulse Oximeter] Respiratory Rate Blood Pressure 79/55 L 76/47 L 82/47 L Blood Pressure [Ri ght Upper Arm] Pulse Oximetry 96 96 96 Oxygen Delivery Me thod Oxygen Flow Rate 03/05/24 21:02 03/05/24 21:03 03/05/24 21:08 Temperature Pulse Rate 97 99 96 Pulse Rate [Pulse Oximeter] Respiratory Rate Blood Pressure 78/50 L 78/48 L Blood Pressure [Ri ght Upper Arm] Pulse Oximetry 95 96 97 Oxygen Delivery Me thod Oxygen Flow Rate 03/05/24 21:11 03/05/24 21:15 03/05/24 21:21 Temperature Pulse Rate 96 94 97 Pulse Rate [Pulse Oximeter] Respiratory Rate Blood Pressure 81/47 L 83/50 L Blood Pressure [Ri ght Upper Arm] Pulse Oximetry 96 95 96 Oxygen Delivery Me thod Oxygen Flow Rate 03/05/24 21:30 03/05/24 21:32 03/05/24 21:41 Temperature Pulse Rate 95 95 98 Pulse Rate [Pulse Oximeter] Respiratory Rate Blood Pressure 79/49 L 83/54 L Blood Pressure [Ri ght Upper Arm] Pulse Oximetry 96 96 96 Oxygen Delivery Me thod Oxygen Flow Rate 03/05/24 21:45 03/05/24 21:52 03/05/24 22:00 Temperature Pulse Rate 99 96 91 Pulse Rate [Pulse Oximeter] Respiratory Rate Blood Pressure 87/56 L Blood Pressure [Ri ght Upper Arm] Pulse Oximetry 97 96 96 Oxygen Delivery Me thod Oxygen Flow Rate 03/05/24 22:01 03/05/24 22:11 03/05/24 22:12 Temperature Pulse Rate 94 86 Pulse Rate [Pulse Oximeter] Respiratory Rate Blood Pressure 80/57 L 92/66 96/66 Blood Pressure [Ri ght Upper Arm] Pulse Oximetry 96 96 Oxygen Delivery Me thod Oxygen Flow Rate 03/05/24 22:15 03/05/24 22:22 03/05/24 22:30 Temperature Pulse Rate 88 90 90 Pulse Rate [Pulse Oximeter] Respiratory Rate Blood Pressure 97/63 Blood Pressure [Ri ght Upper Arm] Pulse Oximetry 96 96 96 Oxygen Delivery Me thod Oxygen Flow Rate 03/05/24 22:43 03/05/24 22:45 03/05/24 22:52 Temperature Pulse Rate 93 96 90 Pulse Rate [Pulse Oximeter] Respiratory Rate Blood Pressure 100/62 97/59 L Blood Pressure [Ri ght Upper Arm] Pulse Oximetry 97 97 97 Oxygen Delivery Me thod Oxygen Flow Rate 03/05/24 23:00 03/05/24 23:02 03/05/24 23:12 Temperature Pulse Rate 88 90 87 Pulse Rate [Pulse Oximeter] Respiratory Rate Blood Pressure 93/62 98/61 Blood Pressure [Ri ght Upper Arm] Pulse Oximetry 97 97 97 Oxygen Delivery Me thod Oxygen Flow Rate 03/05/24 23:16 03/05/24 23:39 Temperature 98.7 F 98.4 F Pulse Rate 90 135 H Pulse Rate [Pulse Oximeter] Respiratory Rate 16 40 H Blood Pressure 95/60 112/92 H Blood Pressure [Ri ght Upper Arm] Pulse Oximetry 96 94 Oxygen Delivery Me thod Room Air Nasal Cannula Oxygen Flow Rate 3 Course Vital Signs Vital signs: Initial Vital Signs Temperature 99.2 F 03/05/24 18:52 Temperature Source Axillary 03/05/24 18:52 Pulse Rate 117 H 03/05/24 18:52 Respiratory Rate 03/05/24 18:52 Blood Pressure 87/55 L 03/05/24 18:52 Blood Pressure Mean 65 L 03/05/24 18:52 Blood Pressure Position Supine 03/05/24 18:52 Pulse Oximetry 93 03/05/24 18:52 Oxygen Delivery Method Room Air 03/05/24 18:52 Vital Signs Temperature 99.2 F 03/05/24 18:52 Pulse Rate 117 H 03/05/24 18:52 Respiratory Rate 03/05/24 18:52 Blood Pressure 87/55 L 03/05/24 18:52 Pulse Oximetry 93 03/05/24 18:52 Oxygen Delivery Method Room Air 03/05/24 18:52 Temperature 98.4 F 03/05/24 23:39 Pulse Rate 135 H 03/05/24 23:39 Respiratory Rate 40 H 03/05/24 23:39 Blood Pressure 112/92 H 03/05/24 23:39 Pulse Oximetry 94 03/05/24 23:39 Oxygen Delivery Method Nasal Cannula 03/05/24 23:39 Oxygen Flow Rate 3 03/05/24 23:39 Medications Administered Medications: Generic Name Dose Route Start Last Admin Trade Name Freq PRN Reason Stop Dose Admin Norepinephrine/Dextrose 4,000 mcg in 250 mls @ 19.221 mls/hr 03/05/24 21:45 03/05/24 23:50 Norepinephrine Infusion IV 0 mcg/kg/min CONT SAVANAH 0 mls/hr Titration Protocol 0.1 MCG/KG/MIN IV Miscellaneous Supplies 1 each 03/05/24 20:45 03/05/24 21:25 Pharmacist Consult 1 each Q24H SAVANAH Administration Protocol Discontinued Medications Generic Name Dose Route Start Last Admin Trade Name Freq PRN Reason Stop Dose Admin Sodium Chloride 1,000 mls @ 1,000 mls/hr 03/05/24 19:08 03/05/24 20:03 0.9 % Sodium Chloride 1000 Ml IV 03/05/24 20:07 0 mls/hr .Q1H SAVANAH Infusion Piperacillin Sod/Tazobactam 100 mls @ 200 mls/hr 03/05/24 20:41 03/05/24 21:25 Sod 3.375 gm/ Sodium Chloride IVPB 03/05/24 20:42 Infused ONCE ONE Infusion Vancomycin/PEG/NADA/Lysine/Water 1 gm in 200 mls @ 200 mls/hr 03/05/24 22:00 03/05/24 22:15 Vancomycin 1 Gm/200 Ml IVPB 03/05/24 22:59 Infused ONCE ONE Infusion Protocol Sodium Chloride 600 mls @ 1,000 mls/hr 03/05/24 21:20 03/05/24 21:30 0.9 % Sodium Chloride 1000 Ml IV 03/05/24 21:55 Infused .Q36M SAVANAH Infusion MDM - SOB/Dyspnea MDM Narrative Medical decision making narrative: Patient is a 48-year-old female presenting to emergency department for shortness of breath, tachycardia, hypertension. Her initial shortness of breath seems related to recurrent bronchospasms after improved significantly with the DuoNeb. She is satting 94% on room air. She is hypotensive the 90s systolic early in tachycardic at 110. With her history there is concerned about infection. Will do a broad workup including EKG, blood cultures, CMP, lactate, troponin, CBC, COVID/flu/RSV, D-dimer, BNP, procalcitonin, VBG, urinalysis. Will do a CTA scan of her chest to look for signs of pneumonia or blood clot. Since she is also having this pelvic discomfort will also do a CT scan of the abdomen pelvis with IV contrast. Will give her L fluid to start to see if she responds. Lab work returns with quite a few abnormalities. She has a white count of 3.6, hemoglobin of 7.8, a D-dimer of 18.68, lactate of 3.2, elevated liver enzymes, troponin was 0.62. Lactate makes me more concerned she could be having an i nfection. She continues to be hypotensive after L fluid was placed. She will get another 600 mL per sepsis protocol. Will put her on broad-spectrum antibiotics with Zosyn and vanco. Troponin is elevated but she is not having any chest pain currently. Likely secondary to the associated hypoxia and now hypotension. she currently has pro calcitonin that is quite elevated which may be another sign of infection. Viral swabs are negative. Will do a type and screen. CT scan of the chest shows likely pneumonia on CT scan of the abdomen pelvis shows a possible abscess near the sacrum. She also appears to have a new sclerotic lesion in the right iliac bone likely metastatic. Patient is now on Levophed due to hypotension and will need ICU care. Will also give a unit of packed red blood cells for her anemia and likely GI bleed She is a [facility] patient and I spoke to Dr. Bello of their ICU who accepted her for admission. She will be transferred via ground ambulance to their ICU. She is agreeable to this plan. While we were waiting to transfer the patient we did start blood for her anemia. 10 minutes into the blood transfusion she became tachycardic, tachypneic and tremulous. She felt warm to the touch but did not have a fever on multiple checks. Was concerned she could be having allergic reaction and Benadryl was given. No hives were seen. There is also thought a possible hemolysis reaction and hemolysis labs were ordered. chest x-ray was done to look for signs of TRALI. Chest x-ray showed a right small pleural effusions slightly larger than previous exam. She continues to be tachycardic, tachypneic, hypoxic. She states she is not feeling short of breath but feels difficult to take a deep breath. She was finally able to tell us this feels just like how she felt prior to EMS picking her up today. A DuoNeb was given which she had difficulty taking. This all consistent with previous episode she states and we ended up putting her on a BiPAP. This started to improve her oxygenation and she was satting 95-100%. Her tachypnea was improving but she was still tachypneic in the 20s. Her heart rate went from the 140s to 120s. She is still tremulous but EMS will be taking her. Her lab work does show some signs of hemolysis with an elevated fibrinogen, INR, lactate dehydrogenase, potassium. Her reticulocyte count is not overly low. Her hemoglobin actually did improved compared to earlier. At this time I believe is in her best interest to be transferred as soon as possible. She is currently on BiPAP. I am very hesitant to intubate her considering her multiple lung issues. She does states she would like to be full code and is agreeable to intubation as a last resort. Repeat EKG was attempted but there was too much artifact. Right before patient left she spiked a fever and Toradol was given here. Her heart rate is now 116 and she satting 100% on BiPAP. She looks much more comfortable. Lab Data Labs: Lab Results 03/05/24 03/05/24 03/05/24 Range/Units 19:00 19:00 19:00 WBC 3.64 L (4.50-11.00) K/uL RBC 2.92 L (4.00-5.20) m/uL Hgb 7.8 L* (12.0-16.0) gm/dL Hct 25.4 L (33.0-51.0) % MCV 87 (80-100) fL MCH 27 (26-34) pg MCHC 31 L (32-36) gm/dL RDW Coeff of Sandra 20.9 H (11.5-15.5) % Plt Count 244 (140-440) K/uL Neut % (Auto) 95.6 H (42.0-72.0) % Lymph % (Auto) 2.5 L (20-44) % [place] % (Auto) 0.3 (0.0-11.0) % Eos % (Auto) 0.5 (0.0-7.0) % Baso % (Auto) 0.0 (0.0-3.0) % Neut # (Auto) 3.50 (1.7-7.0) K/uL Lymph # (Auto) 0.10 L (0.90-2.90) K/uL [place] # (Auto) 0.00 (0.00-0.90) K/UL Eos # (Auto) 0.00 (0.00-0.50) K/uL Baso # (Auto) 0.00 (0.00-0.30) K/uL Abs Immat Gran (auto) 0.00 (0.00-0.30) K/uL Imm/Tot Granulo (auto) 1.1 % Absolute Retic (0.03-0.08) # Percent Retic (0.5-2.0) % Immature Retic Fraction (3.0-15.9) % Retic Hgb Equivalent (29.0-35.0) pg INR (0.91-1.10) Fibrinogen (200-450) mg/dL D-Dimer Quant (PE/DVT) 18.68 H (0.00-0.50) ug/ml ABG pH (7.35-7.45) ABG pCO2 (35-45) mmHG ABG pO2 (80-105) mmHG ABG HCO3 (21-28) mmol/L ABG Total CO2 (21-30) mmol/l ABG O2 Saturation (92-100) % ABG Base Excess (-3.0-3.0) mmol/L VBG pH 7.466 H (7.32-7.43) VBG pCO2 33 L (40-50) mmHG VBG pO2 53.6 H (25-47) mmHG VBG HCO3 23 (21-28) mmol/L Carboxyhemoglobin (0.0-5.0) % Sodium Cancelled 133 L Potassium Cancelled 4.5 Chloride Cancelled Carbon Dioxide Anion Gap BUN Creatinine Estimated Creat Clear Estimated GFR Glucose Lactate Calcium Total Bilirubin (0.1-1.5) mg/dL Direct Bilirubin (0.0-0.5) mg/dL AST (12-35) U/L ALT (4-35) U/L Alkaline Phosphatase (40-150) U/L Lactate Dehydrogenase (120-246) U/L Troponin I (0.01-0.04) ng/mL NT-Pro-B Natriuret Pep pg/mL Total Protein (6.0-8.3) g/dL Albumin (3.3-5.0) g/dL Procalcitonin (<0.50) ng/mL Urine Color (Yellow) Urine Appearance (Clear) Urine pH (5.0-8.5) Ur Specific [place] (1.000-1.030) Urine Protein (Negative) Urine Glucose (UA) (Negative) Urine Ketones (Negative) Urine Blood (Negative) Urine Nitrite (Negative) Urine Bilirubin (Negative) Urine Urobilinogen (0.2-1.0) Ur Leukocyte Esterase (Negative) Urine RBC (0-2) Urine WBC (0-5) Ur Squamous Epith Cells (None-Few) Urine Bacteria (None) SARS-CoV-2 (PCR) (Negative) Influenza Type A (PCR) (Negative) Influenza Type B (PCR) (Negative) RSV (PCR) (Negative) Blood Type Antibody Screen Direct Antiglob Test Crossmatch (AHG) 03/05/24 03/05/24 03/05/24 Range/Units 19:00 19:00 19:00 WBC (4.50-11.00) K/uL RBC (4.00-5.20) m/uL Hgb (12.0-16.0) gm/dL Hct (33.0-51.0) % MCV (80-100) fL MCH (26-34) pg MCHC (32-36) gm/dL RDW Coeff of Sandra (11.5-15.5) % Plt Count (140-440) K/uL Neut % (Auto) (42.0-72.0) % Lymph % (Auto) (20-44) % [place] % (Auto) (0.0-11.0) % Eos % (Auto) (0.0-7.0) % Baso % (Auto) (0.0-3.0) % Neut # (Auto) (1.7-7.0) K/uL Lymph # (Auto) (0.90-2.90) K/uL [place] # (Auto) (0.00-0.90) K/UL Eos # (Auto) (0.00-0.50) K/uL Baso # (Auto) (0.00-0.30) K/uL Abs Immat Gran (auto) (0.00-0.30) K/uL Imm/Tot Granulo (auto) % Absolute Retic (0.03-0.08) # Percent Retic (0.5-2.0) % Immature Retic Fraction (3.0-15.9) % Retic Hgb Equivalent (29.0-35.0) pg INR (0.91-1.10) Fibrinogen (200-450) mg/dL D-Dimer Quant (PE/DVT) (0.00-0.50) ug/ml ABG pH (7.35-7.45) ABG pCO2 (35-45) mmHG ABG pO2 (80-105) mmHG ABG HCO3 (21-28) mmol/L ABG Total CO2 (21-30) mmol/l ABG O2 Saturation (92-100) % ABG Base Excess (-3.0-3.0) mmol/L VBG pH (7.32-7.43) VBG pCO2 (40-50) mmHG VBG pO2 (25-47) mmHG VBG HCO3 (21-28) mmol/L Carboxyhemoglobin (0.0-5.0) % Sodium Potassium Chloride 103 Carbon Dioxide Cancelled 24 Anion Gap Cancelled 6 L BUN Cancelled Creatinine Estimated Creat Clear Estimated GFR Glucose Lactate Calcium Total Bilirubin (0.1-1.5) mg/dL Direct Bilirubin (0.0-0.5) mg/dL AST (12-35) U/L ALT (4-35) U/L Alkaline Phosphatase (40-150) U/L Lactate Dehydrogenase (120-246) U/L Troponin I (0.01-0.04) ng/mL NT-Pro-B Natriuret Pep pg/mL Total Protein (6.0-8.3) g/dL Albumin (3.3-5.0) g/dL Procalcitonin (<0.50) ng/mL Urine Color (Yellow) Urine Appearance (Clear) Urine pH (5.0-8.5) Ur Specific [place] (1.000-1.030) Urine Protein (Negative) Urine Glucose (UA) (Negative) Urine Ketones (Negative) Urine Blood (Negative) Urine Nitrite (Negative) Urine Bilirubin (Negative) Urine Urobilinogen (0.2-1.0) Ur Leukocyte Esterase (Negative) Urine RBC (0-2) Urine WBC (0-5) Ur Squamous Epith Cells (None-Few) Urine Bacteria (None) SARS-CoV-2 (PCR) (Negative) Influenza Type A (PCR) (Negative) Influenza Type B (PCR) (Negative) RSV (PCR) (Negative) Blood Type Antibody Screen Direct Antiglob Test Crossmatch (AHG) 03/05/24 03/05/24 03/05/24 Range/Units 19:00 19:00 19:00 WBC (4.50-11.00) K/uL RBC (4.00-5.20) m/uL Hgb (12.0-16.0) gm/dL Hct (33.0-51.0) % MCV (80-100) fL MCH (26-34) pg MCHC (32-36) gm/dL RDW Coeff of Sandra (11.5-15.5) % Plt Count (140-440) K/uL Neut % (Auto) (42.0-72.0) % Lymph % (Auto) (20-44) % [place] % (Auto) (0.0-11.0) % Eos % (Auto) (0.0-7.0) % Baso % (Auto) (0.0-3.0) % Neut # (Auto) (1.7-7.0) K/uL Lymph # (Auto) (0.90-2.90) K/uL [place] # (Auto) (0.00-0.90) K/UL Eos # (Auto) (0.00-0.50) K/uL Baso # (Auto) (0.00-0.30) K/uL Abs Immat Gran (auto) (0.00-0.30) K/uL Imm/Tot Granulo (auto) % Absolute Retic (0.03-0.08) # Percent Retic (0.5-2.0) % Immature Retic Fraction (3.0-15.9) % Retic Hgb Equivalent (29.0-35.0) pg INR (0.91-1.10) Fibrinogen (200-450) mg/dL D-Dimer Quant (PE/DVT) (0.00-0.50) ug/ml ABG pH (7.35-7.45) ABG pCO2 (35-45) mmHG ABG pO2 (80-105) mmHG ABG HCO3 (21-28) mmol/L ABG Total CO2 (21-30) mmol/l ABG O2 Saturation (92-100) % ABG Base Excess (-3.0-3.0) mmol/L VBG pH (7.32-7.43) VBG pCO2 (40-50) mmHG VBG pO2 (25-47) mmHG VBG HCO3 (21-28) mmol/L Carboxyhemoglobin (0.0-5.0) % Sodium Potassium Chloride Carbon Dioxide Anion Gap BUN 16 Creatinine Cancelled 0.4 L Estimated Creat Clear Cancelled Estimated GFR Cancelled 122 Glucose Cancelled Lactate Calcium Total Bilirubin (0.1-1.5) mg/dL Direct Bilirubin (0.0-0.5) mg/dL AST (12-35) U/L ALT (4-35) U/L Alkaline Phosphatase (40-150) U/L Lactate Dehydrogenase (120-246) U/L Troponin I (0.01-0.04) ng/mL NT-Pro-B Natriuret Pep pg/mL Total Protein (6.0-8.3) g/dL Albumin (3.3-5.0) g/dL Procalcitonin (<0.50) ng/mL Urine Color (Yellow) Urine Appearance (Clear) Urine pH (5.0-8.5) Ur Specific [place] (1.000-1.030) Urine Protein (Negative) Urine Glucose (UA) (Negative) Urine Ketones (Negative) Urine Blood (Negative) Urine Nitrite (Negative) Urine Bilirubin (Negative) Urine Urobilinogen (0.2-1.0) Ur Leukocyte Esterase (Negative) Urine RBC (0-2) Urine WBC (0-5) Ur Squamous Epith Cells (None-Few) Urine Bacteria (None) SARS-CoV-2 (PCR) (Negative) Influenza Type A (PCR) (Negative) Influenza Type B (PCR) (Negative) RSV (PCR) (Negative) Blood Type Antibody Screen Direct Antiglob Test Crossmatch (AHG) 03/05/24 03/05/24 03/05/24 Range/Units 19:00 19:00 19:00 WBC (4.50-11.00) K/uL RBC (4.00-5.20) m/uL Hgb (12.0-16.0) gm/dL Hct (33.0-51.0) % MCV (80-100) fL MCH (26-34) pg MCHC (32-36) gm/dL RDW Coeff of Sandra (11.5-15.5) % Plt Count (140-440) K/uL Neut % (Auto) (42.0-72.0) % Lymph % (Auto) (20-44) % [place] % (Auto) (0.0-11.0) % Eos % (Auto) (0.0-7.0) % Baso % (Auto) (0.0-3.0) % Neut # (Auto) (1.7-7.0) K/uL Lymph # (Auto) (0.90-2.90) K/uL [place] # (Auto) (0.00-0.90) K/UL Eos # (Auto) (0.00-0.50) K/uL Baso # (Auto) (0.00-0.30) K/uL Abs Immat Gran (auto) (0.00-0.30) K/uL Imm/Tot Granulo (auto) % Absolute Retic (0.03-0.08) # Percent Retic (0.5-2.0) % Immature Retic Fraction (3.0-15.9) % Retic Hgb Equivalent (29.0-35.0) pg INR (0.91-1.10) Fibrinogen (200-450) mg/dL D-Dimer Quant (PE/DVT) (0.00-0.50) ug/ml ABG pH (7.35-7.45) ABG pCO2 (35-45) mmHG ABG pO2 (80-105) mmHG ABG HCO3 (21-28) mmol/L ABG Total CO2 (21-30) mmol/l ABG O2 Saturation (92-100) % ABG Base Excess (-3.0-3.0) mmol/L VBG pH (7.32-7.43) VBG pCO2 (40-50) mmHG VBG pO2 (25-47) mmHG VBG HCO3 (21-28) mmol/L Carboxyhemoglobin (0.0-5.0) % Sodium Potassium Chloride Carbon Dioxide Anion Gap BUN Creatinine Estimated Creat Clear Estimated GFR Glucose 132 H Lactate Cancelled 3.2 H Calcium Cancelled 8.6 Total Bilirubin 0.9 (0.1-1.5) mg/dL Direct Bilirubin (0.0-0.5) mg/dL AST 139 H (12-35) U/L ALT 48 H (4-35) U/L Alkaline Phosphatase 574 H (40-150) U/L Lactate Dehydrogenase (120-246) U/L Troponin I 0.62 H* (0.01-0.04) ng/mL NT-Pro-B Natriuret Pep 2380 pg/mL Total Protein 5.8 L (6.0-8.3) g/dL Albumin 3.0 L (3.3-5.0) g/dL Procalcitonin 6.35 H (<0.50) ng/mL Urine Color (Yellow) Urine Appearance (Clear) Urine pH (5.0-8.5) Ur Specific [place] (1.000-1.030) Urine Protein (Negative) Urine Glucose (UA) (Negative) Urine Ketones (Negative) Urine Blood (Negative) Urine Nitrite (Negative) Urine Bilirubin (Negative) Urine Urobilinogen (0.2-1.0) Ur Leukocyte Esterase (Negative) Urine RBC (0-2) Urine WBC (0-5) Ur Squamous Epith Cells (None-Few) Urine Bacteria (None) SARS-CoV-2 (PCR) (Negative) Influenza Type A (PCR) (Negative) Influenza Type B (PCR) (Negative) RSV (PCR) (Negative) Blood Type Antibody Screen Direct Antiglob Test Crossmatch (AHG) 03/05/24 03/05/24 03/05/24 Range/Units 19:32 20:42 22:40 WBC (4.50-11.00) K/uL RBC (4.00-5.20) m/uL Hgb (12.0-16.0) gm/dL Hct (33.0-51.0) % MCV (80-100) fL MCH (26-34) pg MCHC (32-36) gm/dL RDW Coeff of Sandra (11.5-15.5) % Plt Count (140-440) K/uL Neut % (Auto) (42.0-72.0) % Lymph % (Auto) (20-44) % [place] % (Auto) (0.0-11.0) % Eos % (Auto) (0.0-7.0) % Baso % (Auto) (0.0-3.0) % Neut # (Auto) (1.7-7.0) K/uL Lymph # (Auto) (0.90-2.90) K/uL [place] # (Auto) (0.00-0.90) K/UL Eos # (Auto) (0.00-0.50) K/uL Baso # (Auto) (0.00-0.30) K/uL Abs Immat Gran (auto) (0.00-0.30) K/uL Imm/Tot Granulo (auto) % Absolute Retic (0.03-0.08) # Percent Retic (0.5-2.0) % Immature Retic Fraction (3.0-15.9) % Retic Hgb Equivalent (29.0-35.0) pg INR (0.91-1.10) Fibrinogen (200-450) mg/dL D-Dimer Quant (PE/DVT) (0.00-0.50) ug/ml ABG pH (7.35-7.45) ABG pCO2 (35-45) mmHG ABG pO2 (80-105) mmHG ABG HCO3 (21-28) mmol/L ABG Total CO2 (21-30) mmol/l ABG O2 Saturation (92-100) % ABG Base Excess (-3.0-3.0) mmol/L VBG pH (7.32-7.43) VBG pCO2 (40-50) mmHG VBG pO2 (25-47) mmHG VBG HCO3 (21-28) mmol/L Carboxyhemoglobin (0.0-5.0) % Sodium Potassium Chloride Carbon Dioxide Anion Gap BUN Creatinine Estimated Creat Clear Estimated GFR Glucose Lactate Calcium Total Bilirubin (0.1-1.5) mg/dL Direct Bilirubin (0.0-0.5) mg/dL AST (12-35) U/L ALT (4-35) U/L Alkaline Phosphatase (40-150) U/L Lactate Dehydrogenase (120-246) U/L Troponin I (0.01-0.04) ng/mL NT-Pro-B Natriuret Pep pg/mL Total Protein (6.0-8.3) g/dL Albumin (3.3-5.0) g/dL Procalcitonin (<0.50) ng/mL Urine Color Yellow (Yellow) Urine Appearance Clear (Clear) Urine pH 5.5 (5.0-8.5) Ur Specific [place] <= 1.005 (1.000-1.030) Urine Protein Negative (Negative) Urine Glucose (UA) Negative (Negative) Urine Ketones Negative (Negative) Urine Blood Negative (Negative) Urine Nitrite Negative (Negative) Urine Bilirubin Negative (Negative) Urine Urobilinogen 0.2 (0.2-1.0) Ur Leukocyte Esterase Negative (Negative) Urine RBC 0-2 (0-2) Urine WBC 0-2 (0-5) Ur Squamous Epith Cells Few (None-Few) Urine Bacteria Few A (None) SARS-CoV-2 (PCR) Negative SARS-CoV-2 (Negative) Influenza Type A (PCR) Negative PCR FLU A (Negative) Influenza Type B (PCR) Negative PCR FLU B (Negative) RSV (PCR) Negative PCR RSV (Negative) Blood Type A Positive Antibody Screen NEGATIVE Direct Antiglob Test Crossmatch (AHG) See Detail 03/05/24 03/06/24 Range/Units 23:55 00:25 WBC 3.94 L (4.50-11.00) K/uL RBC 3.37 L (4.00-5.20) m/uL Hgb 8.8 L (12.0-16.0) gm/dL Hct 30.4 L (33.0-51.0) % MCV 90 (80-100) fL MCH 26 (26-34) pg MCHC 29 L (32-36) gm/dL RDW Coeff of Sandra 21.5 H (11.5-15.5) % Plt Count 384 (140-440) K/uL Neut % (Auto) 87.5 H (42.0-72.0) % Lymph % (Auto) 11.2 L (20-44) % [place] % (Auto) 0.5 (0.0-11.0) % Eos % (Auto) 0.0 (0.0-7.0) % Baso % (Auto) 0.5 (0.0-3.0) % Neut # (Auto) 3.40 (1.7-7.0) K/uL Lymph # (Auto) 0.40 L (0.90-2.90) K/uL [place] # (Auto) 0.00 (0.00-0.90) K/UL Eos # (Auto) 0.00 (0.00-0.50) K/uL Baso # (Auto) 0.00 (0.00-0.30) K/uL Abs Immat Gran (auto) 0.00 (0.00-0.30) K/uL Imm/Tot Granulo (auto) 0.3 % Absolute Retic 0.02 L (0.03-0.08) # Percent Retic 0.7 (0.5-2.0) % Immature Retic Fraction 8.1 (3.0-15.9) % Retic Hgb Equivalent 25.2 L (29.0-35.0) pg INR 1.32 H (0.91-1.10) Fibrinogen 688 H (200-450) mg/dL D-Dimer Quant (PE/DVT) (0.00-0.50) ug/ml ABG pH 7.38 (7.35-7.45) ABG pCO2 27 L (35-45) mmHG ABG pO2 84.8 (80-105) mmHG ABG HCO3 16 L (21-28) mmol/L ABG Total CO2 15 L (21-30) mmol/l ABG O2 Saturation 97 (92-100) % ABG Base Excess -8.0 L (-3.0-3.0) mmol/L VBG pH (7.32-7.43) VBG pCO2 (40-50) mmHG VBG pO2 (25-47) mmHG VBG HCO3 (21-28) mmol/L Carboxyhemoglobin 1.2 (0.0-5.0) % Sodium 137 Potassium 5.3 H Chloride 107 Carbon Dioxide 19 L Anion Gap 11 BUN 14 Creatinine 0.5 Estimated Creat Clear Estimated GFR 116 Glucose 168 H Lactate Calcium 8.7 Total Bilirubin 1.1 (0.1-1.5) mg/dL Direct Bilirubin 1.0 H (0.0-0.5) mg/dL AST 180 H (12-35) U/L ALT 61 H (4-35) U/L Alkaline Phosphatase 590 H (40-150) U/L Lactate Dehydrogenase 1253 H (120-246) U/L Troponin I (0.01-0.04) ng/mL NT-Pro-B Natriuret Pep pg/mL Total Protein 6.0 (6.0-8.3) g/dL Albumin 3.0 L (3.3-5.0) g/dL Procalcitonin (<0.50) ng/mL Urine Color (Yellow) Urine Appearance (Clear) Urine pH (5.0-8.5) Ur Specific [place] (1.000-1.030) Urine Protein (Negative) Urine Glucose (UA) (Negative) Urine Ketones (Negative) Urine Blood (Negative) Urine Nitrite (Negative) Urine Bilirubin (Negative) Urine Urobilinogen (0.2-1.0) Ur Leukocyte Esterase (Negative) Urine RBC (0-2) Urine WBC (0-5) Ur Squamous Epith Cells (None-Few) Urine Bacteria (None) SARS-CoV-2 (PCR) (Negative) Influenza Type A (PCR) (Negative) Influenza Type B (PCR) (Negative) RSV (PCR) (Negative) Blood Type Antibody Screen Direct Antiglob Test NEGATIVE Crossmatch (AHG) Imaging Data CTA chest: Attestation: I have reviewed the pertinent imaging results. Radiologist's impression: 1. Negative for acute pulmonary embolism. 2. 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 3. New irregular consolidative opacities in the lower lobes likely due to infection. 4. Slightly increased size of a few solid noncalcified pulmonary nodules. 5. New mediastinal and bilateral hilar lymphadenopathy is likely reactive but technically indeterminate in the setting of known malignancy. Please note that all CT scans at this facility use dose modulation, iterative reconstruction, and/or weight-based dosing when appropriate to reduce radiation dose to as low as reasonably achievable. Dictated by Mya Villalobos MD @ 03/05/2024 9:12:[address] scan abdomen and pelvis: Attestation: I have reviewed the pertinent imaging results. Radiologist's impression: 1. Irregular enhancing mass in the distal sigmoid colon and rectum measuring approximately 10 cm in length compatible with known malignancy. Large stool burden. 2. Multilobulated septated rim enhancing presacral fluid collection posterior to the rectum. Findings could represent abscess. No definite osseous abnormality in the adjacent sacrum. 3. Subacute appearing fracture of the right lateral sacral ala. New sclerotic lesion in the right iliac bone is likely metastatic. 4. Multiple heterogeneous liver lesions compatible with metastatic disease. 5. Pericholecystic edema without calcified stones or other signs of gallbladder inflammation. This could be secondary to underlying liver disease. Please note that all CT scans at this facility use dose modulation, iterative reconstruction, and/or weight-based dosing when appropriate to reduce radiation dose to as low as reasonably achievable. Dictated by Mya Villalobos MD @ 03/05/2024 9:33:58 PM Chest x-ray: Attestation: I have reviewed the pertinent imaging results. Radiologist's impression: 1. Similar bilateral airspace disease. 2. Small right pleural effusion, increased since prior study. Dictated by Mervin López MD @ 03/06/2024 12:16:10 AM ECG Data Attestation: I personally reviewed and interpreted this ECG as follows: Prior ECG tracings: not available for review Interpretation: Sinus tachycardia with a rate of 107 beats per minute, normal axis, normal NV interval, prolonged QT, no ST or T-wave abnormality. Critical Care Time Critical Care Time Critical Care Time: Yes Attestation: The patient required my highest level preparedness to intervene emergently and I personally spent this critical care time directly and personally managing the patient. This critical care time included: Obtaining a history; Examining the patient; Pulse oximetry; Ordering and reviewing of studies; Arranging urgent treatment with development of a management plan; Evaluation of patients response to treatment; Frequent reassessment discussions with other providers. This critical care time was performed to assess and manage the high probability of imminent life-threatening deterioration that could result in multiorgan failure. It was exclusive of separate billable procedures and treating other patients and teaching time. Total Critical Care Time in Minutes: 75 Discharge Plan Discharge Clinical Impression: Abscess of pelvis, Septic shock Pneumonia Qualifiers: Pneumonia type: due to unspecified organism Laterality: bilateral Lung location: unspecified part of lung Qualified Code(s): J18.9 - Pneumonia, unspecified organism Anemia Qualifiers: Anemia type: other cause Other causes of anemia: chronic disease, neoplastic Qualified Code(s): D63.0 - Anemia in neoplastic disease Patient Disposition: Xfer [place] Condition: Critical Prescriptions: No Action minocycline 100 mg capsule 100 mg PO BID PRN Patient Comments: Just with Vectbix polyethylene glycol 3350 [Miralax] 17 gram/dose powder 4 g PO QDAY PRN (Reason: constipation) vitamin B 1 gummy PO lorazepam [Ativan] 0.5 mg tablet 0.5 mg PO QHS PRN (Reason: nausea, insomnia from chemotherapy) Qty: 30 0RF fluticasone propionate 110 mcg/actuation HFA aerosol inhaler 1 puff PO BID Qty: 12 0RF ibuprofen 200 mg capsule 200 mg PO Q6H PRN Cresemba 186 mg capsule 372 mg PO QDAY clindamycin phosphate 1 % gel 1 applic topical BID PRN acetaminophen 500 mg capsule 1,000 mg PO Q6H PRN calcium carbonate [Tums Ultra] 400 mg calcium (1,000 mg) tablet,chewable 400 mg PO QID PRN multivitamin [Daily Multi-Vitamin] Tablet 1 tab PO DAILY ascorbate calcium (vitamin C) 500 mg tablet 500 mg PO DAILY Vitamin D3 Vitron-C 65 mg iron- 125 mg tablet,delayed release (DR/EC) 1 tab PO DAILY PRN Metamucil 3.4 gram/5.4 gram powder 1 tbsp PO DAILY Rx Instructions: mix into at least 8 oz of water or juice before administering acyclovir 400 mg tablet 400 mg PO QDAY PRN (Reason: viral outbreak) Qty: 120 3RF Rx Instructions: 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 albuterol sulfate [Ventolin HFA] 90 mcg/actuation HFA aerosol inhaler 2 puff inhalation BID-QID PRN (Reason: shortness of breath or wheezing) Qty: 8.5 3RF ondansetron HCl 4 mg tablet 4 mg PO Q6H PRN (Reason: nausea and vomiting) Qty: 30 1RF Rx Instructions: Do not take within 24 hours of aloxi. prochlorperazine maleate 10 mg tablet 10 mg PO Q6H PRN (Reason: nausea and vomiting) Qty: 30 1RF Stand Alone Forms: [facility] Info Instructions
[2024-03-05 20:25] LABS: PCR FLU A Negative PCR FLU A (Negative); PCR FLU B Negative PCR FLU B (Negative); PCR RSV Negative PCR RSV (Negative); SARS PCR* Negative SARS-CoV-2 (Negative)
[2024-03-05 20:30] LABS: Troponin I* 0.62 ng/mL (0.01-0.04)
[2024-03-05] MEDS: PIPERACILLIN/TAZOBACTAM 3.375 GM in 0.9 % SODIUM CHLORIDE Mini-bag 100 ML IVPB (20:53)
[2024-03-05] MEDS: VANCOMYCIN 1 GM/200 ML 1 GM/200 ML PIGGYBACK IVPB (21:27)
[2024-03-05 23:21] LABS: Appearance Urine Clear (Clear); Bilirubin Urine Negative (Negative); Blood Urine Negative (Negative); Color Urine Yellow (Yellow); Glucose Urine Negative (Negative); Ketones Urine Negative (Negative); Leukocyte Esterase Urine Negative (Negative); Nitrite Urine Negative (Negative); Protein Urine Negative (Negative); Specific Gravity Urine <= 1.005 (1.000-1.030); Urobilinogen Urine 0.2 (0.2-1.0); pH Urine 5.5 (5.0-8.5)
[2024-03-05 23:30] LABS: Bacteria Urine Few; RBC Urine 0-2 (0-2); Squamous Epithelial Cell Urine Few (None-Few); WBC Urine 0-2 (0-5)
[2024-03-05] MEDS: diphenhydrAMINE 50 MG/ML inj 25 MG IVP (23:36)
[2024-03-05] MEDS: IPRAT-ALBUT 0.5-2.5 MG/3 ML NEB 1 NEB IH ×2 (23:36→23:55)
--- NOTE | 2024-03-05 23:56 | CRLHL7_ITS ---
For Patients: As a result of the Century Cures Act, medical imaging exams and procedure reports are released immediately into your electronic medical record. You may view this report before your referring provider. If you have questions, please contact your health care provider. INDICATION: Dyspnea, tachycardia. TECHNIQUE: Chest 1 view. COMPARISON: CT chest PE 03/05/2024. FINDINGS: Cardiovascular and mediastinum: Stable cardiomediastinal silhouette. Left chest wall port catheter, unchanged. Lungs and pleural spaces: Scattered bilateral lower lobe predominant airspace opacities, not significantly changed when allowing for differences in technique. Small right pleural effusion, increased since prior study. No pneumothorax. Bones and soft tissues: No significant findings. IMPRESSION: 1. Similar bilateral airspace disease. 2. Small right pleural effusion, increased since prior study. Dictated by Mervin López MD @ 03/06/2024 12:16:10 AM (Electronically Signed)
[2024-03-06 00:03] LABS: Basophils Percent Auto 0.5 % (0.0-3.0); Hematocrit 30.4 % (33.0-51.0); Hemoglobin* 8.8 gm/dL (12.0-16.0); Immature Granulocytes Pct Auto 0.3 %; Immature Reticulocyte Fraction 8.1 % (3.0-15.9); Lymphocytes Percent Auto 11.2 % (20-44); Mean Corpuscular HGB Conc 29 gm/dL (32-36); Mean Corpuscular Hemoglobin 26 pg (26-34); Mean Corpuscular Volume 90 fL (80-100); Monocytes Percent Auto 0.5 % (0.0-11.0); Neutrophils Percent Auto 87.5 % (42.0-72.0); Platelet Count* 384 K/uL (140-440); RDW Coefficient of Variation % 21.5 % (11.5-15.5); Red Blood Count 3.37 m/uL (4.00-5.20); Reticulocyte Hemoglobin Equivi 25.2 pg (29.0-35.0); Reticulocyte Percent 0.7 % (0.5-2.0); Reticulocytes Absolute 0.02 # (0.03-0.08); White Blood Count* 3.94 K/uL (4.50-11.00)
[2024-03-06 00:07] LABS: Slide Review Reflex No
[2024-03-06 00:21] LABS: Chloride* 107 mmol/L (96-114); Sodium* 137 mmol/L (135-149)
[2024-03-06 00:22] LABS: INR 1.32 (0.91-1.10); Potassium* 5.3 mmol/L (3.6-5.1); Prothrombin Time 17.3 Seconds
[2024-03-06 00:24] LABS: Alkaline Phosphatase* 590 U/L (40-150); Anion Gap 11 mEq/L (7-15); Aspartate Amino Transferase* 180 U/L (12-35); Bilirubin Total* 1.1 mg/dL (0.1-1.5); Blood Urea Nitrogen* 14 mg/dL (5-24); Calcium* 8.7 mg/dL (8.4-10.6); Carbon Dioxide* 19 mmol/L (20-32); Creatinine* 0.5 mg/dL (0.5-1.5); Estimated Glomerular Filt Rate 116 ml/min; Fibrinogen* 688 mg/dL (200-450); Glucose* 168 mg/dL (60-115)
[2024-03-06 00:27] LABS: ABG PCO2 27 mmHG (35-45); Carboxyhemoglobin* 1.2 % (0.0-5.0); HCO3 ABG 16 mmol/L (21-28); Oxygen Saturation ABG 97 % (92-100); PO2 ABG 84.8 mmHG (80-105); TCO2 ABG 15 mmol/l (21-30); pH ABG 7.38 (7.35-7.45)
[2024-03-06 00:32] LABS: Alanine Aminotransferase* 61 U/L (4-35)
[2024-03-06 00:35] LABS: Lactate Dehydrogenase* 1253 U/L (120-246)
[2024-03-06 01:06] VITALS: TEMP 40.1
[2024-03-06] MEDS: KETOROLAC 15 MG/ML inj IVP (01:06)
[2024-03-07 18:29] LABS: Haptoglobin 478 mg/dL (30-200)
== END 2024-03-06 01:27 | disposition short-term general hospital (02) ==
PROVIDERS: Family Medicine; Internal Medicine; Emergency Provider Student in an Organized Health Care Education/Training Program; PCP Family Medicine
DX: A41.9 Sepsis, unspecified organism (principal); N73.9 Female pelvic inflammatory disease, unspecified; R65.21 Severe sepsis with septic shock; J18.9 Pneumonia, unspecified organism; D64.9 Anemia, unspecified
CPT/HCPCS: 36415; 36430; 36600; 71045; 71275; 74177; 80048; 80053; 81001; 82248; 82803; 83010; 83605; 83615; 83880; 84145; 84484; 85025; 85045; 85379; 85384; 85610; 86850; 86880; 86900; 86901; 86922; 87040; 87086; 87186; 87631; 93005; 94761; 99285; 99291; J1200; J1885; J2543; J3372; J7030; P9016; Q9967

== ENCOUNTER 2024-03-06 00:39 | Outpatient (CLI) | payer OTHER, SELFPAY | END 2024-03-06 00:40 | disposition home or self-care (01) | LOC: AMB 03-13 08:16 | PROVIDERS: PCP Family Medicine; Visit Provider Internal Medicine | DX: N73.9 Female pelvic inflammatory disease, unspecified (principal); A41.9 Sepsis, unspecified organism; J18.9 Pneumonia, unspecified organism; R91.8 Other nonspecific abnormal finding of lung field; J90 Pleural effusion, not elsewhere classified; C19 Malignant neoplasm of rectosigmoid junction | CPT/HCPCS: A0425; A0434 ==

== ENCOUNTER 2024-04-25 10:41 | Emergency (ER) | payer BC, SELFPAY ==
[2024-04-25 10:48] VITALS: BP 119/86; PULSE 93; RESP 16; TEMP 36.6; O2SAT 95; BMI 18.8
[2024-04-25 11:31] LABS: Lactate* 0.9 mmol/L (0.5-1.9)
[2024-04-25 11:37] LABS: Basophils Absolute Auto 0.04 K/uL (0.00-0.30); Basophils Percent Auto 0.4 % (0.0-3.0); Eosinophils Percent Auto 8.6 % (0.0-7.0); Hematocrit 29.6 % (33.0-51.0); Hemoglobin* 8.8 gm/dL (12.0-16.0); Lymphocytes Percent Auto 8.1 % (20-44); Mean Corpuscular HGB Conc 30 gm/dL (32-36); Mean Corpuscular Hemoglobin 26 pg (26-34); Mean Corpuscular Volume 86 fL (80-100); Monocytes Percent Auto 9.9 % (0.0-11.0); Neutrophils Absolute Auto 7.32 K/uL (1.7-7.0); Platelet Count* 364 K/uL (140-440); Red Blood Count 3.43 m/uL (4.00-5.20); White Blood Count* 10.16 K/uL (4.50-11.00)
[2024-04-25 11:39] LABS: Slide Review Reflex No
--- NOTE | 2024-04-25 11:42 | ED_ITS ---
HPI - Abdominal Pain General Chief Complaint: Abdominal Pain Stated Complaint: upper abdominal pains Time Seen by Provider: 04/25/24 10:52 History of Present Illness HPI narrative: Patient is a 48-year-old woman who has a known history of metastatic colon cancer status post partial colectomy with colostomy who presents with a 24 hours of right upper quadrant pain. Patient has known metastases to her liver. She was concerned that she had a bowel obstruction but then this morning past a moderate amount of stool into her ostomy bag. She has had no fevers no chills no chest pain no shortness of breath no nausea no vomiting. She has had no blood in her stool output. She has had no similar symptoms previously. She continues eat a reasonable diet. She is noticeably thin and and cachectic. Related Data Home Medications ?Medication ?Instructions ?Recorded ?Confirmed ascorbate calcium (vitamin C) 500 500 mg PO DAILY 01/22/22 04/22/24 mg tablet acetaminophen 500 mg capsule 1,000 mg PO Q6H PRN 03/26/22 04/22/24 calcium carbonate (Tums Ultra) 400 mg PO QID PRN 03/26/22 04/22/24 multivitamin (Daily Multi-Vitamin 1 tab PO DAILY 04/25/22 04/22/24 tablet) Vitamin D3 12/25/22 04/22/24 iron,carbonyl 65 mg-vitamin C 125 1 tab PO DAILY PRN 01/16/23 04/22/24 mg tablet,delayed release (Vitron-C) vitamin B 1 gummy PO 01/16/23 04/22/24 ibuprofen 200 mg capsule 200 mg PO Q6H PRN 10/21/23 04/22/24 isavuconazonium sulfate 186 mg 372 mg PO QDAY 12/23/23 04/22/24 capsule (Cresemba) clindamycin phosphate 1 % topical 1 applic topical BID PRN 02/17/24 04/22/24 gel amoxicillin 875 mg tablet 875 mg PO BID 04/01/24 04/22/24 polyethylene glycol 3350 17 4 g PO QDAY constipation 04/01/24 04/22/24 gram/dose oral powder (Miralax) Previous Rx's ?Medication ?Instructions ?Recorded lorazepam 0.5 mg tablet (Ativan) 0.5 mg PO QHS PRN nausea, insomnia 04/01/23 from chemotherapy #30 tabs acyclovir 400 mg tablet 400 mg PO QDAY PRN viral outbreak 05/27/23 #120 tabs fluticasone propionate 110 1 puff PO BID #12 grams 09/30/23 mcg/actuation HFA aerosol inhaler albuterol sulfate 90 mcg/actuation 2 puff inhalation BID-QID PRN 10/28/23 aerosol inhaler (Ventolin HFA) shortness of breath or wheezing #8.5 grams ondansetron HCl 4 mg tablet 4 mg PO Q6H PRN nausea and 01/06/24 vomiting #30 tabs prochlorperazine maleate 10 mg 10 mg PO Q6H PRN nausea and 02/10/24 tablet vomiting #30 tabs hydrocodone 5 mg-acetaminophen 325 1 tab PO Q8H PRN pain #60 tabs 04/22/24 mg tablet morphine 10 mg capsule,extended 10 mg PO Q12H #60 caps 04/22/24 release pellets prednisone 10 mg tablet 10 mg PO QDAY #20 tabs 04/22/24 Allergies Allergy/AdvReac Type Severity Reaction Status Date / Time Latex, Natural Rubber Allergy Verified 04/25/24 10:48 Review of Systems Status of ROS Reports: 10 or more systems reviewed and unremarkable except as noted in History and below [facility] Medical History Bronchial obstruction ?J98.09 - Other diseases of bronchus, not elsewhere classified (ICD-10) Weight loss (09/2019) ?R63.4 - Abnormal weight loss (ICD-10) Primary malignant neoplasm of colorectal area with metastasis (2016) ?C19 - Malignant neoplasm of rectosigmoid junction (ICD-10) History of Mohs micrographic surgery for skin cancer (2015) ?Z85.828 - Personal history of other malignant neoplasm of skin (ICD-10) ?Z98.890 - Other specified postprocedural states (ICD-10) Pulmonary nodules ?R91.8 - Other nonspecific abnormal finding of lung field (ICD-10) Oral herpes simplex, not currently active ?B00.2 - Herpesviral gingivostomatitis and pharyngotonsillitis (ICD-10) Rectal cancer metastasized to liver ?C20 - Malignant neoplasm of rectum (ICD-10) ?C78.7 - Secondary malignant neoplasm of liver and intrahepatic bile duct (ICD-10) Rectal cancer metastasized to lung (~09/2021) ?C20 - Malignant neoplasm of rectum (ICD-10) ?C78.00 - Secondary malignant neoplasm of unspecified lung (ICD-10) Surgical History S/P Mohs surgery for basal cell carcinoma (2014) ?Z98.890 - Other specified postprocedural states (ICD-10) ?Z85.828 - Personal history of other malignant neoplasm of skin (ICD-10) History of dilation and curettage (2003) ?Z98.890 - Other specified postprocedural states (ICD-10) Family History Paternal Grandmother Colon cancer, Onset Age: 60 Social History Narrative: , no kids-has dog [employer] Non smoker does not drink alcohol Exercise involving walking dog 3 times daily every day Smoking Status: Former smoker Do you use any of these nicotine containing products: None Second hand tobacco smoke exposure: No How often do you have a drink containing alcohol: never How often do you have six or more drinks on one occasion: Never AUDIT-C Alcohol total score: 0 Non-prescribed substance use: denies use service: No Exam Narrative: Exam Narrative: EXAM GENERAL: Patient appears cachectic and frail. EYES: No scleral icterus. LYMPH: No supraclavicular or cervical lymphadenopathy. SKIN: Visible skin seen during exam normal or with benign process only. EXT: No dependent lower extremity pedal edema. HEART: Regular rate and rhythm with no murmurs, rubs, or gallops. LUNGS: Clear to auscultation bilaterally with no crackles or wheezes. ABD: Soft with colostomy in on the left lower quadrant. Significant hepatomegaly palpated. PSYCH: Good eye contact, speech is not pressured. Const: Vital Signs, click to edit/add: Vital Signs - 24 hr 04/25/24 10:48 04/25/24 13:39 Temperature 98 F 99 F Pulse Rate [Pulse Oximeter] 93 90 Respiratory Rate 16 18 Blood Pressure [Ri ght Upper Arm] 119/86 116/83 Pulse Oximetry 95 99 Oxygen Delivery Me thod Room Air Room Air Course Course ED Course: Patient seen and examined. Labs and CT of the abdomen pelvis pending. Vital Signs Vital signs: Initial Vital Signs Temperature 98 F 04/25/24 10:48 Temperature Source Temporal Artery Scan 04/25/24 10:48 Pulse Rate 93 04/25/24 10:48 Pulse Rhythm Regular 04/25/24 10:48 Respiratory Rate 16 04/25/24 10:48 Blood Pressure 119/86 04/25/24 10:48 Blood Pressure Mean 97 04/25/24 10:48 Blood Pressure Position High-Fowlers 04/25/24 10:48 Pulse Oximetry 95 04/25/24 10:48 Oxygen Delivery Method Room Air 04/25/24 10:48 Vital Signs Temperature 98 F 04/25/24 10:48 Pulse Rate 93 04/25/24 10:48 Respiratory Rate 16 04/25/24 10:48 Blood Pressure 119/86 04/25/24 10:48 Pulse Oximetry 95 04/25/24 10:48 Oxygen Delivery Method Room Air 04/25/24 10:48 Temperature 99 F 04/25/24 13:39 Pulse Rate 90 04/25/24 13:39 Respiratory Rate 18 04/25/24 13:39 Blood Pressure 116/83 04/25/24 13:39 Pulse Oximetry 99 04/25/24 13:39 Oxygen Delivery Method Room Air 04/25/24 13:39 MDM - Abdominal Pain MDM Narrative Medical decision making narrative: Patient is a 48-year-old woman with a history of metastatic colorectal cancer who presents with right upper pain of unclear etiology. Her labs done today are actually improved from her previous. CT of the abdomen pelvis without oral contrast showed did no major changes from previous. At this time I suspicion is that she has liver capsular pain due to the numerous metastases. I do not believe any further intervention is needed today but I did encourage her to follow-up with her oncologist this coming week. Lab Data Labs: Lab Results 04/25/24 04/25/24 Range/Units 11:24 11:30 WBC 10.16 (4.50-11.00) K/uL RBC 3.43 L (4.00-5.20) m/uL Hgb 8.8 L (12.0-16.0) gm/dL Hct 29.6 L (33.0-51.0) % MCV 86 (80-100) fL MCH 26 (26-34) pg MCHC 30 L (32-36) gm/dL RDW Coeff of Sandra 17.0 H (11.5-15.5) % Plt Count 364 (140-440) K/uL Neut % (Auto) 72.0 (42.0-72.0) % Lymph % (Auto) 8.1 L (20-44) % [place] % (Auto) 9.9 (0.0-11.0) % Eos % (Auto) 8.6 H (0.0-7.0) % Baso % (Auto) 0.4 (0.0-3.0) % Neut # (Auto) 7.32 H (1.7-7.0) K/uL Lymph # (Auto) 0.80 L (0.90-2.90) K/uL [place] # (Auto) 1.00 H (0.00-0.90) K/UL Eos # (Auto) 0.90 H (0.00-0.50) K/uL Baso # (Auto) 0.04 (0.00-0.30) K/uL Abs Immat Gran (auto) 0.10 (0.00-0.30) K/uL Imm/Tot Granulo (auto) 1.0 % Sodium 135 (135-149) mmol/L Potassium 4.2 (3.6-5.1) mmol/L Chloride 101 (96-114) mmol/L Carbon Dioxide 29 (20-32) mmol/L Anion Gap 5 L (7-15) mEq/L BUN 11 (5-24) mg/dL Creatinine 0.3 L (0.5-1.5) mg/dL Estimated Creat Clear 174.07 Estimated GFR 131 ml/min Glucose 95 (60-115) mg/dL Lactate 0.9 (0.5-1.9) mmol/L Calcium 9.1 (8.4-10.6) mg/dL Total Bilirubin 0.5 (0.1-1.5) mg/dL AST 88 H (12-35) U/L ALT 98 H (4-35) U/L Alkaline Phosphatase 1478 H (40-150) U/L Total Protein 6.9 (6.0-8.3) g/dL Albumin 3.7 (3.3-5.0) g/dL Lipase 22 L (23-300) U/L Urine Color Yellow (Yellow) Urine Appearance Clear (Clear) Urine pH 6.0 (5.0-8.5) Ur Specific [place] 1.015 (1.000-1.030) Urine Protein 1+ A (Negative) Urine Glucose (UA) Negative (Negative) Urine Ketones Negative (Negative) Urine Blood Negative (Negative) Urine Nitrite Negative (Negative) Urine Bilirubin Negative (Negative) Urine Urobilinogen 0.2 (0.2-1.0) Ur Leukocyte Esterase Negative (Negative) Urine RBC 0-2 (0-2) Urine WBC 0-2 (0-5) Ur Squamous Epith Cells Few (None-Few) Urine Bacteria None (None) Discharge Plan Discharge Clinical Impression: Abdominal pain Patient Disposition: Home, Self-Care Condition: Stable Instructions: Abdominal Pain (ED) Additional Instructions: Continue current medications with symptomatic care. Please touch base with Oncology this coming week. Activity Level: No Restrictions Discharge Diet: Regular Prescriptions: No Action amoxicillin 875 mg tablet 875 mg PO BID polyethylene glycol 3350 [Miralax] 17 gram/dose powder 4 g PO QDAY vitamin B 1 gummy PO lorazepam [Ativan] 0.5 mg tablet 0.5 mg PO QHS PRN (Reason: nausea, insomnia from chemotherapy) Qty: 30 0RF fluticasone propionate 110 mcg/actuation HFA aerosol inhaler 1 puff PO BID Qty: 12 0RF ibuprofen 200 mg capsule 200 mg PO Q6H PRN Cresemba 186 mg capsule 372 mg PO QDAY clindamycin phosphate 1 % gel 1 applic topical BID PRN prednisone 10 mg tablet 10 mg PO QDAY Qty: 20 0RF Rx Instructions: see taper instructions morphine 10 mg capsule,extend.release pellets 10 mg PO Q12H Qty: 60 0RF hydrocodone-acetaminophen 5-325 mg tablet 1 tab PO Q8H PRN (Reason: pain) Qty: 60 0RF acetaminophen 500 mg capsule 1,000 mg PO Q6H PRN calcium carbonate [Tums Ultra] 400 mg calcium (1,000 mg) tablet,chewable 400 mg PO QID PRN multivitamin [Daily Multi-Vitamin] Tablet 1 tab PO DAILY ascorbate calcium (vitamin C) 500 mg tablet 500 mg PO DAILY Vitamin D3 Vitron-C 65 mg iron- 125 mg tablet,delayed release (DR/EC) 1 tab PO DAILY PRN acyclovir 400 mg tablet 400 mg PO QDAY PRN (Reason: viral outbreak) Qty: 120 3RF Rx Instructions: 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 albuterol sulfate [Ventolin HFA] 90 mcg/actuation HFA aerosol inhaler 2 puff inhalation BID-QID PRN (Reason: shortness of breath or wheezing) Qty: 8.5 3RF ondansetron HCl 4 mg tablet 4 mg PO Q6H PRN (Reason: nausea and vomiting) Qty: 30 1RF Rx Instructions: Do not take within 24 hours of aloxi. prochlorperazine maleate 10 mg tablet 10 mg PO Q6H PRN (Reason: nausea and vomiting) Qty: 30 1RF Follow Up/Referrals: Charisma Oliveira MD [Primary Care Provider] - Stand Alone Forms: [facility] Info Instructions
[2024-04-25 11:49] LABS: Albumin* 3.7 g/dL (3.3-5.0); Chloride* 101 mmol/L (96-114); Potassium* 4.2 mmol/L (3.6-5.1); Sodium* 135 mmol/L (135-149)
[2024-04-25 11:49] LABS: Appearance Urine Clear (Clear); Bilirubin Urine Negative (Negative); Blood Urine Negative (Negative); Color Urine Yellow (Yellow); Glucose Urine Negative (Negative); Ketones Urine Negative (Negative); Leukocyte Esterase Urine Negative (Negative); Nitrite Urine Negative (Negative); Protein Urine 1+ (Negative); Specific Gravity Urine 1.015 (1.000-1.030); Urobilinogen Urine 0.2 (0.2-1.0)
[2024-04-25 11:52] LABS: Alanine Aminotransferase* 98 U/L (4-35); Anion Gap 5 mEq/L (7-15); Aspartate Amino Transferase* 88 U/L (12-35); Bilirubin Total* 0.5 mg/dL (0.1-1.5); Blood Urea Nitrogen* 11 mg/dL (5-24); Carbon Dioxide* 29 mmol/L (20-32); Creatinine* 0.3 mg/dL (0.5-1.5); Est. Creatinine Clearance* 174.07; Estimated Glomerular Filt Rate 131 ml/min; Glucose* 95 mg/dL (60-115); Lipase* 22 U/L (23-300); Total Protein* 6.9 g/dL (6.0-8.3)
[2024-04-25 11:53] LABS: Calcium* 9.1 mg/dL (8.4-10.6)
[2024-04-25 11:59] LABS: Alkaline Phosphatase* 1478 U/L (40-150)
[2024-04-25 12:11] LABS: RBC Urine 0-2 (0-2); WBC Urine 0-2 (0-5)
[2024-04-25 12:12] LABS: Squamous Epithelial Cell Urine Few (None-Few)
--- NOTE | 2024-04-25 12:40 | CRLHL7_ITS ---
For Patients: As a result of the Century Cures Act, medical imaging exams and procedure reports are released immediately into your electronic medical record. You may view this report before your referring provider. If you have questions, please contact your health care provider. Indication: Abdomen RUQ pain Technique: CT abdomen/pelvis without IV contrast Comparison: CT abdomen/pelvis on March 05, 2024 Findings: Lower thorax: Redemonstration of similar-appearing cystic spaces throughout the bilateral lung bases and consolidative opacities in the bilateral lung bases with a few solid, sub centimeter pulmonary nodules bilaterally. Abdomen/pelvis: Redemonstration of several low-density hepatic lesions, incompletely characterized on this unenhanced exam. The gallbladder and biliary system are unremarkable. The spleen, pancreas, and adrenal glands are unremarkable. The kidneys, ureters, and bladder are unremarkable in appearance. Similar-appearing left of midline uterus. No appreciable adnexal lesions. Small hiatal hernia. There is no evidence of bowel obstruction. Large volume stool burden throughout the colon. Postsurgical changes of partial left colectomy with likely end colostomy in the left lower quadrant and Anna Marie`s pouch with suture material seen at the stoma. Trace free fluid in the left lower quadrant. No free air. No abdominopelvic lymphadenopathy. The vasculature is unremarkable. Soft tissue/musculoskeletal: Healed midline abdominal incision and left lower quadrant stoma are unremarkable in appearance. The bones are unremarkable in appearance. Impression: 1. Postsurgical changes of partial left colectomy with likely end colostomy in the left lower quadrant and Anna Marie`s pouch with suture material seen at the stoma. 2. No evidence of bowel obstruction. Large volume stool burden throughout the colon. 3. Trace free fluid in the left lower quadrant, of uncertain etiology or clinical significance. There is otherwise no definitive evidence of small or large bowel obstruction. 4. Redemonstration of similar-appearing cystic spaces throughout the bilateral lung bases and consolidative opacities in the bilateral lung bases with a few solid, sub centimeter pulmonary nodules bilaterally. Please note that all CT scans at this facility use dose modulation, iterative reconstruction, and/or weight-based dosing when appropriate to reduce radiation dose to as low as reasonably achievable. Dictated by Brayan Alcala MD @ 04/25/2024 2:27:14 PM (Electronically Signed)
[2024-04-25 13:39] VITALS: BP 116/83; PULSE 90; RESP 18; TEMP 37.2; O2SAT 99
[2024-04-25] MEDS: HEPARIN 500 UNIT/5 ML SYRINGE IVF (15:48)
== END 2024-04-25 14:54 | disposition home or self-care (01) ==
PROVIDERS: Emergency Provider Internal Medicine; PCP Family Medicine
DX: R10.11 Right upper quadrant pain (principal)
CPT/HCPCS: 36415; 74176; 80053; 81001; 81003; 83605; 83690; 85025; 99283; 99284; J1642

== ENCOUNTER 2024-05-06 13:30 | Outpatient (RCR) | payer BC, MEDICAID, OTHER, SELFPAY ==
[2023-11-11 08:50] LABS: Basophils Absolute Auto 0.02 K/uL (0.00-0.30); Basophils Percent Auto 0.3 % (0.0-3.0); Eosinophils Percent Auto 8.6 % (0.0-7.0); Hematocrit 34.6 % (33.0-51.0); Hemoglobin* 10.3 gm/dL (12.0-16.0); Lymphocytes Percent Auto 12.1 % (20-44); Mean Corpuscular HGB Conc 30 gm/dL (32-36); Mean Corpuscular Hemoglobin 27 pg (26-34); Mean Corpuscular Volume 92 fL (80-100); Monocytes Percent Auto 10.1 % (0.0-11.0); Neutrophils Absolute Auto 4.79 K/uL (1.7-7.0); Neutrophils Percent Auto 68.9 % (42.0-72.0); Platelet Count* 204 K/uL (140-440); RDW Coefficient of Variation % 17.6 % (11.5-15.5); Red Blood Count 3.77 m/uL (4.00-5.20); White Blood Count* 6.95 K/uL (4.50-11.00)
[2023-11-11 08:55] LABS: Slide Review Reflex No
[2023-11-11 09:06] LABS: Albumin* 3.9 g/dL (3.3-5.0); Chloride* 104 mmol/L (96-114)
[2023-11-11 09:07] LABS: Potassium* 4.1 mmol/L (3.6-5.1); Sodium* 138 mmol/L (135-149)
[2023-11-11 09:09] LABS: Alkaline Phosphatase* 239 U/L (40-150); Anion Gap 6 mEq/L (7-15); Aspartate Amino Transferase* 43 U/L (12-35); Bilirubin Total* 0.3 mg/dL (0.1-1.5); Carbon Dioxide* 28 mmol/L (20-32); Creatinine* 0.5 mg/dL (0.5-1.5); Estimated Glomerular Filt Rate 116 ml/min; Total Protein* 7.3 g/dL (6.0-8.3)
[2023-11-11 09:10] LABS: Alanine Aminotransferase* 26 U/L (4-35); Blood Urea Nitrogen* 9 mg/dL (5-24); Calcium* 9.3 mg/dL (8.4-10.6); Glucose* 100 mg/dL (60-115); Magnesium* 2.2 mg/dL (1.5-2.6)
[2023-11-11 09:40] VITALS: BP 100/66; PULSE 101; RESP 14; TEMP 36.7; O2SAT 96
[2023-11-11] MEDS: PALONOSETRON 0.25 MG/5 ML inj IV (10:07)
[2023-11-11] MEDS: FOSAPREPITANT 150 MG inj 150 MG in 0.9 % SODIUM CHLORIDE 250 ml 250 ML 510 MG IVPB (10:27)
[2023-11-11] MEDS: dexAMETHasone 10 MG in 0.9 % SODIUM CHLORIDE 100 ml 100 ML 404 MG IVPB (11:06)
[2023-11-11] MEDS: diphenhydrAMINE 25 MG CAPSULE PO (12:05)
[2023-11-11] MEDS: LEUCOVORIN CALCIUM 100 MG, TUBING SECONDARY 1 EACH in 5 % DEXTROSE 250 ML 250 ML 170 MG IV (12:41)
[2023-11-13 03:13] LABS: Carcinoembryonic Antigen 29.8 ng/mL (<=3.8)
[2023-11-13 12:27] VITALS: BP 104/71; PULSE 80; RESP 16; TEMP 36.8; O2SAT 99
[2023-11-13] MEDS: SODIUM CHLORIDE 0.9 % (FLUSH) 10 ML SYRINGE IVF (13:00)
[2023-11-13] MEDS: HEPARIN 500 UNIT/5 ML SYRINGE IVF (13:00)
--- NOTE | 2023-11-22 13:26 | URNOTE ---
Per [employer], prior auth is not required for Fluorouracil (J9190), Irinotecan (J9206), Leucovorin (J0640) and Fosaprepitant (J1453). Ref #[id number] Per [facility], Vectibix has been approved, 400mg every 14 days for 13 doses. 11/25/2023-05/22/2024. Ref #[id number] Zirabev (Q5118) has been approved, 300mg every 14 days for 13 doses. 11/25/2023-05/22/2024. Ref #[id number] Aloxi (J2469) has been approved, 250mg every 14 for 13 doses, 11/25/2023-05/22/2024. Ref #[id number]
[2023-11-25 08:29] LABS: Basophils Absolute Auto 0.05 K/uL (0.00-0.30); Basophils Percent Auto 0.6 % (0.0-3.0); Eosinophils Percent Auto 8.4 % (0.0-7.0); Hematocrit 33.8 % (33.0-51.0); Hemoglobin* 10.1 gm/dL (12.0-16.0); Immature Granulocytes Abs Auto 0.02 K/uL (0.00-0.30); Immature Granulocytes Pct Auto 0.3 %; Mean Corpuscular HGB Conc 30 gm/dL (32-36); Mean Corpuscular Hemoglobin 27 pg (26-34); Mean Corpuscular Volume 91 fL (80-100); Neutrophils Absolute Auto 5.26 K/uL (1.7-7.0); Neutrophils Percent Auto 66.7 % (42.0-72.0); Platelet Count* 243 K/uL (140-440); RDW Coefficient of Variation % 17.4 % (11.5-15.5); Red Blood Count 3.72 m/uL (4.00-5.20); White Blood Count* 7.89 K/uL (4.50-11.00)
[2023-11-25 08:30] LABS: Slide Review Reflex No
[2023-11-25 08:44] LABS: Albumin* 3.8 g/dL (3.3-5.0); Chloride* 104 mmol/L (96-114); Potassium* 4.1 mmol/L (3.6-5.1); Sodium* 138 mmol/L (135-149)
[2023-11-25 08:46] LABS: Creatinine* 0.5 mg/dL (0.5-1.5); Estimated Glomerular Filt Rate 116 ml/min
[2023-11-25 08:47] LABS: Alanine Aminotransferase* 22 U/L (4-35); Alkaline Phosphatase* 282 U/L (40-150); Anion Gap 6 mEq/L (7-15); Aspartate Amino Transferase* 38 U/L (12-35); Bilirubin Total* 0.2 mg/dL (0.1-1.5); Blood Urea Nitrogen* 9 mg/dL (5-24); Carbon Dioxide* 28 mmol/L (20-32); Glucose* 80 mg/dL (60-115); Total Protein* 7.1 g/dL (6.0-8.3)
[2023-11-25 08:48] LABS: Calcium* 9.2 mg/dL (8.4-10.6); Magnesium* 2.1 mg/dL (1.5-2.6); Total Protein Urine 10 mg/dL
[2023-11-25 08:50] LABS: Protein Creatinine Ratio Urine 0.11 (0-0.19)
[2023-11-25] MEDS: 0.9 % SODIUM CHLORIDE 250 ml IV (11:39)
[2023-11-25] MEDS: dexAMETHasone 10 MG in 0.9 % SODIUM CHLORIDE 100 ml 100 ML 404 MG IVPB (11:39)
[2023-11-25] MEDS: PALONOSETRON 0.25 MG/5 ML inj IV (11:39)
[2023-11-25] MEDS: SODIUM CHLORIDE 0.9 % (FLUSH) 10 ML SYRINGE IVF (11:39)
[2023-11-25] MEDS: FOSAPREPITANT 150 MG inj 150 MG in 0.9 % SODIUM CHLORIDE 250 ml 250 ML 700 MG IVPB (12:00)
[2023-11-25] MEDS: LEUCOVORIN CALCIUM 100 MG, TUBING SECONDARY 1 EACH in 5 % DEXTROSE 250 ML 250 ML 170 MG IV (12:40)
[2023-11-25] MEDS: 5 % DEXTROSE 250 ML IV (13:36)
[2023-11-27] MEDS: SODIUM CHLORIDE 0.9 % (FLUSH) 10 ML SYRINGE IVF (15:08)
[2023-11-27] MEDS: HEPARIN 500 UNIT/5 ML SYRINGE IVF (15:08)
[2023-11-27 15:17] VITALS: BP 99/61; PULSE 64; RESP 18; TEMP 36.1; O2SAT 99
--- NOTE | 2023-12-11 14:22 | ONC.NURNOTE ---
Patient's chemo is delayed d/t inez. She has follow up with Pulmonology in [place] on 12/16/2023. Dr. Schulz would like to meet with patient on 12/22 to discuss this and determine if she is able to restart chemo. Patient's PET scan was delayed to 12/25, Dr. Schulz and clinic nurse will contact patient with results or squeeze her into the schedule if needed.
[2023-12-23 08:32] LABS: Basophils Percent Auto 0.4 % (0.0-3.0); Eosinophils Percent Auto 7.9 % (0.0-7.0); Hematocrit 33.7 % (33.0-51.0); Hemoglobin* 10.1 gm/dL (12.0-16.0); Immature Granulocytes Pct Auto 0.1 %; Lymphocytes Percent Auto 7.2 % (20-44); Mean Corpuscular HGB Conc 30 gm/dL (32-36); Mean Corpuscular Hemoglobin 27 pg (26-34); Mean Corpuscular Volume 89 fL (80-100); Monocytes Percent Auto 7.5 % (0.0-11.0); Neutrophils Percent Auto 76.9 % (42.0-72.0); Platelet Count* 301 K/uL (140-440); RDW Coefficient of Variation % 17.7 % (11.5-15.5); Red Blood Count 3.79 m/uL (4.00-5.20); White Blood Count* 13.83 K/uL (4.50-11.00)
[2023-12-23 08:33] LABS: Slide Review Reflex No
[2023-12-23 08:44] LABS: Albumin* 3.8 g/dL (3.3-5.0); Chloride* 105 mmol/L (96-114)
[2023-12-23 08:45] LABS: Potassium* 4.4 mmol/L (3.6-5.1); Sodium* 137 mmol/L (135-149)
[2023-12-23 08:47] LABS: Alkaline Phosphatase* 242 U/L (40-150); Anion Gap 6 mEq/L (7-15); Aspartate Amino Transferase* 33 U/L (12-35); Bilirubin Total* 0.2 mg/dL (0.1-1.5); Blood Urea Nitrogen* 12 mg/dL (5-24); Carbon Dioxide* 26 mmol/L (20-32); Creatinine* 0.5 mg/dL (0.5-1.5); Est. Creatinine Clearance* 113.82; Estimated Glomerular Filt Rate 116 ml/min; Total Protein* 7.2 g/dL (6.0-8.3)
[2023-12-23 08:48] LABS: Alanine Aminotransferase* 19 U/L (4-35); Calcium* 9.1 mg/dL (8.4-10.6); Glucose* 95 mg/dL (60-115)
[2023-12-23] MEDS: dexAMETHasone 10 MG in 0.9 % SODIUM CHLORIDE 100 ml 100 ML 404 MG IVPB (10:50)
[2023-12-23] MEDS: PALONOSETRON 0.25 MG/5 ML inj IV (10:51)
[2023-12-23] MEDS: FOSAPREPITANT 150 MG inj 150 MG in 0.9 % SODIUM CHLORIDE 250 ml 250 ML 800 MG IVPB (11:14)
[2023-12-23] MEDS: LEUCOVORIN CALCIUM 100 MG, TUBING SECONDARY 1 EACH in 5 % DEXTROSE 250 ML 250 ML 510 MG IV (11:36)
[2023-12-23 12:00] LABS: Magnesium* 2.1 mg/dL (1.5-2.6)
[2023-12-25] MEDS: SODIUM CHLORIDE 0.9 % (FLUSH) 10 ML SYRINGE IVF (11:20)
[2023-12-25] MEDS: HEPARIN 500 UNIT/5 ML SYRINGE IVF (11:20)
[2023-12-25 11:34] VITALS: BP 92/61; PULSE 78; RESP 16; TEMP 36.1; O2SAT 98
[2024-01-06 08:23] VITALS: BP 115/81; PULSE 75; RESP 16; TEMP 36; O2SAT 100
[2024-01-06 08:40] LABS: Basophils Absolute Auto 0.03 K/uL (0.00-0.30); Basophils Percent Auto 0.4 % (0.0-3.0); Eosinophils Percent Auto 12.9 % (0.0-7.0); Hematocrit 33.7 % (33.0-51.0); Hemoglobin* 10.1 gm/dL (12.0-16.0); Immature Granulocytes Abs Auto 0.01 K/uL (0.00-0.30); Immature Granulocytes Pct Auto 0.1 %; Lymphocytes Percent Auto 11.5 % (20-44); Mean Corpuscular HGB Conc 30 gm/dL (32-36); Mean Corpuscular Hemoglobin 27 pg (26-34); Mean Corpuscular Volume 89 fL (80-100); Neutrophils Absolute Auto 4.83 K/uL (1.7-7.0); Neutrophils Percent Auto 64.1 % (42.0-72.0); Platelet Count* 247 K/uL (140-440); RDW Coefficient of Variation % 18.4 % (11.5-15.5); Red Blood Count 3.79 m/uL (4.00-5.20); White Blood Count* 7.54 K/uL (4.50-11.00)
[2024-01-06 09:00] LABS: Albumin* 3.7 g/dL (3.3-5.0); Chloride* 103 mmol/L (96-114); Sodium* 137 mmol/L (135-149)
[2024-01-06 09:01] LABS: Potassium* 3.9 mmol/L (3.6-5.1)
[2024-01-06 09:02] LABS: Slide Review Reflex No
[2024-01-06 09:03] LABS: Alanine Aminotransferase* 21 U/L (4-35); Alkaline Phosphatase* 239 U/L (40-150); Anion Gap 8 mEq/L (7-15); Aspartate Amino Transferase* 30 U/L (12-35); Bilirubin Total* 0.1 mg/dL (0.1-1.5); Blood Urea Nitrogen* 14 mg/dL (5-24); Carbon Dioxide* 26 mmol/L (20-32); Creatinine* 0.6 mg/dL (0.5-1.5); Est. Creatinine Clearance* 95.82; Estimated Glomerular Filt Rate 111 ml/min; Glucose* 105 mg/dL (60-115); Magnesium* 2.2 mg/dL (1.5-2.6); Total Protein* 6.9 g/dL (6.0-8.3)
[2024-01-06 09:04] LABS: Calcium* 8.9 mg/dL (8.4-10.6)
[2024-01-06] MEDS: 0.9 % SODIUM CHLORIDE 250 ml IV (10:00)
[2024-01-06] MEDS: SODIUM CHLORIDE 0.9 % (FLUSH) 10 ML SYRINGE IVF ×2 (10:01→11:17)
[2024-01-06] MEDS: dexAMETHasone 10 MG/ML inj IVP (10:30)
[2024-01-06] MEDS: LEUCOVORIN CALCIUM 100 MG, TUBING SECONDARY 1 EACH in 5 % DEXTROSE 250 ML 250 ML 510 MG IV (10:36)
[2024-01-08 08:32] VITALS: BP 102/71; PULSE 87; RESP 16; TEMP 36.3; O2SAT 96
[2024-01-08] MEDS: SODIUM CHLORIDE 0.9 % (FLUSH) 10 ML SYRINGE IVF (08:40)
[2024-01-08] MEDS: HEPARIN 500 UNIT/5 ML SYRINGE IVF (08:40)
--- NOTE | 2024-01-08 08:58 | ONC.NURNOTE ---
Changes in Anti-Emetic Plan With pt's chemo regimen change to Vectibix, Leucovorin and 5FU Cadd pump, dc'd Emend and Aloxi. Proceeded this cycle with Dex 10mg IV as premed, then oral Ondansetron and Prochlorperazine at home. Pt reports she took her usual Prochlorperazine ~ BID x 2 days after chemo and added in Ondansetron ~ BID in between and had adequate nausea relief.
[2024-01-09] MEDS: HEPARIN 500 UNIT/5 ML SYRINGE IVF (09:57)
[2024-01-09] MEDS: SODIUM CHLORIDE 0.9 % (FLUSH) 10 ML SYRINGE IVF (09:57)
[2024-01-20 08:22] LABS: Basophils Absolute Auto 0.04 K/uL (0.00-0.30); Basophils Percent Auto 0.4 % (0.0-3.0); Eosinophils Percent Auto 9.8 % (0.0-7.0); Hematocrit 34.1 % (33.0-51.0); Hemoglobin* 10.3 gm/dL (12.0-16.0); Immature Granulocytes Abs Auto 0.01 K/uL (0.00-0.30); Immature Granulocytes Pct Auto 0.1 %; Lymphocytes Percent Auto 8.8 % (20-44); Mean Corpuscular HGB Conc 30 gm/dL (32-36); Mean Corpuscular Hemoglobin 26 pg (26-34); Mean Corpuscular Volume 87 fL (80-100); Monocytes Percent Auto 11.1 % (0.0-11.0); Neutrophils Absolute Auto 7.18 K/uL (1.7-7.0); Neutrophils Percent Auto 69.8 % (42.0-72.0); Platelet Count* 274 K/uL (140-440); RDW Coefficient of Variation % 19.4 % (11.5-15.5); Red Blood Count 3.91 m/uL (4.00-5.20); White Blood Count* 10.28 K/uL (4.50-11.00)
[2024-01-20 08:24] LABS: Slide Review Reflex No
[2024-01-20 08:27] LABS: Albumin* 3.7 g/dL (3.3-5.0); Chloride* 102 mmol/L (96-114)
[2024-01-20 08:28] LABS: Sodium* 134 mmol/L (135-149)
[2024-01-20 08:30] LABS: Alkaline Phosphatase* 286 U/L (40-150); Anion Gap 4 mEq/L (7-15); Aspartate Amino Transferase* 37 U/L (12-35); Bilirubin Total* 0.2 mg/dL (0.1-1.5); Blood Urea Nitrogen* 10 mg/dL (5-24); Carbon Dioxide* 28 mmol/L (20-32); Creatinine* 0.5 mg/dL (0.5-1.5); Est. Creatinine Clearance* 114.98; Estimated Glomerular Filt Rate 116 ml/min; Total Protein* 6.8 g/dL (6.0-8.3)
[2024-01-20 08:31] LABS: Alanine Aminotransferase* 25 U/L (4-35); Calcium* 9.1 mg/dL (8.4-10.6); Glucose* 91 mg/dL (60-115)
[2024-01-20 08:40] LABS: Magnesium* 2.1 mg/dL (1.5-2.6)
[2024-01-20] MEDS: dexAMETHasone 10 MG/ML inj IVP (10:04)
[2024-01-20] MEDS: LEUCOVORIN CALCIUM 100 MG, TUBING SECONDARY 1 EACH in 5 % DEXTROSE 250 ML 250 ML 510 MG IV (10:12)
[2024-01-20] MEDS: SODIUM CHLORIDE 0.9 % (FLUSH) 10 ML SYRINGE IVF (10:14)
[2024-01-21 21:52] LABS: Carcinoembryonic Antigen 62.6 ng/mL (<=3.8)
[2024-01-22 09:07] VITALS: BP 106/71; PULSE 74; RESP 16; TEMP 36.1; O2SAT 100
[2024-01-22] MEDS: HEPARIN 500 UNIT/5 ML SYRINGE IVF (09:16)
[2024-01-22] MEDS: SODIUM CHLORIDE 0.9 % (FLUSH) 10 ML SYRINGE IVF (09:16)
[2024-02-03] MEDS: SODIUM CHLORIDE 0.9 % (FLUSH) 10 ML SYRINGE IVF ×2 (08:17→11:22)
[2024-02-03 08:24] LABS: Basophils Absolute Auto 0.04 K/uL (0.00-0.30); Basophils Percent Auto 0.4 % (0.0-3.0); Eosinophils Percent Auto 9.7 % (0.0-7.0); Hematocrit 33.7 % (33.0-51.0); Hemoglobin* 10.3 gm/dL (12.0-16.0); Immature Granulocytes Abs Auto 0.02 K/uL (0.00-0.30); Immature Granulocytes Pct Auto 0.2 %; Lymphocytes Percent Auto 9.3 % (20-44); Mean Corpuscular HGB Conc 31 gm/dL (32-36); Mean Corpuscular Hemoglobin 27 pg (26-34); Mean Corpuscular Volume 88 fL (80-100); Monocytes Percent Auto 10.7 % (0.0-11.0); Neutrophils Absolute Auto 6.59 K/uL (1.7-7.0); Neutrophils Percent Auto 69.7 % (42.0-72.0); Platelet Count* 280 K/uL (140-440); RDW Coefficient of Variation % 20.6 % (11.5-15.5); Red Blood Count 3.85 m/uL (4.00-5.20); White Blood Count* 9.46 K/uL (4.50-11.00)
[2024-02-03 08:27] LABS: Slide Review Reflex Yes
[2024-02-03 08:40] LABS: Magnesium* 2.1 mg/dL (1.5-2.6)
[2024-02-03 08:41] LABS: Slide Review Acceptable Review (Acceptable)
[2024-02-03 08:52] LABS: Albumin* 3.6 g/dL (3.3-5.0); Chloride* 103 mmol/L (96-114)
[2024-02-03 08:53] LABS: Sodium* 136 mmol/L (135-149)
[2024-02-03 08:55] LABS: Alanine Aminotransferase* 29 U/L (4-35); Alkaline Phosphatase* 340 U/L (40-150); Anion Gap 6 mEq/L (7-15); Aspartate Amino Transferase* 41 U/L (12-35); Bilirubin Total* 0.2 mg/dL (0.1-1.5); Blood Urea Nitrogen* 7 mg/dL (5-24); Carbon Dioxide* 27 mmol/L (20-32); Creatinine* 0.5 mg/dL (0.5-1.5); Est. Creatinine Clearance* 113.82; Estimated Glomerular Filt Rate 116 ml/min; Glucose* 93 mg/dL (60-115); Total Protein* 6.7 g/dL (6.0-8.3)
[2024-02-03 09:07] VITALS: BP 97/65; PULSE 86; RESP 16; TEMP 36.2; O2SAT 97
[2024-02-03] MEDS: dexAMETHasone 10 MG/ML inj IVP (09:36)
[2024-02-03] MEDS: LEUCOVORIN CALCIUM 100 MG, TUBING SECONDARY 1 EACH in 5 % DEXTROSE 250 ML 250 ML 510 MG IV (10:48)
[2024-02-03] MEDS: 0.9 % SODIUM CHLORIDE 500 ML IV (10:50)
[2024-02-05] MEDS: SODIUM CHLORIDE 0.9 % (FLUSH) 10 ML SYRINGE IVF (09:58)
[2024-02-05] MEDS: HEPARIN 500 UNIT/5 ML SYRINGE IVF (09:58)
[2024-02-05 10:03] VITALS: BP 105/70; PULSE 91; RESP 14; TEMP 36.2; O2SAT 97
[2024-02-17 08:10] LABS: Basophils Absolute Auto 0.04 K/uL (0.00-0.30); Basophils Percent Auto 0.4 % (0.0-3.0); Eosinophils Percent Auto 9.5 % (0.0-7.0); Hematocrit 31.2 % (33.0-51.0); Hemoglobin* 9.5 gm/dL (12.0-16.0); Immature Granulocytes Abs Auto 0.01 K/uL (0.00-0.30); Immature Granulocytes Pct Auto 0.1 %; Lymphocytes Percent Auto 7.3 % (20-44); Mean Corpuscular HGB Conc 30 gm/dL (32-36); Mean Corpuscular Hemoglobin 27 pg (26-34); Mean Corpuscular Volume 88 fL (80-100); Monocytes Percent Auto 11.2 % (0.0-11.0); Neutrophils Absolute Auto 6.89 K/uL (1.7-7.0); Neutrophils Percent Auto 71.5 % (42.0-72.0); Platelet Count* 275 K/uL (140-440); RDW Coefficient of Variation % 21.3 % (11.5-15.5); Red Blood Count 3.55 m/uL (4.00-5.20); White Blood Count* 9.64 K/uL (4.50-11.00)
[2024-02-17 08:13] LABS: Slide Review Reflex No
[2024-02-17 08:28] LABS: Albumin* 3.3 g/dL (3.3-5.0); Chloride* 106 mmol/L (96-114)
[2024-02-17 08:29] LABS: Potassium* 3.9 mmol/L (3.6-5.1); Sodium* 138 mmol/L (135-149)
[2024-02-17 08:31] LABS: Anion Gap 5 mEq/L (7-15); Aspartate Amino Transferase* 34 U/L (12-35); Bilirubin Total* 0.2 mg/dL (0.1-1.5); Blood Urea Nitrogen* 8 mg/dL (5-24); Carbon Dioxide* 27 mmol/L (20-32); Creatinine* 0.5 mg/dL (0.5-1.5); Est. Creatinine Clearance* 112.96; Estimated Glomerular Filt Rate 116 ml/min; Total Protein* 6.5 g/dL (6.0-8.3)
[2024-02-17 08:32] LABS: Alanine Aminotransferase* 22 U/L (4-35); Alkaline Phosphatase* 300 U/L (40-150); Glucose* 98 mg/dL (60-115); Magnesium* 2.1 mg/dL (1.5-2.6)
[2024-02-17] MEDS: SODIUM CHLORIDE 0.9 % (FLUSH) 10 ML SYRINGE IVF (09:33)
[2024-02-17] MEDS: dexAMETHasone 10 MG/ML inj IVP (10:47)
[2024-02-17] MEDS: LEUCOVORIN CALCIUM 100 MG, TUBING SECONDARY 1 EACH in 5 % DEXTROSE 250 ML 250 ML 170 MG IV (10:50)
[2024-02-19 09:16] VITALS: BP 101/68; PULSE 95; RESP 16; TEMP 36.8; O2SAT 96
[2024-02-19] MEDS: SODIUM CHLORIDE 0.9 % (FLUSH) 10 ML SYRINGE IVF (09:25)
[2024-02-19] MEDS: HEPARIN 500 UNIT/5 ML SYRINGE IVF (09:25)
[2024-03-02 08:14] VITALS: BP 107/72; PULSE 85; RESP 16; TEMP 37; O2SAT 96
[2024-03-02] MEDS: SODIUM CHLORIDE 0.9 % (FLUSH) 10 ML SYRINGE IVF ×2 (08:20→11:43)
[2024-03-02 08:35] LABS: Basophils Percent Auto 0.3 % (0.0-3.0); Eosinophils Percent Auto 4.7 % (0.0-7.0); Hematocrit 30.6 % (33.0-51.0); Hemoglobin* 9.3 gm/dL (12.0-16.0); Immature Granulocytes Pct Auto 0.2 %; Lymphocytes Percent Auto 5.5 % (20-44); Mean Corpuscular HGB Conc 30 gm/dL (32-36); Mean Corpuscular Hemoglobin 27 pg (26-34); Mean Corpuscular Volume 88 fL (80-100); Monocytes Percent Auto 11.2 % (0.0-11.0); Neutrophils Percent Auto 78.1 % (42.0-72.0); Platelet Count* 358 K/uL (140-440); RDW Coefficient of Variation % 21.5 % (11.5-15.5); Red Blood Count 3.48 m/uL (4.00-5.20); White Blood Count* 12.65 K/uL (4.50-11.00)
[2024-03-02 08:37] LABS: Slide Review Reflex No
[2024-03-02 08:43] LABS: Albumin* 3.3 g/dL (3.3-5.0); Chloride* 101 mmol/L (96-114); Potassium* 3.9 mmol/L (3.6-5.1); Sodium* 135 mmol/L (135-149)
[2024-03-02 08:46] LABS: Alanine Aminotransferase* 18 U/L (4-35); Alkaline Phosphatase* 318 U/L (40-150); Anion Gap 5 mEq/L (7-15); Aspartate Amino Transferase* 28 U/L (12-35); Bilirubin Total* 0.4 mg/dL (0.1-1.5); Blood Urea Nitrogen* 9 mg/dL (5-24); Carbon Dioxide* 29 mmol/L (20-32); Creatinine* 0.4 mg/dL (0.5-1.5); Est. Creatinine Clearance* 139.67; Estimated Glomerular Filt Rate 122 ml/min; Glucose* 105 mg/dL (60-115); Total Protein* 6.4 g/dL (6.0-8.3)
[2024-03-02 08:47] LABS: Calcium* 8.8 mg/dL (8.4-10.6)
[2024-03-02] MEDS: dexAMETHasone 10 MG/ML inj IVP (10:02)
[2024-03-02] MEDS: LEUCOVORIN CALCIUM 100 MG, TUBING SECONDARY 1 EACH in 5 % DEXTROSE 250 ML 250 ML 510 MG IV (11:05)
[2024-03-04] MEDS: SODIUM CHLORIDE 0.9 % (FLUSH) 10 ML SYRINGE IVF (08:56)
[2024-03-04] MEDS: HEPARIN 500 UNIT/5 ML SYRINGE IVF (08:56)
[2024-03-04 08:57] VITALS: BP 103/69; PULSE 89; RESP 16; TEMP 36.6; O2SAT 97
[2024-03-04 09:02] VITALS: BP 103/69; PULSE 89; RESP 16; TEMP 36.6; O2SAT 97
--- NOTE | 2024-03-16 15:11 | ONC.NURNOTE ---
Patient called to update the office on her health. She is still admitted to [facility]. She is waiting for her drainage to stop and her new ostomy to start producing. They are also working to switch her IV antibiotics to oral ones. She is hoping to be discharged in the next two days or so. Patient was informed that both GEOTHERMAL HVAC TECHNICIAN and MD are aware of her situation. Last week it was decided that she would be seen by PA on 03/30/2024 as planned, but this will be discussed at provider meeting this week again.
[2024-04-22] MEDS: SODIUM CHLORIDE 0.9 % (FLUSH) 10 ML SYRINGE IVF (08:25)
[2024-04-22] MEDS: HEPARIN 500 UNIT/5 ML SYRINGE IVF (08:25)
[2024-04-22 08:37] LABS: Basophils Percent Auto 0.2 % (0.0-3.0); Hematocrit 32.3 % (33.0-51.0); Hemoglobin* 9.6 gm/dL (12.0-16.0); Immature Granulocytes Pct Auto 0.1 %; Lymphocytes Percent Auto 7.4 % (20-44); Mean Corpuscular HGB Conc 30 gm/dL (32-36); Mean Corpuscular Hemoglobin 26 pg (26-34); Mean Corpuscular Volume 88 fL (80-100); Monocytes Percent Auto 9.1 % (0.0-11.0); Neutrophils Percent Auto 75.2 % (42.0-72.0); Platelet Count* 425 K/uL (140-440); RDW Coefficient of Variation % 17.1 % (11.5-15.5); Red Blood Count 3.69 m/uL (4.00-5.20); White Blood Count* 13.92 K/uL (4.50-11.00)
[2024-04-22 08:41] LABS: Slide Review Reflex No
[2024-04-22 08:52] LABS: Albumin* 3.9 g/dL (3.3-5.0); Chloride* 103 mmol/L (96-114); Potassium* 4.5 mmol/L (3.6-5.1); Sodium* 138 mmol/L (135-149)
[2024-04-22 08:54] LABS: Creatinine* 0.4 mg/dL (0.5-1.5); Est. Creatinine Clearance* 130.33; Estimated Glomerular Filt Rate 122 ml/min
[2024-04-22 08:55] LABS: Alanine Aminotransferase* 101 U/L (4-35); Anion Gap 8 mEq/L (7-15); Aspartate Amino Transferase* 128 U/L (12-35); Bilirubin Total* 0.4 mg/dL (0.1-1.5); Blood Urea Nitrogen* 11 mg/dL (5-24); Calcium* 9.6 mg/dL (8.4-10.6); Carbon Dioxide* 27 mmol/L (20-32); Glucose* 121 mg/dL (60-115); Total Protein* 7.5 g/dL (6.0-8.3)
[2024-04-22 09:03] LABS: Alkaline Phosphatase* 1566 U/L (40-150)
--- NOTE | 2024-04-24 14:01 | PC.SOCIAL ---
Social work: Per order, called pt for assessment of psychosocial need and to provide resources as needed. Karthikeyan lives lone in [place], [place]. She has a brother and mother who lives nearby. 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 She shared that she is physically able to do everything she needs for herself currently except that she can not carry heavy things. So, she is not able to carry her groceries into her house or carry her trash out of her house. She shared that her brother helps her with the trash and her taoist friends are helping her with her groceries. She shared that she attends a taoist across the street from her house. She is well supported by family, friends and taoist members and is able to ask for help when needed. She shared that her financial situation is a source of stress for her. She currently has Medical Assistance which is covering all of her current medical bills. However, she was without health insurance for a short time prior to being eligible for Medical Assistance and has a very large bill, mostly from [place], for healthcare received in that time. She is aware of the possibility of Medical Assistance covering bills up to three months prior to when she started to receive Medical Assistance and plans to call Medical Assistance to ask if she is eligible for this coverage as this would pay most of the outstanding bills. Karthikeyan has already applied for Social Security Disability and has an appointment on May 25 with the Social Security Administration. [place] assisted her in connecting with an organization called [facility] who assisted her in applying for this which was helpful. Little shared she does not know if she is going to qualify again for treatment as she does not now qualify due to her condition. She shared that the physician had given her some information and spoke with her about the option of hospice care, but that she is interested in looking into this further to in case she chooses this option in the future. Answered Little's questions about hospice care. child day care center worker offered to email resource information on hospice care and financial programs that maybe of assistance. Pt was pleased with this and provided her email to send this information to her, [email or web address] Soc[employer] worker to follow up. Little is aware of how to connect with this social services technician if she has any more questions or needs additional resources.
--- NOTE | 2024-04-27 11:47 | ONC.NURNOTE ---
PA started on covermymeds for MS contin 10 mg Q 12 hours
== END 2024-05-09 23:59 | disposition home or self-care (01) ==
LOC: CCIC 13:30
PROVIDERS: PCP Family Medicine; Referring Provider Family Medicine; Visit Provider Internal Medicine Hematology & Oncology
DX: C20 Malignant neoplasm of rectum (principal); C78.7 Secondary malignant neoplasm of liver and intrahepatic bile duct; C79.51 Secondary malignant neoplasm of bone; L70.8 Other acne; C44.319 Basal cell carcinoma of skin of other parts of face
CPT/HCPCS: 36415; 36591; 80053; 82378; 82570; 83735; 84156; 85025; 96366; 96367; 96368; 96375; 96376; 96413; 96415; 96416; 96417; 99211; 99213; 99214; 99215; G0463; A9270; J0461; J0640; J1100; J1453; J1642; J2469; J7030; J7050; J9190; J9206; J9303; Q5118

== ENCOUNTER 2024-05-25 14:22 | Outpatient (RCR) | payer BC, SELFPAY ==
--- NOTE | 2024-05-17 13:37 | PC.NURSE ---
Pt called as she was unable to fill her RX for hydrocodone as the pharmacy had a note stating to cancel RX as pt was on hospice. Pt not on hospice and needing a refill. pt states she has been taking one tab every 4 hours to take edge off pain. Even waking up in the middle pf the night with back and hip cramping. Pt has two tabs left. Spoke with Yanira Dickey, who sent a refil to pt's pharmacy. Pt updated and will call back if there are any issues with getting her RX
--- NOTE | 2024-06-01 12:48 | ONC.NURNOTE ---
Pt called today to request a hydrocodone refill. One week supply was ordered by Juliane Bhagat PA-C to [facility] in [place] on [address]. Pt has enough pills to wait to pick out hand script tomorrow when the pharmacy gets their shipment in. Support offered.
== END 2024-11-21 23:59 | disposition home or self-care (01) ==
LOC: CCIC 14:22
PROVIDERS: PCP Family Medicine; Referring Provider Family Medicine; Visit Provider Internal Medicine Hematology & Oncology
DX: C20 Malignant neoplasm of rectum (principal); C78.7 Secondary malignant neoplasm of liver and intrahepatic bile duct; L70.8 Other acne; R11.2 Nausea with vomiting, unspecified
CPT/HCPCS: 96360; 99214; G0463; J7030